=== PATIENT | female | born 1960 | race American Indian/Alaskan Native ===

== ENCOUNTER 2016-09-12 20:12 | Emergency (ER) | payer MEDICAID ==
[2016-09-12 20:13] VITALS: BMI 22.7
[2016-09-12] MEDS ORDERED: Sodium Chloride 0.9% 1,000 ML IV ONE ×2 (20:50→23:50)
--- NOTE | 2016-09-12 20:58 | C.PDOC ---
History Of Present Illness 55 year old female with a history of HIV, presents to the ED with complaints of nausea, vomiting mucous, loss of appetite, and weakness for the past few days. Patient states she has also felt dry, lightheaded, and shaky. She notes her HIV physician changed her medication to a different regimen, however she experience vaginal bleeding and the regime was stopped. She has not taken any medication for the past 4 months. Her last admission was a year ago and she has no other complaints at this time. Time Seen by Provider: 09/12/16 20:35 Chief Complaint (Nursing): Medical Clearance History Per: Patient History/Exam Limitations: no limitations Onset/Duration Of Symptoms: Days Current Symptoms Are (Timing): Still Present Severity: Mild Past Medical History Reviewed: Historical Data, Nursing Documentation, Vital Signs Vital Signs: Last Vital Signs Temp 99.5 F 09/12/16 20:33 Pulse 83 09/12/16 20:33 Resp 16 09/12/16 20:33 BP 142/93 H 09/12/16 20:33 Pulse Ox 97 09/12/16 21:01 - Medical History PMH: HIV, HTN, Pneumonia Family History: States: Unknown Family Hx - Social History Hx Tobacco Use: No Hx Alcohol Use: No Hx Substance Use: No - Immunization History Hx Tetanus Toxoid Vaccination: No Hx Influenza Vaccination: No Hx Pneumococcal Vaccination: No Review Of Systems Except As Marked, All Systems Reviewed And Found Negative. Constitutional: Positive for: Weakness, Other (+Loss of appetite +Dry). Negative for: Fever Cardiovascular: Positive for: Light Headedness. Negative for: Chest Pain Respiratory: Negative for: Cough, Shortness of Breath Gastrointestinal: Positive for: Nausea, Vomiting Neurological: Positive for: Other (+Shaky) Physical Exam - Physical Exam Appears: Non-toxic, No Acute Distress, Other (+Thin) Skin: Normal Color, Warm, Dry Head: Atraumatic, Normacephalic Eye(s): bilateral: Normal Inspection Oral Mucosa: Dry Neck: Supple Chest: Symmetrical, No Deformity Cardiovascular: Rhythm Regular, No Murmur Respiratory: Normal Breath Sounds, No Accessory Muscle Use, No Rales, No Rhonchi , No Wheezing Gastrointestinal/Abdominal: Soft, No Tenderness, No Distention, No Guarding, No Rebound Extremity: Normal ROM Neurological/Psych: Oriented x3, Normal Speech, Normal Cognition ED Course And Treatment - Laboratory Results Result Diagrams: 09/12/16 21:17 09/12/16 21:17 Lab Interpretation: Abnormal (Anemia with Hgb 7.3, Hct 21.9, Bun 25 Cr 1.3, urine nitrite+ with 43 WBC/HPF) O2 Sat by Pulse Oximetry: 97 (Room air) Pulse Ox Interpretation: Normal Progress Note: Blood work and Urinalysis ordered and reviewed. Patient treated with IV fluids and Rocephin. Vitals are stable. Reevaluation Time: 23:05 Reassessment Condition: Improved (Patient feels better after IV fluids.) Disposition - Disposition Referrals: at [facility] [Outside] Disposition: HOME/ ROUTINE Disposition Time: 23:05 Condition: IMPROVED Additional Instructions: Encourage plenty of fluids and rest. Follow up with urine culture results. Prescriptions: Nitrofurantoin Macrocrystals [Macrobid] 1 cap PO BID #14 cap Ondansetron ODT [Zofran ODT] 1 odt PO BID PRN #6 odt PRN Reason: Nausea/Vomiting Instructions: Urinary Tract Infection in Women (ED), Dehydration (ED) - Clinical Impression Clinical Impression: UTI (urinary tract infection), Dehydration - Scribe Statement The provider has reviewed the documentation as recorded by the Scribe Matthias Wallace. Provider Attestation: All medical record entries made by the Scribe were at my direction and personally dictated by me. I have reviewed the chart and agree that the record accurately reflects my personal performance of the history, physical exam, medical decision making, and the department course for this patient. I have also personally directed, reviewed, and agree with the discharge instructions and disposition.
[2016-09-12] MEDS ORDERED: Sodium Chloride 0.9% 1,000 ML ONE (21:21)
[2016-09-12 21:24] LABS: BASO % 0.5 % (0.0-2.0); EOS # 0.2 K/uL (0.0-0.7); EOS % 2.1 % (0.0-4.0); HEMATOCRIT 21.9 % (34.0-47.0); LYMPH # 2.1 K/uL (1.0-4.3); LYMPH % 21.3 % (20.0-40.0); MEAN CORPUSCULAR HEMOGLOBIN 29.6 pg (27.0-31.0); MEAN CORPUSCULAR HGB CONC 33.1 g/dL (33.0-37.0); MEAN PLATELET VOLUME 6.9 fL (7.2-11.7); MONO # 0.8 K/uL (0.0-0.8); MONO % 7.6 % (0.0-10.0); NRBC % 0.1 % (0.0-2.0); RED CELL DISTRIBUTION WIDTH 16.7 % (11.5-14.5); WHITE BLOOD COUNT 9.9 K/uL (4.8-10.8)
[2016-09-12 21:26] LABS: MEAN CELL VOLUME 89.4 fL (81.0-99.0)
[2016-09-12 21:30] LABS: POTASSIUM 3.7 mmol/L (3.6-5.2)
[2016-09-12 21:32] LABS: ALB/GLOB RATIO 0.6 (1.0-2.1); BILIRUBIN,TOTAL 0.3 mg/dL (0.2-1.3); TOTAL PROTEIN 7.9 g/dL (6.3-8.3)
[2016-09-12 21:33] LABS: CALCIUM 7.4 mg/dl (8.6-10.4)
[2016-09-12 21:54] LABS: RBC URINE 14 /hpf (0-3); URINE BACTERIA FEW (<OCC); URINE BILIRUBIN NEGATIVE (NEGATIVE); URINE BLOOD 1+ (NEGATIVE); URINE COLOR Yellow (YELLOW); URINE GLUCOSE (UA) NORMAL (Normal); URINE KETONE NEGATIVE (NEGATIVE); URINE LEUKOCYTE ESTERASE 1+ Leu/uL (Negative); URINE PROTEIN 2+ mg/dL (NEGATIVE); URINE UROBILINOGEN NORMAL mg/dL (0.2-1.0); WBC URINE 43 /hpf (0-5)
[2016-09-12] MEDS ORDERED: cefTRIAXone IV 1 gm in Dextros 50 ML IVPB ONE ×2 (21:57→22:06)
[2016-09-13 01:18] VITALS: BP 144/70; PULSE 87; RESP 20; TEMP 98.6; O2SAT 100
== END 2016-09-13 01:22 | disposition home or self-care (01) ==
LOC: C.ER 20:12
DX: N39.0 Urinary tract infection, site not specified (principal); E86.0 Dehydration
CPT/HCPCS: 80053; 81001; 85025; 87086; 96361; 96365; 99283; J0696; J7040

== ENCOUNTER 2016-10-20 15:18 | Inpatient (IN) | payer MEDICAID ==
[2016-10-20 15:34] VITALS: BMI 19.5
[2016-10-20 16:26] LABS: BASO % 0.3 % (0.0-2.0); EOS # 0.2 K/uL (0.0-0.7); EOS % 1.2 % (0.0-4.0); HEMATOCRIT 28.8 % (34.0-47.0); LYMPH # 2.1 K/uL (1.0-4.3); LYMPH % 14.1 % (20.0-40.0); MEAN CORPUSCULAR HEMOGLOBIN 30.8 pg (27.0-31.0); MEAN CORPUSCULAR HGB CONC 31.7 g/dL (33.0-37.0); MEAN PLATELET VOLUME 8.1 fL (7.2-11.7); MONO % 6.5 % (0.0-10.0); RED CELL DISTRIBUTION WIDTH 21.7 % (11.5-14.5)
[2016-10-20 16:30] LABS: MEAN CELL VOLUME 97.1 fL (81.0-99.0); WHITE BLOOD COUNT 15.2 K/uL (4.8-10.8)
[2016-10-20 16:35] LABS: POTASSIUM 5.9 mmol/L (3.6-5.2)
[2016-10-20 16:38] LABS: ALB/GLOB RATIO 0.5 (1.0-2.1); MAGNESIUM 1.8 mg/dL (1.6-2.3); TOTAL PROTEIN 9.1 g/dL (6.3-8.3)
--- NOTE | 2016-10-20 16:55 | RAD ---
HISTORY: HIV pos with cough/fever, right rales COMPARISON: Chest x-ray performed 08/25/15, CT chest performed 10/20/16 TECHNIQUE: Chest PA and lateral FINDINGS: LUNGS: Mild interstitial prominence may reflect infection or edema. Right perihilar opacity, likely infiltrate. Mild patchy opacity in the right upper lobe, likely infiltrate. Interval resolution of previously demonstrated right lower lobe and left lower lobe pneumonia. Please note that chest x-ray has limited sensitivity for the detection of pulmonary masses. PLEURA: No significant pleural effusion identified. No definite pneumothorax . CARDIOVASCULAR: Cardiomegaly. OSSEOUS STRUCTURES: No acute osseous abnormality identified. VISUALIZED UPPER ABDOMEN: Unremarkable. OTHER FINDINGS: None. IMPRESSION: Mild interstitial prominence may reflect infection or edema. Probable multifocal pneumonia with right perihilar and right upper lobe opacities. Interval resolution of previously demonstrated right lower lobe and left lower lobe pneumonia.
[2016-10-20] MEDS ORDERED: TRIMETHOPRIM IVPB STA (17:04)
[2016-10-20] MEDS ORDERED: WATER IVPB STA (17:04)
[2016-10-20] MEDS ORDERED: SULFAMETHOXAZOLE IVPB STA (17:04)
[2016-10-20] MEDS ORDERED: DEXTROSE 5% IVPB STA (17:04)
[2016-10-20] MEDS ORDERED: Moxifloxacin IV 400mg/250ml NS 250 ML IV ONE (17:04)
[2016-10-20] MEDS ORDERED: Piperacillin/Tazobact 3.375 gm 100 ML IV STA (17:12)
--- NOTE | 2016-10-20 17:16 | C.PDOC ---
History Of Present Illness 56 year old female presents to the ED with complaints of a productive cough, generalized weakness, fever, and chills for three days. Patient notes a history of HIV and sees a doctor in [facility]. The doctor took the patient off of HIV medications due to kidney problems. She also stated that her "CD4 count was low." Patient denies any vomiting, diarrhea, or other complaints at this time. Time Seen by Provider: 10/20/16 15:45 Chief Complaint (Nursing): Cough, Cold, Congestion History Per: Patient History/Exam Limitations: no limitations Onset/Duration Of Symptoms: Days Current Symptoms Are (Timing): Still Present Recent travel outside of the [place]: No Past Medical History Reviewed: Historical Data, Nursing Documentation, Vital Signs Vital Signs: Last Vital Signs Temp 103.1 F H 10/20/16 17:28 Pulse 116 H 10/20/16 17:28 Resp 24 10/20/16 17:28 BP 143/88 10/20/16 17:28 Pulse Ox 94 L 10/20/16 17:28 - Medical History PMH: HIV, HTN, Pneumonia Family History: States: Unknown Family Hx - Social History Hx Tobacco Use: No Hx Alcohol Use: No Hx Substance Use: No - Immunization History Hx Tetanus Toxoid Vaccination: Yes Hx Influenza Vaccination: Yes Hx Pneumococcal Vaccination: Yes Review Of Systems Constitutional: Positive for: Fever, Chills, Weakness. Negative for: Sweats Respiratory: Positive for: Cough (productive ) Gastrointestinal: Negative for: Nausea, Vomiting, Abdominal Pain, Diarrhea Physical Exam - Physical Exam Appears: Chronically Ill Skin: Warm, Dry Eye(s): bilateral: Normal Inspection Neck: Supple Respiratory: Rales (right side rales ), No Rhonchi, No Stridor, No Wheezing Gastrointestinal/Abdominal: Soft, No Tenderness, No Distention, No Guarding, No Rebound Extremity: Normal ROM, No Tenderness Neurological/Psych: Oriented x3 ED Course And Treatment - Laboratory Results Result Diagrams: 10/20/16 16:22 10/20/16 16:22 ECG Rhythm: Sinus Tachycardia, ST/T Changes (in lateral leads) Rate From EC O2 Sat by Pulse Oximetry: 95 - Radiology CXR: Viewed By Me, Read By Radiologist CXR Interpretation: Yes: Infiltrates (right lung) Progress Note: HISTORY: HIV pos with cough/fever, right rales. COMPARISON: Chest x-ray performed 08/25/15, CT chest performed 10/20/16. TECHNIQUE: Chest PA and lateral. FINDINGS: LUNGS: Mild interstitial prominence may reflect infection or edema. Right perihilar opacity, likely infiltrate. Mild patchy opacity in the right upper lobe, likely infiltrate. Interval resolution of previously demonstrated right lower lobe and left lower lobe pneumonia. Please note that chest x-ray has limited sensitivity for the detection of pulmonary masses. PLEURA: No significant pleural effusion identified. No definite pneumothorax . CARDIOVASCULAR: Cardiomegaly. OSSEOUS STRUCTURES: No acute osseous abnormality identified. VISUALIZED UPPER ABDOMEN: Unremarkable. OTHER FINDINGS: None. IMPRESSION: Mild interstitial prominence may reflect infection or edema. Probable multifocal pneumonia with right perihilar and right upper lobe opacities. Interval resolution of previously demonstrated right lower lobe and left lower lobe pneumonia. Zosyn IV and Bactrim IV ordered. - Physician Consult Information Physician Contacted: John Schneider Jr. Outcome Of Conversation: accepted to med/surg for admsiion Disposition - Disposition Disposition: HOSPITALIZED Disposition Time: 17:15 Condition: FAIR - Clinical Impression Clinical Impression: Pneumonia associated with acquired immune deficiency syndrome (AIDS), Hyperkalemia, Renal insufficiency - Scribe Statement The provider has reviewed the documentation as recorded by the Scribe Ramonita Segovia All medical record entries made by the Scribe were at my direction and personally dictated by me. I have reviewed the chart and agree that the record accurately reflects my personal performance of the history, physical exam, medical decision making, and the department course for this patient. I have also personally directed, reviewed, and agree with the discharge instructions and disposition. Decision To Admit - Pt Status Changed To: Hospital Disposition Of: Inpatient - Admit Certification Admit to Inpatient:: After my assessment, the patient will require hospitalization for at least two midnights. This is because of the severity of symptoms shown, intensity of services needed, and/or the medical risk in this patient being treated as an outpatient. - InPatient: Physician Admission Certification: I certify that this patient requires 2 or more midnights of care for the following reason:: Patient with AIDS and pneumonia will need more than 2 days of IV antibiotics. - . Bed Request Type: Regular Admitting Physician: John Schneider Jr. Patient Diagnosis: Pneumonia associated with acquired immune deficiency syndrome (AIDS)
[2016-10-20] MEDS ORDERED: Piperacillin/Tazobact 3.375 gm 100 ML IVPB ONE (17:24)
[2016-10-20] MEDS ORDERED: Sod Polystyrene Sulf 15 gm/60 ml Oral Susp PO STA (17:50)
[2016-10-20] MEDS ORDERED: SULFAMETHOXAZOLE IVPB ONE ×2 (18:00)
[2016-10-20] MEDS ORDERED: WATER IVPB ONE ×2 (18:00)
[2016-10-20] MEDS ORDERED: TRIMETHOPRIM IVPB ONE ×2 (18:00)
[2016-10-20] MEDS ORDERED: DEXTROSE 5% IVPB ONE ×2 (18:00)
[2016-10-20] MEDS ORDERED: Sod Polystyrene Sulf 15 gm/60 ml Oral Susp ONE (18:09)
[2016-10-20 18:16] LABS: RBC URINE 70 /hpf (0-3); URINE BACTERIA RARE (<OCC); URINE BILIRUBIN NEGATIVE (NEGATIVE); URINE BLOOD 3+ (NEGATIVE); URINE COLOR Yellow (YELLOW); URINE GLUCOSE (UA) NORMAL (Normal); URINE KETONE NEGATIVE (NEGATIVE); URINE LEUKOCYTE ESTERASE 2+ Leu/uL (Negative); URINE PROTEIN 3+ mg/dL (NEGATIVE); URINE UROBILINOGEN NORMAL mg/dL (0.2-1.0); WBC URINE 75 /hpf (0-5)
[2016-10-20] MEDS ORDERED: Sodium Bicarbonate (8.4%) 50 Meq Syringe IVP ONE (19:30)
[2016-10-20] MEDS ORDERED: VANCOMYCIN IVPB ONE (20:00)
[2016-10-20] MEDS ORDERED: SODIUM CHLORIDE 0.9% IVPB ONE (20:00)
--- NOTE | 2016-10-20 20:14 | CP.PCM.HP ---
History of Present Illness - History of Present Illness History of Present Illness: CC: "cough and weak" HPI: Patient is a 56 year old female with medical history significant for AIDS and hypertension who presents to the emergency room for weakness and cough x 1 week. Patient reports cough is productive of beige colored sputum and denies hemoptysis; however, sputum sample at bedside is blood -tinged. Patient states she has mild shortness of breath, exacerbated with walking up stairs. She admits to feeling hot flashes but denies chills. Patient notes she has night sweats but reports this is typical for her. Patient also reports significant weight loss of approximately 60 pounds but cannot specify time frame. Patient states she was diagnosed with HIV 35 years ago and contracted it from having intercourse with her . Her infectious disease doctor is Dr. Hitchcock in [place], [place]. Patient reports her last CD4 count was <100. She currently is not on HAART therapy due to vaginal clotting which occurred with new antiretroviral medication she was started on and kidney injury. Patient is supposed to follow-up with Dr. Hitchcock on 11/06/16. She notes previous pneumonia infection was approximately one year ago. Patient is non-compliant with taking Bactrim. Patient also complains of cramping to her bilateral hands which started earlier today. She denies chest pain, palpitations , abdominal pain, nausea, vomiting, diarrhea, and constipation. She does complain of increased urinary frequency. PMH: see above Medications: currently not taking medications Allergies: NKDA Family History: Mother - Lung CA and Brain CA, Sister - Colon CA recently diagnosed at age 53 Surgery History: Social: Smokes 1 ppd on and off since age 18. Drinks alcohol socially. Denies illicit drug use. Present on Admission - Present on Admission Any Indicators Present on Admission: No History of DVT/PE: No History of Uncontrolled Diabetes: No Urinary Catheter: No Decubitus Ulcer Present: No Review of Systems - Constitutional Constitutional: Excessive Sweating, Fever, Lethargy, Weight Loss, Weakness. absent: Chills, Headache - EENT Eyes: absent: Blurred Vision, Change in Vision Nose/Mouth/Throat: absent: Nasal Congestion, Nasal Discharge - Cardiovascular Cardiovascular: Dyspnea on Exertion. absent: Chest Pain, Chest Pain with Activity, Dyspnea, Leg Edema, Lightheadedness, Palpitations - Respiratory Respiratory: Cough, Dyspnea on Exertion, Change in Mucous Color. absent: Wheezing, Chest Congestion - Gastrointestinal Gastrointestinal: absent: Abdominal Pain, Diarrhea, Hematemesis, Nausea, Vomiting - Genitourinary Genitourinary: Urinary Frequency - Musculoskeletal Musculoskeletal: absent: Back Pain - Integumentary Integumentary: Dry Skin. absent: Changing Lesions, New Lesions - Neurological Neurological: Weakness. absent: Syncope, Tingling - Psychiatric Psychiatric: absent: Anxiety, Depression Past Patient History - Past Medical History & Family History Past Medical History?: Yes - Past Social History Smoking Status: Heavy Smoker > 10 Cigarettes Daily - CARDIAC Hx Cardiac Disorders: Yes Hx Hypertension: Yes - PULMONARY Hx Respiratory Disorders: Yes Hx Pneumonia: Yes - NEUROLOGICAL Hx Neurological Disorder: No - HEENT Hx HEENT Problems: No - RENAL Hx Chronic Kidney Disease: No - ENDOCRINE/METABOLIC Hx Endocrine Disorders: No - HEMATOLOGICAL/ONCOLOGICAL Hx Blood Disorders: Yes Hx Human Immunodeficiency Virus (HIV): Yes - INTEGUMENTARY Hx Dermatological Problems: No - MUSCULOSKELETAL/RHEUMATOLOGICAL Hx Musculoskeletal Disorders: No Hx Falls: No - GASTROINTESTINAL Hx Gastrointestinal Disorders: Yes Hx Hemorrhoids: Yes - GENITOURINARY/GYNECOLOGICAL Hx Genitourinary Disorders: No - PSYCHIATRIC Hx Psychophysiologic Disorder: No Hx Substance Use: No - SURGICAL HISTORY Hx Surgeries: Yes Hx Section: Yes - ANESTHESIA Hx Anesthesia: Yes Hx Anesthesia Reactions: No Hx Malignant Hyperthermia: No Meds Allergies/Adverse Reactions: Allergies Allergy/AdvReac Type Severity Reaction Status Date / Time No Known Allergies Allergy Verified 10/20/16 15:31 Physical Exam - Constitutional Appears: Non-toxic, No Acute Distress, Chronically Ill - Head Exam Head Exam: ATRAUMATIC, NORMAL INSPECTION, NORMOCEPHALIC - Eye Exam Eye Exam: EOMI, Normal appearance, PERRL - ENT Exam ENT Exam: Mucous Membranes Dry Additional comments: white film noted on tongue - Neck Exam Neck exam: Positive for: Full Rom, Normal Inspection - Respiratory Exam Respiratory Exam: Decreased Breath Sounds. absent: Wheezes Additional comments: decreased breath sound to posterior right lower lobe - Cardiovascular Exam Cardiovascular Exam: Tachycardia, +S1, +S2 - GI/Abdominal Exam GI & Abdominal Exam: Normal Bowel Sounds, Soft. absent: Distended, Firm - Extremities Exam Extremities exam: Positive for: pedal pulses present. Negative for: pedal edema , tenderness Additional comments: xerosis and ichythosis to bilateral lower extremities - Neurological Exam Neurological exam: Alert, CN II-XII Intact, Oriented x3 - Psychiatric Exam Psychiatric exam: Normal Affect, Normal Mood - Skin Skin Exam: Dry, Intact Results - Vital Signs Recent Vital Signs: Last Vital Signs Temp 100.1 F H 10/20/16 18:59 Pulse 86 10/20/16 19:29 Resp 18 10/20/16 19:29 BP 115/72 10/20/16 18:59 Pulse Ox 95 10/20/16 18:59 - Labs Result Diagrams: 10/20/16 16:22 10/20/16 16:22 Labs: Laboratory Results - last 24 hr 10/20/16 17:45 Urine Color Yellow Urine Clarity Hazy Urine pH 6.0 Ur Specific [place] 1.011 Urine Protein 3+ H Urine Glucose (UA) Normal Urine Ketones Negative Urine Blood 3+ H Urine Nitrate Negative Urine Bilirubin Negative Urine Urobilinogen Normal Ur Leukocyte Esterase 2+ H Urine WBC (Auto) 75 H Urine RBC (Auto) 70 H Ur Squamous Epith Cells 4 Urine Bacteria Rare Assessment & Plan - Assessment and Plan (Free Text) Assessment: Pneumonia Patient has history of AIDS (CD4 count stated to be <100) Community Acquired vs. PCP vs. Tuberculosis Will get Quantiferon GOLD, AFB Sputum Cx q3h x3, keep in isolation More likely Community Acquired Pneumonia as patient did not desaturate when ambulated Meets sepsis criteria - leukocytosis 15.2, febrile 103.1F, tachycardic 116. LDH elevated 1066. Blood pressure is stable 143/88. Given stat dose of Bactrim 280 mg IV and Zosyn IV once Azithromycin 1200 mg po once given for MAC prophylaxis Vancomycin 840 mg IVPB once given Started on Diflucan 200 mg IVPB daily Started on Rocephin 1 gm IVPB daily Infectious Disease, Dr. Gonzales, consulted. Help appreciated. CXR: Mild interstitial prominence which may reflect edema. Right perihilar opacity, likely infiltrate. Interval resolution of previously diagnosed right lower lobe and left lower lobe pneumonia. Cardiomegaly. AIDS f/u ID, Dr. Gonzales, for recs Antibiotics and prophylaxis as above f/u CD3/CD4/CD8 Started on Nystatin 5 ml po QID for thrush Hyperkalemia Potassium 5.9 Kayexalate given 1 amp of Sodium Bicarbonate given Normal Saline with 1 amp of Sodium Bicarbonate IV @ 150cc Recheck Potassium Metabolic Anion Gap of 12 Monitor [place]OVER BUN/CR: 35/1.8 Creatinine Clearance of 32 Metabolic Anion Gap of 12 Will calculate Urine Anion Gap likely secondary to both renal failure possibly secondary to antiretroviral agents and/or Renal Tubular Acidosis Type IV Anemia likely anemia of chronic disease Hemoglobin 9.1, hematocrit 28.8, MCV 97.1 B12 deficiency previously f/u B12 and folate level Monitor Prophylaxis Heparin 5000 U SC Q8h Protonix 40 mg IVP daily SCDs - Date & Time Date: 10/20/16 Time: 20:42
[2016-10-20] MEDS: Nystatin 100,000 Units/ml Oral Susp 5 ml UD PO SCH (22:21)
[2016-10-20] MEDS: Tmp-Smz 800 mg-160 mg DS Tab PO SCH (22:27)
[2016-10-20] MEDS: DiphenhydrAMINE 50 mg/ml Inj IVP PRN (22:35)
[2016-10-21 06:25] LABS: VENOUS BLOOD GAS BASE EXCESS -8.1 mmol/L (0.0-2.0); VENOUS BLOOD GAS PCO2 27 mmHg (40-60); VENOUS BLOOD PH 7.37 (7.32-7.43)
[2016-10-21 08:08] LABS: BASO % 0.1 % (0.0-2.0); EOS # 0.1 K/uL (0.0-0.7); EOS % 0.9 % (0.0-4.0); HEMATOCRIT 23.7 % (34.0-47.0); LYMPH # 0.6 K/uL (1.0-4.3); LYMPH % 3.8 % (20.0-40.0); MEAN CELL VOLUME 97.4 fL (81.0-99.0); MEAN CORPUSCULAR HEMOGLOBIN 30.9 pg (27.0-31.0); MEAN CORPUSCULAR HGB CONC 31.8 g/dL (33.0-37.0); MEAN PLATELET VOLUME 8.1 fL (7.2-11.7); MONO # 0.4 K/uL (0.0-0.8); NRBC % 0.1 % (0.0-2.0); PLATELET COUNT 156 K/uL (130-400); RED CELL DISTRIBUTION WIDTH 20.7 % (11.5-14.5); WHITE BLOOD COUNT 14.8 K/uL (4.8-10.8)
[2016-10-21 08:14] LABS: POTASSIUM 4.1 mmol/L (3.6-5.2)
[2016-10-21 08:20] LABS: POTASSIUM 4.2 mmol/L (3.6-5.2)
[2016-10-21 08:22] LABS: ALB/GLOB RATIO 0.6 (1.0-2.1); BILIRUBIN,TOTAL 0.6 mg/dL (0.2-1.3); CALCIUM 7.1 mg/dl (8.6-10.4); MAGNESIUM 1.6 mg/dL (1.6-2.3); TOTAL PROTEIN 7.2 g/dL (6.3-8.3)
--- NOTE | 2016-10-21 08:32 | CP.PCM.PN ---
<Viviana Lopez - Last Filed: 10/21/16 14:51> Subjective - Date & Time of Evaluation Date of Evaluation: 10/21/16 Time of Evaluation: 08:27 - Subjective Subjective: Patient seen and examined at bedside. Patient states she feels her breathing is improved. She denies palpitations or rapid heart rate. Patient reports she has tightness to her chest from constant coughing. She also reports multiple episodes of diarrhea since last night. Patient denies nausea, vomiting, and abdominal pain. Objective - Vital Signs/Intake and Output Vital Signs (last 24 hours): Temp Pulse Resp BP Pulse Ox 100.0 F H 119 H 20 96/52 L 95 10/21/16 08:02 10/21/16 08:02 10/21/16 08:02 10/21/16 08:02 10/21/16 08:02 Intake and Output: 10/21/16 10/21/16 06:59 18:59 Intake Total 1200 Balance 1200 - Medications Medications: Current Medications Acetaminophen (Tylenol 325mg Tab) 650 mg PO Q6 PRN PRN Reason: Fever >100.4 F Diphenhydramine HCl (Benadryl) 50 mg IVP Q6H PRN PRN Reason: Itching / Pruritus Last Admin: 10/20/16 22:35 Dose: 50 mg Heparin Sodium (Porcine) (Heparin) 5,000 units SC Q8 [facility] Last Admin: 10/21/16 05:27 Dose: 5,000 units Hydrocortisone Sodium Succinate (Solu-Cortef) 50 mg IV Q8H [facility] Fluconazole (Diflucan Iv 200 Mg/100 Ml Ns) 100 mls @ 100 mls/hr IVPB DAILY [facility] Ceftriaxone Sodium (Rocephin Iv 1 Gm Duplex) 50 mls @ 100 mls/hr IVPB DAILY [facility] Sodium Bicarbonate 50 meq/ (Sodium Chloride) 1,050 mls @ 200 mls/hr IV .Q5H15M [facility] Nicotine (Nicoderm Cq) 1 patch TD DAILY [facility] Nystatin (Nystatin Oral Susp) 5 ml PO QID [facility] Last Admin: 10/20/16 22:21 Dose: 5 ml Pantoprazole Sodium (Protonix Inj) 40 mg IVP DAILY [facility] Trimethoprim/Sulfamethoxazole (Bactrim Ds Tab) 1 tab PO Q12H [facility] Last Admin: 10/20/16 22:27 Dose: 1 tab - Labs Labs: 10/21/16 07:58 10/21/16 07:58 PT 11.5 SECONDS (9.7-12.2) 10/21/16 07:58 INR 1.0 10/21/16 07:58 APTT 37 SECONDS (21-34) H 10/21/16 07:58 - Constitutional Appears: Non-toxic, No Acute Distress, Chronically Ill - Head Exam Head Exam: ATRAUMATIC, NORMAL INSPECTION, NORMOCEPHALIC - Eye Exam Eye Exam: EOMI, Normal appearance - ENT Exam ENT Exam: Mucous Membranes Moist - Respiratory Exam Respiratory Exam: Wheezes Additional comments: expiratory wheezing, decreased breath sounds to right posterior lower lobe on auscultation - Cardiovascular Exam Cardiovascular Exam: Tachycardia, +S1, +S2. absent: Gallop - GI/Abdominal Exam GI & Abdominal Exam: Soft, Normal Bowel Sounds. absent: Firm, Rigid, Tenderness - Extremities Exam Extremities Exam: absent: Tenderness Additional comments: xerosis to bilateral lower extremities - Neurological Exam Neurological Exam: Alert, Awake, Oriented x3 - Psychiatric Exam Psychiatric exam: Normal Affect, Normal Mood - Skin Skin Exam: Dry Assessment and Plan - Assessment and Plan (Free Text) Assessment: Pneumonia Patient has history of AIDS (CD4 count stated to be <100) Community Acquired vs. PCP vs. Tuberculosis vs. Histoplasmosis vs. Mycobacterium Avium Intracellulare f/u Quantiferon GOLD, AFB Sputum Cx q3h x3, keep in isolation More likely Community Acquired Pneumonia as patient did not desaturate when ambulated Meets sepsis criteria - leukocytosis 14.8, bandemia of 20, febrile 100.0F, tachycardic 119. LDH elevated 1066. Blood pressure dropping to 96/52. Given stat dose of Bactrim 280 mg IV and Zosyn IV once Azithromycin 1200 mg po once given for TANA prophylaxis Vancomycin 840 mg IVPB once given Continue on Diflucan 200 mg IVPB daily Continue on Rocephin 1 gm IVPB daily Start Azithromycin 500 mg IVPB in 48hrs from stat oral dose given Infectious Disease, Dr. Gonzales, consulted. Help appreciated. CXR: Mild interstitial prominence which may reflect edema. Right perihilar opacity, likely infiltrate. Interval resolution of previously diagnosed right lower lobe and left lower lobe pneumonia. Cardiomegaly. f/u stat CT chest without contrast AIDS f/u ID, Dr. Gonzales, for recs Antibiotics and prophylaxis as above f/u CD3/CD4/CD8 Started on Nystatin 5 ml po QID for thrush Elevated d-dimer d-dimer 589 possible DVT vs. Malignancy f/u bilateral duplex scan of LE Started on therapeutic lovenox renally adjusted - Lovenox 60 mg HS daily Hyperkalemia Responded to sodium bicarbonate. Potassium 4.2 Kayexalate given 1 amp of Sodium Bicarbonate given Normal Saline with 1 amp of Sodium Bicarbonate IV @ 150cc Recheck Potassium Corrected Metabolic Anion Gap of 14.5 Monitor Adrenal Insufficiency Hyperkalemia responsive to sodium bicarbonate Patient becoming hypotensive, pressure of 96/52 Start Hydrocortisone 50 mg IVPB q8h [place] worsening BUN/CR: 36/2.5 Creatinine Clearance of 23 VBG: pH 7.37, pCO2 27 Metabolic Anion Gap of 12 Will calculate Urine Anion Gap likely secondary to both renal failure possibly secondary to antiretroviral agents and/or Renal Tubular Acidosis Type IV Anemia likely anemia of chronic disease Hemoglobin 9.1, hematocrit 28.8, MCV 97.1 B12 deficiency previously B12 481 folate 10.2 Monitor Prophylaxis Therapeutic Lovenox 60 mg SC daily Protonix 40 mg IVP daily [facility]CD[facility] <John Schneider Jr. - Last Filed: 10/28/16 11:16> Objective - Vital Signs/Intake and Output Vital Signs (last 24 hours): Temp Pulse Resp BP Pulse Ox 97.3 F L 110 H 18 135/94 H 94 L 10/28/16 07:30 10/28/16 07:30 10/28/16 07:30 10/28/16 07:30 10/28/16 07:30 - Medications Medications: Current Medications Abacavir Sulfate (Ziagen) 300 mg PO BID [facility] Last Admin: 10/28/16 09:55 Dose: 300 mg Abacavir/Lamivudine (Epzicom) 1 tab PO DAILY [facility] Last Admin: 10/28/16 09:55 Dose: 1 tab Acetaminophen (Tylenol 325mg Tab) 650 mg PO Q6 PRN PRN Reason: Fever >100.4 F Last Admin: 10/24/16 07:44 Dose: 650 mg Albuterol/Ipratropium (Duoneb 3 Mg/0.5 Mg (3 Ml) Ud) 3 ml INH RQ6 [facility] Last Admin: 10/28/16 07:35 Dose: 3 ml Azithromycin (Zithromax) 1,200 mg PO QWK [facility] Calcium Acetate (Phoslo) 667 mg PO TIDCC [facility] Last Admin: 10/28/16 09:59 Dose: Not Given Darunavir (Prezista) 800 mg PO DAILY [facility] Last Admin: 10/28/16 09:55 Dose: 800 mg Docusate Sodium (Colace) 100 mg PO TID [facility] Last Admin: 10/28/16 09:53 Dose: 100 mg Guaifenesin/Dextromethorphan (Robitussin Dm) 5 ml PO Q4H PRN PRN Reason: Cough Last Admin: 10/25/16 21:47 Dose: 5 ml Fluconazole (Diflucan Iv 200 Mg/100 Ml Ns) 100 mls @ 100 mls/hr IVPB DAILY [facility] Last Admin: 10/28/16 09:52 Dose: 100 mls/hr Cefepime HCl (Maxipime Iv 1 Gm Premix) 1 gm in 50 mls @ 100 mls/hr IVPB Q12H [facility] Last Admin: 10/28/16 05:21 Dose: 100 mls/hr Clindamycin Phosphate (Cleocin) 600 mg in 50 mls @ 100 mls/hr IVPB Q8H [facility] Last Admin: 10/28/16 07:43 Dose: 100 mls/hr Multi-Ingredient Ointment (Prep-Hem) 0 ea TOP TID [facility] Last Admin: 10/28/16 09:57 Dose: Not Given Nicotine (Nicoderm Cq) 1 patch TD DAILY [facility] Last Admin: 10/28/16 09:55 Dose: 1 patch Nystatin (Nystatin Oral Susp) 5 ml PO QID [facility] Last Admin: 10/28/16 09:56 Dose: 5 ml Pantoprazole Sodium (Protonix Ec Tab) 40 mg PO DAILY [facility] Last Admin: 10/28/16 09:58 Dose: 40 mg Ritonavir (Norvir) 100 mg PO BIDBS [facility] Last Admin: 10/28/16 07:43 Dose: 100 mg - Labs Labs: 10/27/16 06:36 10/27/16 06:36 PT 11.5 SECONDS (9.7-12.2) 10/21/16 07:58 INR 1.0 10/21/16 07:58 APTT 37 SECONDS (21-34) H 10/21/16 07:58 Attending/Attestation - Attestation I have personally seen and examined this patient.: Yes I have fully participated in the care of the patient.: Yes I have reviewed all pertinent clinical information, including history, physical exam and plan: Yes Notes (Text): 10/28/16 11:16 Agree with resident note and findings
[2016-10-21] MEDS: Tmp-Smz 800 mg-160 mg DS Tab PO SCH (09:19)
[2016-10-21] MEDS: Nystatin 100,000 Units/ml Oral Susp 5 ml UD PO SCH ×4 (09:20→22:13)
[2016-10-21] MEDS: Fluconazole IV 200mg/100 ml NS 100 ML IVPB SCH (09:20)
[2016-10-21 09:25] LABS: FOLATE 10.2 ng/mL
[2016-10-21 09:52] LABS: TOTAL CELLS COUNTED 100
[2016-10-21 09:53] LABS: NEUTROPHIL 74 % (50-75)
[2016-10-21] MEDS ORDERED: Tmp-Smz 800 mg-160 mg DS Tab PO SCH (10:00)
[2016-10-21] MEDS ORDERED: cefTRIAXone IV 1 gm in Dextros 50 ML IVPB SCH (10:00)
[2016-10-21] MEDS ORDERED: Azithromycin 500 MG in Sodium Chloride 0.9% 250 ML IVPB SCH (10:00)
[2016-10-21] MEDS: Promethazine DM 6.25 mg-15 mg/5 ml Syrup PO PRN ×2 (14:25→20:43)
--- NOTE | 2016-10-21 15:45 | CT ---
CT chest without IV contrast Indication: Pneumonia Technique: Contiguous axial images were obtained through the chest without intravenous contrast enhancement. Sagittal and coronal reconstructions were generated and reviewed. This CT exam was performed using 1 or more of the falling dose reduction techniques: Automated exposure control, adjustment of the MAA and/or kV according to patient size, and/or use of iterative reconstruction technique. Radiation dose (DLP): 464.16 MGy-cm. Comparison: Chest x-ray performed 10/20/16, chest CT without contrast performed 08/27/15 Findings: Visualized portions of the inferior thyroid gland appear heterogeneous. The unenhanced mediastinal and hilar vascular structures appear grossly unremarkable. Cardiomegaly. Prevascular, mediastinal, and hilar adenopathy. Please note that assessment of adenopathy is markedly limited due to lack of IV contrast. Bilateral patchy airspace opacities greatest at the right lung base worrisome for multifocal pneumonia. No pleural effusion. No pneumothorax. Limited visualization of the noncontrast upper abdomen demonstrates right upper quadrant surgical clips. Upper abdominal mesenteric lymph nodes. 11 mm probable splenule. No acute osseous abnormality is detected. Impression: Again seen are patchy bilateral pulmonary airspace opacities greatest at the right lung base worrisome for multifocal pneumonia. Recommend clinical correlation and short-term follow-up to assess for complete resolution. Underlying malignancy cannot be excluded. Prevascular, mediastinal, and hilar adenopathy. Prominent mesenteric lymph nodes noted within the included noncontrast upper abdomen. Cardiomegaly.
--- NOTE | 2016-10-21 16:37 | CP.PCM.CON ---
History of Present Illness - History of Present Illness History of Present Illness: 56 year old AA female with medical history significant for AIDS and hypertension presented to the emergency room for weakness and cough x 1 week. Patient reports cough is productive of beige colored sputum and denies hemoptysis Patient also reports significant weight loss of approximately 60 pounds but cannot specify time frame. Patient states she was diagnosed with HIV 35 years ago heterosevually from Her infectious disease doctor is Dr. Hitchcock in [place], [place]. Patient reports her last CD4 count was <100. She currently is not on HAART therapy due to vaginal clotting which occurred with new antiretroviral medication she was started on and kidney injury. NON COMPLIANT WITH BACTRIM PMH: HIV/AIDS PNEUMONIA Medications: currently not taking medications Allergies: NKDA Family History: Mother - Lung CA and Brain CA, Sister - Colon CA recently diagnosed at age 53 Surgery History: Social: Smokes 1 ppd on and off since age 18. Drinks alcohol socially. Denies illicit drug use. Review of Systems - Constitutional Constitutional: As Per HPI, Anorexia, Chills, Fever, Malaise, Weight Loss, Weakness - EENT Eyes: absent: As Per HPI, Blind Spots, Blurred Vision, Change in Vision, Decreased Night Vision, Diplopia, Discharge, Dry Eye, Exophthalmos, Floaters, Irritation, Itchy Eyes, Loss of Peripheral Vision, Pain, Photophobia, Requires Corrective Lenses, Sees Flashes, Spots in Vision, Tunnel Vision, Other Visual Disturbances, Loss of Vision, Other Ears: absent: As Per HPI, Decreased Hearing, Ear Discharge, Ear Pain, Tinnitus, Abnormal Hearing, Disequilibrium, Dizziness, Other Nose/Mouth/Throat: absent: As Per HPI, Epistaxis, Nasal Congestion, Nasal Discharge, Nasal Obstruction, Nasal Trauma, Nose Pain, Post Nasal Drip, Sinus Pain, Sinus Pressure, Bleeding Gums, Change in Voice, Dental Pain, Dry Mouth, Dysphagia, Halitosis, Hoarsness, Lip Swelling, Mouth Lesions, Mouth Pain, Odynophagia, Sore Throat, Throat Swelling, Tongue Swelling, Facial Pain, Neck Pain, Neck Mass, Other - Cardiovascular Cardiovascular: As Per HPI - Respiratory Respiratory: As Per HPI, Cough, Dyspnea, Hemoptysis - Gastrointestinal Gastrointestinal: absent: As Per HPI, Abdominal Pain, Belching, Bloating, Change in Bowel Habits, Change in Stool Character, Coffee Ground Emesis, Constipation, Cramping, Diarrhea, Dyspepsia, Dysphagia, Early Satiety, Excessive Flatus, Fecal Incontinence, Heartburn, Hematemesis, Hematochezia, Loose Stools, Melena, Nausea, Odynophagia, Temesmus, Vomiting, Other - Genitourinary Genitourinary: absent: As Per HPI, Change in Urinary Stream, Difficulty Urinating, Dysuria, Flank Pain, Hematuria, Pyuria, Nocturia, Urinary Incontinence, Urinary Frequency, Urinary Hesitance, Urinary Urgency, Voiding Freq/Small Amts, Freq UTI, Hx Renal/Bladder Calculi, Hx /Renal Surgery, Bladder Distension, Other - Reproductive: Female Reproductive:Female: absent: As Per HPI, Amenorrhea, Amenorrhea/ Control, Currently Menstual, Cycle <21 Days, Cycle >35 Days, Cycle Variable, Menses 1-7 Days, Menses >/= 8 Days, Menses Variable, Cycle > 4 Weeks Between, No Menses for 6 Months, Heavy Menses, Light Menses, Normal Menses, Spotting Between Cycles , S/P Hysterectomy, Menopausal, Post Menopausal, Premenarche, Abnormal Vaginal Bleeding, Dysmenorrhea, Dyspareunia, Genital Lesions, Genital Pruritis, Pelvic Pain, Prolapse Symptoms, Sexual Dysfunction, Vaginal Discharge, Vaginal Dryness , Vaginal Odor, Vaginal Pruritis, Other - Menstruation Menstruation: absent: As Per HPI, Amenorrhea, Amenorrhea/ Control, Currently Menstual, Cycle <21 Days, Cycle >35 Days, Cycle Variable, Menses 1-7 Days, Menses >/= 8 Days, Menses Variable, Cycle > 4 Weeks Between, No Menses for 6 Months, Heavy Menses, Light Menses, Normal Menses, Spotting Between Cycles , S/P Hysterectomy, Menopausal, Post Menopausal, Premenarche, Abnormal Vaginal Bleeding, Dysmenorrhea, Other - Musculoskeletal Musculoskeletal: absent: As Per HPI, Abnormal Gait, Arthralgias, Atrophy, Back Pain, Deformity, Joint Swelling, Limited Range of Motion, Loss of Height, Muscle Cramps, Muscle Weakness, Myalgias, Neck Pain, Numbness, Radiating Pain into Limb, Stiffness, Tingling, Other - Integumentary Integumentary: absent: As Per HPI, Acne, Alopecia, Bleeding Lesions, Change in Hair, Change in Nails, Change in Pigmentation, Changing Lesions, Dry Skin, Erythema, Furuncle, Hirsutism, Lesions, New Lesions, Non-Healing Lesions, Photosensitivity, Pruritus, Rash, Skin Pain, Skin Ulcer, Sores, Striae, Swelling , Unusual Bruising, Wounds, Jaundice, Other - Neurological Neurological: absent: As Per HPI, Abnormal Gait, Abnormal Hearing, Abnormal Movements, Abnormal Speech, Behavioral Changes, Burning Sensations, Confusion, Convulsions, Disequilibrium, Dizziness, Numbness, Focal Weakness, Frequent Falls , Headaches, Lack of Coordination, Loss of Vision, Memory Loss, Paresthesias, Radicular Pain, Restless Legs, Sensory Deficit, Syncope, Tingling, Tremor, Vertigo, Weakness, Other Visual Disturbances, Other - Psychiatric Psychiatric: absent: As Per HPI, Abnormal Sleep Pattern, Anhedonia, Anxiety, Auditory Hallucinations, Behavioral Changes, Change in Appetite, Change in Libido, Confusion, Depression, Difficulty Concentrating, Hallucinations, Homicidal Ideation, Hopelessness, Irritability, Memory Loss, Mood Swings, Panic Attacks, Paranoia, Suicidal Ideation, Visual Hallucinations, Tactile Hallucinations, Other - Endocrine Endocrine: absent: As Per HPI, Change in Body Appearance, Change in Libido, Cold Intolorance, Deepening of Voice, Excessive Sweating, Fatigue, Flushing, Heat Intolorance, Increase in Ring/Shoe/Hat Size, Palpitations, Polydipsia, Polyphagia, Polyuria, Other - Hematologic/Lymphatic Hematologic: As Per HPI Past Patient History - Past Medical History & Family History Past Medical History?: Yes - Past Social History Smoking Status: Heavy Smoker > 10 Cigarettes Daily - CARDIAC Hx Cardiac Disorders: Yes Hx Hypertension: Yes - PULMONARY Hx Respiratory Disorders: Yes Hx Pneumonia: Yes - NEUROLOGICAL Hx Neurological Disorder: No - HEENT Hx HEENT Problems: No - RENAL Hx Chronic Kidney Disease: No - ENDOCRINE/METABOLIC Hx Endocrine Disorders: No - HEMATOLOGICAL/ONCOLOGICAL Hx Blood Disorders: Yes Hx Human Immunodeficiency Virus (HIV): Yes - INTEGUMENTARY Hx Dermatological Problems: No - MUSCULOSKELETAL/RHEUMATOLOGICAL Hx Musculoskeletal Disorders: No Hx Falls: No - GASTROINTESTINAL Hx Gastrointestinal Disorders: Yes Hx Hemorrhoids: Yes - GENITOURINARY/GYNECOLOGICAL Hx Genitourinary Disorders: No - PSYCHIATRIC Hx Psychophysiologic Disorder: No Hx Substance Use: No - SURGICAL HISTORY Hx Surgeries: Yes Hx Section: Yes - ANESTHESIA Hx Anesthesia: Yes Hx Anesthesia Reactions: No Hx Malignant Hyperthermia: No Meds Allergies/Adverse Reactions: Allergies Allergy/AdvReac Type Severity Reaction Status Date / Time No Known Allergies Allergy Verified 10/20/16 15:31 - Medications Medications: Current Medications Acetaminophen (Tylenol 325mg Tab) 650 mg PO Q6 PRN PRN Reason: Fever >100.4 F Diphenhydramine HCl (Benadryl) 50 mg IVP Q6H PRN PRN Reason: Itching / Pruritus Last Admin: 10/20/16 22:35 Dose: 50 mg Hydrocortisone Sodium Succinate (Solu-Cortef) 50 mg IV Q8H [facility] Last Admin: 10/21/16 09:19 Dose: 50 mg Fluconazole (Diflucan Iv 200 Mg/100 Ml Ns) 100 mls @ 100 mls/hr IVPB DAILY [facility] Last Admin: 10/21/16 09:20 Dose: 100 mls/hr Ceftriaxone Sodium (Rocephin Iv 1 Gm Duplex) 50 mls @ 100 mls/hr IVPB DAILY [facility] Last Admin: 10/21/16 11:45 Dose: 100 mls/hr Sodium Bicarbonate 50 meq/ (Sodium Chloride) 1,050 mls @ 200 mls/hr IV .Q5H15M [facility] Last Admin: 10/21/16 13:49 Dose: 200 mls/hr Nicotine (Nicoderm Cq) 1 patch TD DAILY [facility] Last Admin: 10/21/16 09:19 Dose: 1 patch Nystatin (Nystatin Oral Susp) 5 ml PO QID [facility] Last Admin: 10/21/16 13:49 Dose: 5 ml Pantoprazole Sodium (Protonix Inj) 40 mg IVP DAILY [facility] Last Admin: 10/21/16 09:22 Dose: 40 mg Promethazine HCl/Dextromethorphan (Phenergan Dm Syrup) 5 ml PO Q6H PRN PRN Reason: Cough Last Admin: 10/21/16 14:25 Dose: 5 ml Trimethoprim/Sulfamethoxazole (Bactrim Ds Tab) 1 tab PO Q12H [facility] Last Admin: 10/21/16 09:19 Dose: 1 tab Physical Exam - Constitutional Appears: Toxic, No Acute Distress, Cachectic, Chronically Ill - Head Exam Head Exam: ATRAUMATIC, NORMAL INSPECTION, NORMOCEPHALIC - Eye Exam Eye Exam: PERRL. absent: Scleral icterus - ENT Exam ENT Exam: Mucous Membranes Dry, Normal External Ear Exam, Normal Oropharynx - Neck Exam Neck exam: Negative for: Lymphadenopathy, Thyromegaly - Respiratory Exam Respiratory Exam: Decreased Breath Sounds, Rhonchi - Cardiovascular Exam Cardiovascular Exam: Tachycardia, REGULAR RHYTHM, +S1, +S2. absent: Systolic Murmur - GI/Abdominal Exam GI & Abdominal Exam: Diminished Bowel Sounds, Soft. absent: Tenderness - Rectal Exam Rectal Exam: Deferred - Exam Exam: NORMAL INSPECTION - Extremities Exam Extremities exam: Positive for: pedal pulses present. Negative for: calf tenderness, normal inspection, pedal edema, tenderness - Back Exam Back exam: absent: CVA tenderness (L), CVA tenderness (R), paraspinal tenderness - Neurological Exam Neurological exam: Alert, CN II-XII Intact, Oriented x3, Reflexes Normal - Psychiatric Exam Psychiatric exam: Depressed - Skin Skin Exam: Dry, Intact Results - Vital Signs Recent Vital Signs: Last Vital Signs Temp 98.6 F 10/21/16 15:09 Pulse 121 H 10/21/16 15:09 Resp 20 10/21/16 15:09 BP 144/75 10/21/16 15:09 Pulse Ox 96 10/21/16 15:09 - Labs Result Diagrams: 10/21/16 07:58 10/21/16 07:58 Labs: Laboratory Results - last 24 hr 10/20/16 10/21/16 10/21/16 17:45 06:22 07:58 WBC RBC Hgb Hct MCV MCH MCHC RDW Plt Count MPV Neut % (Auto) Lymph % (Auto) Tyler % (Auto) Eos % (Auto) Baso % (Auto) Neut # Lymph # Tyler # Eos # Baso # Neutrophils % (Manual) Band Neutrophils % Lymphocytes % (Manual) Monocytes % (Manual) Platelet Estimate Hypochromasia (manual) Poikilocytosis (manual Anisocytosis (manual) Microcytosis (manual) Macrocytosis (manual) Ovalocytes PT 11.5 INR 1.0 APTT 37 H D-Dimer, Quantitative pO2 49 VBG pH 7.37 VBG pCO2 27 L VBG HCO3 18.2 VBG Total CO2 16.4 L VBG O2 Sat (Calc) 87.8 H VBG Base Excess -8.1 L VBG Potassium 3.4 L Sodium 147.0 Chloride 126.0 H Glucose 82 Lactate 0.6 L FiO2 21.0 Potassium Carbon Dioxide Anion Gap BUN Creatinine Est GFR ( Amer) Est GFR (Non-Af Amer) Random Glucose Calcium Magnesium Total Bilirubin AST ALT Alkaline Phosphatase Total Protein Albumin Globulin Albumin/Globulin Ratio Venous Blood Potassium 3.4 L Urine Color Yellow Urine Clarity Hazy Urine pH 6.0 Ur Specific [place] 1.011 Urine Protein 3+ H Urine Glucose (UA) Normal Urine Ketones Negative Urine Blood 3+ H Urine Nitrate Negative Urine Bilirubin Negative Urine Urobilinogen Normal Ur Leukocyte Esterase 2+ H Urine WBC (Auto) 75 H Urine RBC (Auto) 70 H Ur Squamous Epith Cells 4 Urine Bacteria Rare 10/21/16 10/21/16 10/21/16 07:58 07:58 08:10 WBC 14.8 H RBC 2.44 L Hgb 7.5 L Hct 23.7 L MCV 97.4 MCH 30.9 MCHC 31.8 L RDW 20.7 H Plt Count 156 MPV 8.1 Neut % (Auto) 92.2 H Lymph % (Auto) 3.8 L Tyler % (Auto) 3.0 Eos % (Auto) 0.9 Baso % (Auto) 0.1 Neut # 13.7 H Lymph # 0.6 L Tyler # 0.4 Eos # 0.1 Baso # 0.0 Neutrophils % (Manual) 74 Band Neutrophils % 20 H* Lymphocytes % (Manual) 3 L Monocytes % (Manual) 3 Platelet Estimate Normal Hypochromasia (manual) Slight Poikilocytosis (manual Slight Anisocytosis (manual) Moderate Microcytosis (manual) Slight Macrocytosis (manual) Slight Ovalocytes Slight PT INR APTT D-Dimer, Quantitative 589 H pO2 VBG pH VBG pCO2 VBG HCO3 VBG Total CO2 VBG O2 Sat (Calc) VBG Base Excess VBG Potassium Sodium 146 Chloride 117 H Glucose Lactate FiO2 Potassium 4.2 Carbon Dioxide 18 L Anion Gap 15 BUN 36 H Creatinine 2.5 H Est GFR ( Amer) 24 Est GFR (Non-Af Amer) 20 Random Glucose 98 Calcium 7.1 L Magnesium 1.6 Total Bilirubin 0.6 AST 30 ALT 9 D Alkaline Phosphatase 76 Total Protein 7.2 Albumin 2.6 L Globulin 4.6 H Albumin/Globulin Ratio 0.6 L Venous Blood Potassium Urine Color Urine Clarity Urine pH Ur Specific [place] Urine Protein Urine Glucose (UA) Urine Ketones Urine Blood Urine Nitrate Urine Bilirubin Urine Urobilinogen Ur Leukocyte Esterase Urine WBC (Auto) Urine RBC (Auto) Ur Squamous Epith Cells Urine Bacteria Assessment & Plan (1) Hyperkalemia Status: Acute (2) Pneumonia associated with acquired immune deficiency syndrome (AIDS) Status: Acute (3) Renal insufficiency Status: Acute (4) AIDS Status: Acute (5) Anemia Status: Acute (6) Dehydration Status: Acute - Assessment and Plan (Free Text) Assessment: R/O OPPORTUNISTIC INFECTION R/O SEPSIS R/O TB CONT IV ANTIBIOTICS, IV FLUIDS CONSIDER TELE MONITORING RESUME HAART RX WHEN STABLE RESTART BACTRIM DS BID AWAIT CULTURES POOR PROGNOSIS
[2016-10-21 16:52] LABS: VENOUS BLOOD GAS PCO2 34 mmHg (40-60); VENOUS BLOOD PH 7.35 (7.32-7.43)
--- NOTE | 2016-10-21 17:19 | CP.PCM.CON ---
History of Present Illness - History of Present Illness History of Present Illness: 56yo F. PMHx AIDS, pneumonia, HTN. p/w cough and weakness x 1 week. Not on HAART due to vaginal clotting and kidney injury. Transferred to ICU for sepsis with worsening symptoms. Review of Systems - Review of Systems All systems: reviewed and no additional remarkable complaints except - Respiratory Respiratory: Cough Past Patient History - Past Medical History & Family History Past Medical History?: Yes - Past Social History Smoking Status: Heavy Smoker > 10 Cigarettes Daily - CARDIAC Hx Cardiac Disorders: Yes Hx Hypertension: Yes - PULMONARY Hx Respiratory Disorders: Yes Hx Pneumonia: Yes - NEUROLOGICAL Hx Neurological Disorder: No - HEENT Hx HEENT Problems: No - RENAL Hx Chronic Kidney Disease: No - ENDOCRINE/METABOLIC Hx Endocrine Disorders: No - HEMATOLOGICAL/ONCOLOGICAL Hx Blood Disorders: Yes Hx Human Immunodeficiency Virus (HIV): Yes - INTEGUMENTARY Hx Dermatological Problems: No - MUSCULOSKELETAL/RHEUMATOLOGICAL Hx Musculoskeletal Disorders: No Hx Falls: No - GASTROINTESTINAL Hx Gastrointestinal Disorders: Yes Hx Hemorrhoids: Yes - GENITOURINARY/GYNECOLOGICAL Hx Genitourinary Disorders: No - PSYCHIATRIC Hx Psychophysiologic Disorder: No Hx Substance Use: No - SURGICAL HISTORY Hx Surgeries: Yes Hx Section: Yes - ANESTHESIA Hx Anesthesia: Yes Hx Anesthesia Reactions: No Hx Malignant Hyperthermia: No Meds Allergies/Adverse Reactions: Allergies Allergy/AdvReac Type Severity Reaction Status Date / Time No Known Allergies Allergy Verified 10/20/16 15:31 - Medications Medications: Current Medications Acetaminophen (Tylenol 325mg Tab) 650 mg PO Q6 PRN PRN Reason: Fever >100.4 F Diphenhydramine HCl (Benadryl) 50 mg IVP Q6H PRN PRN Reason: Itching / Pruritus Last Admin: 10/20/16 22:35 Dose: 50 mg Fluconazole (Diflucan Iv 200 Mg/100 Ml Ns) 100 mls @ 100 mls/hr IVPB DAILY [facility] Last Admin: 10/21/16 09:20 Dose: 100 mls/hr Sodium Bicarbonate 50 meq/ (Sodium Chloride) 1,050 mls @ 200 mls/hr IV .Q5H15M [facility] Last Admin: 10/21/16 13:49 Dose: 200 mls/hr Moxifloxacin HCl (Avelox Iv 400mg/250ml Ns) 400 mg in 250 mls @ 167 mls/hr IVPB Q24H [facility] Trimethoprim/Sulfamethoxazole (250 mg/ Dextrose) 100 mls @ 100 mls/hr IVPB Q12H [facility] Cefepime HCl (Maxipime Iv 1 Gm Premix) 1 gm in 50 mls @ 100 mls/hr IVPB Q12H [facility] Nicotine (Nicoderm Cq) 1 patch TD DAILY [facility] Last Admin: 10/21/16 09:19 Dose: 1 patch Nystatin (Nystatin Oral Susp) 5 ml PO QID [facility] Last Admin: 10/21/16 13:49 Dose: 5 ml Pantoprazole Sodium (Protonix Inj) 40 mg IVP DAILY [facility] Last Admin: 10/21/16 09:22 Dose: 40 mg Promethazine HCl/Dextromethorphan (Phenergan Dm Syrup) 5 ml PO Q6H PRN PRN Reason: Cough Last Admin: 10/21/16 14:25 Dose: 5 ml Physical Exam - Head Exam Head Exam: ATRAUMATIC, NORMAL INSPECTION, NORMOCEPHALIC - Eye Exam Eye Exam: EOMI, Normal appearance - ENT Exam ENT Exam: Mucous Membranes Dry - Cardiovascular Exam Cardiovascular Exam: Tachycardia - GI/Abdominal Exam GI & Abdominal Exam: Normal Bowel Sounds, Soft. absent: Tenderness - Neurological Exam Neurological exam: Alert, CN II-XII Intact, Normal Gait, Oriented x3, Reflexes Normal - Psychiatric Exam Psychiatric exam: Anxious Results - Vital Signs Recent Vital Signs: Last Vital Signs Temp 100.4 F H 10/21/16 16:02 Pulse 141 H 10/21/16 16:02 Resp 20 10/21/16 16:02 BP 157/93 H 10/21/16 16:02 Pulse Ox 90 L 10/21/16 16:02 - Labs Result Diagrams: 10/21/16 07:58 10/21/16 07:58 Labs: Laboratory Results - last 24 hr 10/20/16 10/21/16 10/21/16 17:45 06:22 07:58 WBC RBC Hgb Hct MCV MCH MCHC RDW Plt Count MPV Neut % (Auto) Lymph % (Auto) [place] % (Auto) Eos % (Auto) Baso % (Auto) Neut # Lymph # [place] # Eos # Baso # Neutrophils % (Manual) Band Neutrophils % Lymphocytes % (Manual) Monocytes % (Manual) Platelet Estimate Hypochromasia (manual) Poikilocytosis (manual Anisocytosis (manual) Microcytosis (manual) Macrocytosis (manual) Ovalocytes PT 11.5 INR 1.0 APTT 37 H D-Dimer, Quantitative pO2 49 VBG pH 7.37 VBG pCO2 27 L VBG HCO3 18.2 VBG Total CO2 16.4 L VBG O2 Sat (Calc) 87.8 H VBG Base Excess -8.1 L VBG Potassium 3.4 L Sodium 147.0 Chloride 126.0 H Glucose 82 Lactate 0.6 L FiO2 21.0 Potassium Carbon Dioxide Anion Gap BUN Creatinine Est GFR ( Amer) Est GFR (Non-Af Amer) Random Glucose Calcium Magnesium Total Bilirubin AST ALT Alkaline Phosphatase Total Protein Albumin Globulin Albumin/Globulin Ratio Venous Blood Potassium 3.4 L Urine Color Yellow Urine Clarity Hazy Urine pH 6.0 Ur Specific [place] 1.011 Urine Protein 3+ H Urine Glucose (UA) Normal Urine Ketones Negative Urine Blood 3+ H Urine Nitrate Negative Urine Bilirubin Negative Urine Urobilinogen Normal Ur Leukocyte Esterase 2+ H Urine WBC (Auto) 75 H Urine RBC (Auto) 70 H Ur Squamous Epith Cells 4 Urine Bacteria Rare 10/21/16 10/21/16 10/21/16 07:58 07:58 08:10 WBC 14.8 H RBC 2.44 L Hgb 7.5 L Hct 23.7 L MCV 97.4 MCH 30.9 MCHC 31.8 L RDW 20.7 H Plt Count 156 MPV 8.1 Neut % (Auto) 92.2 H Lymph % (Auto) 3.8 L [place] % (Auto) 3.0 Eos % (Auto) 0.9 Baso % (Auto) 0.1 Neut # 13.7 H Lymph # 0.6 L [place] # 0.4 Eos # 0.1 Baso # 0.0 Neutrophils % (Manual) 74 Band Neutrophils % 20 H* Lymphocytes % (Manual) 3 L Monocytes % (Manual) 3 Platelet Estimate Normal Hypochromasia (manual) Slight Poikilocytosis (manual Slight Anisocytosis (manual) Moderate Microcytosis (manual) Slight Macrocytosis (manual) Slight Ovalocytes Slight PT INR APTT D-Dimer, Quantitative 589 H pO2 VBG pH VBG pCO2 VBG HCO3 VBG Total CO2 VBG O2 Sat (Calc) VBG Base Excess VBG Potassium Sodium 146 Chloride 117 H Glucose Lactate FiO2 Potassium 4.2 Carbon Dioxide 18 L Anion Gap 15 BUN 36 H Creatinine 2.5 H Est GFR ( Amer) 24 Est GFR (Non-Af Amer) 20 Random Glucose 98 Calcium 7.1 L Magnesium 1.6 Total Bilirubin 0.6 AST 30 ALT 9 D Alkaline Phosphatase 76 Total Protein 7.2 Albumin 2.6 L Globulin 4.6 H Albumin/Globulin Ratio 0.6 L Venous Blood Potassium Urine Color Urine Clarity Urine pH Ur Specific [place] Urine Protein Urine Glucose (UA) Urine Ketones Urine Blood Urine Nitrate Urine Bilirubin Urine Urobilinogen Ur Leukocyte Esterase Urine WBC (Auto) Urine RBC (Auto) Ur Squamous Epith Cells Urine Bacteria 10/21/16 16:50 WBC RBC Hgb Hct MCV MCH MCHC RDW Plt Count MPV Neut % (Auto) Lymph % (Auto) [place] % (Auto) Eos % (Auto) Baso % (Auto) Neut # Lymph # [place] # Eos # Baso # Neutrophils % (Manual) Band Neutrophils % Lymphocytes % (Manual) Monocytes % (Manual) Platelet Estimate Hypochromasia (manual) Poikilocytosis (manual Anisocytosis (manual) Microcytosis (manual) Macrocytosis (manual) Ovalocytes PT INR APTT D-Dimer, Quantitative pO2 28 L VBG pH 7.35 VBG pCO2 34 L VBG HCO3 18.9 VBG Total CO2 19.8 L VBG O2 Sat (Calc) 53.3 VBG Base Excess -6.0 L VBG Potassium 3.5 L Sodium 148.0 Chloride 122.0 H Glucose 101 Lactate 1.3 FiO2 21.0 Potassium Carbon Dioxide Anion Gap BUN Creatinine Est GFR ( Amer) Est GFR (Non-Af Amer) Random Glucose Calcium Magnesium Total Bilirubin AST ALT Alkaline Phosphatase Total Protein Albumin Globulin Albumin/Globulin Ratio Venous Blood Potassium 3.5 L Urine Color Urine Clarity Urine pH Ur Specific [place] Urine Protein Urine Glucose (UA) Urine Ketones Urine Blood Urine Nitrate Urine Bilirubin Urine Urobilinogen Ur Leukocyte Esterase Urine WBC (Auto) Urine RBC (Auto) Ur Squamous Epith Cells Urine Bacteria Assessment & Plan (1) Pneumonia associated with acquired immune deficiency syndrome (AIDS) Assessment and Plan: 56yo F. PMHx AIDS, pneumonia, HTN. p/w cough and weakness x 1 week. Not on HAART due to vaginal clotting and kidney injury. Transferred to ICU for sepsis with worsening symptoms. Neuro: Alert and oriented 3 Pulm: Acute hypoxic respiratory failure secondary to Pneumonia, ruling out PJP, TB, TANA. Continue nasal cannula oxygen. Continue antibiotics, DuoNeb's. Elevated LDH consistent with PJP pneumonia. CV: Hemodynamically stable. The patient had some previous hypotension which resolved with fluid boluses. Hem: Worsening anemia, patient has elevated LDH, checking haptoglobin and repeating H&H to assess for bleeding. No visible signs of bleeding currently. Will obtain lower extremity Doppler to rule out DVT. D-dimer is elevated but could be inflammatory response. Renal: Nonoliguric Acute kidney injury, creatinine has doubled in 24 hours. Patient still making urine. Kalemia improved status post administration of Kayexalate. Will use hypochloremic fluid 1/2NS+75meq SB@100 Uro: Patient was having vaginal clots, will monitor. Urinalysis most likely contaminated from recent vaginal blood clots. Endo: No acute issues GI: Regular diet. Patient having diarrhea we'll send off stool for leukocytes and C. difficile. There is suspicion for underlying carcinoma with mediastinal, mesenteric, perivascular lymphadenopathy. Will obtain CT scan of abdomen and pelvis to assess for underlying malignancy, cannot do it with contrast as patient is in acute renal failure currently. ID: Severe sepsis with AIDS complicated by pneumonia. Continue Bactrim, nystatin po, fluconazole, azithromycin (weekly Saturday), Diflucan, Cefepime, moxifloxacin. Follow-up QuantiFERON goal to rule out TB. DVT proph - hold anticoagulation until bleeding risk is controlled GI proph - Protonix akers for strict I/O's during acute illness Code status - full code Crtical Care Time spent 45 minutes The documented time is cumulative and includes review of patient data/exams/labs /chart review and examination of the patient on rounds and throughout the day; time is exclusive of any procedures or teaching time. Status: Acute
[2016-10-21] MEDS: Cefepime IV 1 gm in Dextrose 1 GM/50 ML BAG IVPB SCH (18:25)
[2016-10-21] MEDS ORDERED: Moxifloxacin IV 400mg/250ml NS 400 MG/250 ML BAG IVPB SCH (18:30)
[2016-10-21] MEDS: Albuterol-Ipratrop 3 mg / 0.5 (3 ml) UD INH SCH (19:20)
[2016-10-21 19:48] LABS: ABG ALLEN TEST POS; ARTERIAL BLOOD HGB O2 SAT 91.7 % (95.0-98.0); CARBOXYHEMOGLOBIN 1.5 % (0.5-1.5); DRAW SITE RBA; HHB 5.6 % (0.0-5.0); METHEMOGLOBIN 1.2 % (0.0-3.0)
[2016-10-21] MEDS: Sulfamethoxazole/Trimethoprim 250 MG in Dextrose 5% In Water 500 ML IVPB SCH (20:43)
[2016-10-21 22:41] LABS: HEMATOCRIT 20.9 % (34.0-47.0)
[2016-10-21 22:44] LABS: RBC URINE 41 /hpf (0-3); URINE BILIRUBIN NEGATIVE (NEGATIVE); URINE BLOOD 3+ (NEGATIVE); URINE COLOR Yellow (YELLOW); URINE GLUCOSE (UA) NORMAL (Normal); URINE KETONE NEGATIVE (NEGATIVE); URINE LEUKOCYTE ESTERASE 3+ Leu/uL (Negative); URINE PROTEIN 2+ mg/dL (NEGATIVE); URINE UROBILINOGEN NORMAL mg/dL (0.2-1.0); WBC URINE 167 /hpf (0-5)
[2016-10-21] MEDS: DiphenhydrAMINE 50 mg/ml Inj IVP PRN (23:12)
[2016-10-22] MEDS: Albuterol-Ipratrop 3 mg / 0.5 (3 ml) UD INH SCH ×4 (01:03→19:53)
[2016-10-22] MEDS: Cefepime IV 1 gm in Dextrose 1 GM/50 ML BAG IVPB SCH ×2 (05:39→17:51)
[2016-10-22] MEDS ORDERED: Iohexol 240 (50 ml) PO ONE ×2 (06:15→09:30)
[2016-10-22 06:50] LABS: EOS # 0.2 K/uL (0.0-0.7); EOS % 1.3 % (0.0-4.0); HEMATOCRIT 24.3 % (34.0-47.0); LYMPH # 0.2 K/uL (1.0-4.3); LYMPH % 1.3 % (20.0-40.0); MEAN CORPUSCULAR HEMOGLOBIN 30.1 pg (27.0-31.0); MEAN CORPUSCULAR HGB CONC 31.7 g/dL (33.0-37.0); MEAN PLATELET VOLUME 7.9 fL (7.2-11.7); MONO # 0.4 K/uL (0.0-0.8); MONO % 2.3 % (0.0-10.0); PLATELET COUNT 147 K/uL (130-400); RED CELL DISTRIBUTION WIDTH 20.9 % (11.5-14.5)
[2016-10-22 06:56] LABS: POTASSIUM 3.3 mmol/L (3.6-5.2)
[2016-10-22 06:58] LABS: BILIRUBIN,TOTAL 0.6 mg/dL (0.2-1.3); TOTAL PROTEIN 6.5 g/dL (6.3-8.3)
[2016-10-22 06:59] LABS: MAGNESIUM 1.4 mg/dL (1.6-2.3); PHOSPHOROUS 5.5 mg/dL (2.5-4.5)
[2016-10-22 07:05] LABS: ALB/GLOB RATIO 0.5 (1.0-2.1)
[2016-10-22 07:17] LABS: CALCIUM 5.7 mg/dl (8.6-10.4)
[2016-10-22] MEDS: Sulfamethoxazole/Trimethoprim 250 MG in Dextrose 5% In Water 500 ML IVPB SCH (08:08)
[2016-10-22 08:53] LABS: EOSINOPHIL 2 % (0-4); NEUTROPHIL 58 % (50-75); TOTAL CELLS COUNTED 100
[2016-10-22] MEDS: Magnesium Sulfate 1 gm in D5W 1 GM/100 ML BAG IVPB SCH ×2 (09:16→09:41)
[2016-10-22] MEDS: Nystatin 100,000 Units/ml Oral Susp 5 ml UD PO SCH ×4 (09:17→22:19)
[2016-10-22] MEDS: Fluconazole IV 200mg/100 ml NS 100 ML IVPB SCH (09:50)
[2016-10-22] MEDS ORDERED: Magnesium Oxide 400 mg Tab UD PO SCH (10:00)
[2016-10-22] MEDS ORDERED: Enoxaparin 60 mg Syringe SC SCH (10:00)
[2016-10-22] MEDS ORDERED: Potassium Chloride 20 mEq ER Tab PO ONE (10:00)
[2016-10-22] MEDS ORDERED: Sodium Chloride 0.9% 1,000 ML IV ONE (10:28)
--- NOTE | 2016-10-22 10:45 | CP.CCUPN ---
Addendum entered and electronically signed by Kiersten Hooker DO 10/22/16 17:22 : CT AB & Pelvis: Small to moderate right and small left pleural effusions and associated consolidations, right greater than left. Interstitial prominence. Partially imaged cardiomegaly. Trace pericardial effusion. Hepatomegaly. Coarsened hepatic echotexture. Borderline splenomegaly. Cholecystectomy. Suboptimal visualization of the unenhanced pancreas. Small pelvic ascites. Bilateral inguinal adenopathy measuring up to 14 mm in short axis, with central necrosis versus fat. Sub cm right pelvic sidewall lymph node measures approximately 9 mm in short axis. Left pelvic sidewall lymph node measures approximately 10 mm in short axis. Prominent but sub cm mesenteric and retroperitoneal lymph nodes, nonspecific. Please note that evaluation for adenopathy is limited due to lack of IV contrast. Addendum entered and electronically signed by Kiersten Hooker DO 10/22/16 11:44 : Patient started on Phoslo due to low [place]. Renal US ordered and 24 hour protein. Original Note: <Kiersten Hooker - Last Filed: 10/22/16 11:04> CCU Subjective - Physician Review Subjective (Free Text): Patient seen and examined at bedside. Patient is afebrile, tachycardiac, normotensive with leukocytosis and bandemia, currently on Cefepime, Diflucan, Nystation and Mepron (Bactrim was DC due to continued decline in renal function) . Dr. Garcia consulted for acute renal failure. Patient will be transfused 1 unit of PRBC. CCU Objective - Vital Signs / Intake & Output Vital Signs (Last 4 hours): Vital Signs Temp Pulse Resp BP Pulse Ox 10/22/16 10:20 105 H 19 130/67 100 10/22/16 10:00 105 H 19 10/22/16 09:22 130/55 L 10/22/16 09:21 107 H 32 H 10/22/16 09:00 108 H 17 98 10/22/16 08:21 102 H 14 117/62 10/22/16 08:00 98.1 F 96 H 25 H 100 10/22/16 07:21 96 H 19 112/52 L 100 10/22/16 07:00 101 H 18 Intake and Output (Last 8hrs): Intake & Output 10/21/16 10/22/16 10/22/16 22:59 06:59 14:59 Intake Total 1510 1450 1240 Output Total 550 201 Balance 960 1450 1039 Intake: Intake, IV Amount 1100 450 800 Right Forearm 500 400 700 Right Upper arm 600 50 100 Oral 410 250 200 Blood Product 650 Red Blood Cells Cpd As1 325 Lr Unit [id number] Other 100 240 Red Blood Cells Cpd As1 50 Lr Unit [id number] Output: Urine 550 200 Urine, Voided 550 200 Urine/Stool Mix 1 Other: # Voids Urine, Voided 1 # Bowel Movements 1 1 - Physical Exam Head: Positive for: Atraumatic, Normocephalic Pupils: Positive for: PERRL Extroacular Muscles: Positive for: EOMI Conjunctiva: Positive for: Normal Mouth: Positive for: Dry Pharnyx: Positive for: EXUDATE Respiratory/Chest: Positive for: Decreased Breath Sounds Cardiovascular: Positive for: Tachycardic Abdomen: Positive for: Normal Bowel Sounds. Negative for: Tenderness, Distention Upper Extremity: Positive for: Normal Inspection, NORMAL PULSES. Negative for: Cyanosis, Edema Lower Extremity: Positive for: Normal Inspection, NORMAL PULSES. Negative for: Edema, CALF TENDERNESS Neurological: Positive for: GCS=15 Skin: Positive for: Warm, Dry. Negative for: Rashes Psychiatric: Positive for: Alert, Oriented x 3 - Medications Active Medications: Active Medications Generic Name Dose Route Start Last Admin Trade Name Freq PRN Reason Stop Dose Admin Acetaminophen 650 mg 10/21/16 05:46 10/21/16 23:12 Tylenol 325mg Tab PO 650 mg Q6 PRN Administration Fever >100.4 F Albuterol/Ipratropium 3 ml 10/21/16 20:00 10/22/16 07:49 Duoneb 3 Mg/0.5 Mg (3 Ml) Ud INH 3 ml RQ6 RONALD Administration Atovaquone 1,500 mg 10/23/16 10:00 Mepron PO DAILY RONALD Diphenhydramine HCl 50 mg 10/20/16 22:27 10/21/16 23:12 Benadryl IVP 50 mg Q6H PRN Administration Itching / Pruritus Fluconazole 100 mls @ 100 mls/hr 10/21/16 10:00 10/22/16 09:50 Diflucan Iv 200 Mg/100 Ml Ns IVPB 100 mls/hr DAILY RONALD Administration Cefepime HCl 1 gm in 50 mls @ 100 mls/hr 10/21/16 18:00 10/22/16 05:39 Maxipime Iv 1 Gm Premix IVPB 100 mls/hr Q12H RONALD Administration Sodium Bicarbonate 75 meq/ 1,075 mls @ 100 mls/hr 10/21/16 22:00 10/21/16 22: 14 Sodium Chloride IV Not Given .[id number] RONALD Sodium Chloride 1,000 mls @ 1,000 mls/hr 10/22/16 10:28 10/22/16 10:36 Sodium Chloride 0.9% IV 10/22/16 11:27 1,000 mls/hr .Q1H ONE Administration Nicotine 1 patch 10/21/16 10:00 10/22/16 09:17 Nicoderm Cq TD 1 patch DAILY RONALD Administration Nystatin 5 ml 10/20/16 22:00 10/22/16 09:17 Nystatin Oral Susp PO 5 ml QID RONALD Administration Pantoprazole Sodium 40 mg 10/21/16 10:00 10/22/16 09:16 Protonix Inj IVP 40 mg DAILY RONALD Administration Promethazine HCl/Dextromethorphan 5 ml 10/21/16 14:01 10/21/16 20:43 Phenergan Dm Syrup PO 5 ml Q6H PRN Administration Cough - Patient Studies Lab Studies: Microbiology Studies 10/20/16 Unknown Gram Stain - Final Sputum Lab Studies 10/22/16 10/22/16 10/21/16 Range/Units 06:33 06:32 22:34 WBC 17.0 H (4.8-10.8) K/uL RBC 2.56 L (3.80-5.20) Mil/uL Hgb 7.7 L (11.0-16.0) g/dL Hct 24.3 L (34.0-47.0) % MCV 95.0 D (81.0-99.0) fL MCH 30.1 (27.0-31.0) pg MCHC 31.7 L (33.0-37.0) g/dL RDW 20.9 H (11.5-14.5) % Plt Count 147 (130-400) K/uL MPV 7.9 (7.2-11.7) fL Neut % (Auto) 95.1 H (50.0-75.0) % Lymph % (Auto) 1.3 L (20.0-40.0) % [place] % (Auto) 2.3 (0.0-10.0) % Eos % (Auto) 1.3 (0.0-4.0) % Baso % (Auto) 0.0 (0.0-2.0) % Neut # 16.1 H (1.8-7.0) K/uL Lymph # 0.2 L (1.0-4.3) K/uL [place] # 0.4 (0.0-0.8) K/uL Eos # 0.2 (0.0-0.7) K/uL Baso # 0.0 (0.0-0.2) K/uL Neutrophils % (Manual) 58 (50-75) % Band Neutrophils % 35 H* (0-2) % Lymphocytes % (Manual) 2 L (20-40) % Monocytes % (Manual) 3 (0-10) % Eosinophils % (Manual) 2 (0-4) % Platelet Estimate Normal (NORMAL) Polychromasia Slight Hypochromasia (manual) Slight Anisocytosis (manual) Slight Macrocytosis (manual) Slight Tear Drop Cells Slight Puncture Site pCO2 (35-45) mm/Hg pO2 (30-55) mm/Hg HCO3 (21-28) mmol/L ABG pH (7.35-7.45) ABG Total CO2 (22-28) mmol/L ABG O2 Saturation (95-98) % ABG Base Excess (-2.0-3.0) mmol/L ABG Hemoglobin (11.7-17.4) g/dL ABG Carboxyhemoglobin (0.5-1.5) % POC ABG HHb (Measured) (0.0-5.0) % ABG Methemoglobin (0.0-3.0) % Jacob Test VBG pH (7.32-7.43) VBG pCO2 (40-60) mmHg VBG HCO3 mmol/L VBG Total CO2 (22-28) mmol/L VBG O2 Sat (Calc) (40-65) % VBG Base Excess (0.0-2.0) mmol/L VBG Potassium (3.6-5.2) mmol/L A-a O2 Difference mm/Hg Respiratory Index Hgb O2 Saturation (95.0-98.0) % Sodium 144 (132-148) mmol/l Chloride 112 H (98-107) mmol/L Glucose (65-105) mg/dl Lactate (0.7-2.1) mmol/L FiO2 % Potassium 3.3 L (3.6-5.2) mmol/L Carbon Dioxide 17 L (22-30) mmol/L Anion Gap 18 (10-20) BUN 50 H (7-17) mg/dL Creatinine 3.1 H (0.7-1.2) MG/DL Est GFR ( Amer) 19 Est GFR (Non-Af Amer) 16 POC Glucose (mg/dL) (65-110) mg/dL Random Glucose 93 (65-105) mg/dL Calcium 5.7 L* (8.6-10.4) mg/dl Phosphorus 5.5 H (2.5-4.5) mg/dL Magnesium 1.4 L (1.6-2.3) mg/dL Total Bilirubin 0.6 (0.2-1.3) mg/dL AST 31 (14-36) U/L ALT 15 (9-52) U/L Alkaline Phosphatase 61 (38-126) U/L Total Protein 6.5 (6.3-8.3) g/dL Albumin 2.3 L (3.5-5.0) g/dL Globulin 4.2 H (2.2-3.9) gm/dL Albumin/Globulin Ratio 0.5 L (1.0-2.1) Venous Blood Potassium (3.6-5.2) mmol/L Urine Color Yellow (YELLOW) Urine Clarity Hazy (Clear) Urine pH 5.0 (5.0-8.0) Ur Specific [place] 1.014 (1.003-1.030) Urine Protein 2+ H (NEGATIVE) mg/dL Urine Glucose (UA) Normal (Normal) mg/dL Urine Ketones Negative (NEGATIVE) mg/dL Urine Blood 3+ H (NEGATIVE) Urine Nitrate Negative (NEGATIVE) Urine Bilirubin Negative (NEGATIVE) Urine Urobilinogen Normal (0.2-1.0) mg/dL Ur Leukocyte Esterase 3+ H (Negative) [place]/uL Urine WBC (Auto) 167 H (0-5) /hpf Urine RBC (Auto) 41 H (0-3) /hpf Ur Squamous Epith Cells 1 (0-5) /hpf Ur Random Sodium mmol/L Ur Random Potassium mmol/L Blood Type Antibody Screen 10/21/16 10/21/16 10/21/16 Range/Units 22:34 19:30 17:44 WBC (4.8-10.8) K/uL RBC (3.80-5.20) Mil/uL Hgb 6.7 L (11.0-16.0) g/dL Hct 20.9 L (34.0-47.0) % MCV (81.0-99.0) fL MCH (27.0-31.0) pg MCHC (33.0-37.0) g/dL RDW (11.5-14.5) % Plt Count (130-400) K/uL MPV (7.2-11.7) fL Neut % (Auto) (50.0-75.0) % Lymph % (Auto) (20.0-40.0) % [place] % (Auto) (0.0-10.0) % Eos % (Auto) (0.0-4.0) % Baso % (Auto) (0.0-2.0) % Neut # (1.8-7.0) K/uL Lymph # (1.0-4.3) K/uL [place] # (0.0-0.8) K/uL Eos # (0.0-0.7) K/uL Baso # (0.0-0.2) K/uL Neutrophils % (Manual) (50-75) % Band Neutrophils % (0-2) % Lymphocytes % (Manual) (20-40) % Monocytes % (Manual) (0-10) % Eosinophils % (Manual) (0-4) % Platelet Estimate (NORMAL) Polychromasia Hypochromasia (manual) Anisocytosis (manual) Macrocytosis (manual) Tear Drop Cells Puncture Site Rba pCO2 25 L (35-45) mm/Hg pO2 56 L (30-55) mm/Hg HCO3 19.5 L (21-28) mmol/L ABG pH 7.43 (7.35-7.45) ABG Total CO2 17.4 L (22-28) mmol/L ABG O2 Saturation 94.2 L (95-98) % ABG Base Excess -6.9 L (-2.0-3.0) mmol/L ABG Hemoglobin 7.1 L (11.7-17.4) g/dL ABG Carboxyhemoglobin 1.5 (0.5-1.5) % POC ABG HHb (Measured) 5.6 H (0.0-5.0) % ABG Methemoglobin 1.2 (0.0-3.0) % Jacob Test Pos VBG pH (7.32-7.43) VBG pCO2 (40-60) mmHg VBG HCO3 mmol/L VBG Total CO2 (22-28) mmol/L VBG O2 Sat (Calc) (40-65) % VBG Base Excess (0.0-2.0) mmol/L VBG Potassium (3.6-5.2) mmol/L A-a O2 Difference 169.0 mm/Hg Respiratory Index 3.0 Hgb O2 Saturation 91.7 L (95.0-98.0) % Sodium (132-148) mmol/l Chloride (98-107) mmol/L Glucose (65-105) mg/dl Lactate (0.7-2.1) mmol/L FiO2 36.0 % Potassium (3.6-5.2) mmol/L Carbon Dioxide (22-30) mmol/L Anion Gap (10-20) BUN (7-17) mg/dL Creatinine (0.7-1.2) MG/DL Est GFR ( Amer) Est GFR (Non-Af Amer) POC Glucose (mg/dL) (65-110) mg/dL Random Glucose (65-105) mg/dL Calcium (8.6-10.4) mg/dl Phosphorus (2.5-4.5) mg/dL Magnesium (1.6-2.3) mg/dL Total Bilirubin (0.2-1.3) mg/dL AST (14-36) U/L ALT (9-52) U/L Alkaline Phosphatase (38-126) U/L Total Protein (6.3-8.3) g/dL Albumin (3.5-5.0) g/dL Globulin (2.2-3.9) gm/dL Albumin/Globulin Ratio (1.0-2.1) Venous Blood Potassium (3.6-5.2) mmol/L Urine Color (YELLOW) Urine Clarity (Clear) Urine pH (5.0-8.0) Ur Specific [place] (1.003-1.030) Urine Protein (NEGATIVE) mg/dL Urine Glucose (UA) (Normal) mg/dL Urine Ketones (NEGATIVE) mg/dL Urine Blood (NEGATIVE) Urine Nitrate (NEGATIVE) Urine Bilirubin (NEGATIVE) Urine Urobilinogen (0.2-1.0) mg/dL Ur Leukocyte Esterase (Negative) [place]/uL Urine WBC (Auto) (0-5) /hpf Urine RBC (Auto) (0-3) /hpf Ur Squamous Epith Cells (0-5) /hpf Ur Random Sodium mmol/L Ur Random Potassium mmol/L Blood Type A POSITIVE Antibody Screen Negative 10/21/16 10/21/16 10/20/16 Range/Units 16:50 15:58 19:03 WBC (4.8-10.8) K/uL RBC (3.80-5.20) Mil/uL Hgb (11.0-16.0) g/dL Hct (34.0-47.0) % MCV (81.0-99.0) fL MCH (27.0-31.0) pg MCHC (33.0-37.0) g/dL RDW (11.5-14.5) % Plt Count (130-400) K/uL MPV (7.2-11.7) fL Neut % (Auto) (50.0-75.0) % Lymph % (Auto) (20.0-40.0) % [place] % (Auto) (0.0-10.0) % Eos % (Auto) (0.0-4.0) % Baso % (Auto) (0.0-2.0) % Neut # (1.8-7.0) K/uL Lymph # (1.0-4.3) K/uL [place] # (0.0-0.8) K/uL Eos # (0.0-0.7) K/uL Baso # (0.0-0.2) K/uL Neutrophils % (Manual) (50-75) % Band Neutrophils % (0-2) % Lymphocytes % (Manual) (20-40) % Monocytes % (Manual) (0-10) % Eosinophils % (Manual) (0-4) % Platelet Estimate (NORMAL) Polychromasia Hypochromasia (manual) Anisocytosis (manual) Macrocytosis (manual) Tear Drop Cells Puncture Site pCO2 (35-45) mm/Hg pO2 28 L (30-55) mm/Hg HCO3 (21-28) mmol/L ABG pH (7.35-7.45) ABG Total CO2 (22-28) mmol/L ABG O2 Saturation (95-98) % ABG Base Excess (-2.0-3.0) mmol/L ABG Hemoglobin (11.7-17.4) g/dL ABG Carboxyhemoglobin (0.5-1.5) % POC ABG HHb (Measured) (0.0-5.0) % ABG Methemoglobin (0.0-3.0) % Jacob Test VBG pH 7.35 (7.32-7.43) VBG pCO2 34 L (40-60) mmHg VBG HCO3 18.9 mmol/L VBG Total CO2 19.8 L (22-28) mmol/L VBG O2 Sat (Calc) 53.3 (40-65) % VBG Base Excess -6.0 L (0.0-2.0) mmol/L VBG Potassium 3.5 L (3.6-5.2) mmol/L A-a O2 Difference mm/Hg Respiratory Index Hgb O2 Saturation (95.0-98.0) % Sodium 148.0 (132-148) mmol/l Chloride 122.0 H (98-107) mmol/L Glucose 101 (65-105) mg/dl Lactate 1.3 (0.7-2.1) mmol/L FiO2 21.0 % Potassium (3.6-5.2) mmol/L Carbon Dioxide (22-30) mmol/L Anion Gap (10-20) BUN (7-17) mg/dL Creatinine (0.7-1.2) MG/DL Est GFR ( Amer) Est GFR (Non-Af Amer) POC Glucose (mg/dL) 118 H (65-110) mg/dL Random Glucose (65-105) mg/dL Calcium (8.6-10.4) mg/dl Phosphorus (2.5-4.5) mg/dL Magnesium (1.6-2.3) mg/dL Total Bilirubin (0.2-1.3) mg/dL AST (14-36) U/L ALT (9-52) U/L Alkaline Phosphatase (38-126) U/L Total Protein (6.3-8.3) g/dL Albumin (3.5-5.0) g/dL Globulin (2.2-3.9) gm/dL Albumin/Globulin Ratio (1.0-2.1) Venous Blood Potassium 3.5 L (3.6-5.2) mmol/L Urine Color (YELLOW) Urine Clarity (Clear) Urine pH (5.0-8.0) Ur Specific [place] (1.003-1.030) Urine Protein (NEGATIVE) mg/dL Urine Glucose (UA) (Normal) mg/dL Urine Ketones (NEGATIVE) mg/dL Urine Blood (NEGATIVE) Urine Nitrate (NEGATIVE) Urine Bilirubin (NEGATIVE) Urine Urobilinogen (0.2-1.0) mg/dL Ur Leukocyte Esterase (Negative) [place]/uL Urine WBC (Auto) (0-5) /hpf Urine RBC (Auto) (0-3) /hpf Ur Squamous Epith Cells (0-5) /hpf Ur Random Sodium 84 mmol/L Ur Random Potassium 20.6 mmol/L Blood Type Antibody Screen Laboratory Results - last 24 hr 10/20/16 10/21/16 10/21/16 19:03 15:58 16:50 WBC RBC Hgb Hct MCV MCH MCHC RDW Plt Count MPV Neut % (Auto) Lymph % (Auto) [place] % (Auto) Eos % (Auto) Baso % (Auto) Neut # Lymph # [place] # Eos # Baso # Neutrophils % (Manual) Band Neutrophils % Lymphocytes % (Manual) Monocytes % (Manual) Eosinophils % (Manual) Platelet Estimate Polychromasia Hypochromasia (manual) Anisocytosis (manual) Macrocytosis (manual) Tear Drop Cells Puncture Site pCO2 pO2 28 L HCO3 ABG pH ABG Total CO2 ABG O2 Saturation ABG Base Excess ABG Hemoglobin ABG Carboxyhemoglobin POC ABG HHb (Measured) ABG Methemoglobin Jacob Test VBG pH 7.35 VBG pCO2 34 L VBG HCO3 18.9 VBG Total CO2 19.8 L VBG O2 Sat (Calc) 53.3 VBG Base Excess -6.0 L VBG Potassium 3.5 L A-a O2 Difference Respiratory Index Hgb O2 Saturation Sodium 148.0 Chloride 122.0 H Glucose 101 Lactate 1.3 FiO2 21.0 Potassium Carbon Dioxide Anion Gap BUN Creatinine Est GFR ( Amer) Est GFR (Non-Af Amer) POC Glucose (mg/dL) 118 H Random Glucose Calcium Phosphorus Magnesium Total Bilirubin AST ALT Alkaline Phosphatase Total Protein Albumin Globulin Albumin/Globulin Ratio Venous Blood Potassium 3.5 L Urine Color Urine Clarity Urine pH Ur Specific [place] Urine Protein Urine Glucose (UA) Urine Ketones Urine Blood Urine Nitrate Urine Bilirubin Urine Urobilinogen Ur Leukocyte Esterase Urine WBC (Auto) Urine RBC (Auto) Ur Squamous Epith Cells Ur Random Sodium 84 Ur Random Potassium 20.6 Blood Type Antibody Screen 10/21/16 10/21/16 10/21/16 17:44 19:30 22:34 WBC RBC Hgb 6.7 L Hct 20.9 L MCV MCH MCHC RDW Plt Count MPV Neut % (Auto) Lymph % (Auto) [place] % (Auto) Eos % (Auto) Baso % (Auto) Neut # Lymph # [place] # Eos # Baso # Neutrophils % (Manual) Band Neutrophils % Lymphocytes % (Manual) Monocytes % (Manual) Eosinophils % (Manual) Platelet Estimate Polychromasia Hypochromasia (manual) Anisocytosis (manual) Macrocytosis (manual) Tear Drop Cells Puncture Site Rba pCO2 25 L pO2 56 L HCO3 19.5 L ABG pH 7.43 ABG Total CO2 17.4 L ABG O2 Saturation 94.2 L ABG Base Excess -6.9 L ABG Hemoglobin 7.1 L ABG Carboxyhemoglobin 1.5 POC ABG HHb (Measured) 5.6 H ABG Methemoglobin 1.2 Jacob Test Pos VBG pH VBG pCO2 VBG HCO3 VBG Total CO2 VBG O2 Sat (Calc) VBG Base Excess VBG Potassium A-a O2 Difference 169.0 Respiratory Index 3.0 Hgb O2 Saturation 91.7 L Sodium Chloride Glucose Lactate FiO2 36.0 Potassium Carbon Dioxide Anion Gap BUN Creatinine Est GFR ( Amer) Est GFR (Non-Af Amer) POC Glucose (mg/dL) Random Glucose Calcium Phosphorus Magnesium Total Bilirubin AST ALT Alkaline Phosphatase Total Protein Albumin Globulin Albumin/Globulin Ratio Venous Blood Potassium Urine Color Urine Clarity Urine pH Ur Specific [place] Urine Protein Urine Glucose (UA) Urine Ketones Urine Blood Urine Nitrate Urine Bilirubin Urine Urobilinogen Ur Leukocyte Esterase Urine WBC (Auto) Urine RBC (Auto) Ur Squamous Epith Cells Ur Random Sodium Ur Random Potassium Blood Type A POSITIVE Antibody Screen Negative 10/21/16 10/22/16 10/22/16 22:34 06:32 06:33 WBC 17.0 H RBC 2.56 L Hgb 7.7 L Hct 24.3 L MCV 95.0 D MCH 30.1 MCHC 31.7 L RDW 20.9 H Plt Count 147 MPV 7.9 Neut % (Auto) 95.1 H Lymph % (Auto) 1.3 L [place] % (Auto) 2.3 Eos % (Auto) 1.3 Baso % (Auto) 0.0 Neut # 16.1 H Lymph # 0.2 L [place] # 0.4 Eos # 0.2 Baso # 0.0 Neutrophils % (Manual) 58 Band Neutrophils % 35 H* Lymphocytes % (Manual) 2 L Monocytes % (Manual) 3 Eosinophils % (Manual) 2 Platelet Estimate Normal Polychromasia Slight Hypochromasia (manual) Slight Anisocytosis (manual) Slight Macrocytosis (manual) Slight Tear Drop Cells Slight Puncture Site pCO2 pO2 HCO3 ABG pH ABG Total CO2 ABG O2 Saturation ABG Base Excess ABG Hemoglobin ABG Carboxyhemoglobin POC ABG HHb (Measured) ABG Methemoglobin Jacob Test VBG pH VBG pCO2 VBG HCO3 VBG Total CO2 VBG O2 Sat (Calc) VBG Base Excess VBG Potassium A-a O2 Difference Respiratory Index Hgb O2 Saturation Sodium 144 Chloride 112 H Glucose Lactate FiO2 Potassium 3.3 L Carbon Dioxide 17 L Anion Gap 18 BUN 50 H Creatinine 3.1 H Est GFR ( Amer) 19 Est GFR (Non-Af Amer) 16 POC Glucose (mg/dL) Random Glucose 93 Calcium 5.7 L* Phosphorus 5.5 H Magnesium 1.4 L Total Bilirubin 0.6 AST 31 ALT 15 Alkaline Phosphatase 61 Total Protein 6.5 Albumin 2.3 L Globulin 4.2 H Albumin/Globulin Ratio 0.5 L Venous Blood Potassium Urine Color Yellow Urine Clarity Hazy Urine pH 5.0 Ur Specific [place] 1.014 Urine Protein 2+ H Urine Glucose (UA) Normal Urine Ketones Negative Urine Blood 3+ H Urine Nitrate Negative Urine Bilirubin Negative Urine Urobilinogen Normal Ur Leukocyte Esterase 3+ H Urine WBC (Auto) 167 H Urine RBC (Auto) 41 H Ur Squamous Epith Cells 1 Ur Random Sodium Ur Random Potassium Blood Type Antibody Screen Critical Care Progress Note - Nutrition Nutrition: Nutrition Category Date Time Status Heart Healthy Diet [DIET] Diets 10/20/16 Dinner Active Assessment/Plan - Assessment and Plan (Free Text) Assessment: 56yo F with PMHx of AIDS, HTN and pneumonia presenting with cough and weakness x 1 week. Not on HAART due to vaginal clotting and kidney injury. Transferred to ICU for severe sepsis with AIDS complicated by pneumonia. Plan: Neuro: Alert and oriented 3 Pulm: * Acute hypoxic respiratory failure secondary to Pneumonia, ruling out PJP, TB, TANA. * Continue nasal cannula oxygen. * Dr. Gonzales -consulted. * Follow-up QuantiFERON goal to rule out TB, Crypto, HLA * Patient is currently on Cefepime, Diflucan, Nystation and Mepron (Bactrim was DC due to continued decline in renal function). CV: Hemodynamically stable. F/U ECHO Hem: * Worsening anemia, patient has elevated LDH, checking haptoglobin and repeating H&H to assess for bleeding. * No visible signs of bleeding currently. * D-dimer is elevated but could be inflammatory response. * Follow up lower extremity Doppler to rule out DVT. * Patient will be transfused 1 unit of PRBC, follow up CBC Renal: * Nonoliguric Acute kidney injury, creatinine has doubled in 24 hours. * Patient still making urine. * Hyperkalemia improved status post administration of Kayexalate. Will use hypochloremic fluid 1/2NS+75meq SB@100 * Dr. Garcia consulted for acute renal failure. Uro: * Patient was having vaginal clots, will monitor. * Urinalysis most likely contaminated from recent vaginal blood clots. Endo: No acute issues GI: * Heart healthy diet. * Patient having diarrhea - follow up stool for leukocytes and C. difficile. * There is suspicion for underlying carcinoma with mediastinal, mesenteric, perivascular lymphadenopathy. Will obtain CT scan of abdomen and pelvis to assess for underlying malignancy. ID: * Severe sepsis with AIDS complicated by pneumonia. * Patient is afebrile, tachycardiac, normotensive with leukocytosis and bandemia , currently on Cefepime, Diflucan, Nystation and Mepron (Bactrim was DC due to continued decline in renal function). * F/U procalcitonin Prophylaxis: * DVT proph - Held due to active bleeding * GI proph - Protonix * akers for strict I/O's during acute illness DW Morro Hamilton DO, PGY-1 <Steve Morrissey S - Last Filed: 10/22/16 18:02> CCU Objective - Vital Signs / Intake & Output Vital Signs (Last 4 hours): Vital Signs Temp Pulse Resp BP Pulse Ox 10/22/16 16:10 98.5 F 106 H 27 H 144/83 10/22/16 15:00 114 H 29 H 10/22/16 14:54 105 H 21 139/86 10/22/16 14:39 109 H 36 H 140/80 10/22/16 14:23 106 H 32 H 139/83 10/22/16 14:09 99 H 32 H 132/81 96 Intake and Output (Last 8hrs): Intake & Output 10/22/16 10/22/16 10/22/16 06:59 14:59 22:59 Intake Total 1450 3995 575 Output Total 853 Balance 1450 3142 575 Intake: Intake, IV Amount 450 2000 Right Forearm 400 800 Right Upper arm 50 1200 Oral 250 705 Blood Product 650 250 450 Red Blood Cells Cpd As1 0 325 Lr Unit [id number] Red Blood Cells Cpd As1 325 Lr Unit [id number] Other 100 1040 125 Red Blood Cells Cpd As1 125 Lr Unit [id number] Red Blood Cells Cpd As1 50 Lr Unit [id number] Output: Urine 850 Urine, Voided 850 Urine/Stool Mix 3 Other: # Voids Urine, Voided 1 # Bowel Movements 1 - Medications Active Medications: Active Medications Generic Name Dose Route Start Last Admin Trade Name Freq PRN Reason Stop Dose Admin Acetaminophen 650 mg 10/21/16 05:46 10/22/16 11:07 Tylenol 325mg Tab PO 650 mg Q6 PRN Administration Fever >100.4 F Albuterol/Ipratropium 3 ml 10/21/16 20:00 10/22/16 14:11 Duoneb 3 Mg/0.5 Mg (3 Ml) Ud INH 3 ml RQ6 RONALD Administration Atovaquone 1,500 mg 10/23/16 10:00 Mepron PO DAILY RONALD Calcium Acetate 667 mg 10/22/16 12:00 10/22/16 17:52 Phoslo PO 667 mg TIDCC RONALD Administration Diphenhydramine HCl 50 mg 10/20/16 22:27 10/21/16 23:12 Benadryl IVP 50 mg Q6H PRN Administration Itching / Pruritus Fluconazole 100 mls @ 100 mls/hr 10/21/16 10:00 10/22/16 09:50 Diflucan Iv 200 Mg/100 Ml Ns IVPB 100 mls/hr DAILY RONALD Administration Cefepime HCl 1 gm in 50 mls @ 100 mls/hr 10/21/16 18:00 10/22/16 17:51 Maxipime Iv 1 Gm Premix IVPB 100 mls/hr Q12H RONALD Administration Sodium Bicarbonate 75 meq/ 1,075 mls @ 50 mls/hr 10/22/16 11:43 10/22/16 17: 55 Sodium Chloride IV 50 mls/hr .[id number] RONALD Administration Clindamycin Phosphate 600 mg in 50 mls @ 100 mls/hr 10/22/16 16:00 10/22/16 16:20 Cleocin IVPB 100 mls/hr Q8H RONALD Administration Nicotine 1 patch 10/21/16 10:00 10/22/16 09:17 Nicoderm Cq TD 1 patch DAILY RONALD Administration Nystatin 5 ml 10/20/16 22:00 10/22/16 17:50 Nystatin Oral Susp PO 5 ml QID RONALD Administration Pantoprazole Sodium 40 mg 10/21/16 10:00 10/22/16 09:16 Protonix Inj IVP 40 mg DAILY RONALD Administration Promethazine HCl/Dextromethorphan 5 ml 10/21/16 14:01 10/21/16 20:43 Phenergan Dm Syrup PO 5 ml Q6H PRN Administration Cough - Patient Studies Lab Studies: Microbiology Studies 10/21/16 07:00 Blood Culture - Preliminary Blood NO GROWTH AFTER 24 HOURS 10/21/16 06:30 Blood Culture - Preliminary Blood NO GROWTH AFTER 24 HOURS 10/20/16 Unknown Gram Stain - Final Sputum Lab Studies 10/22/16 10/22/16 10/21/16 Range/Units 06:33 06:32 22:34 WBC 17.0 H (4.8-10.8) K/uL RBC 2.56 L (3.80-5.20) Mil/uL Hgb 7.7 L (11.0-16.0) g/dL Hct 24.3 L (34.0-47.0) % MCV 95.0 D (81.0-99.0) fL MCH 30.1 (27.0-31.0) pg MCHC 31.7 L (33.0-37.0) g/dL RDW 20.9 H (11.5-14.5) % Plt Count 147 (130-400) K/uL MPV 7.9 (7.2-11.7) fL Neut % (Auto) 95.1 H (50.0-75.0) % Lymph % (Auto) 1.3 L (20.0-40.0) % [place] % (Auto) 2.3 (0.0-10.0) % Eos % (Auto) 1.3 (0.0-4.0) % Baso % (Auto) 0.0 (0.0-2.0) % Neut # 16.1 H (1.8-7.0) K/uL Lymph # 0.2 L (1.0-4.3) K/uL [place] # 0.4 (0.0-0.8) K/uL Eos # 0.2 (0.0-0.7) K/uL Baso # 0.0 (0.0-0.2) K/uL Neutrophils % (Manual) 58 (50-75) % Band Neutrophils % 35 H* (0-2) % Lymphocytes % (Manual) 2 L (20-40) % Monocytes % (Manual) 3 (0-10) % Eosinophils % (Manual) 2 (0-4) % Platelet Estimate Normal (NORMAL) Polychromasia Slight Hypochromasia (manual) Slight Anisocytosis (manual) Slight Macrocytosis (manual) Slight Tear Drop Cells Slight Puncture Site pCO2 (35-45) mm/Hg pO2 (80-100) mm/Hg HCO3 (21-28) mmol/L ABG pH (7.35-7.45) ABG Total CO2 (22-28) mmol/L ABG O2 Saturation (95-98) % ABG Base Excess (-2.0-3.0) mmol/L ABG Hemoglobin (11.7-17.4) g/dL ABG Carboxyhemoglobin (0.5-1.5) % POC ABG HHb (Measured) (0.0-5.0) % ABG Methemoglobin (0.0-3.0) % Jacob Test A-a O2 Difference mm/Hg Respiratory Index Hgb O2 Saturation (95.0-98.0) % FiO2 % Sodium 144 (132-148) mmol/L Potassium 3.3 L (3.6-5.2) mmol/L Chloride 112 H (98-107) mmol/L Carbon Dioxide 17 L (22-30) mmol/L Anion Gap 18 (10-20) BUN 50 H (7-17) mg/dL Creatinine 3.1 H (0.7-1.2) MG/DL Est GFR ( Amer) 19 Est GFR (Non-Af Amer) 16 POC Glucose (mg/dL) (65-110) mg/dL Random Glucose 93 (65-105) mg/dL Calcium 5.7 L* (8.6-10.4) mg/dl Phosphorus 5.5 H (2.5-4.5) mg/dL Magnesium 1.4 L (1.6-2.3) mg/dL Total Bilirubin 0.6 (0.2-1.3) mg/dL AST 31 (14-36) U/L ALT 15 (9-52) U/L Alkaline Phosphatase 61 (38-126) U/L Total Protein 6.5 (6.3-8.3) g/dL Albumin 2.3 L (3.5-5.0) g/dL Globulin 4.2 H (2.2-3.9) gm/dL Albumin/Globulin Ratio 0.5 L (1.0-2.1) Procalcitonin (0.19-0.49) NG/ML Urine Color Yellow (YELLOW) Urine Clarity Hazy (Clear) Urine pH 5.0 (5.0-8.0) Ur Specific [place] 1.014 (1.003-1.030) Urine Protein 2+ H (NEGATIVE) mg/dL Urine Glucose (UA) Normal (Normal) mg/dL Urine Ketones Negative (NEGATIVE) mg/dL Urine Blood 3+ H (NEGATIVE) Urine Nitrate Negative (NEGATIVE) Urine Bilirubin Negative (NEGATIVE) Urine Urobilinogen Normal (0.2-1.0) mg/dL Ur Leukocyte Esterase 3+ H (Negative) [place]/uL Urine WBC (Auto) 167 H (0-5) /hpf Urine RBC (Auto) 41 H (0-3) /hpf Ur Squamous Epith Cells 1 (0-5) /hpf Ur Random Sodium mmol/L Ur Random Potassium mmol/L Blood Type Antibody Screen 10/21/16 10/21/16 10/21/16 Range/Units 22:34 22:34 19:30 WBC (4.8-10.8) K/uL RBC (3.80-5.20) Mil/uL Hgb 6.7 L (11.0-16.0) g/dL Hct 20.9 L (34.0-47.0) % MCV (81.0-99.0) fL MCH (27.0-31.0) pg MCHC (33.0-37.0) g/dL RDW (11.5-14.5) % Plt Count (130-400) K/uL MPV (7.2-11.7) fL Neut % (Auto) (50.0-75.0) % Lymph % (Auto) (20.0-40.0) % [place] % (Auto) (0.0-10.0) % Eos % (Auto) (0.0-4.0) % Baso % (Auto) (0.0-2.0) % Neut # (1.8-7.0) K/uL Lymph # (1.0-4.3) K/uL [place] # (0.0-0.8) K/uL Eos # (0.0-0.7) K/uL Baso # (0.0-0.2) K/uL Neutrophils % (Manual) (50-75) % Band Neutrophils % (0-2) % Lymphocytes % (Manual) (20-40) % Monocytes % (Manual) (0-10) % Eosinophils % (Manual) (0-4) % Platelet Estimate (NORMAL) Polychromasia Hypochromasia (manual) Anisocytosis (manual) Macrocytosis (manual) Tear Drop Cells Puncture Site Rba pCO2 25 L (35-45) mm/Hg pO2 56 L (80-100) mm/Hg HCO3 19.5 L (21-28) mmol/L ABG pH 7.43 (7.35-7.45) ABG Total CO2 17.4 L (22-28) mmol/L ABG O2 Saturation 94.2 L (95-98) % ABG Base Excess -6.9 L (-2.0-3.0) mmol/L ABG Hemoglobin 7.1 L (11.7-17.4) g/dL ABG Carboxyhemoglobin 1.5 (0.5-1.5) % POC ABG HHb (Measured) 5.6 H (0.0-5.0) % ABG Methemoglobin 1.2 (0.0-3.0) % Jacob Test Pos A-a O2 Difference 169.0 mm/Hg Respiratory Index 3.0 Hgb O2 Saturation 91.7 L (95.0-98.0) % FiO2 36.0 % Sodium (132-148) mmol/L Potassium (3.6-5.2) mmol/L Chloride (98-107) mmol/L Carbon Dioxide (22-30) mmol/L Anion Gap (10-20) BUN (7-17) mg/dL Creatinine (0.7-1.2) MG/DL Est GFR ( Amer) Est GFR (Non-Af Amer) POC Glucose (mg/dL) (65-110) mg/dL Random Glucose (65-105) mg/dL Calcium (8.6-10.4) mg/dl Phosphorus (2.5-4.5) mg/dL Magnesium (1.6-2.3) mg/dL Total Bilirubin (0.2-1.3) mg/dL AST (14-36) U/L ALT (9-52) U/L Alkaline Phosphatase (38-126) U/L Total Protein (6.3-8.3) g/dL Albumin (3.5-5.0) g/dL Globulin (2.2-3.9) gm/dL Albumin/Globulin Ratio (1.0-2.1) Procalcitonin 11.52 H (0.19-0.49) NG/ML Urine Color (YELLOW) Urine Clarity (Clear) Urine pH (5.0-8.0) Ur Specific [place] (1.003-1.030) Urine Protein (NEGATIVE) mg/dL Urine Glucose (UA) (Normal) mg/dL Urine Ketones (NEGATIVE) mg/dL Urine Blood (NEGATIVE) Urine Nitrate (NEGATIVE) Urine Bilirubin (NEGATIVE) Urine Urobilinogen (0.2-1.0) mg/dL Ur Leukocyte Esterase (Negative) [place]/uL Urine WBC (Auto) (0-5) /hpf Urine RBC (Auto) (0-3) /hpf Ur Squamous Epith Cells (0-5) /hpf Ur Random Sodium mmol/L Ur Random Potassium mmol/L Blood Type Antibody Screen 10/21/16 10/21/16 10/20/16 Range/Units 17:44 15:58 19:03 WBC (4.8-10.8) K/uL RBC (3.80-5.20) Mil/uL Hgb (11.0-16.0) g/dL Hct (34.0-47.0) % MCV (81.0-99.0) fL MCH (27.0-31.0) pg MCHC (33.0-37.0) g/dL RDW (11.5-14.5) % Plt Count (130-400) K/uL MPV (7.2-11.7) fL Neut % (Auto) (50.0-75.0) % Lymph % (Auto) (20.0-40.0) % [place] % (Auto) (0.0-10.0) % Eos % (Auto) (0.0-4.0) % Baso % (Auto) (0.0-2.0) % Neut # (1.8-7.0) K/uL Lymph # (1.0-4.3) K/uL [place] # (0.0-0.8) K/uL Eos # (0.0-0.7) K/uL Baso # (0.0-0.2) K/uL Neutrophils % (Manual) (50-75) % Band Neutrophils % (0-2) % Lymphocytes % (Manual) (20-40) % Monocytes % (Manual) (0-10) % Eosinophils % (Manual) (0-4) % Platelet Estimate (NORMAL) Polychromasia Hypochromasia (manual) Anisocytosis (manual) Macrocytosis (manual) Tear Drop Cells Puncture Site pCO2 (35-45) mm/Hg pO2 (80-100) mm/Hg HCO3 (21-28) mmol/L ABG pH (7.35-7.45) ABG Total CO2 (22-28) mmol/L ABG O2 Saturation (95-98) % ABG Base Excess (-2.0-3.0) mmol/L ABG Hemoglobin (11.7-17.4) g/dL ABG Carboxyhemoglobin (0.5-1.5) % POC ABG HHb (Measured) (0.0-5.0) % ABG Methemoglobin (0.0-3.0) % Jacob Test A-a O2 Difference mm/Hg Respiratory Index Hgb O2 Saturation (95.0-98.0) % FiO2 % Sodium (132-148) mmol/L Potassium (3.6-5.2) mmol/L Chloride (98-107) mmol/L Carbon Dioxide (22-30) mmol/L Anion Gap (10-20) BUN (7-17) mg/dL Creatinine (0.7-1.2) MG/DL Est GFR ( Amer) Est GFR (Non-Af Amer) POC Glucose (mg/dL) 118 H (65-110) mg/dL Random Glucose (65-105) mg/dL Calcium (8.6-10.4) mg/dl Phosphorus (2.5-4.5) mg/dL Magnesium (1.6-2.3) mg/dL Total Bilirubin (0.2-1.3) mg/dL AST (14-36) U/L ALT (9-52) U/L Alkaline Phosphatase (38-126) U/L Total Protein (6.3-8.3) g/dL Albumin (3.5-5.0) g/dL Globulin (2.2-3.9) gm/dL Albumin/Globulin Ratio (1.0-2.1) Procalcitonin (0.19-0.49) NG/ML Urine Color (YELLOW) Urine Clarity (Clear) Urine pH (5.0-8.0) Ur Specific [place] (1.003-1.030) Urine Protein (NEGATIVE) mg/dL Urine Glucose (UA) (Normal) mg/dL Urine Ketones (NEGATIVE) mg/dL Urine Blood (NEGATIVE) Urine Nitrate (NEGATIVE) Urine Bilirubin (NEGATIVE) Urine Urobilinogen (0.2-1.0) mg/dL Ur Leukocyte Esterase (Negative) [place]/uL Urine WBC (Auto) (0-5) /hpf Urine RBC (Auto) (0-3) /hpf Ur Squamous Epith Cells (0-5) /hpf Ur Random Sodium 84 mmol/L Ur Random Potassium 20.6 mmol/L Blood Type A POSITIVE Antibody Screen Negative Laboratory Results - last 24 hr 10/20/16 10/21/16 10/21/16 19:03 15:58 17:44 WBC RBC Hgb Hct MCV MCH MCHC RDW Plt Count MPV Neut % (Auto) Lymph % (Auto) [place] % (Auto) Eos % (Auto) Baso % (Auto) Neut # Lymph # [place] # Eos # Baso # Neutrophils % (Manual) Band Neutrophils % Lymphocytes % (Manual) Monocytes % (Manual) Eosinophils % (Manual) Platelet Estimate Polychromasia Hypochromasia (manual) Anisocytosis (manual) Macrocytosis (manual) Tear Drop Cells Puncture Site pCO2 pO2 HCO3 ABG pH ABG Total CO2 ABG O2 Saturation ABG Base Excess ABG Hemoglobin ABG Carboxyhemoglobin POC ABG HHb (Measured) ABG Methemoglobin Jacob Test A-a O2 Difference Respiratory Index Hgb O2 Saturation FiO2 Sodium Potassium Chloride Carbon Dioxide Anion Gap BUN Creatinine Est GFR ( Amer) Est GFR (Non-Af Amer) POC Glucose (mg/dL) 118 H Random Glucose Calcium Phosphorus Magnesium Total Bilirubin AST ALT Alkaline Phosphatase Total Protein Albumin Globulin Albumin/Globulin Ratio Procalcitonin Urine Color Urine Clarity Urine pH Ur Specific [place] Urine Protein Urine Glucose (UA) Urine Ketones Urine Blood Urine Nitrate Urine Bilirubin Urine Urobilinogen Ur Leukocyte Esterase Urine WBC (Auto) Urine RBC (Auto) Ur Squamous Epith Cells Ur Random Sodium 84 Ur Random Potassium 20.6 Blood Type A POSITIVE Antibody Screen Negative 10/21/16 10/21/16 10/21/16 19:30 22:34 22:34 WBC RBC Hgb 6.7 L Hct 20.9 L MCV MCH MCHC RDW Plt Count MPV Neut % (Auto) Lymph % (Auto) [place] % (Auto) Eos % (Auto) Baso % (Auto) Neut # Lymph # [place] # Eos # Baso # Neutrophils % (Manual) Band Neutrophils % Lymphocytes % (Manual) Monocytes % (Manual) Eosinophils % (Manual) Platelet Estimate Polychromasia Hypochromasia (manual) Anisocytosis (manual) Macrocytosis (manual) Tear Drop Cells Puncture Site Rba pCO2 25 L pO2 56 L HCO3 19.5 L ABG pH 7.43 ABG Total CO2 17.4 L ABG O2 Saturation 94.2 L ABG Base Excess -6.9 L ABG Hemoglobin 7.1 L ABG Carboxyhemoglobin 1.5 POC ABG HHb (Measured) 5.6 H ABG Methemoglobin 1.2 Jacob Test Pos A-a O2 Difference 169.0 Respiratory Index 3.0 Hgb O2 Saturation 91.7 L FiO2 36.0 Sodium Potassium Chloride Carbon Dioxide Anion Gap BUN Creatinine Est GFR ( Amer) Est GFR (Non-Af Amer) POC Glucose (mg/dL) Random Glucose Calcium Phosphorus Magnesium Total Bilirubin AST ALT Alkaline Phosphatase Total Protein Albumin Globulin Albumin/Globulin Ratio Procalcitonin 11.52 H Urine Color Urine Clarity Urine pH Ur Specific [place] Urine Protein Urine Glucose (UA) Urine Ketones Urine Blood Urine Nitrate Urine Bilirubin Urine Urobilinogen Ur Leukocyte Esterase Urine WBC (Auto) Urine RBC (Auto) Ur Squamous Epith Cells Ur Random Sodium Ur Random Potassium Blood Type Antibody Screen 10/21/16 10/22/16 10/22/16 22:34 06:32 06:33 WBC 17.0 H RBC 2.56 L Hgb 7.7 L Hct 24.3 L MCV 95.0 D MCH 30.1 MCHC 31.7 L RDW 20.9 H Plt Count 147 MPV 7.9 Neut % (Auto) 95.1 H Lymph % (Auto) 1.3 L [place] % (Auto) 2.3 Eos % (Auto) 1.3 Baso % (Auto) 0.0 Neut # 16.1 H Lymph # 0.2 L [place] # 0.4 Eos # 0.2 Baso # 0.0 Neutrophils % (Manual) 58 Band Neutrophils % 35 H* Lymphocytes % (Manual) 2 L Monocytes % (Manual) 3 Eosinophils % (Manual) 2 Platelet Estimate Normal Polychromasia Slight Hypochromasia (manual) Slight Anisocytosis (manual) Slight Macrocytosis (manual) Slight Tear Drop Cells Slight Puncture Site pCO2 pO2 HCO3 ABG pH ABG Total CO2 ABG O2 Saturation ABG Base Excess ABG Hemoglobin ABG Carboxyhemoglobin POC ABG HHb (Measured) ABG Methemoglobin Jacob Test A-a O2 Difference Respiratory Index Hgb O2 Saturation FiO2 Sodium 144 Potassium 3.3 L Chloride 112 H Carbon Dioxide 17 L Anion Gap 18 BUN 50 H Creatinine 3.1 H Est GFR ( Amer) 19 Est GFR (Non-Af Amer) 16 POC Glucose (mg/dL) Random Glucose 93 Calcium 5.7 L* Phosphorus 5.5 H Magnesium 1.4 L Total Bilirubin 0.6 AST 31 ALT 15 Alkaline Phosphatase 61 Total Protein 6.5 Albumin 2.3 L Globulin 4.2 H Albumin/Globulin Ratio 0.5 L Procalcitonin Urine Color Yellow Urine Clarity Hazy Urine pH 5.0 Ur Specific [place] 1.014 Urine Protein 2+ H Urine Glucose (UA) Normal Urine Ketones Negative Urine Blood 3+ H Urine Nitrate Negative Urine Bilirubin Negative Urine Urobilinogen Normal Ur Leukocyte Esterase 3+ H Urine WBC (Auto) 167 H Urine RBC (Auto) 41 H Ur Squamous Epith Cells 1 Ur Random Sodium Ur Random Potassium Blood Type Antibody Screen Critical Care Progress Note - Nutrition Nutrition: Nutrition Category Date Time Status Heart Healthy Diet [DIET] Diets 10/20/16 Dinner Active Attending/Attestation - Attestation I have personally seen and examined this patient.: Yes I have fully participated in the care of the patient.: Yes I have reviewed all pertinent clinical information: Yes Notes (Text): 10/22/16 18:01 Patient seen and examined in the intensive care unit. Case discussed with house staff in the morning rounds. Being treated for bilateral pneumonia Bactrim was stopped because of worsening renal function and switched to mepron Follow-up culture and sensitivity Transfuse 1 unit packed RBCs Nephrology evaluation for worsening renal function
--- NOTE | 2016-10-22 11:44 | CP.PCM.CON ---
History of Present Illness - History of Present Illness History of Present Illness: Patient is a 56 year old female with medical history significant for AIDS and hypertension who presents to the emergency room for weakness and cough x 1 week. Patient reports cough is productive of beige colored sputum and denies hemoptysis; however, sputum sample at bedside is blood -tinged. Patient states she has mild shortness of breath, exacerbated with walking up stairs. She admits to feeling hot flashes but denies chills. Patient notes she has night sweats but reports this is typical for her. Patient also reports significant weight loss of approximately 60 pounds but cannot specify time frame. Patient states she was diagnosed with HIV 35 years ago and contracted it from having intercourse with her . Her infectious disease doctor is Dr. Hitchcock in [place], [place]. Patient reports her last CD4 count was <100. She currently is not on HAART therapy due to vaginal clotting which occurred with new antiretroviral medication she was started on and kidney injury. Patient is supposed to follow-up with Dr. Hitchcock on 11/06/16. She notes previous pneumonia infection was approximately one year ago. Patient is non-compliant with taking Bactrim. Patient also complains of cramping to her bilateral hands which started earlier today. She denies chest pain, palpitations , abdominal pain, nausea, vomiting, diarrhea, and constipation. She does complain of increased urinary frequency. PMH: see above Medications: currently not taking medications Allergies: NKDA Family History: Mother - Lung CA and Brain CA, Sister - Colon CA recently diagnosed at age 53 Surgery History: Social: Smokes 1 ppd on and off since age 18. Drinks alcohol socially. Denies illicit drug use. PMH: AIDS HTN CKD CONSULT DICTATED POSSIBLY HAS HIV NEPHROPATHY GROVER RELATED TO PNEUMONIA AND/OR CHF ON TREATMENT FOR PNEUMONIA WOULD DECREASE IV FLUIDS; IV LASIX X 1 RENAL WORKUP OUTLINED ANIKA RESIDENT Past Patient History - Past Medical History & Family History Past Medical History?: Yes - Past Social History Smoking Status: Heavy Smoker > 10 Cigarettes Daily - CARDIAC Hx Cardiac Disorders: Yes Hx Hypertension: Yes - PULMONARY Hx Respiratory Disorders: Yes Hx Pneumonia: Yes - NEUROLOGICAL Hx Neurological Disorder: No - HEENT Hx HEENT Problems: No - RENAL Hx Chronic Kidney Disease: No - ENDOCRINE/METABOLIC Hx Endocrine Disorders: No - HEMATOLOGICAL/ONCOLOGICAL Hx Blood Disorders: Yes Hx Human Immunodeficiency Virus (HIV): Yes - INTEGUMENTARY Hx Dermatological Problems: No - MUSCULOSKELETAL/RHEUMATOLOGICAL Hx Musculoskeletal Disorders: No Hx Falls: No - GASTROINTESTINAL Hx Gastrointestinal Disorders: Yes Hx Hemorrhoids: Yes - GENITOURINARY/GYNECOLOGICAL Hx Genitourinary Disorders: No - PSYCHIATRIC Hx Psychophysiologic Disorder: No Hx Substance Use: No - SURGICAL HISTORY Hx Surgeries: Yes Hx Section: Yes - ANESTHESIA Hx Anesthesia: Yes Hx Anesthesia Reactions: No Hx Malignant Hyperthermia: No Meds Allergies/Adverse Reactions: Allergies Allergy/AdvReac Type Severity Reaction Status Date / Time No Known Allergies Allergy Verified 10/20/16 15:31 - Medications Medications: Current Medications Acetaminophen (Tylenol 325mg Tab) 650 mg PO Q6 PRN PRN Reason: Fever >100.4 F Last Admin: 10/22/16 11:07 Dose: 650 mg Albuterol/Ipratropium (Duoneb 3 Mg/0.5 Mg (3 Ml) Ud) 3 ml INH RQ6 [facility] Last Admin: 10/22/16 07:49 Dose: 3 ml Atovaquone (Mepron) 1,500 mg PO DAILY [facility] Diphenhydramine HCl (Benadryl) 50 mg IVP Q6H PRN PRN Reason: Itching / Pruritus Last Admin: 10/21/16 23:12 Dose: 50 mg Fluconazole (Diflucan Iv 200 Mg/100 Ml Ns) 100 mls @ 100 mls/hr IVPB DAILY [facility] Last Admin: 10/22/16 09:50 Dose: 100 mls/hr Cefepime HCl (Maxipime Iv 1 Gm Premix) 1 gm in 50 mls @ 100 mls/hr IVPB Q12H [facility] Last Admin: 10/22/16 05:39 Dose: 100 mls/hr Sodium Bicarbonate 75 meq/ (Sodium Chloride) 1,075 mls @ 100 mls/hr IV .[id number] [facility] Last Admin: 10/21/16 22:14 Dose: Not Given Nicotine (Nicoderm Cq) 1 patch TD DAILY [facility] Last Admin: 10/22/16 09:17 Dose: 1 patch Nystatin (Nystatin Oral Susp) 5 ml PO QID [facility] Last Admin: 10/22/16 09:17 Dose: 5 ml Pantoprazole Sodium (Protonix Inj) 40 mg IVP DAILY [facility] Last Admin: 10/22/16 09:16 Dose: 40 mg Promethazine HCl/Dextromethorphan (Phenergan Dm Syrup) 5 ml PO Q6H PRN PRN Reason: Cough Last Admin: 10/21/16 20:43 Dose: 5 ml Results - Vital Signs Recent Vital Signs: Last Vital Signs Temp 98.1 F 10/22/16 08:00 Pulse 105 H 10/22/16 10:20 Resp 19 10/22/16 10:20 BP 130/67 10/22/16 10:20 Pulse Ox 100 10/22/16 10:20 - Labs Result Diagrams: 10/22/16 06:32 10/22/16 06:33 Labs: Laboratory Results - last 24 hr 10/20/16 10/21/16 10/21/16 19:03 15:58 16:50 WBC RBC Hgb Hct MCV MCH MCHC RDW Plt Count MPV Neut % (Auto) Lymph % (Auto) [place] % (Auto) Eos % (Auto) Baso % (Auto) Neut # Lymph # [place] # Eos # Baso # Neutrophils % (Manual) Band Neutrophils % Lymphocytes % (Manual) Monocytes % (Manual) Eosinophils % (Manual) Platelet Estimate Polychromasia Hypochromasia (manual) Anisocytosis (manual) Macrocytosis (manual) Tear Drop Cells Puncture Site pCO2 pO2 28 L HCO3 ABG pH ABG Total CO2 ABG O2 Saturation ABG Base Excess ABG Hemoglobin ABG Carboxyhemoglobin POC ABG HHb (Measured) ABG Methemoglobin Jacob Test VBG pH 7.35 VBG pCO2 34 L VBG HCO3 18.9 VBG Total CO2 19.8 L VBG O2 Sat (Calc) 53.3 VBG Base Excess -6.0 L VBG Potassium 3.5 L A-a O2 Difference Respiratory Index Hgb O2 Saturation Sodium 148.0 Chloride 122.0 H Glucose 101 Lactate 1.3 FiO2 21.0 Potassium Carbon Dioxide Anion Gap BUN Creatinine Est GFR ( Amer) Est GFR (Non-Af Amer) POC Glucose (mg/dL) 118 H Random Glucose Calcium Phosphorus Magnesium Total Bilirubin AST ALT Alkaline Phosphatase Total Protein Albumin Globulin Albumin/Globulin Ratio Venous Blood Potassium 3.5 L Urine Color Urine Clarity Urine pH Ur Specific [place] Urine Protein Urine Glucose (UA) Urine Ketones Urine Blood Urine Nitrate Urine Bilirubin Urine Urobilinogen Ur Leukocyte Esterase Urine WBC (Auto) Urine RBC (Auto) Ur Squamous Epith Cells Ur Random Sodium 84 Ur Random Potassium 20.6 Blood Type Antibody Screen 10/21/16 10/21/16 10/21/16 17:44 19:30 22:34 WBC RBC Hgb 6.7 L Hct 20.9 L MCV MCH MCHC RDW Plt Count MPV Neut % (Auto) Lymph % (Auto) [place] % (Auto) Eos % (Auto) Baso % (Auto) Neut # Lymph # [place] # Eos # Baso # Neutrophils % (Manual) Band Neutrophils % Lymphocytes % (Manual) Monocytes % (Manual) Eosinophils % (Manual) Platelet Estimate Polychromasia Hypochromasia (manual) Anisocytosis (manual) Macrocytosis (manual) Tear Drop Cells Puncture Site Rba pCO2 25 L pO2 56 L HCO3 19.5 L ABG pH 7.43 ABG Total CO2 17.4 L ABG O2 Saturation 94.2 L ABG Base Excess -6.9 L ABG Hemoglobin 7.1 L ABG Carboxyhemoglobin 1.5 POC ABG HHb (Measured) 5.6 H ABG Methemoglobin 1.2 Jacob Test Pos VBG pH VBG pCO2 VBG HCO3 VBG Total CO2 VBG O2 Sat (Calc) VBG Base Excess VBG Potassium A-a O2 Difference 169.0 Respiratory Index 3.0 Hgb O2 Saturation 91.7 L Sodium Chloride Glucose Lactate FiO2 36.0 Potassium Carbon Dioxide Anion Gap BUN Creatinine Est GFR ( Amer) Est GFR (Non-Af Amer) POC Glucose (mg/dL) Random Glucose Calcium Phosphorus Magnesium Total Bilirubin AST ALT Alkaline Phosphatase Total Protein Albumin Globulin Albumin/Globulin Ratio Venous Blood Potassium Urine Color Urine Clarity Urine pH Ur Specific [place] Urine Protein Urine Glucose (UA) Urine Ketones Urine Blood Urine Nitrate Urine Bilirubin Urine Urobilinogen Ur Leukocyte Esterase Urine WBC (Auto) Urine RBC (Auto) Ur Squamous Epith Cells Ur Random Sodium Ur Random Potassium Blood Type A POSITIVE Antibody Screen Negative 10/21/16 10/22/16 10/22/16 22:34 06:32 06:33 WBC 17.0 H RBC 2.56 L Hgb 7.7 L Hct 24.3 L MCV 95.0 D MCH 30.1 MCHC 31.7 L RDW 20.9 H Plt Count 147 MPV 7.9 Neut % (Auto) 95.1 H Lymph % (Auto) 1.3 L [place] % (Auto) 2.3 Eos % (Auto) 1.3 Baso % (Auto) 0.0 Neut # 16.1 H Lymph # 0.2 L [place] # 0.4 Eos # 0.2 Baso # 0.0 Neutrophils % (Manual) 58 Band Neutrophils % 35 H* Lymphocytes % (Manual) 2 L Monocytes % (Manual) 3 Eosinophils % (Manual) 2 Platelet Estimate Normal Polychromasia Slight Hypochromasia (manual) Slight Anisocytosis (manual) Slight Macrocytosis (manual) Slight Tear Drop Cells Slight Puncture Site pCO2 pO2 HCO3 ABG pH ABG Total CO2 ABG O2 Saturation ABG Base Excess ABG Hemoglobin ABG Carboxyhemoglobin POC ABG HHb (Measured) ABG Methemoglobin Jacob Test VBG pH VBG pCO2 VBG HCO3 VBG Total CO2 VBG O2 Sat (Calc) VBG Base Excess VBG Potassium A-a O2 Difference Respiratory Index Hgb O2 Saturation Sodium 144 Chloride 112 H Glucose Lactate FiO2 Potassium 3.3 L Carbon Dioxide 17 L Anion Gap 18 BUN 50 H Creatinine 3.1 H Est GFR ( Amer) 19 Est GFR (Non-Af Amer) 16 POC Glucose (mg/dL) Random Glucose 93 Calcium 5.7 L* Phosphorus 5.5 H Magnesium 1.4 L Total Bilirubin 0.6 AST 31 ALT 15 Alkaline Phosphatase 61 Total Protein 6.5 Albumin 2.3 L Globulin 4.2 H Albumin/Globulin Ratio 0.5 L Venous Blood Potassium Urine Color Yellow Urine Clarity Hazy Urine pH 5.0 Ur Specific [place] 1.014 Urine Protein 2+ H Urine Glucose (UA) Normal Urine Ketones Negative Urine Blood 3+ H Urine Nitrate Negative Urine Bilirubin Negative Urine Urobilinogen Normal Ur Leukocyte Esterase 3+ H Urine WBC (Auto) 167 H Urine RBC (Auto) 41 H Ur Squamous Epith Cells 1 Ur Random Sodium Ur Random Potassium Blood Type Antibody Screen
--- NOTE | 2016-10-22 13:03 | CON ---
DATE: 10/22/2016 The patient is a 56-year-old woman with a past medical history for AIDS and hyperten ernie. Recently, she also had diagnosis of chronic kidney disease. She presents with several weeks o f feeling ill and had a dry cough and fevers for approximately several days and she had brown-colored sputum recently. She came into the Emergency Room with night sweats and a temperature over 101. Th e patient has been noncompliant with her HAART treatment and not been taking HAART medication. She h as had a low CD4 count and she has been followed by infectious disease doctor as an outpatient. MEDICATIONS: She was not taking medications. FAMILY HISTORY: Negative for chronic kidney disease. Her mother had lung cancer and brain cancer, b ut no history of chronic kidney disease. SOCIAL HISTORY: Positive for active smoking, several packs, approximately every other day. Only dri nks alcohol socially. No history of illicit drug use. HIV was contracted from sexual activity. REVIEW OF SYSTEMS: Significant for weakness, fevers, chills, sweats, cough which was initially dry, now it is brown sputum production. She has myalgias. She is incontinent of urine. No new rashes. No gross hematuria. Others were all negative. PHYSICAL EXAMINATION: GENERAL: When examined, she is a well-developed, black woman. VITAL SIGNS: When seen, blood pressure was 130/67, pulse 105, temperature over 101. Now, it is 98.1 and pulse ox was 100% with oxygen. HEENT: Anicteric. Mouth was clear. LUNG HARDING: Showed rhonchi and wheezing throughout. HEART: Regular rhythm, approximately 100. ABDOMEN: Distended, no mass or organomegaly. EXTREMITIES: No peripheral edema. The chest x-ray showed bilateral infiltrates, possible CHF pattern. Blood gas shows pH 7.43, pCO2 of 17, pO2 of 56. Chemistries: Initial creatinine was 2.5, now it is 3.1 with a GFR of 19, potassium 3.3 after treatment for hyperkalemia in the Emergency Room, phosphoru s 5.5, calcium 5.7, albumin 2.3. 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 RECOMMENDATION: Would be decrease IV fluids, stop the bicarbonate. I would give 1 dose of IV Lasix, do a renal ultrasound, 24-hour urine for protein excretion. If the renal function worsens, she migh t need hemodialysis. We will follow up. Murali Garcia MD cc: [id number] TT: 10/22/2016 13:02:25 Confirmation # [id number] Dictation # [id number]
--- NOTE | 2016-10-22 13:12 | CP.PCM.PN ---
Subjective - Date & Time of Evaluation Date of Evaluation: 10/22/16 Time of Evaluation: 09:00 - Subjective Subjective: switched to mepron cultures neg may need FOB Objective - Vital Signs/Intake and Output Vital Signs (last 24 hours): Temp Pulse Resp BP Pulse Ox 97.8 F 97 H 23 137/74 100 10/22/16 12:35 10/22/16 12:35 10/22/16 12:35 10/22/16 12:35 10/22/16 10:20 Intake and Output: 10/22/16 10/22/16 06:59 18:59 Intake Total 2300 2240 Output Total 200 201 Balance 2100 2038 - Medications Medications: Current Medications Acetaminophen (Tylenol 325mg Tab) 650 mg PO Q6 PRN PRN Reason: Fever >100.4 F Last Admin: 10/22/16 11:07 Dose: 650 mg Albuterol/Ipratropium (Duoneb 3 Mg/0.5 Mg (3 Ml) Ud) 3 ml INH RQ6 [facility] Last Admin: 10/22/16 07:49 Dose: 3 ml Atovaquone (Mepron) 1,500 mg PO DAILY [facility] Calcium Acetate (Phoslo) 667 mg PO TIDCC [facility] Last Admin: 10/22/16 12:04 Dose: 667 mg Diphenhydramine HCl (Benadryl) 50 mg IVP Q6H PRN PRN Reason: Itching / Pruritus Last Admin: 10/21/16 23:12 Dose: 50 mg Fluconazole (Diflucan Iv 200 Mg/100 Ml Ns) 100 mls @ 100 mls/hr IVPB DAILY [facility] Last Admin: 10/22/16 09:50 Dose: 100 mls/hr Cefepime HCl (Maxipime Iv 1 Gm Premix) 1 gm in 50 mls @ 100 mls/hr IVPB Q12H [facility] Last Admin: 10/22/16 05:39 Dose: 100 mls/hr Sodium Bicarbonate 75 meq/ (Sodium Chloride) 1,075 mls @ 50 mls/hr IV .[id number] [facility] Last Admin: 10/22/16 12:51 Dose: Not Given Nicotine (Nicoderm Cq) 1 patch TD DAILY [facility] Last Admin: 10/22/16 09:17 Dose: 1 patch Nystatin (Nystatin Oral Susp) 5 ml PO QID [facility] Last Admin: 10/22/16 09:17 Dose: 5 ml Pantoprazole Sodium (Protonix Inj) 40 mg IVP DAILY [facility] Last Admin: 10/22/16 09:16 Dose: 40 mg Promethazine HCl/Dextromethorphan (Phenergan Dm Syrup) 5 ml PO Q6H PRN PRN Reason: Cough Last Admin: 10/21/16 20:43 Dose: 5 ml - Labs Labs: 10/22/16 06:32 10/22/16 06:33 PT 11.5 SECONDS (9.7-12.2) 10/21/16 07:58 INR 1.0 10/21/16 07:58 APTT 37 SECONDS (21-34) H 10/21/16 07:58 - Constitutional Appears: Cachectic - Eye Exam Eye Exam: PERRL - ENT Exam ENT Exam: Mucous Membranes Dry - Neck Exam Neck Exam: absent: Lymphadenopathy - Respiratory Exam Respiratory Exam: Decreased Breath Sounds, Rhonchi - Cardiovascular Exam Cardiovascular Exam: REGULAR RHYTHM, +S1, +S2 - GI/Abdominal Exam GI & Abdominal Exam: Distended, Soft - Rectal Exam Rectal Exam: Deferred - Exam Exam: NORMAL INSPECTION Assessment and Plan (1) Hyperkalemia Status: Acute (2) Pneumonia associated with acquired immune deficiency syndrome (AIDS) Status: Acute (3) Renal insufficiency Status: Acute (4) AIDS Status: Acute (5) Anemia Status: Acute (6) Dehydration Status: Acute
--- NOTE | 2016-10-22 15:41 | CARD ---
APPROVED REPORT EKG Measurement Heart [id number] AZ 132P56 [id number] <Conclusion> Normal sinus rhythm T wave abnormality, consider inferior ischemia T wave abnormality, consider anterolateral ischemia Prolonged QT Abnormal ECG
--- NOTE | 2016-10-22 15:45 | CARD ---
APPROVED REPORT EKG Measurement Heart [id number] CT 128P39 [id number] <Conclusion> Sinus tachycardia Possible Anterior infarct, age undetermined T wave abnormality, consider lateral ischemia Abnormal ECG
[2016-10-22] MEDS: Clindamycin 600mg/50ml D5W 600 MG/50 ML VIAL IVPB SCH ×2 (16:20→23:58)
--- NOTE | 2016-10-22 16:42 | CT ---
CT abdomen and pelvis without IV contrast Indication: Rule out malignancy Technique: Contiguous axial images of the abdomen and pelvis. Oral contrast was administered. No IV contrast given. Coronal and Sagittal reformats generated and reviewed. This CT exam was performed using 1 or more of the following dose reduction techniques: Automated exposure control, adjustment of the MAA and/or kV according to patient size, and/or use of iterative reconstruction technique. Radiation dose: Total exam DLP = 397.96 mGy-cm. Comparison: None available. Findings: Small to moderate right and small left pleural effusions and associated consolidations, right greater than left. Interstitial prominence. No visible pneumothorax. Partially imaged cardiomegaly. Trace pericardial effusion. Hepatomegaly. Coarsened hepatic echotexture. Borderline splenomegaly. Bilateral adrenal gland hypertrophy. Nonspecific calcifications at the right renal pelvis. No obstructing calculus or hydronephrosis bilaterally. Cholecystectomy. Suboptimal visualization of the unenhanced pancreas. The stomach is nondistended. Suboptimal oral contrast opacification of the bowel loops. The bowel loops appear within normal limits of caliber without evidence of intestinal obstruction. The appendix appears within normal limits of caliber. No secondary signs of acute appendicitis. There is no definite free air. Small pelvic ascites. Uterus is present. The urinary bladder appears unremarkable. Bilateral inguinal adenopathy measuring up to 14 mm in short axis, with central necrosis versus fat. Sub cm right pelvic sidewall lymph node measures approximately 9 mm in short axis. Left pelvic sidewall lymph node measures approximately 10 mm in short axis. Prominent but sub cm mesenteric and retroperitoneal lymph nodes, nonspecific. Please note that evaluation for adenopathy is limited due to lack of IV contrast. No acute osseous abnormality is detected. Impression: Small to moderate right and small left pleural effusions and associated consolidations, right greater than left. Interstitial prominence. Partially imaged cardiomegaly. Trace pericardial effusion. Hepatomegaly. Coarsened hepatic echotexture. Borderline splenomegaly. Cholecystectomy. Suboptimal visualization of the unenhanced pancreas. Small pelvic ascites. Bilateral inguinal adenopathy measuring up to 14 mm in short axis, with central necrosis versus fat. Sub cm right pelvic sidewall lymph node measures approximately 9 mm in short axis. Left pelvic sidewall lymph node measures approximately 10 mm in short axis. Prominent but sub cm mesenteric and retroperitoneal lymph nodes, nonspecific. Please note that evaluation for adenopathy is limited due to lack of IV contrast. Additional findings as above. Please note that CT with oral and IV contrast is recommended for further evaluation when clinically feasible.
[2016-10-22] MEDS: Sodium Bicarbonate 100 ML in Dextrose 5% In Water 1,000 ML IV SCH (22:18)
[2016-10-22] MEDS: guaiFENesin DM 100 mg-10 mg/5 ml UD PO PRN (22:19)
[2016-10-22 22:25] LABS: POTASSIUM 3.6 mmol/L (3.6-5.2)
[2016-10-22 22:29] LABS: CALCIUM 6.7 mg/dl (8.6-10.4)
[2016-10-22] MEDS ORDERED: Potassium Chloride 20 mEq/15 ml LIQ UD PO ONE (23:09)
[2016-10-23] MEDS: Albuterol-Ipratrop 3 mg / 0.5 (3 ml) UD INH SCH ×5 (01:07→20:43)
--- NOTE | 2016-10-23 03:55 | CARD ---
APPROVED REPORT EXAM: Two-dimensional and M-mode echocardiogram with Doppler and color Doppler. Other Information Quality : GoodRhythm : NSR INDICATION Pericardial Effusion CARDIOMRGSLY RISK FACTORS Hypertension M-Mode DIMENSIONS RVDd1.17 (2.1-3.2cm)Left Atrium (MM)3.59 (2.5-4.0cm) IVSd1.05 (0.7-1.1cm)Aortic Root2.77 (2.2-3.7cm) LVDd5.54 (4.0-5.6cm)Aortic Cusp Exc.2.11 (1.5-2.0cm) PWd1.41 (0.7-1.1cm)FS (%) 30 % LVDs3.87 (2.0-3.8cm)LVEF (%)57 (>50%) Aortic Valve AoV Peak Bsrnwtit392.3cm/Zakiya Peak GR.12mmHg Mitral Valve MV E Lfiycpay683.4cm/sMV A Cpjhfirk109.8cm/sE/A ratio1.0 TDI E/Lateral E'0.0E/Medial E'0.0 Tricuspid Valve TR Peak Xloofmot144xf/sTR Peak Gr.30cpBkABMM32otVl LEFT VENTRICLE The left ventricle is normal size. There is normal left ventricular wall thickness. Left ventricle systolic function is normal. The Ejection Fraction is 55-60%. There is normal LV segmental wall motion. The left ventricular diastolic function is normal. RIGHT VENTRICLE The right ventricle is normal size. There is normal right ventricular wall thickness. The right ventricular systolic function is normal. ATRIA The left atrium size is normal. The right atrium size is normal. The interatrial septum is intact with no evidence for an atrial septal defect. AORTIC VALVE The aortic valve is normal in structure. No aortic regurgitation is present. There is no aortic valvular stenosis. MITRAL VALVE The mitral valve is normal in structure. There is no evidence of mitral valve prolapse. There is no mitral valve stenosis. Mitral regurgitation is mild. TRICUSPID VALVE The tricuspid valve is normal in structure. There is mild tricuspid regurgitation. Right ventricular systolic pressure is estimated at 50-60 mmHg. There is mild pulmonary hypertension. PULMONIC VALVE The pulmonic valve is not well visualized. There is mild pulmonic valvular regurgitation. GREAT VESSELS The aortic root is normal in size. PERICARDIAL EFFUSION There is a small loculated posterior pericardial effusion. <Conclusion> Left ventricle systolic function is normal. The Ejection Fraction is 55-60%. No aortic regurgitation is present. Mitral regurgitation is mild. There is mild tricuspid regurgitation. There is mild pulmonary hypertension. There is mild pulmonic valvular regurgitation.
[2016-10-23] MEDS: Cefepime IV 1 gm in Dextrose 1 GM/50 ML BAG IVPB SCH ×2 (06:13→17:11)
[2016-10-23 06:57] LABS: BASO # 0.1 K/uL (0.0-0.2); BASO % 0.4 % (0.0-2.0); EOS # 0.9 K/uL (0.0-0.7); EOS % 5.8 % (0.0-4.0); HEMATOCRIT 30.4 % (34.0-47.0); LYMPH # 0.7 K/uL (1.0-4.3); LYMPH % 4.6 % (20.0-40.0); MEAN CELL VOLUME 91.8 fL (81.0-99.0); MEAN CORPUSCULAR HEMOGLOBIN 30.3 pg (27.0-31.0); MEAN PLATELET VOLUME 8.1 fL (7.2-11.7); MONO # 0.6 K/uL (0.0-0.8); MONO % 4.2 % (0.0-10.0); PLATELET COUNT 164 K/uL (130-400); WHITE BLOOD COUNT 14.8 K/uL (4.8-10.8)
[2016-10-23 07:31] LABS: POTASSIUM 3.8 mmol/L (3.6-5.2)
[2016-10-23 07:33] LABS: ALB/GLOB RATIO 0.6 (1.0-2.1); BILIRUBIN,TOTAL 0.6 mg/dL (0.2-1.3); TOTAL PROTEIN 6.9 g/dL (6.3-8.3)
[2016-10-23 07:34] LABS: CALCIUM 6.8 mg/dl (8.6-10.4); MAGNESIUM 1.9 mg/dL (1.6-2.3); PHOSPHOROUS 4.5 mg/dL (2.5-4.5)
[2016-10-23 07:40] LABS: CHLORIDE URINE 65 mmol/L (32-290)
[2016-10-23] MEDS: Clindamycin 600mg/50ml D5W 600 MG/50 ML VIAL IVPB SCH ×3 (07:54→23:33)
--- NOTE | 2016-10-23 08:34 | US ---
Renal ultrasound History: Acute renal failure. Comparison: None available. Technique: Real-time sonography was performed through the kidneys. Findings: Right kidney: 13.1 x 6.1 x 6.7 centimeters. Increased echogenicity of the renal cortex suggestive for medical renal disease. No calculi or hydronephrosis. Left Kidney: 12.9 x 6.2 x 6.6 centimeters. Increased echogenicity of the renal cortex suggestive for medical renal disease. Mild fullness of the left renal collecting system. No calculi. Visualized aorta is preserved. Jessica catheter seen within the urinary bladder. Impression: Increased echogenicity of the bilateral renal cortices suggestive for medical renal disease. Mild fullness of the left renal collecting system.
--- NOTE | 2016-10-23 08:39 | CP.CCUPN ---
<Kiersten Hooker - Last Filed: 10/23/16 14:25> CCU Subjective - Physician Review Subjective (Free Text): Patient seen and examined at bedside. Patient is afebrile, tachycardiac, normotensive with leukocytosis and bandemia, currently on Cefepime, Diflucan, Nystation and Mepron (Bactrim was DC due to continued decline in renal function ) and Clindamycin. Pending HLA typing to begin HAART. Follow up stool studies. CCU Objective - Vital Signs / Intake & Output Vital Signs (Last 4 hours): Vital Signs Temp Pulse Resp BP Pulse Ox 10/23/16 06:50 135/77 10/23/16 06:00 107 H 25 H 99 10/23/16 05:50 138/81 10/23/16 05:00 98.5 F 117 H 28 H 134/78 96 10/23/16 04:50 134/78 Intake and Output (Last 8hrs): Intake & Output 10/22/16 10/23/16 10/23/16 22:59 06:59 14:59 Intake Total 1350 1300 75 Output Total 1745 1335 50 Balance -395 -35 25 Weight 136 lb 11.2 oz Intake: Intake, IV Amount 425 650 75 Right Forearm 375 600 75 Right Upper arm 50 right FA 50 Oral 350 650 Blood Product 450 Red Blood Cells Cpd As1 325 Lr Unit [id number] Other 125 Red Blood Cells Cpd As1 125 Lr Unit [id number] Output: Urine 1745 1335 50 Urethral (Akers) 1645 1335 50 Urine, Voided 100 Other: # Bowel Movements 1 1 - Physical Exam Head: Positive for: Atraumatic, Normocephalic Pupils: Positive for: PERRL Extroacular Muscles: Positive for: EOMI Conjunctiva: Positive for: Normal Mouth: Positive for: Dry Pharnyx: Positive for: EXUDATE Respiratory/Chest: Positive for: Decreased Breath Sounds Cardiovascular: Positive for: Tachycardic Abdomen: Positive for: Normal Bowel Sounds. Negative for: Tenderness, Distention Upper Extremity: Positive for: Normal Inspection, NORMAL PULSES. Negative for: Cyanosis, Edema Lower Extremity: Positive for: Normal Inspection, NORMAL PULSES. Negative for: Edema, CALF TENDERNESS Neurological: Positive for: GCS=15 Skin: Positive for: Warm, Dry. Negative for: Rashes Psychiatric: Positive for: Alert, Oriented x 3 - Medications Active Medications: Active Medications Generic Name Dose Route Start Last Admin Trade Name Freq PRN Reason Stop Dose Admin Acetaminophen 650 mg 10/21/16 05:46 10/22/16 11:07 Tylenol 325mg Tab PO 650 mg Q6 PRN Administration Fever >100.4 F Albuterol/Ipratropium 3 ml 10/21/16 20:00 10/23/16 07:35 Duoneb 3 Mg/0.5 Mg (3 Ml) Ud INH 3 ml RQ6 RONALD Administration Atovaquone 1,500 mg 10/23/16 10:00 Mepron PO DAILY RONALD Calcium Acetate 667 mg 10/22/16 12:00 10/23/16 07:54 Phoslo PO 667 mg TIDCC RONALD Administration Guaifenesin/Dextromethorphan 5 ml 10/22/16 21:27 10/22/16 22:19 Robitussin Dm PO 5 ml Q4H PRN Administration Cough Fluconazole 100 mls @ 100 mls/hr 10/21/16 10:00 10/22/16 09:50 Diflucan Iv 200 Mg/100 Ml Ns IVPB 100 mls/hr DAILY RONALD Administration Cefepime HCl 1 gm in 50 mls @ 100 mls/hr 10/21/16 18:00 10/23/16 06:13 Maxipime Iv 1 Gm Premix IVPB 100 mls/hr Q12H RONALD Administration Clindamycin Phosphate 600 mg in 50 mls @ 100 mls/hr 10/22/16 16:00 10/23/16 07:54 Cleocin IVPB 100 mls/hr Q8H RONALD Administration Sodium Bicarbonate 100 ml/ 1,100 mls @ 75 mls/hr 10/22/16 21:15 10/22/16 22: 18 Dextrose IV 75 mls/hr .[id number] RONALD Administration Multi-Ingredient Ointment 0 ea 10/23/16 10:00 Prep-Hem TOP TID RONALD Nicotine 1 patch 10/21/16 10:00 10/22/16 09:17 Nicoderm Cq TD 1 patch DAILY RONALD Administration Nystatin 5 ml 10/20/16 22:00 10/22/16 22:19 Nystatin Oral Susp PO 5 ml QID RONALD Administration Pantoprazole Sodium 40 mg 10/23/16 10:00 Protonix Ec Tab PO DAILY RONALD - Patient Studies Lab Studies: Microbiology Studies 10/21/16 22:28 Urine Culture - Final Urine,Clean Catch No Growth (<1,000 CFU/ML) 10/21/16 17:24 MRSA Culture (Admit) - Final Nose MRSA NOT DETECTED 10/21/16 07:00 Blood Culture - Preliminary Blood NO GROWTH AFTER 24 HOURS 10/21/16 06:30 Blood Culture - Preliminary Blood NO GROWTH AFTER 24 HOURS Lab Studies 10/23/16 10/23/16 10/22/16 Range/Units 06:52 06:52 Unknown WBC 14.8 H (4.8-10.8) K/uL RBC 3.31 L (3.80-5.20) Mil/uL Hgb 10.0 L D (11.0-16.0) g/dL Hct 30.4 L (34.0-47.0) % MCV 91.8 D (81.0-99.0) fL MCH 30.3 (27.0-31.0) pg MCHC 33.0 (33.0-37.0) g/dL RDW 20.0 H (11.5-14.5) % Plt Count 164 (130-400) K/uL MPV 8.1 (7.2-11.7) fL Neut % (Auto) 85.0 H (50.0-75.0) % Lymph % (Auto) 4.6 L (20.0-40.0) % Frederick % (Auto) 4.2 (0.0-10.0) % Eos % (Auto) 5.8 H (0.0-4.0) % Baso % (Auto) 0.4 (0.0-2.0) % Neut # 12.6 H (1.8-7.0) K/uL Lymph # 0.7 L (1.0-4.3) K/uL Frederick # 0.6 (0.0-0.8) K/uL Eos # 0.9 H (0.0-0.7) K/uL Baso # 0.1 (0.0-0.2) K/uL Neutrophils % (Manual) (50-75) % Band Neutrophils % (0-2) % Lymphocytes % (Manual) (20-40) % Monocytes % (Manual) (0-10) % Eosinophils % (Manual) (0-4) % Platelet Estimate (NORMAL) Polychromasia Hypochromasia (manual) Anisocytosis (manual) Macrocytosis (manual) Tear Drop Cells Haptoglobin (43-212) mg/dL Sodium 141 (132-148) mmol/L Potassium 3.8 (3.6-5.2) mmol/L Chloride 109 H (98-107) mmol/L Carbon Dioxide 18 L (22-30) mmol/L Anion Gap 18 (10-20) BUN 50 H (7-17) mg/dL Creatinine 2.8 H (0.7-1.2) MG/DL Est GFR ( Amer) 21 Est GFR (Non-Af Amer) 18 Random Glucose 86 (65-105) mg/dL Calcium 6.8 L (8.6-10.4) mg/dl Phosphorus 4.5 (2.5-4.5) mg/dL Magnesium 1.9 (1.6-2.3) mg/dL Total Bilirubin 0.6 (0.2-1.3) mg/dL AST 51 H D (14-36) U/L ALT 26 (9-52) U/L Alkaline Phosphatase 85 (38-126) U/L Total Protein 6.9 (6.3-8.3) g/dL Albumin 2.5 L (3.5-5.0) g/dL Globulin 4.4 H (2.2-3.9) gm/dL Albumin/Globulin Ratio 0.6 L (1.0-2.1) Procalcitonin (0.19-0.49) NG/ML Urine Chloride (32-290) mmol/L Stool Leukocytes, Qual Negative (NEGATIVE) Blood Type Antibody Screen 10/22/16 10/22/16 10/21/16 Range/Units 22:11 06:32 22:34 WBC (4.8-10.8) K/uL RBC (3.80-5.20) Mil/uL Hgb (11.0-16.0) g/dL Hct (34.0-47.0) % MCV (81.0-99.0) fL MCH (27.0-31.0) pg MCHC (33.0-37.0) g/dL RDW (11.5-14.5) % Plt Count (130-400) K/uL MPV (7.2-11.7) fL Neut % (Auto) (50.0-75.0) % Lymph % (Auto) (20.0-40.0) % Frederick % (Auto) (0.0-10.0) % Eos % (Auto) (0.0-4.0) % Baso % (Auto) (0.0-2.0) % Neut # (1.8-7.0) K/uL Lymph # (1.0-4.3) K/uL Frederick # (0.0-0.8) K/uL Eos # (0.0-0.7) K/uL Baso # (0.0-0.2) K/uL Neutrophils % (Manual) 58 (50-75) % Band Neutrophils % 35 H* (0-2) % Lymphocytes % (Manual) 2 L (20-40) % Monocytes % (Manual) 3 (0-10) % Eosinophils % (Manual) 2 (0-4) % Platelet Estimate Normal (NORMAL) Polychromasia Slight Hypochromasia (manual) Slight Anisocytosis (manual) Slight Macrocytosis (manual) Slight Tear Drop Cells Slight Haptoglobin (43-212) mg/dL Sodium 141 (132-148) mmol/L Potassium 3.6 (3.6-5.2) mmol/L Chloride 112 H (98-107) mmol/L Carbon Dioxide 17 L (22-30) mmol/L Anion Gap 16 (10-20) BUN 50 H (7-17) mg/dL Creatinine 3.0 H (0.7-1.2) MG/DL Est GFR ( Amer) 20 Est GFR (Non-Af Amer) 16 Random Glucose 89 (65-105) mg/dL Calcium 6.7 L (8.6-10.4) mg/dl Phosphorus (2.5-4.5) mg/dL Magnesium 2.0 (1.6-2.3) mg/dL Total Bilirubin (0.2-1.3) mg/dL AST (14-36) U/L ALT (9-52) U/L Alkaline Phosphatase (38-126) U/L Total Protein (6.3-8.3) g/dL Albumin (3.5-5.0) g/dL Globulin (2.2-3.9) gm/dL Albumin/Globulin Ratio (1.0-2.1) Procalcitonin 11.52 H (0.19-0.49) NG/ML Urine Chloride (32-290) mmol/L Stool Leukocytes, Qual (NEGATIVE) Blood Type Antibody Screen 10/21/16 10/21/16 10/20/16 Range/Units 17:44 17:25 19:03 WBC (4.8-10.8) K/uL RBC (3.80-5.20) Mil/uL Hgb (11.0-16.0) g/dL Hct (34.0-47.0) % MCV (81.0-99.0) fL MCH (27.0-31.0) pg MCHC (33.0-37.0) g/dL RDW (11.5-14.5) % Plt Count (130-400) K/uL MPV (7.2-11.7) fL Neut % (Auto) (50.0-75.0) % Lymph % (Auto) (20.0-40.0) % Frederick % (Auto) (0.0-10.0) % Eos % (Auto) (0.0-4.0) % Baso % (Auto) (0.0-2.0) % Neut # (1.8-7.0) K/uL Lymph # (1.0-4.3) K/uL Frederick # (0.0-0.8) K/uL Eos # (0.0-0.7) K/uL Baso # (0.0-0.2) K/uL Neutrophils % (Manual) (50-75) % Band Neutrophils % (0-2) % Lymphocytes % (Manual) (20-40) % Monocytes % (Manual) (0-10) % Eosinophils % (Manual) (0-4) % Platelet Estimate (NORMAL) Polychromasia Hypochromasia (manual) Anisocytosis (manual) Macrocytosis (manual) Tear Drop Cells Haptoglobin 160 (43-212) mg/dL Sodium (132-148) mmol/L Potassium (3.6-5.2) mmol/L Chloride (98-107) mmol/L Carbon Dioxide (22-30) mmol/L Anion Gap (10-20) BUN (7-17) mg/dL Creatinine (0.7-1.2) MG/DL Est GFR ( Amer) Est GFR (Non-Af Amer) Random Glucose (65-105) mg/dL Calcium (8.6-10.4) mg/dl Phosphorus (2.5-4.5) mg/dL Magnesium (1.6-2.3) mg/dL Total Bilirubin (0.2-1.3) mg/dL AST (14-36) U/L ALT (9-52) U/L Alkaline Phosphatase (38-126) U/L Total Protein (6.3-8.3) g/dL Albumin (3.5-5.0) g/dL Globulin (2.2-3.9) gm/dL Albumin/Globulin Ratio (1.0-2.1) Procalcitonin (0.19-0.49) NG/ML Urine Chloride 65 (32-290) mmol/L Stool Leukocytes, Qual (NEGATIVE) Blood Type A POSITIVE Antibody Screen Negative Laboratory Results - last 24 hr 10/20/16 10/21/16 10/21/16 19:03 17:25 17:44 WBC RBC Hgb Hct MCV MCH MCHC RDW Plt Count MPV Neut % (Auto) Lymph % (Auto) Frederick % (Auto) Eos % (Auto) Baso % (Auto) Neut # Lymph # Frederick # Eos # Baso # Neutrophils % (Manual) Band Neutrophils % Lymphocytes % (Manual) Monocytes % (Manual) Eosinophils % (Manual) Platelet Estimate Polychromasia Hypochromasia (manual) Anisocytosis (manual) Macrocytosis (manual) Tear Drop Cells Haptoglobin 160 Sodium Potassium Chloride Carbon Dioxide Anion Gap BUN Creatinine Est GFR ( Amer) Est GFR (Non-Af Amer) Random Glucose Calcium Phosphorus Magnesium Total Bilirubin AST ALT Alkaline Phosphatase Total Protein Albumin Globulin Albumin/Globulin Ratio Procalcitonin Urine Chloride 65 Stool Leukocytes, Qual Blood Type A POSITIVE Antibody Screen Negative 10/21/16 10/22/16 10/22/16 22:34 06:32 22:11 WBC RBC Hgb Hct MCV MCH MCHC RDW Plt Count MPV Neut % (Auto) Lymph % (Auto) Frederick % (Auto) Eos % (Auto) Baso % (Auto) Neut # Lymph # Frederick # Eos # Baso # Neutrophils % (Manual) 58 Band Neutrophils % 35 H* Lymphocytes % (Manual) 2 L Monocytes % (Manual) 3 Eosinophils % (Manual) 2 Platelet Estimate Normal Polychromasia Slight Hypochromasia (manual) Slight Anisocytosis (manual) Slight Macrocytosis (manual) Slight Tear Drop Cells Slight Haptoglobin Sodium 141 Potassium 3.6 Chloride 112 H Carbon Dioxide 17 L Anion Gap 16 BUN 50 H Creatinine 3.0 H Est GFR ( Amer) 20 Est GFR (Non-Af Amer) 16 Random Glucose 89 Calcium 6.7 L Phosphorus Magnesium 2.0 Total Bilirubin AST ALT Alkaline Phosphatase Total Protein Albumin Globulin Albumin/Globulin Ratio Procalcitonin 11.52 H Urine Chloride Stool Leukocytes, Qual Blood Type Antibody Screen 10/22/16 10/23/16 10/23/16 Unknown 06:52 06:52 WBC 14.8 H RBC 3.31 L Hgb 10.0 L D Hct 30.4 L MCV 91.8 D MCH 30.3 MCHC 33.0 RDW 20.0 H Plt Count 164 MPV 8.1 Neut % (Auto) 85.0 H Lymph % (Auto) 4.6 L Frederick % (Auto) 4.2 Eos % (Auto) 5.8 H Baso % (Auto) 0.4 Neut # 12.6 H Lymph # 0.7 L Frederick # 0.6 Eos # 0.9 H Baso # 0.1 Neutrophils % (Manual) Band Neutrophils % Lymphocytes % (Manual) Monocytes % (Manual) Eosinophils % (Manual) Platelet Estimate Polychromasia Hypochromasia (manual) Anisocytosis (manual) Macrocytosis (manual) Tear Drop Cells Haptoglobin Sodium 141 Potassium 3.8 Chloride 109 H Carbon Dioxide 18 L Anion Gap 18 BUN 50 H Creatinine 2.8 H Est GFR ( Amer) 21 Est GFR (Non-Af Amer) 18 Random Glucose 86 Calcium 6.8 L Phosphorus 4.5 Magnesium 1.9 Total Bilirubin 0.6 AST 51 H D ALT 26 Alkaline Phosphatase 85 Total Protein 6.9 Albumin 2.5 L Globulin 4.4 H Albumin/Globulin Ratio 0.6 L Procalcitonin Urine Chloride Stool Leukocytes, Qual Negative Blood Type Antibody Screen Critical Care Progress Note - Nutrition Nutrition: Nutrition Category Date Time Status Heart Healthy Diet [DIET] Diets 10/20/16 Dinner Active Assessment/Plan - Assessment and Plan (Free Text) Assessment: 56yo F with PMHx of AIDS, HTN and pneumonia presenting with cough and weakness x 1 week. Not on HAART due to vaginal clotting and kidney injury. Transferred to ICU for severe sepsis with AIDS complicated by pneumonia. Plan: Neuro: Alert and oriented 3 Pulm: * Acute hypoxic respiratory failure secondary to Pneumonia, ruling out PJP, TB, TANA. * Continue nasal cannula oxygen. * Dr. Gonzales -consulted. * Follow-up QuantiFERON goal to rule out TB, Crypto, HLA * Patient is currently on Cefepime, Diflucan, Nystation and Mepron (Bactrim was DC due to continued decline in renal function). CV: Hemodynamically stable.ECHO - EF 55-60% Hem: * Worsening anemia, patient has elevated LDH, haptoglobin 160 * No visible signs of bleeding currently. * D-dimer is elevated but could be inflammatory response. * Lower extremity Doppler- negative DVT. * Hemoglobin stable at 10.0 Renal: * Nonoliguric Acute kidney injury, creatinine has doubled in 24 hours. * Patient still making urine. * Hyperkalemia improved status post administration of Kayexalate. Will use hypochloremic fluid 1/2NS+75meq SB@75 * Dr. Garcia consulted for acute kidney injury - Phoslo started, 24 hour protein and creatine ordered. Renal US: Increased echogenicity of the bilateral renal cortices suggestive for medical renal disease. Mild fullness of the left renal collecting system. Uro: * Patient was having vaginal clots, will monitor. * Urinalysis most likely contaminated from recent vaginal blood clots. Endo: No acute issues GI: * Heart healthy diet. * Patient having diarrhea - follow up stool for leukocytes and C. difficile, stool occult * There is suspicion for underlying carcinoma with mediastinal, mesenteric, perivascular lymphadenopathy. * CT AB & Pelvis: Small to moderate right and small left pleural effusions and associated consolidations, right greater than left. Interstitial prominence. Partially imaged cardiomegaly. Trace pericardial effusion. Hepatomegaly. Coarsened hepatic echotexture. Borderline splenomegaly. Cholecystectomy. Suboptimal visualization of the unenhanced pancreas. Small pelvic ascites. Bilateral inguinal adenopathy measuring up to 14 mm in short axis, with central necrosis versus fat. Sub cm right pelvic sidewall lymph node measures approximately 9 mm in short axis. Left pelvic sidewall lymph node measures approximately 10 mm in short axis. Prominent but sub cm mesenteric and retroperitoneal lymph nodes, nonspecific. Please note that evaluation for adenopathy is limited due to lack of IV contrast. ID: * Severe sepsis with AIDS complicated by pneumonia. * Patient is afebrile, tachycardiac, normotensive with leukocytosis and bandemia , currently on Cefepime, Diflucan, Nystation and Mepron (Bactrim was DC due to continued decline in renal function). * Procalcitonin: 11.52 * Absolute CD4 count of 45. Pending HLA typing- to start HAART therapy Prophylaxis: * DVT proph - Held due to active bleeding * GI proph - Protonix * akers for strict I/O's during acute illness DW Morro Clemente DO, PGY-1 <Cintia Collazo - Last Filed: 10/23/16 19:11> CCU Subjective - Physician Review Critical Care Time Spent (in minutes): 45 CCU Objective - Vital Signs / Intake & Output Vital Signs (Last 4 hours): Vital Signs Temp Pulse Resp BP Pulse Ox 10/23/16 18:00 113 H 26 H 144/91 H 100 10/23/16 17:00 115 H 24 152/88 H 96 10/23/16 16:00 99.6 F 107 H 26 H 158/91 H 100 Intake and Output (Last 8hrs): Intake & Output 10/23/16 10/23/16 10/23/16 06:59 14:59 22:59 Intake Total 1300 1170 520 Output Total 1335 1235 740 Balance -35 -65 -220 Weight 136 lb 11.2 oz Intake: Intake, IV Amount 650 750 400 Right Forearm 600 600 300 right FA 50 150 100 Oral 650 420 120 Output: Urine 1335 1235 740 Urethral (Akers) 1335 1235 740 Other: # Bowel Movements 1 2 1 - Medications Active Medications: Active Medications Generic Name Dose Route Start Last Admin Trade Name Freq PRN Reason Stop Dose Admin Acetaminophen 650 mg 10/21/16 05:46 10/22/16 11:07 Tylenol 325mg Tab PO 650 mg Q6 PRN Administration Fever >100.4 F Albuterol/Ipratropium 3 ml 10/21/16 20:00 10/23/16 13:32 Duoneb 3 Mg/0.5 Mg (3 Ml) Ud INH 3 ml RQ6 RONALD Administration Atovaquone 1,500 mg 10/23/16 10:00 10/23/16 10:18 Mepron PO 1,500 mg DAILY RONALD Administration Calcium Acetate 667 mg 10/22/16 12:00 10/23/16 17:11 Phoslo PO 667 mg TIDCC RONALD Administration Guaifenesin/Dextromethorphan 5 ml 10/22/16 21:27 10/22/16 22:19 Robitussin Dm PO 5 ml Q4H PRN Administration Cough Fluconazole 100 mls @ 100 mls/hr 10/21/16 10:00 10/23/16 10:17 Diflucan Iv 200 Mg/100 Ml Ns IVPB 100 mls/hr DAILY RONALD Administration Cefepime HCl 1 gm in 50 mls @ 100 mls/hr 10/21/16 18:00 10/23/16 17:11 Maxipime Iv 1 Gm Premix IVPB 100 mls/hr Q12H RONALD Administration Clindamycin Phosphate 600 mg in 50 mls @ 100 mls/hr 10/22/16 16:00 10/23/16 15:03 Cleocin IVPB 100 mls/hr Q8H RONALD Administration Sodium Bicarbonate 100 ml/ 1,100 mls @ 75 mls/hr 10/22/16 21:15 10/23/16 13: 07 Dextrose IV 75 mls/hr .[id number] RONALD Administration Multi-Ingredient Ointment 0 ea 10/23/16 10:00 10/23/16 17:12 Prep-Hem TOP 1 applic TID RONALD Administration Nicotine 1 patch 10/21/16 10:00 10/23/16 10:18 Nicoderm Cq TD 1 patch DAILY RONALD Administration Nystatin 5 ml 10/20/16 22:00 10/23/16 17:11 Nystatin Oral Susp PO 5 ml QID RONALD Administration Pantoprazole Sodium 40 mg 10/23/16 10:00 10/23/16 10:18 Protonix Ec Tab PO 40 mg DAILY RONALD Administration - Patient Studies Lab Studies: Microbiology Studies 10/21/16 11:40 Mycobacterial Culture - Preliminary Other: Please Indicate 10/20/16 19:20 Mycobacterial Culture - Preliminary Other: Please Indicate 10/21/16 07:00 Blood Culture - Preliminary Blood NO GROWTH AFTER 48 HOURS 10/21/16 06:30 Blood Culture - Preliminary Blood NO GROWTH AFTER 48 HOURS 10/22/16 Unknown Ova and Parasite Concentrate Exam - Final Stool 10/20/16 Unknown Gram Stain - Final Sputum Sputum Culture - Final NORMAL ORAL CELINA 10/21/16 22:28 Urine Culture - Final Urine,Clean Catch No Growth (<1,000 CFU/ML) 10/21/16 17:24 MRSA Culture (Admit) - Final Nose MRSA NOT DETECTED Lab Studies 10/23/16 10/23/16 10/23/16 Range/Units 17:33 06:52 06:52 WBC 14.8 H (4.8-10.8) K/uL RBC 3.31 L (3.80-5.20) Mil/uL Hgb 10.0 L D (11.0-16.0) g/dL Hct 30.4 L (34.0-47.0) % MCV 91.8 D (81.0-99.0) fL MCH 30.3 (27.0-31.0) pg MCHC 33.0 (33.0-37.0) g/dL RDW 20.0 H (11.5-14.5) % Plt Count 164 (130-400) K/uL MPV 8.1 (7.2-11.7) fL Neut % (Auto) 85.0 H (50.0-75.0) % Lymph % (Auto) 4.6 L (20.0-40.0) % Frederick % (Auto) 4.2 (0.0-10.0) % Eos % (Auto) 5.8 H (0.0-4.0) % Baso % (Auto) 0.4 (0.0-2.0) % Neut # 12.6 H (1.8-7.0) K/uL Lymph # 0.7 L (1.0-4.3) K/uL Frederick # 0.6 (0.0-0.8) K/uL Eos # 0.9 H (0.0-0.7) K/uL Baso # 0.1 (0.0-0.2) K/uL Neutrophils % (Manual) 57 (50-75) % Band Neutrophils % 25 H* (0-2) % Lymphocytes % (Manual) 6 L (20-40) % Reactive Lymphs % 3 H (0-0) % Monocytes % (Manual) 4 (0-10) % Eosinophils % (Manual) 5 H (0-4) % Platelet Estimate Normal (NORMAL) Hypochromasia (manual) Slight Poikilocytosis (manual Slight Anisocytosis (manual) Slight Tear Drop Cells Slight [place] Cells Slight Haptoglobin (43-212) mg/dL Sodium 141 (132-148) mmol/L Potassium 3.8 (3.6-5.2) mmol/L Chloride 109 H (98-107) mmol/L Carbon Dioxide 18 L (22-30) mmol/L Anion Gap 18 (10-20) BUN 50 H (7-17) mg/dL Creatinine 2.8 H (0.7-1.2) MG/DL Est GFR ( Amer) 21 Est GFR (Non-Af Amer) 18 Random Glucose 86 (65-105) mg/dL Calcium 6.8 L (8.6-10.4) mg/dl Phosphorus 4.5 (2.5-4.5) mg/dL Magnesium 1.9 (1.6-2.3) mg/dL Total Bilirubin 0.6 (0.2-1.3) mg/dL AST 51 H D (14-36) U/L ALT 26 (9-52) U/L Alkaline Phosphatase 85 (38-126) U/L Total Protein 6.9 (6.3-8.3) g/dL Albumin 2.5 L (3.5-5.0) g/dL Globulin 4.4 H (2.2-3.9) gm/dL Albumin/Globulin Ratio 0.6 L (1.0-2.1) Urine Collection Time 24 HRS Urine Total Volume 4650 mL Urine Chloride (32-290) mmol/L Ur Protein 24 Hr Calc 7765.5 H (42-225) mg/24hr Stool Leukocytes, Qual (NEGATIVE) TB Test (QFT) Nil TB Test Mitogen - Nil TB Test TB - Nil TB Test (QFT) 10/22/16 10/22/16 10/21/16 Range/Units Unknown 22:11 17:25 WBC (4.8-10.8) K/uL RBC (3.80-5.20) Mil/uL Hgb (11.0-16.0) g/dL Hct (34.0-47.0) % MCV (81.0-99.0) fL MCH (27.0-31.0) pg MCHC (33.0-37.0) g/dL RDW (11.5-14.5) % Plt Count (130-400) K/uL MPV (7.2-11.7) fL Neut % (Auto) (50.0-75.0) % Lymph % (Auto) (20.0-40.0) % Frederick % (Auto) (0.0-10.0) % Eos % (Auto) (0.0-4.0) % Baso % (Auto) (0.0-2.0) % Neut # (1.8-7.0) K/uL Lymph # (1.0-4.3) K/uL Frederick # (0.0-0.8) K/uL Eos # (0.0-0.7) K/uL Baso # (0.0-0.2) K/uL Neutrophils % (Manual) (50-75) % Band Neutrophils % (0-2) % Lymphocytes % (Manual) (20-40) % Reactive Lymphs % (0-0) % Monocytes % (Manual) (0-10) % Eosinophils % (Manual) (0-4) % Platelet Estimate (NORMAL) Hypochromasia (manual) Poikilocytosis (manual Anisocytosis (manual) Tear Drop Cells [place] Cells Haptoglobin 160 (43-212) mg/dL Sodium 141 (132-148) mmol/L Potassium 3.6 (3.6-5.2) mmol/L Chloride 112 H (98-107) mmol/L Carbon Dioxide 17 L (22-30) mmol/L Anion Gap 16 (10-20) BUN 50 H (7-17) mg/dL Creatinine 3.0 H (0.7-1.2) MG/DL Est GFR ( Amer) 20 Est GFR (Non-Af Amer) 16 Random Glucose 89 (65-105) mg/dL Calcium 6.7 L (8.6-10.4) mg/dl Phosphorus (2.5-4.5) mg/dL Magnesium 2.0 (1.6-2.3) mg/dL Total Bilirubin (0.2-1.3) mg/dL AST (14-36) U/L ALT (9-52) U/L Alkaline Phosphatase (38-126) U/L Total Protein (6.3-8.3) g/dL Albumin (3.5-5.0) g/dL Globulin (2.2-3.9) gm/dL Albumin/Globulin Ratio (1.0-2.1) Urine Collection Time HRS Urine Total Volume mL Urine Chloride (32-290) mmol/L Ur Protein 24 Hr Calc (42-225) mg/24hr Stool Leukocytes, Qual Negative (NEGATIVE) TB Test (QFT) Nil TB Test Mitogen - Nil TB Test TB - Nil TB Test (QFT) 10/20/16 10/20/16 Range/Units 19:03 18:02 WBC (4.8-10.8) K/uL RBC (3.80-5.20) Mil/uL Hgb (11.0-16.0) g/dL Hct (34.0-47.0) % MCV (81.0-99.0) fL MCH (27.0-31.0) pg MCHC (33.0-37.0) g/dL RDW (11.5-14.5) % Plt Count (130-400) K/uL MPV (7.2-11.7) fL Neut % (Auto) (50.0-75.0) % Lymph % (Auto) (20.0-40.0) % [place] % (Auto) (0.0-10.0) % Eos % (Auto) (0.0-4.0) % Baso % (Auto) (0.0-2.0) % Neut # (1.8-7.0) K/uL Lymph # (1.0-4.3) K/uL Frederick # (0.0-0.8) K/uL Eos # (0.0-0.7) K/uL Baso # (0.0-0.2) K/uL Neutrophils % (Manual) (50-75) % Band Neutrophils % (0-2) % Lymphocytes % (Manual) (20-40) % Reactive Lymphs % (0-0) % Monocytes % (Manual) (0-10) % Eosinophils % (Manual) (0-4) % Platelet Estimate (NORMAL) Hypochromasia (manual) Poikilocytosis (manual Anisocytosis (manual) Tear Drop Cells [place] Cells Haptoglobin (43-212) mg/dL Sodium (132-148) mmol/L Potassium (3.6-5.2) mmol/L Chloride (98-107) mmol/L Carbon Dioxide (22-30) mmol/L Anion Gap (10-20) BUN (7-17) mg/dL Creatinine (0.7-1.2) MG/DL Est GFR ( Amer) Est GFR (Non-Af Amer) Random Glucose (65-105) mg/dL Calcium (8.6-10.4) mg/dl Phosphorus (2.5-4.5) mg/dL Magnesium (1.6-2.3) mg/dL Total Bilirubin (0.2-1.3) mg/dL AST (14-36) U/L ALT (9-52) U/L Alkaline Phosphatase (38-126) U/L Total Protein (6.3-8.3) g/dL Albumin (3.5-5.0) g/dL Globulin (2.2-3.9) gm/dL Albumin/Globulin Ratio (1.0-2.1) Urine Collection Time HRS Urine Total Volume mL Urine Chloride 65 (32-290) mmol/L Ur Protein 24 Hr Calc (42-225) mg/24hr Stool Leukocytes, Qual (NEGATIVE) TB Test (QFT) Nil TNP TB Test Mitogen - Nil TNP TB Test TB - Nil TNP TB Test (QFT) TNP Laboratory Results - last 24 hr 10/20/16 10/20/16 10/21/16 18:02 19:03 17:25 WBC RBC Hgb Hct MCV MCH MCHC RDW Plt Count MPV Neut % (Auto) Lymph % (Auto) Frederick % (Auto) Eos % (Auto) Baso % (Auto) Neut # Lymph # Frederick # Eos # Baso # Neutrophils % (Manual) Band Neutrophils % Lymphocytes % (Manual) Reactive Lymphs % Monocytes % (Manual) Eosinophils % (Manual) Platelet Estimate Hypochromasia (manual) Poikilocytosis (manual Anisocytosis (manual) Tear Drop Cells [place] Cells Haptoglobin 160 Sodium Potassium Chloride Carbon Dioxide Anion Gap BUN Creatinine Est GFR ( Amer) Est GFR (Non-Af Amer) Random Glucose Calcium Phosphorus Magnesium Total Bilirubin AST ALT Alkaline Phosphatase Total Protein Albumin Globulin Albumin/Globulin Ratio Urine Collection Time Urine Total Volume Urine Chloride 65 Ur Protein 24 Hr Calc Stool Leukocytes, Qual TB Test (QFT) Nil TNP TB Test Mitogen - Nil TNP TB Test TB - Nil TNP TB Test (QFT) TNP 10/22/16 10/22/16 10/23/16 22:11 Unknown 06:52 WBC 14.8 H RBC 3.31 L Hgb 10.0 L D Hct 30.4 L MCV 91.8 D MCH 30.3 MCHC 33.0 RDW 20.0 H Plt Count 164 MPV 8.1 Neut % (Auto) 85.0 H Lymph % (Auto) 4.6 L Frederick % (Auto) 4.2 Eos % (Auto) 5.8 H Baso % (Auto) 0.4 Neut # 12.6 H Lymph # 0.7 L Frederick # 0.6 Eos # 0.9 H Baso # 0.1 Neutrophils % (Manual) 57 Band Neutrophils % 25 H* Lymphocytes % (Manual) 6 L Reactive Lymphs % 3 H Monocytes % (Manual) 4 Eosinophils % (Manual) 5 H Platelet Estimate Normal Hypochromasia (manual) Slight Poikilocytosis (manual Slight Anisocytosis (manual) Slight Tear Drop Cells Slight [place] Cells Slight Haptoglobin Sodium 141 Potassium 3.6 Chloride 112 H Carbon Dioxide 17 L Anion Gap 16 BUN 50 H Creatinine 3.0 H Est GFR ( Amer) 20 Est GFR (Non-Af Amer) 16 Random Glucose 89 Calcium 6.7 L Phosphorus Magnesium 2.0 Total Bilirubin AST ALT Alkaline Phosphatase Total Protein Albumin Globulin Albumin/Globulin Ratio Urine Collection Time Urine Total Volume Urine Chloride Ur Protein 24 Hr Calc Stool Leukocytes, Qual Negative TB Test (QFT) Nil TB Test Mitogen - Nil TB Test TB - Nil TB Test (QFT) 10/23/16 10/23/16 06:52 17:33 WBC RBC Hgb Hct MCV MCH MCHC RDW Plt Count MPV Neut % (Auto) Lymph % (Auto) [place] % (Auto) Eos % (Auto) Baso % (Auto) Neut # Lymph # [place] # Eos # Baso # Neutrophils % (Manual) Band Neutrophils % Lymphocytes % (Manual) Reactive Lymphs % Monocytes % (Manual) Eosinophils % (Manual) Platelet Estimate Hypochromasia (manual) Poikilocytosis (manual Anisocytosis (manual) Tear Drop Cells Scarlett Cells Haptoglobin Sodium 141 Potassium 3.8 Chloride 109 H Carbon Dioxide 18 L Anion Gap 18 BUN 50 H Creatinine 2.8 H Est GFR ( Amer) 21 Est GFR (Non-Af Amer) 18 Random Glucose 86 Calcium 6.8 L Phosphorus 4.5 Magnesium 1.9 Total Bilirubin 0.6 AST 51 H D ALT 26 Alkaline Phosphatase 85 Total Protein 6.9 Albumin 2.5 L Globulin 4.4 H Albumin/Globulin Ratio 0.6 L Urine Collection Time 24 Urine Total Volume 4650 Urine Chloride Ur Protein 24 Hr Calc 7765.5 H Stool Leukocytes, Qual TB Test (QFT) Nil TB Test Mitogen - Nil TB Test TB - Nil TB Test (QFT) Critical Care Progress Note - Nutrition Nutrition: Nutrition Category Date Time Status Heart Healthy Diet [DIET] Diets 10/20/16 Dinner Active Attending/Attestation - Attestation I have personally seen and examined this patient.: Yes I have fully participated in the care of the patient.: Yes I have reviewed all pertinent clinical information: Yes Notes (Text): 10/23/16 19:10 agree with resident notes continue current treatment
[2016-10-23 09:33] LABS: EOSINOPHIL 5 % (0-4); NEUTROPHIL 57 % (50-75); REACTIVE LYMPHOCYTES 3 % (0-0); TOTAL CELLS COUNTED 100
[2016-10-23] MEDS: Fluconazole IV 200mg/100 ml NS 100 ML IVPB SCH (10:17)
[2016-10-23] MEDS: Atovaquone 750 mg/5 ml Susp UD PO SCH (10:18)
[2016-10-23] MEDS: Pantoprazole 40 mg EC Tab PO SCH (10:18)
[2016-10-23] MEDS: Nystatin 100,000 Units/ml Oral Susp 5 ml UD PO SCH ×4 (10:18→21:34)
[2016-10-23] MEDS: Hemorrohoidal Ointment (2 oz) TOP SCH ×3 (10:53→17:12)
[2016-10-23 12:53] LABS: % CD3 (MATURE T CELL) 92 Percent (57-85)
[2016-10-23] MEDS: Sodium Bicarbonate 100 ML in Dextrose 5% In Water 1,000 ML IV SCH (13:07)
--- NOTE | 2016-10-23 13:33 | CP.PCM.PN ---
Subjective - Date & Time of Evaluation Date of Evaluation: 10/23/16 Time of Evaluation: 09:00 - Subjective Subjective: t max down cultures neg iv rx reordered Objective - Vital Signs/Intake and Output Vital Signs (last 24 hours): Temp Pulse Resp BP Pulse Ox 100.0 F H 114 H 26 H 140/93 H 100 10/23/16 12:00 10/23/16 12:00 10/23/16 12:00 10/23/16 12:00 10/23/16 12:00 Intake and Output: 10/23/16 10/23/16 06:59 18:59 Intake Total 1675 840 Output Total 2605 865 Balance -930 -25 - Medications Medications: Current Medications Acetaminophen (Tylenol 325mg Tab) 650 mg PO Q6 PRN PRN Reason: Fever >100.4 F Last Admin: 10/22/16 11:07 Dose: 650 mg Albuterol/Ipratropium (Duoneb 3 Mg/0.5 Mg (3 Ml) Ud) 3 ml INH RQ6 [facility] Last Admin: 10/23/16 13:32 Dose: 3 ml Atovaquone (Mepron) 1,500 mg PO DAILY [facility] Last Admin: 10/23/16 10:18 Dose: 1,500 mg Calcium Acetate (Phoslo) 667 mg PO TIDCC [facility] Last Admin: 10/23/16 11:59 Dose: 667 mg Guaifenesin/Dextromethorphan (Robitussin Dm) 5 ml PO Q4H PRN PRN Reason: Cough Last Admin: 10/22/16 22:19 Dose: 5 ml Fluconazole (Diflucan Iv 200 Mg/100 Ml Ns) 100 mls @ 100 mls/hr IVPB DAILY [facility] Last Admin: 10/23/16 10:17 Dose: 100 mls/hr Cefepime HCl (Maxipime Iv 1 Gm Premix) 1 gm in 50 mls @ 100 mls/hr IVPB Q12H [facility] Last Admin: 10/23/16 06:13 Dose: 100 mls/hr Clindamycin Phosphate (Cleocin) 600 mg in 50 mls @ 100 mls/hr IVPB Q8H [facility] Last Admin: 10/23/16 07:54 Dose: 100 mls/hr Sodium Bicarbonate 100 ml/ (Dextrose) 1,100 mls @ 75 mls/hr IV .[id number] [facility] Last Admin: 10/23/16 13:07 Dose: 75 mls/hr Multi-Ingredient Ointment (Prep-Hem) 0 ea TOP TID [facility] Last Admin: 10/23/16 13:07 Dose: 1 applic Nicotine (Nicoderm Cq) 1 patch TD DAILY [facility] Last Admin: 10/23/16 10:18 Dose: 1 patch Nystatin (Nystatin Oral Susp) 5 ml PO QID [facility] Last Admin: 10/23/16 13:08 Dose: 5 ml Pantoprazole Sodium (Protonix Ec Tab) 40 mg PO DAILY [facility] Last Admin: 10/23/16 10:18 Dose: 40 mg - Labs Labs: 10/23/16 06:52 10/23/16 06:52 PT 11.5 SECONDS (9.7-12.2) 10/21/16 07:58 INR 1.0 10/21/16 07:58 APTT 37 SECONDS (21-34) H 10/21/16 07:58 Assessment and Plan (1) Hyperkalemia Status: Acute (2) Pneumonia associated with acquired immune deficiency syndrome (AIDS) Status: Acute (3) Renal insufficiency Status: Acute (4) AIDS Status: Acute (5) Anemia Status: Acute (6) Dehydration Status: Acute
--- NOTE | 2016-10-23 14:14 | CP.PCM.PN ---
Subjective - Date & Time of Evaluation Date of Evaluation: 10/23/16 Time of Evaluation: 14:13 - Subjective Subjective: seen and examined multiple antibiotics, low grade fever good uop s/p blood transfusion creatinine stabilizing pt denies any n/v/d. improved po intake Objective - Vital Signs/Intake and Output Vital Signs (last 24 hours): Temp Pulse Resp BP Pulse Ox 100.0 F H 114 H 26 H 140/93 H 100 10/23/16 12:00 10/23/16 12:00 10/23/16 12:00 10/23/16 12:00 10/23/16 12:00 Intake and Output: 10/23/16 10/23/16 06:59 18:59 Intake Total 1675 840 Output Total 2605 865 Balance -930 -25 - Medications Medications: Current Medications Acetaminophen (Tylenol 325mg Tab) 650 mg PO Q6 PRN PRN Reason: Fever >100.4 F Last Admin: 10/22/16 11:07 Dose: 650 mg Albuterol/Ipratropium (Duoneb 3 Mg/0.5 Mg (3 Ml) Ud) 3 ml INH RQ6 [facility] Last Admin: 10/23/16 13:32 Dose: 3 ml Atovaquone (Mepron) 1,500 mg PO DAILY [facility] Last Admin: 10/23/16 10:18 Dose: 1,500 mg Calcium Acetate (Phoslo) 667 mg PO TIDCC [facility] Last Admin: 10/23/16 11:59 Dose: 667 mg Guaifenesin/Dextromethorphan (Robitussin Dm) 5 ml PO Q4H PRN PRN Reason: Cough Last Admin: 10/22/16 22:19 Dose: 5 ml Fluconazole (Diflucan Iv 200 Mg/100 Ml Ns) 100 mls @ 100 mls/hr IVPB DAILY [facility] Last Admin: 10/23/16 10:17 Dose: 100 mls/hr Cefepime HCl (Maxipime Iv 1 Gm Premix) 1 gm in 50 mls @ 100 mls/hr IVPB Q12H [facility] Last Admin: 10/23/16 06:13 Dose: 100 mls/hr Clindamycin Phosphate (Cleocin) 600 mg in 50 mls @ 100 mls/hr IVPB Q8H [facility] Last Admin: 05/02/17 07:54 Dose: 100 mls/hr Sodium Bicarbonate 100 ml/ (Dextrose) 1,100 mls @ 75 mls/hr IV .[id number] [facility] Last Admin: 10/23/16 13:07 Dose: 75 mls/hr Multi-Ingredient Ointment (Prep-Hem) 0 ea TOP TID [facility] Last Admin: 10/23/16 13:07 Dose: 1 applic Nicotine (Nicoderm Cq) 1 patch TD DAILY [facility] Last Admin: 10/23/16 10:18 Dose: 1 patch Nystatin (Nystatin Oral Susp) 5 ml PO QID [facility] Last Admin: 10/23/16 13:08 Dose: 5 ml Pantoprazole Sodium (Protonix Ec Tab) 40 mg PO DAILY [facility] Last Admin: 10/23/16 10:18 Dose: 40 mg - Labs Labs: 10/23/16 06:52 10/23/16 06:52 PT 11.5 SECONDS (9.7-12.2) 10/21/16 07:58 INR 1.0 10/21/16 07:58 APTT 37 SECONDS (21-34) H 10/21/16 07:58 - Constitutional Appears: Non-toxic, No Acute Distress, Cachectic, Chronically Ill - Head Exam Head Exam: NORMAL INSPECTION - Eye Exam Eye Exam: Normal appearance - ENT Exam ENT Exam: Mucous Membranes Moist, Normal Exam - Neck Exam Neck Exam: Normal Inspection - Respiratory Exam Respiratory Exam: Decreased Breath Sounds, Rhonchi, NORMAL BREATHING PATTERN - Cardiovascular Exam Cardiovascular Exam: REGULAR RHYTHM, RRR - GI/Abdominal Exam GI & Abdominal Exam: Soft, Normal Bowel Sounds - Extremities Exam Extremities Exam: Normal Inspection Assessment and Plan (1) Pneumonia associated with acquired immune deficiency syndrome (AIDS) Status: Acute (2) Renal insufficiency Status: Acute (3) AIDS Status: Acute (4) Anemia Status: Acute - Assessment and Plan (Free Text) Assessment: AIDS Pneumonia [place] improving underlying ckd htn met acidosis plan: agree w/ gentle bicarb containing iv fluids encourage po intake follow up urine protein
--- NOTE | 2016-10-23 15:31 | RAD ---
HISTORY: pneumonia COMPARISON: 10/20/2016 chest x-ray. CT chest 10/21/2016 FINDINGS: LUNGS: There is bilateral interval increased interstitial lung marking prominence noted. There is patchy coalescence of these prominent interstitial lung markings. Additional scattered airspace opacities are also suggested. Occurring and/or worsening confluent areas of pulmonary edema and/or in coalescing infiltrates are some considerations. The previously referenced patchy opacity in the right upper lobe appears larger. An early cavitating lesion here is possible Confluent airspace opacities bordering the right heart border in the right right middle lobe suggested. These appear slightly increased and slightly amorphous. PLEURA: No significant pleural effusion identified, no pneumothorax apparent. CARDIOVASCULAR: Mild cardiomegaly OSSEOUS STRUCTURES: No significant abnormalities. VISUALIZED UPPER ABDOMEN: Normal. OTHER FINDINGS: None. IMPRESSION: Radiographic findings suggest some progression in the interstitial and airspace pathologies suggested above. The focal interstitial and airspace pneumonia is a consideration given the history. An early cavitating lesion in the right upper lobe was not excluded. The right middle lobe consolidation is slightly more ill-defined. Correlation is needed regarding patient's clinical status given the radiographic progression suggested. Close follow-up recommended .
--- NOTE | 2016-10-23 18:24 | VASCLAB ---
PROCEDURE: Lower Extremity Venous Duplex Exam. HISTORY: Elevated d-dimer PRIORS: None. TECHNIQUE: Bilateral common femoral, femoral, popliteal and posterior tibial, peroneal and great saphenous veins were evaluated. Flow was assessed with color Doppler, compressibility, assessment of phasic flow and augmentation response. Report prepared by MAYELIN Rodriguez FINDINGS: RIGHT: 1. Common Femoral Vein: 1.1. Compressibility - Fully compressible: Thrombus - None : Flow - Phasic: Augmentation -Normal: Reflux - None. 2. Femoral Vein: 2.1. Compressibility - Fully compressible, as visualized: Thrombus - None : Flow - Phasic: Augmentation -Normal: Reflux - None. 2.2. The middle segment of the femoral vein could not be clearly visualized. 3. Popliteal Vein: 3.1. Compressibility - Fully compressible: Thrombus - None : Flow - Phasic: Augmentation -Normal: Reflux - None. 4. Posterior Tibial Vein: 4.1. Compressibility - Fully compressible: Thrombus - None: Flow - Phasic: Augmentation -Normal: Reflux - None. 5. Peroneal Vein: 5.1. Compressibility - Fully compressible: Thrombus - None: Flow - Phasic: Augmentation -Normal: Reflux - None. 6. Great Saphenous Vein: 6.1. Not visualized LEFT: 1. Common Femoral Vein: 1.1. Compressibility - Fully compressible: Thrombus - None: Flow - Phasic: Augmentation -Normal: Reflux - None. 2. Femoral Vein: 2.1. Compressibility - Fully compressible: Thrombus - None: Flow - Phasic: Augmentation -Normal: Reflux - None. 3. Popliteal Vein: 3.1. Compressibility - Fully compressible: Thrombus - None : Flow - Phasic: Augmentation -Normal: Reflux - None. 4. Posterior Tibial Vein: 4.1. Compressibility - Fully compressible: Thrombus - None: Flow - Phasic: Augmentation -Normal: Reflux - None. 5. Peroneal Vein: 5.1. Compressibility - Fully compressible: Thrombus - None: Flow - Phasic: Augmentation -Normal: Reflux - None. 6. Great Saphenous Vein: 6.1. Not visualized OTHER FINDINGS: Technically difficult exam due to patient limited positioning. IMPRESSION: 1. No evidence of cough thrombosis in the bilateral lower extremities within the visualized veins. 2. Bilateral great saphenous veins were not visualized.
[2016-10-23] MEDS: guaiFENesin DM 100 mg-10 mg/5 ml UD PO PRN (19:50)
[2016-10-24] MEDS: Albuterol-Ipratrop 3 mg / 0.5 (3 ml) UD INH SCH ×4 (01:10→19:27)
[2016-10-24] MEDS: Sodium Bicarbonate 100 ML in Dextrose 5% In Water 1,000 ML IV SCH (02:29)
[2016-10-24] MEDS: Cefepime IV 1 gm in Dextrose 1 GM/50 ML BAG IVPB SCH ×2 (05:53→17:32)
[2016-10-24 06:38] LABS: BASO % 0.5 % (0.0-2.0); EOS # 0.7 K/uL (0.0-0.7); EOS % 6.4 % (0.0-4.0); HEMATOCRIT 28.5 % (34.0-47.0); LYMPH % 9.4 % (20.0-40.0); MEAN CELL VOLUME 92.5 fL (81.0-99.0); MEAN CORPUSCULAR HEMOGLOBIN 31.2 pg (27.0-31.0); MEAN CORPUSCULAR HGB CONC 33.7 g/dL (33.0-37.0); MEAN PLATELET VOLUME 8.4 fL (7.2-11.7); MONO # 0.6 K/uL (0.0-0.8); MONO % 5.5 % (0.0-10.0); PLATELET COUNT 136 K/uL (130-400); RED CELL DISTRIBUTION WIDTH 19.2 % (11.5-14.5); WHITE BLOOD COUNT 10.3 K/uL (4.8-10.8)
[2016-10-24 06:55] LABS: POTASSIUM 4.1 mmol/L (3.6-5.2)
[2016-10-24 06:57] LABS: ALB/GLOB RATIO 0.6 (1.0-2.1); BILIRUBIN,TOTAL 0.8 mg/dL (0.2-1.3); TOTAL PROTEIN 6.6 g/dL (6.3-8.3)
[2016-10-24 06:58] LABS: CALCIUM 7.4 mg/dl (8.6-10.4); MAGNESIUM 1.8 mg/dL (1.6-2.3); PHOSPHOROUS 4.2 mg/dL (2.5-4.5)
[2016-10-24] MEDS: Clindamycin 600mg/50ml D5W 600 MG/50 ML VIAL IVPB SCH ×3 (08:32→23:37)
[2016-10-24 08:51] LABS: EOSINOPHIL 5 % (0-4); MYELOCYTE 1 % (0-0); NEUTROPHIL 72 % (50-75); TOTAL CELLS COUNTED 100
[2016-10-24] MEDS: Fluconazole IV 200mg/100 ml NS 100 ML IVPB SCH (09:17)
[2016-10-24] MEDS: Nystatin 100,000 Units/ml Oral Susp 5 ml UD PO SCH ×4 (09:17→22:06)
[2016-10-24] MEDS: Atovaquone 750 mg/5 ml Susp UD PO SCH (09:17)
[2016-10-24] MEDS: Pantoprazole 40 mg EC Tab PO SCH (09:18)
[2016-10-24] MEDS: Hemorrohoidal Ointment (2 oz) TOP SCH ×3 (09:18→17:39)
--- NOTE | 2016-10-24 10:23 | CP.CCUPN ---
<Kiersten Hooker - Last Filed: 10/24/16 10:12> CCU Subjective - Physician Review Subjective (Free Text): Patient seen and examined at bedside. Patient is afebrile, tachycardiac, normotensive with decreasing leukocytosis and bandemia, currently on Cefepime, Diflucan, Nystation and Mepron (Bactrim was DC due to continued decline in renal function) and Clindamycin. Pending HLA typing to begin HAART. Patient to have PICC LINE placed. Patient downgraded to MED/SURG CCU Objective - Vital Signs / Intake & Output Vital Signs (Last 4 hours): Vital Signs Temp Pulse Resp BP Pulse Ox 10/24/16 08:00 100.4 F H 108 H 24 138/91 H 96 10/24/16 07:00 110 H 29 H 143/94 H 100 Intake and Output (Last 8hrs): Intake & Output 10/23/16 10/24/16 10/24/16 22:59 06:59 14:59 Intake Total 870 1000 420 Output Total 1065 850 375 Balance -195 150 45 Weight 135 lb 7 oz Intake: Intake, IV Amount 700 750 200 Right Forearm 600 600 150 right FA 100 150 50 Oral 170 250 220 Output: Urine 1065 850 375 Urethral (Akers) 1065 850 375 Other: # Bowel Movements 0 0 1 - Physical Exam Head: Positive for: Atraumatic, Normocephalic Pupils: Positive for: PERRL Extroacular Muscles: Positive for: EOMI Conjunctiva: Positive for: Normal Mouth: Positive for: Dry Pharnyx: Positive for: EXUDATE Respiratory/Chest: Positive for: Decreased Breath Sounds Cardiovascular: Positive for: Tachycardic Abdomen: Positive for: Normal Bowel Sounds. Negative for: Tenderness, Distention Upper Extremity: Positive for: Normal Inspection, NORMAL PULSES. Negative for: Cyanosis, Edema Lower Extremity: Positive for: Normal Inspection, NORMAL PULSES. Negative for: Edema, CALF TENDERNESS Neurological: Positive for: GCS=15 Skin: Positive for: Warm, Dry. Negative for: Rashes Psychiatric: Positive for: Alert, Oriented x 3 - Medications Active Medications: Active Medications Generic Name Dose Route Start Last Admin Trade Name Freq PRN Reason Stop Dose Admin Acetaminophen 650 mg 10/21/16 05:46 10/24/16 07:44 Tylenol 325mg Tab PO 650 mg Q6 PRN Administration Fever >100.4 F Albuterol/Ipratropium 3 ml 10/21/16 20:00 10/24/16 07:44 Duoneb 3 Mg/0.5 Mg (3 Ml) Ud INH 3 ml RQ6 RONALD Administration Atovaquone 1,500 mg 10/23/16 10:00 10/24/16 09:17 Mepron PO 1,500 mg DAILY RONALD Administration Calcium Acetate 667 mg 10/22/16 12:00 10/24/16 07:43 Phoslo PO 667 mg TIDCC RONALD Administration Guaifenesin/Dextromethorphan 5 ml 10/22/16 21:27 10/23/16 19:50 Robitussin Dm PO 5 ml Q4H PRN Administration Cough Fluconazole 100 mls @ 100 mls/hr 10/21/16 10:00 10/24/16 09:17 Diflucan Iv 200 Mg/100 Ml Ns IVPB 100 mls/hr DAILY RONALD Administration Cefepime HCl 1 gm in 50 mls @ 100 mls/hr 10/21/16 18:00 10/24/16 05:53 Maxipime Iv 1 Gm Premix IVPB 100 mls/hr Q12H RONALD Administration Clindamycin Phosphate 600 mg in 50 mls @ 100 mls/hr 10/22/16 16:00 10/24/16 08:32 Cleocin IVPB 100 mls/hr Q8H RONALD Administration Sodium Bicarbonate 100 ml/ 1,100 mls @ 75 mls/hr 10/22/16 21:15 10/24/16 02: 29 Dextrose IV 75 mls/hr .[id number] RONALD Administration Multi-Ingredient Ointment 0 ea 10/23/16 10:00 10/24/16 09:18 Prep-Hem TOP 1 applic TID RONALD Administration Nicotine 1 patch 10/21/16 10:00 10/24/16 09:17 Nicoderm Cq TD 1 patch DAILY RONALD Administration Nystatin 5 ml 10/20/16 22:00 10/24/16 09:17 Nystatin Oral Susp PO 5 ml QID RONALD Administration Pantoprazole Sodium 40 mg 10/23/16 10:00 10/24/16 09:18 Protonix Ec Tab PO 40 mg DAILY RONALD Administration - Patient Studies Lab Studies: Microbiology Studies 10/21/16 11:40 Mycobacterial Culture - Preliminary Other: Please Indicate 10/20/16 19:20 Mycobacterial Culture - Preliminary Other: Please Indicate 10/21/16 07:00 Blood Culture - Preliminary Blood NO GROWTH AFTER 48 HOURS 10/21/16 06:30 Blood Culture - Preliminary Blood NO GROWTH AFTER 48 HOURS 10/22/16 Unknown Ova and Parasite Concentrate Exam - Final Stool 10/20/16 Unknown Gram Stain - Final Sputum Sputum Culture - Final NORMAL ORAL CELINA 10/21/16 22:28 Urine Culture - Final Urine,Clean Catch No Growth (<1,000 CFU/ML) Lab Studies 10/24/16 10/24/16 10/23/16 Range/Units 06:27 06:24 17:33 WBC 10.3 (4.8-10.8) K/uL RBC 3.08 L (3.80-5.20) Mil/uL Hgb 9.6 L (11.0-16.0) g/dL Hct 28.5 L (34.0-47.0) % MCV 92.5 (81.0-99.0) fL MCH 31.2 H (27.0-31.0) pg MCHC 33.7 (33.0-37.0) g/dL RDW 19.2 H (11.5-14.5) % Plt Count 136 (130-400) K/uL MPV 8.4 (7.2-11.7) fL Neut % (Auto) 78.2 H (50.0-75.0) % Lymph % (Auto) 9.4 L (20.0-40.0) % [place] % (Auto) 5.5 (0.0-10.0) % Eos % (Auto) 6.4 H (0.0-4.0) % Baso % (Auto) 0.5 (0.0-2.0) % Neut # 8.1 H (1.8-7.0) K/uL Lymph # 1.0 (1.0-4.3) K/uL [place] # 0.6 (0.0-0.8) K/uL Eos # 0.7 (0.0-0.7) K/uL Baso # 0.0 (0.0-0.2) K/uL Neutrophils % (Manual) 72 (50-75) % Band Neutrophils % 13 H* (0-2) % Lymphocytes % (Manual) 4 L (20-40) % Monocytes % (Manual) 5 (0-10) % Eosinophils % (Manual) 5 H (0-4) % Myelocytes % 1 H (0-0) % Platelet Estimate Normal (NORMAL) Hypochromasia (manual) Slight Poikilocytosis (manual Slight Anisocytosis (manual) Slight Sodium 139 (132-148) mmol/L Potassium 4.1 (3.6-5.2) mmol/L Chloride 103 (98-107) mmol/L Carbon Dioxide 26 (22-30) mmol/L Anion Gap 14 (10-20) BUN 51 H (7-17) mg/dL Creatinine 2.2 H (0.7-1.2) MG/DL Est GFR ( Amer) 28 Est GFR (Non-Af Amer) 23 Random Glucose 77 (65-105) mg/dL Calcium 7.4 L (8.6-10.4) mg/dl Phosphorus 4.2 (2.5-4.5) mg/dL Magnesium 1.8 (1.6-2.3) mg/dL Total Bilirubin 0.8 (0.2-1.3) mg/dL AST 40 H D (14-36) U/L ALT 11 (9-52) U/L Alkaline Phosphatase 81 (38-126) U/L Total Protein 6.6 (6.3-8.3) g/dL Albumin 2.5 L (3.5-5.0) g/dL Globulin 4.1 H (2.2-3.9) gm/dL Albumin/Globulin Ratio 0.6 L (1.0-2.1) Urine Collection Time 24 HRS Urine Total Volume 4650 mL Ur Protein 24 Hr Calc 7765.5 H (42-225) mg/24hr Cryptococcus Ag Screen (Not Detected) TB Test (QFT) Nil TB Test Mitogen - Nil TB Test TB - Nil TB Test (QFT) 10/21/16 10/20/16 Range/Units 21:08 18:02 WBC (4.8-10.8) K/uL RBC (3.80-5.20) Mil/uL Hgb (11.0-16.0) g/dL Hct (34.0-47.0) % MCV (81.0-99.0) fL MCH (27.0-31.0) pg MCHC (33.0-37.0) g/dL RDW (11.5-14.5) % Plt Count (130-400) K/uL MPV (7.2-11.7) fL Neut % (Auto) (50.0-75.0) % Lymph % (Auto) (20.0-40.0) % [place] % (Auto) (0.0-10.0) % Eos % (Auto) (0.0-4.0) % Baso % (Auto) (0.0-2.0) % Neut # (1.8-7.0) K/uL Lymph # (1.0-4.3) K/uL [place] # (0.0-0.8) K/uL Eos # (0.0-0.7) K/uL Baso # (0.0-0.2) K/uL Neutrophils % (Manual) (50-75) % Band Neutrophils % (0-2) % Lymphocytes % (Manual) (20-40) % Monocytes % (Manual) (0-10) % Eosinophils % (Manual) (0-4) % Myelocytes % (0-0) % Platelet Estimate (NORMAL) Hypochromasia (manual) Poikilocytosis (manual Anisocytosis (manual) Sodium (132-148) mmol/L Potassium (3.6-5.2) mmol/L Chloride (98-107) mmol/L Carbon Dioxide (22-30) mmol/L Anion Gap (10-20) BUN (7-17) mg/dL Creatinine (0.7-1.2) MG/DL Est GFR ( Amer) Est GFR (Non-Af Amer) Random Glucose (65-105) mg/dL Calcium (8.6-10.4) mg/dl Phosphorus (2.5-4.5) mg/dL Magnesium (1.6-2.3) mg/dL Total Bilirubin (0.2-1.3) mg/dL AST (14-36) U/L ALT (9-52) U/L Alkaline Phosphatase (38-126) U/L Total Protein (6.3-8.3) g/dL Albumin (3.5-5.0) g/dL Globulin (2.2-3.9) gm/dL Albumin/Globulin Ratio (1.0-2.1) Urine Collection Time HRS Urine Total Volume mL Ur Protein 24 Hr Calc (42-225) mg/24hr Cryptococcus Ag Screen Not detected (Not Detected) TB Test (QFT) Nil TNP TB Test Mitogen - Nil TNP TB Test TB - Nil TNP TB Test (QFT) TNP Laboratory Results - last 24 hr 10/20/16 10/21/16 10/23/16 18:02 21:08 17:33 WBC RBC Hgb Hct MCV MCH MCHC RDW Plt Count MPV Neut % (Auto) Lymph % (Auto) [place] % (Auto) Eos % (Auto) Baso % (Auto) Neut # Lymph # [place] # Eos # Baso # Neutrophils % (Manual) Band Neutrophils % Lymphocytes % (Manual) Monocytes % (Manual) Eosinophils % (Manual) Myelocytes % Platelet Estimate Hypochromasia (manual) Poikilocytosis (manual Anisocytosis (manual) Sodium Potassium Chloride Carbon Dioxide Anion Gap BUN Creatinine Est GFR ( Amer) Est GFR (Non-Af Amer) Random Glucose Calcium Phosphorus Magnesium Total Bilirubin AST ALT Alkaline Phosphatase Total Protein Albumin Globulin Albumin/Globulin Ratio Urine Collection Time 24 Urine Total Volume 4650 Ur Protein 24 Hr Calc 7765.5 H Cryptococcus Ag Screen Not detected TB Test (QFT) Nil TNP TB Test Mitogen - Nil TNP TB Test TB - Nil TNP TB Test (QFT) TNP 10/24/16 10/24/16 06:24 06:27 WBC 10.3 RBC 3.08 L Hgb 9.6 L Hct 28.5 L MCV 92.5 MCH 31.2 H MCHC 33.7 RDW 19.2 H Plt Count 136 MPV 8.4 Neut % (Auto) 78.2 H Lymph % (Auto) 9.4 L [place] % (Auto) 5.5 Eos % (Auto) 6.4 H Baso % (Auto) 0.5 Neut # 8.1 H Lymph # 1.0 [place] # 0.6 Eos # 0.7 Baso # 0.0 Neutrophils % (Manual) 72 Band Neutrophils % 13 H* Lymphocytes % (Manual) 4 L Monocytes % (Manual) 5 Eosinophils % (Manual) 5 H Myelocytes % 1 H Platelet Estimate Normal Hypochromasia (manual) Slight Poikilocytosis (manual Slight Anisocytosis (manual) Slight Sodium 139 Potassium 4.1 Chloride 103 Carbon Dioxide 26 Anion Gap 14 BUN 51 H Creatinine 2.2 H Est GFR ( Amer) 28 Est GFR (Non-Af Amer) 23 Random Glucose 77 Calcium 7.4 L Phosphorus 4.2 Magnesium 1.8 Total Bilirubin 0.8 AST 40 H D ALT 11 Alkaline Phosphatase 81 Total Protein 6.6 Albumin 2.5 L Globulin 4.1 H Albumin/Globulin Ratio 0.6 L Urine Collection Time Urine Total Volume Ur Protein 24 Hr Calc Cryptococcus Ag Screen TB Test (QFT) Nil TB Test Mitogen - Nil TB Test TB - Nil TB Test (QFT) Critical Care Progress Note - Nutrition Nutrition: Nutrition Category Date Time Status Heart Healthy Diet [DIET] Diets 10/20/16 Dinner Active Assessment/Plan - Assessment and Plan (Free Text) Assessment: 56yo F with PMHx of AIDS, HTN and pneumonia presenting with cough and weakness x 1 week. Not on HAART due to vaginal clotting and kidney injury. Transferred to ICU for severe sepsis with AIDS complicated by pneumonia. Plan: Neuro: Alert and oriented 3 Pulm: * Acute hypoxic respiratory failure secondary to Pneumonia, ruling out PJP, TB, TANA. * Continue nasal cannula oxygen. * Dr. Gonzales -consulted. * Follow-up QuantiFERON goal to rule out TB, Crypto- negative, HLA- pending * Patient is currently on Cefepime, Diflucan, Nystation and Mepron (Bactrim was DC due to continued decline in renal function). CV: Hemodynamically stable. ECHO - EF 55-60% Hem: * Worsening anemia, patient has elevated LDH, haptoglobin 160 * No visible signs of bleeding currently. * D-dimer is elevated but could be inflammatory response. * Lower extremity Doppler- negative DVT. * Hemoglobin stable at 10.0 Renal: * Nonoliguric Acute kidney injury, creatinine has doubled in 24 hours. * Patient still making urine. * Hyperkalemia improved status post administration of Kayexalate. Will use hypochloremic fluid 1/2NS+75meq SB@75 * Dr. Garcia consulted for acute kidney injury - Phoslo started, 24 hour protein - 7765 and creatine ordered. Renal US: Increased echogenicity of the bilateral renal cortices suggestive for medical renal disease. Mild fullness of the left renal collecting system. Uro: * Patient was having vaginal clots, will monitor. * Urinalysis most likely contaminated from recent vaginal blood clots. Endo: No acute issues GI: * Heart healthy diet. * Patient having diarrhea - follow up stool for leukocytes and C. difficile, stool occult- negative * There is suspicion for underlying carcinoma with mediastinal, mesenteric, perivascular lymphadenopathy. * CT AB & Pelvis: Small to moderate right and small left pleural effusions and associated consolidations, right greater than left. Interstitial prominence. Partially imaged cardiomegaly. Trace pericardial effusion. Hepatomegaly. Coarsened hepatic echotexture. Borderline splenomegaly. Cholecystectomy. Suboptimal visualization of the unenhanced pancreas. Small pelvic ascites. Bilateral inguinal adenopathy measuring up to 14 mm in short axis, with central necrosis versus fat. Sub cm right pelvic sidewall lymph node measures approximately 9 mm in short axis. Left pelvic sidewall lymph node measures approximately 10 mm in short axis. Prominent but sub cm mesenteric and retroperitoneal lymph nodes, nonspecific. Please note that evaluation for adenopathy is limited due to lack of IV contrast. ID: * Severe sepsis with AIDS complicated by pneumonia. * Patient is afebrile, tachycardiac, normotensive with decreasing leukocytosis and bandemia, currently on Cefepime, Diflucan, Nystation and Mepron (Bactrim was DC due to continued decline in renal function). * Procalcitonin: 11.52 * Absolute CD4 count of 45. Pending HLA typing- to start HAART therapy Prophylaxis: * DVT proph - Held due to active bleeding * GI proph - Protonix * akers for strict I/O's during acute illness Patient downgraded to MED/SURG DW Morro Hamilton DO, PGY-1 <Steve Morrissey S - Last Filed: 10/24/16 18:22> CCU Objective - Vital Signs / Intake & Output Vital Signs (Last 4 hours): Vital Signs Pulse Resp BP Pulse Ox 10/24/16 15:00 97 H 26 H 133/79 96 Intake and Output (Last 8hrs): Intake & Output 10/24/16 10/24/16 10/24/16 06:59 14:59 22:59 Intake Total 1000 1150 75 Output Total 850 1035 120 Balance 150 115 -45 Weight 135 lb 7 oz Intake: Intake, IV Amount 750 750 75 Right Forearm 600 600 75 right FA 150 150 Oral 250 400 Output: Urine 850 1035 120 Urethral (Akers) 850 1035 120 Other: # Bowel Movements 0 1 - Medications Active Medications: Active Medications Generic Name Dose Route Start Last Admin Trade Name Freq PRN Reason Stop Dose Admin Acetaminophen 650 mg 10/21/16 05:46 10/24/16 07:44 Tylenol 325mg Tab PO 650 mg Q6 PRN Administration Fever >100.4 F Albuterol/Ipratropium 3 ml 10/21/16 20:00 10/24/16 13:09 Duoneb 3 Mg/0.5 Mg (3 Ml) Ud INH 3 ml RQ6 RONALD Administration Atovaquone 1,500 mg 10/23/16 10:00 10/24/16 09:17 Mepron PO 1,500 mg DAILY RONALD Administration Calcium Acetate 667 mg 10/22/16 12:00 10/24/16 17:32 Phoslo PO 667 mg TIDCC RONALD Administration Guaifenesin/Dextromethorphan 5 ml 10/22/16 21:27 10/23/16 19:50 Robitussin Dm PO 5 ml Q4H PRN Administration Cough Fluconazole 100 mls @ 100 mls/hr 10/21/16 10:00 10/24/16 09:17 Diflucan Iv 200 Mg/100 Ml Ns IVPB 100 mls/hr DAILY RONALD Administration Cefepime HCl 1 gm in 50 mls @ 100 mls/hr 10/21/16 18:00 10/24/16 17:32 Maxipime Iv 1 Gm Premix IVPB 100 mls/hr Q12H RONALD Administration Clindamycin Phosphate 600 mg in 50 mls @ 100 mls/hr 10/22/16 16:00 10/24/16 14:59 Cleocin IVPB 100 mls/hr Q8H RONALD Administration Sodium Bicarbonate 100 meq/ 1,000 mls @ 75 mls/hr 10/24/16 17:15 10/24/16 17: 33 Dextrose IV 75 mls/hr .[id number] RONALD Administration Multi-Ingredient Ointment 0 ea 10/23/16 10:00 10/24/16 17:39 Prep-Hem TOP 1 applic TID RONALD Administration Nicotine 1 patch 10/21/16 10:00 10/24/16 09:17 Nicoderm Cq TD 1 patch DAILY RONALD Administration Nystatin 5 ml 10/20/16 22:00 10/24/16 17:32 Nystatin Oral Susp PO 5 ml QID RONALD Administration Pantoprazole Sodium 40 mg 10/23/16 10:00 10/24/16 09:18 Protonix Ec Tab PO 40 mg DAILY RONALD Administration - Patient Studies Lab Studies: Microbiology Studies 10/23/16 15:00 Gram Stain - Final Sputum 10/21/16 07:00 Blood Culture - Preliminary Blood NO GROWTH AFTER 3 DAYS 10/21/16 06:30 Blood Culture - Preliminary Blood NO GROWTH AFTER 3 DAYS 10/22/16 Unknown Stool Culture - Final Stool NO SALMONELLA, SHIGELLA OR CAMPYLOBACTER ISOLATED. Ova and Parasite Concentrate Exam - Final 10/21/16 11:40 Mycobacterial Culture - Preliminary Other: Please Indicate 10/20/16 19:20 Mycobacterial Culture - Preliminary Other: Please Indicate Lab Studies 10/24/16 10/24/16 10/23/16 Range/Units 06:27 06:24 11:45 WBC 10.3 (4.8-10.8) K/uL RBC 3.08 L (3.80-5.20) Mil/uL Hgb 9.6 L (11.0-16.0) g/dL Hct 28.5 L (34.0-47.0) % MCV 92.5 (81.0-99.0) fL MCH 31.2 H (27.0-31.0) pg MCHC 33.7 (33.0-37.0) g/dL RDW 19.2 H (11.5-14.5) % Plt Count 136 (130-400) K/uL MPV 8.4 (7.2-11.7) fL Neut % (Auto) 78.2 H (50.0-75.0) % Lymph % (Auto) 9.4 L (20.0-40.0) % [place] % (Auto) 5.5 (0.0-10.0) % Eos % (Auto) 6.4 H (0.0-4.0) % Baso % (Auto) 0.5 (0.0-2.0) % Neut # 8.1 H (1.8-7.0) K/uL Lymph # 1.0 (1.0-4.3) K/uL [place] # 0.6 (0.0-0.8) K/uL Eos # 0.7 (0.0-0.7) K/uL Baso # 0.0 (0.0-0.2) K/uL Neutrophils % (Manual) 72 (50-75) % Band Neutrophils % 13 H* (0-2) % Lymphocytes % (Manual) 4 L (20-40) % Monocytes % (Manual) 5 (0-10) % Eosinophils % (Manual) 5 H (0-4) % Myelocytes % 1 H (0-0) % Platelet Estimate Normal (NORMAL) Hypochromasia (manual) Slight Poikilocytosis (manual Slight Anisocytosis (manual) Slight Sodium 139 (132-148) mmol/L Potassium 4.1 (3.6-5.2) mmol/L Chloride 103 (98-107) mmol/L Carbon Dioxide 26 (22-30) mmol/L Anion Gap 14 (10-20) BUN 51 H (7-17) mg/dL Creatinine 2.2 H (0.7-1.2) MG/DL Est GFR ( Amer) 28 Est GFR (Non-Af Amer) 23 Random Glucose 77 (65-105) mg/dL Calcium 7.4 L (8.6-10.4) mg/dl Phosphorus 4.2 (2.5-4.5) mg/dL Magnesium 1.8 (1.6-2.3) mg/dL Total Bilirubin 0.8 (0.2-1.3) mg/dL AST 40 H D (14-36) U/L ALT 11 (9-52) U/L Alkaline Phosphatase 81 (38-126) U/L Total Protein 6.6 (6.3-8.3) g/dL Albumin 2.5 L (3.5-5.0) g/dL Globulin 4.1 H (2.2-3.9) gm/dL Albumin/Globulin Ratio 0.6 L (1.0-2.1) Stool Occult Blood Negative (NEGATIVE) Cryptococcus Ag Screen (Not Detected) 10/21/16 Range/Units 21:08 WBC (4.8-10.8) K/uL RBC (3.80-5.20) Mil/uL Hgb (11.0-16.0) g/dL Hct (34.0-47.0) % MCV (81.0-99.0) fL MCH (27.0-31.0) pg MCHC (33.0-37.0) g/dL RDW (11.5-14.5) % Plt Count (130-400) K/uL MPV (7.2-11.7) fL Neut % (Auto) (50.0-75.0) % Lymph % (Auto) (20.0-40.0) % [place] % (Auto) (0.0-10.0) % Eos % (Auto) (0.0-4.0) % Baso % (Auto) (0.0-2.0) % Neut # (1.8-7.0) K/uL Lymph # (1.0-4.3) K/uL [place] # (0.0-0.8) K/uL Eos # (0.0-0.7) K/uL Baso # (0.0-0.2) K/uL Neutrophils % (Manual) (50-75) % Band Neutrophils % (0-2) % Lymphocytes % (Manual) (20-40) % Monocytes % (Manual) (0-10) % Eosinophils % (Manual) (0-4) % Myelocytes % (0-0) % Platelet Estimate (NORMAL) Hypochromasia (manual) Poikilocytosis (manual Anisocytosis (manual) Sodium (132-148) mmol/L Potassium (3.6-5.2) mmol/L Chloride (98-107) mmol/L Carbon Dioxide (22-30) mmol/L Anion Gap (10-20) BUN (7-17) mg/dL Creatinine (0.7-1.2) MG/DL Est GFR ( Amer) Est GFR (Non-Af Amer) Random Glucose (65-105) mg/dL Calcium (8.6-10.4) mg/dl Phosphorus (2.5-4.5) mg/dL Magnesium (1.6-2.3) mg/dL Total Bilirubin (0.2-1.3) mg/dL AST (14-36) U/L ALT (9-52) U/L Alkaline Phosphatase (38-126) U/L Total Protein (6.3-8.3) g/dL Albumin (3.5-5.0) g/dL Globulin (2.2-3.9) gm/dL Albumin/Globulin Ratio (1.0-2.1) Stool Occult Blood (NEGATIVE) Cryptococcus Ag Screen Not detected (Not Detected) Laboratory Results - last 24 hr 10/21/16 10/23/16 10/24/16 21:08 11:45 06:24 WBC 10.3 RBC 3.08 L Hgb 9.6 L Hct 28.5 L MCV 92.5 MCH 31.2 H MCHC 33.7 RDW 19.2 H Plt Count 136 MPV 8.4 Neut % (Auto) 78.2 H Lymph % (Auto) 9.4 L [place] % (Auto) 5.5 Eos % (Auto) 6.4 H Baso % (Auto) 0.5 Neut # 8.1 H Lymph # 1.0 [place] # 0.6 Eos # 0.7 Baso # 0.0 Neutrophils % (Manual) 72 Band Neutrophils % 13 H* Lymphocytes % (Manual) 4 L Monocytes % (Manual) 5 Eosinophils % (Manual) 5 H Myelocytes % 1 H Platelet Estimate Normal Hypochromasia (manual) Slight Poikilocytosis (manual Slight Anisocytosis (manual) Slight Sodium Potassium Chloride Carbon Dioxide Anion Gap BUN Creatinine Est GFR ( Amer) Est GFR (Non-Af Amer) Random Glucose Calcium Phosphorus Magnesium Total Bilirubin AST ALT Alkaline Phosphatase Total Protein Albumin Globulin Albumin/Globulin Ratio Stool Occult Blood Negative Cryptococcus Ag Screen Not detected 10/24/16 06:27 WBC RBC Hgb Hct MCV MCH MCHC RDW Plt Count MPV Neut % (Auto) Lymph % (Auto) [place] % (Auto) Eos % (Auto) Baso % (Auto) Neut # Lymph # [place] # Eos # Baso # Neutrophils % (Manual) Band Neutrophils % Lymphocytes % (Manual) Monocytes % (Manual) Eosinophils % (Manual) Myelocytes % Platelet Estimate Hypochromasia (manual) Poikilocytosis (manual Anisocytosis (manual) Sodium 139 Potassium 4.1 Chloride 103 Carbon Dioxide 26 Anion Gap 14 BUN 51 H Creatinine 2.2 H Est GFR ( Amer) 28 Est GFR (Non-Af Amer) 23 Random Glucose 77 Calcium 7.4 L Phosphorus 4.2 Magnesium 1.8 Total Bilirubin 0.8 AST 40 H D ALT 11 Alkaline Phosphatase 81 Total Protein 6.6 Albumin 2.5 L Globulin 4.1 H Albumin/Globulin Ratio 0.6 L Stool Occult Blood Cryptococcus Ag Screen Critical Care Progress Note - Nutrition Nutrition: Nutrition Category Date Time Status Heart Healthy Diet [DIET] Diets 10/20/16 Dinner Active Attending/Attestation - Attestation I have personally seen and examined this patient.: Yes I have fully participated in the care of the patient.: Yes I have reviewed all pertinent clinical information: Yes Notes (Text): 10/24/16 18:22 Patient seen and examined in the intensive care unit. Case discussed with house staff in the morning rounds. Status post PICC line placement. Continue IV antibiotics as per infectious disease Stable for transfer to floor
--- NOTE | 2016-10-24 11:45 | RAD ---
HISTORY: s/p PICC COMPARISON: Chest x-ray performed 10/23/16 TECHNIQUE: Chest, one view. FINDINGS: Right-sided PICC extends to the cavoatrial junction. Multiple external wires and leads obscure evaluation of the underlying parenchyma. LUNGS: Increased interstitial markings similar to prior study compatible with infection or edema. More confluent patchy opacity within the left lung apex. Please note that chest x-ray has limited sensitivity for the detection of pulmonary masses. PLEURA: No significant pleural effusion identified. No definite pneumothorax . CARDIOVASCULAR: Cardiomegaly. OSSEOUS STRUCTURES: Degenerative changes. Osseous demineralization. VISUALIZED UPPER ABDOMEN: Unremarkable. OTHER FINDINGS: None. IMPRESSION: Right-sided PICC extends to the cavoatrial junction. Increased interstitial markings similar to prior study compatible with infection or edema. More confluent patchy opacity within the left lung apex. Cardiomegaly.
--- NOTE | 2016-10-24 13:26 | CP.PCM.PN ---
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 No other new complaints Objective - Vital Signs/Intake and Output Vital Signs (last 24 hours): Temp Pulse Resp BP Pulse Ox 100.4 F H 108 H 24 138/91 H 96 10/24/16 08:00 10/24/16 08:00 10/24/16 08:00 10/24/16 08:00 10/24/16 08:00 Intake and Output: 10/24/16 10/24/16 06:59 18:59 Intake Total 1350 420 Output Total 1175 375 Balance 175 45 - Medications Medications: Current Medications Acetaminophen (Tylenol 325mg Tab) 650 mg PO Q6 PRN PRN Reason: Fever >100.4 F Last Admin: 10/24/16 07:44 Dose: 650 mg Albuterol/Ipratropium (Duoneb 3 Mg/0.5 Mg (3 Ml) Ud) 3 ml INH RQ6 [facility] Last Admin: 10/24/16 13:09 Dose: 3 ml Atovaquone (Mepron) 1,500 mg PO DAILY [facility] Last Admin: 10/24/16 09:17 Dose: 1,500 mg Calcium Acetate (Phoslo) 667 mg PO TIDCC [facility] Last Admin: 10/24/16 11:57 Dose: 667 mg Guaifenesin/Dextromethorphan (Robitussin Dm) 5 ml PO Q4H PRN PRN Reason: Cough Last Admin: 10/23/16 19:50 Dose: 5 ml Fluconazole (Diflucan Iv 200 Mg/100 Ml Ns) 100 mls @ 100 mls/hr IVPB DAILY [facility] Last Admin: 10/24/16 09:17 Dose: 100 mls/hr Cefepime HCl (Maxipime Iv 1 Gm Premix) 1 gm in 50 mls @ 100 mls/hr IVPB Q12H [facility] Last Admin: 10/24/16 05:53 Dose: 100 mls/hr Clindamycin Phosphate (Cleocin) 600 mg in 50 mls @ 100 mls/hr IVPB Q8H [facility] Last Admin: 10/24/16 08:32 Dose: 100 mls/hr Sodium Bicarbonate 100 ml/ (Dextrose) 1,100 mls @ 75 mls/hr IV .[id number] [facility] Last Admin: 10/24/16 02:29 Dose: 75 mls/hr Multi-Ingredient Ointment (Prep-Hem) 0 ea TOP TID [facility] Last Admin: 10/24/16 09:18 Dose: 1 applic Nicotine (Nicoderm Cq) 1 patch TD DAILY [facility] Last Admin: 10/24/16 09:17 Dose: 1 patch Nystatin (Nystatin Oral Susp) 5 ml PO QID [facility] Last Admin: 10/24/16 09:17 Dose: 5 ml Pantoprazole Sodium (Protonix Ec Tab) 40 mg PO DAILY [facility] Last Admin: 10/24/16 09:18 Dose: 40 mg - Labs Labs: 10/24/16 06:24 10/24/16 06:27 PT 11.5 SECONDS (9.7-12.2) 10/21/16 07:58 INR 1.0 10/21/16 07:58 APTT 37 SECONDS (21-34) H 10/21/16 07:58 - Constitutional Appears: No Acute Distress, Chronically Ill - Head Exam Head Exam: ATRAUMATIC, NORMAL INSPECTION - Eye Exam Eye Exam: EOMI, Normal appearance - Neck Exam Neck Exam: Normal Inspection. absent: Tenderness - Respiratory Exam Respiratory Exam: Clear to Ausculation Bilateral, NORMAL BREATHING PATTERN - Cardiovascular Exam Cardiovascular Exam: REGULAR RHYTHM, +S1 - GI/Abdominal Exam GI & Abdominal Exam: Soft. absent: Tenderness - Extremities Exam Extremities Exam: Normal Inspection. absent: Tenderness - Neurological Exam Neurological Exam: Alert, CN II-XII Intact - Skin Skin Exam: Dry, Warm Assessment and Plan (1) GROVER (acute kidney injury) Status: Acute (2) HIV nephropathy Status: Acute (3) Nephrotic syndrome Status: Acute (4) Pneumonia associated with acquired immune deficiency syndrome (AIDS) Status: Acute (5) AIDS Status: Acute (6) HIV (human immunodeficiency virus infection) Status: Acute - Assessment and Plan (Free Text) Plan: Monitor lytes, renal function closely s/p blood transfusion previously IV ABs No need for [employer] ADVISOR
--- NOTE | 2016-10-24 15:42 | CP.PCM.PN ---
Subjective - Date & Time of Evaluation Date of Evaluation: 10/24/16 Time of Evaluation: 08:00 - Subjective Subjective: cultures neg renal function slightly better await HLA 5701 for HAART Objective - Vital Signs/Intake and Output Vital Signs (last 24 hours): Temp Pulse Resp BP Pulse Ox 100.4 F H 102 H 22 119/71 94 L 10/24/16 08:00 10/24/16 12:00 10/24/16 12:00 10/24/16 12:00 10/24/16 12:00 Intake and Output: 10/24/16 10/24/16 06:59 18:59 Intake Total 1350 1000 Output Total 1175 880 Balance 175 120 - Medications Medications: Current Medications Acetaminophen (Tylenol 325mg Tab) 650 mg PO Q6 PRN PRN Reason: Fever >100.4 F Last Admin: 10/24/16 07:44 Dose: 650 mg Albuterol/Ipratropium (Duoneb 3 Mg/0.5 Mg (3 Ml) Ud) 3 ml INH RQ6 [facility] Last Admin: 10/24/16 13:09 Dose: 3 ml Atovaquone (Mepron) 1,500 mg PO DAILY [facility] Last Admin: 10/24/16 09:17 Dose: 1,500 mg Calcium Acetate (Phoslo) 667 mg PO TIDCC [facility] Last Admin: 10/24/16 11:57 Dose: 667 mg Guaifenesin/Dextromethorphan (Robitussin Dm) 5 ml PO Q4H PRN PRN Reason: Cough Last Admin: 10/23/16 19:50 Dose: 5 ml Fluconazole (Diflucan Iv 200 Mg/100 Ml Ns) 100 mls @ 100 mls/hr IVPB DAILY [facility] [place] Last Admin: 10/24/16 09:17 Dose: 100 mls/hr Cefepime HCl (Maxipime Iv 1 Gm Premix) 1 gm in 50 mls @ 100 mls/hr IVPB Q12H [facility] [place] Last Admin: 10/24/16 05:53 Dose: 100 mls/hr Clindamycin Phosphate (Cleocin) 600 mg in 50 mls @ 100 mls/hr IVPB Q8H [facility] Last Admin: 10/24/16 14:59 Dose: 100 mls/hr Sodium Bicarbonate 100 meq/ (Dextrose) 1,000 mls @ 75 mls/hr IV .[id number] [facility] Multi-Ingredient Ointment (Prep-Hem) 0 ea TOP TID [facility] [place] Last Admin: 10/24/16 13:28 Dose: 1 applic Nicotine (Nicoderm Cq) 1 patch TD DAILY [facility] [place] Last Admin: 10/24/16 09:17 Dose: 1 patch Nystatin (Nystatin Oral Susp) 5 ml PO QID [facility] [place] Last Admin: 10/24/16 13:28 Dose: 5 ml Pantoprazole Sodium (Protonix Ec Tab) 40 mg PO DAILY [facility] Last Admin: 10/24/16 09:18 Dose: 40 mg - Labs Labs: 10/24/16 06:24 10/24/16 06:27 PT 11.5 SECONDS (9.7-12.2) 10/21/16 07:58 INR 1.0 10/21/16 07:58 APTT 37 SECONDS (21-34) H 10/21/16 07:58 Assessment and Plan (1) Hyperkalemia Status: Acute (2) Pneumonia associated with acquired immune deficiency syndrome (AIDS) Status: Acute (3) Renal insufficiency Status: Acute (4) AIDS Status: Acute (5) Anemia Status: Acute (6) Dehydration Status: Acute
[2016-10-24] MEDS: Sodium Bicarbonate 8.4% 100 MEQ in Dextrose 5% In Water 900 ML IV SCH (17:33)
[2016-10-24] MEDS: guaiFENesin DM 100 mg-10 mg/5 ml UD PO PRN (22:05)
[2016-10-25] MEDS: Albuterol-Ipratrop 3 mg / 0.5 (3 ml) UD INH SCH ×4 (02:00→19:39)
[2016-10-25] MEDS: Cefepime IV 1 gm in Dextrose 1 GM/50 ML BAG IVPB SCH ×2 (05:34→17:03)
[2016-10-25 06:35] LABS: BASO # 0.1 K/uL (0.0-0.2); BASO % 0.8 % (0.0-2.0); EOS % 16.1 % (0.0-4.0); HEMATOCRIT 29.1 % (34.0-47.0); LYMPH # 1.2 K/uL (1.0-4.3); LYMPH % 19.3 % (20.0-40.0); MEAN CELL VOLUME 93.4 fL (81.0-99.0); MEAN CORPUSCULAR HEMOGLOBIN 30.6 pg (27.0-31.0); MEAN CORPUSCULAR HGB CONC 32.8 g/dL (33.0-37.0); MEAN PLATELET VOLUME 8.1 fL (7.2-11.7); MONO # 0.5 K/uL (0.0-0.8); MONO % 7.3 % (0.0-10.0); RED CELL DISTRIBUTION WIDTH 19.4 % (11.5-14.5); WHITE BLOOD COUNT 6.4 K/uL (4.8-10.8)
[2016-10-25 06:50] LABS: POTASSIUM 3.8 mmol/L (3.6-5.2)
[2016-10-25 06:52] LABS: ALB/GLOB RATIO 0.6 (1.0-2.1); BILIRUBIN,TOTAL 0.6 mg/dL (0.2-1.3); TOTAL PROTEIN 6.9 g/dL (6.3-8.3)
[2016-10-25 06:53] LABS: CALCIUM 7.3 mg/dl (8.6-10.4); MAGNESIUM 1.7 mg/dL (1.6-2.3); PHOSPHOROUS 3.9 mg/dL (2.5-4.5)
[2016-10-25] MEDS: Sodium Bicarbonate 8.4% 100 MEQ in Dextrose 5% In Water 900 ML IV SCH (07:37)
[2016-10-25] MEDS: Clindamycin 600mg/50ml D5W 600 MG/50 ML VIAL IVPB SCH ×2 (09:00→15:19)
[2016-10-25] MEDS: Fluconazole IV 200mg/100 ml NS 100 ML IVPB SCH (09:12)
[2016-10-25] MEDS: Nystatin 100,000 Units/ml Oral Susp 5 ml UD PO SCH ×4 (09:14→21:47)
[2016-10-25] MEDS: Pantoprazole 40 mg EC Tab PO SCH (09:14)
[2016-10-25] MEDS: Atovaquone 750 mg/5 ml Susp UD PO SCH (09:14)
[2016-10-25] MEDS: Hemorrohoidal Ointment (2 oz) TOP SCH ×3 (10:00→17:06)
--- NOTE | 2016-10-25 10:13 | CP.PCM.PN ---
Subjective - Date & Time of Evaluation Date of Evaluation: 10/25/16 Time of Evaluation: 10:10 - Subjective Subjective: More lethargic UO excellent GROVER improving- creat decreased to 2.0 On treatment for pneumonia Met acidosis corrected- stop bicarb gtt Objective - Vital Signs/Intake and Output Vital Signs (last 24 hours): Temp Pulse Resp BP Pulse Ox 98.4 F 101 H 22 145/93 H 100 10/25/16 08:00 10/25/16 08:20 10/25/16 08:00 10/25/16 08:00 10/25/16 08:00 Intake and Output: 10/25/16 10/25/16 06:59 18:59 Intake Total 1820 Output Total 1925 Balance -105 - Medications Medications: Current Medications Acetaminophen (Tylenol 325mg Tab) 650 mg PO Q6 PRN PRN Reason: Fever >100.4 F Last Admin: 10/24/16 07:44 Dose: 650 mg Albuterol/Ipratropium (Duoneb 3 Mg/0.5 Mg (3 Ml) Ud) 3 ml INH RQ6 [facility] Last Admin: 10/25/16 07:43 Dose: 3 ml Atovaquone (Mepron) 1,500 mg PO DAILY [facility] Last Admin: 10/25/16 09:14 Dose: 1,500 mg Calcium Acetate (Phoslo) 667 mg PO TIDCC [facility] Last Admin: 10/25/16 07:41 Dose: 667 mg Guaifenesin/Dextromethorphan (Robitussin Dm) 5 ml PO Q4H PRN PRN Reason: Cough Last Admin: 10/24/16 22:05 Dose: 5 ml Fluconazole (Diflucan Iv 200 Mg/100 Ml Ns) 100 mls @ 100 mls/hr IVPB DAILY [facility] Last Admin: 10/25/16 09:12 Dose: 100 mls/hr Cefepime HCl (Maxipime Iv 1 Gm Premix) 1 gm in 50 mls @ 100 mls/hr IVPB Q12H [facility] Last Admin: 10/25/16 05:34 Dose: 100 mls/hr Clindamycin Phosphate (Cleocin) 600 mg in 50 mls @ 100 mls/hr IVPB Q8H [facility] Last Admin: 10/25/16 09:00 Dose: 100 mls/hr Multi-Ingredient Ointment (Prep-Hem) 0 ea TOP TID [facility] Last Admin: 10/24/16 17:39 Dose: 1 applic Nicotine (Nicoderm Cq) 1 patch TD DAILY [facility] Last Admin: 10/25/16 09:14 Dose: 1 patch Nystatin (Nystatin Oral Susp) 5 ml PO QID [facility] Last Admin: 10/25/16 09:14 Dose: 5 ml Pantoprazole Sodium (Protonix Ec Tab) 40 mg PO DAILY [facility] Last Admin: 10/25/16 09:14 Dose: 40 mg - Labs Labs: 10/25/16 06:24 10/25/16 06:24 PT 11.5 SECONDS (9.7-12.2) 10/21/16 07:58 INR 1.0 10/21/16 07:58 APTT 37 SECONDS (21-34) H 10/21/16 07:58 - Constitutional Appears: Cachectic, Chronically Ill - Head Exam Head Exam: ATRAUMATIC, NORMAL INSPECTION - Eye Exam Eye Exam: EOMI, Normal appearance - Neck Exam Neck Exam: Normal Inspection. absent: Tenderness - Respiratory Exam Respiratory Exam: Rhonchi, Wheezes, Respiratory Distress - Cardiovascular Exam Cardiovascular Exam: REGULAR RHYTHM, +S1 - GI/Abdominal Exam GI & Abdominal Exam: Soft. absent: Tenderness - Extremities Exam Extremities Exam: Normal Inspection. absent: Tenderness - Neurological Exam Neurological Exam: Awake, CN II-XII Intact - Skin Skin Exam: Dry, Warm Assessment and Plan (1) GROVER (acute kidney injury) Status: Acute (2) HIV nephropathy Status: Acute (3) Nephrotic syndrome Status: Acute (4) Pneumonia associated with acquired immune deficiency syndrome (AIDS) Status: Acute (5) AIDS Status: Acute (6) HIV (human immunodeficiency virus infection) Status: Acute - Assessment and Plan (Free Text) Plan: Stop bicarb drip Monitor lytes, renal function IV ABs as per ID
--- NOTE | 2016-10-25 12:21 | CP.PCM.PN ---
<Christiano Hitchcock - Last Filed: 10/25/16 18:09> Subjective - Date & Time of Evaluation Date of Evaluation: 10/25/16 Time of Evaluation: 08:00 - Subjective Subjective: PGY-1 Medicine Progress Note for Dr. Schneider Patient seen and examined at bedside. No acute event overnight. Patient was downgraded to Med/surg but still in ICU, awaiting bed on floor. Patient is afebrile, tachycardiac, normotensive with decreasing leukocytosis and bandemia. Pending HLA typing to begin HAART. Patient had PICC LINE placed yesterday for nursing home IV antibiotics. She stated breathing had improved and reported that she feel much better than on admission. Patient has no acute complaints today. Objective - Vital Signs/Intake and Output Vital Signs (last 24 hours): Temp Pulse Resp BP Pulse Ox 98.4 F 101 H 22 145/93 H 100 10/25/16 08:00 10/25/16 08:20 10/25/16 08:00 10/25/16 08:00 10/25/16 08:00 Intake and Output: 10/25/16 10/25/16 06:59 18:59 Intake Total 1820 150 Output Total 1925 Balance -105 150 - Medications Medications: Current Medications Acetaminophen (Tylenol 325mg Tab) 650 mg PO Q6 PRN PRN Reason: Fever >100.4 F Last Admin: 10/24/16 07:44 Dose: 650 mg Albuterol/Ipratropium (Duoneb 3 Mg/0.5 Mg (3 Ml) Ud) 3 ml INH RQ6 [facility] Last Admin: 10/25/16 07:43 Dose: 3 ml Atovaquone (Mepron) 1,500 mg PO DAILY [facility] Last Admin: 10/25/16 09:14 Dose: 1,500 mg Calcium Acetate (Phoslo) 667 mg PO TIDCC [facility] Last Admin: 10/25/16 07:41 Dose: 667 mg Guaifenesin/Dextromethorphan (Robitussin Dm) 5 ml PO Q4H PRN PRN Reason: Cough Last Admin: 10/24/16 22:05 Dose: 5 ml Fluconazole (Diflucan Iv 200 Mg/100 Ml Ns) 100 mls @ 100 mls/hr IVPB DAILY [facility] Last Admin: 10/25/16 09:12 Dose: 100 mls/hr Cefepime HCl (Maxipime Iv 1 Gm Premix) 1 gm in 50 mls @ 100 mls/hr IVPB Q12H [facility] Last Admin: 10/25/16 05:34 Dose: 100 mls/hr Clindamycin Phosphate (Cleocin) 600 mg in 50 mls @ 100 mls/hr IVPB Q8H [facility] Last Admin: 10/25/16 09:00 Dose: 100 mls/hr Multi-Ingredient Ointment (Prep-Hem) 0 ea TOP TID [facility] Last Admin: 10/24/16 17:39 Dose: 1 applic Nicotine (Nicoderm Cq) 1 patch TD DAILY [facility] Last Admin: 10/25/16 09:14 Dose: 1 patch Nystatin (Nystatin Oral Susp) 5 ml PO QID [facility] Last Admin: 10/25/16 09:14 Dose: 5 ml Pantoprazole Sodium (Protonix Ec Tab) 40 mg PO DAILY [facility] Last Admin: 10/25/16 09:14 Dose: 40 mg - Labs Labs: 10/25/16 06:24 10/25/16 06:24 PT 11.5 SECONDS (9.7-12.2) 10/21/16 07:58 INR 1.0 10/21/16 07:58 APTT 37 SECONDS (21-34) H 10/21/16 07:58 - Constitutional Appears: No Acute Distress - Head Exam Head Exam: ATRAUMATIC, NORMOCEPHALIC - Eye Exam Eye Exam: EOMI, Normal appearance Pupil Exam: PERRL - ENT Exam ENT Exam: Mucous Membranes Dry Additional comments: exudates in oropharynx - Respiratory Exam Respiratory Exam: Decreased Breath Sounds, NORMAL BREATHING PATTERN. absent: Accessory Muscle Use, Respiratory Distress - Cardiovascular Exam Cardiovascular Exam: Tachycardia, REGULAR RHYTHM, +S1, +S2 - GI/Abdominal Exam GI & Abdominal Exam: Soft, Normal Bowel Sounds. absent: Distended, Firm, Guarding, Tenderness, Rebound - Extremities Exam Extremities Exam: Normal Capillary Refill. absent: Calf Tenderness, Pedal Edema , Tenderness - Back Exam Back Exam: absent: CVA tenderness (L), CVA tenderness (R) - Neurological Exam Neurological Exam: Alert, Awake, CN II-XII Intact, Oriented x3 - Psychiatric Exam Psychiatric exam: Normal Affect, Normal Mood - Skin Skin Exam: Dry, Intact, Warm Assessment and Plan - Assessment and Plan (Free Text) Plan: 1. Pneumonia Patient has history of AIDS (CD4 count stated to be <100) Community Acquired vs. PCP vs. Tuberculosis vs. Histoplasmosis vs. Mycobacterium Avium Intracellulare f/u Quantiferon GOLD, AFB Sputum Cx q3h x3, keep in isolation Acute hypoxic respiratory failure secondary to Pneumonia, ruling out PJP, TB, TANA. Continue nasal cannula oxygen. ID consult, Dr. Gonzales, help appreciated Follow-up QuantiFERON goal to rule out TB, Crypto- negative, HLA- pending Patient is currently on Cefepime, Diflucan, Nystation and Mepron (Bactrim was DC due to continued decline in renal function). Infectious Disease, Dr. Gonzales, consulted. Help appreciated. 10/24 CXR: Right-sided PICC extends to the cavoatrial junction. Increased interstitial markings similar to prior study compatible with infection or edema. More confluent patchy opacity within the left lung apex. Cardiomegaly ( see full report). Duonebs Procalcitonin: 11.52 2. AIDS f/u ID, Dr. Gonzales, for recs Antibiotics and prophylaxis as above Started on Nystatin 5 ml po QID for thrush Procalcitonin: 11.52 Absolute CD4 count of 45. Pending HLA typing- to start HAART therapy There is suspicion for underlying carcinoma with mediastinal, mesenteric, perivascular lymphadenopathy. CT AB & Pelvis: Small to moderate right and small left pleural effusions and associated consolidations, right greater than left. Interstitial prominence. Partially imaged cardiomegaly. Trace pericardial effusion. Hepatomegaly. Coarsened hepatic echotexture. Borderline splenomegaly. Cholecystectomy. Suboptimal visualization of the unenhanced pancreas. Small pelvic ascites. Bilateral inguinal adenopathy measuring up to 14 mm in short axis, with central necrosis versus fat. Sub cm right pelvic sidewall lymph node measures approximately 9 mm in short axis. Left pelvic sidewall lymph node measures approximately 10 mm in short axis. Prominent but sub cm mesenteric and retroperitoneal lymph nodes, nonspecific. Please note that evaluation for adenopathy is limited due to lack of IV contrast. 3. Elevated d-dimer d-dimer 589 possible DVT vs. Malignancy Worsening anemia, patient has elevated LDH, haptoglobin 160 No visible signs of bleeding currently. D-dimer is elevated but could be inflammatory response. Lower extremity Doppler- negative DVT. Hemoglobin 9.5, anticoagulation held due to bleeding 4. Adrenal Insufficiency Hyperkalemia responsive to sodium bicarbonate Patient becoming hypotensive, pressure of 96/52 Start Hydrocortisone 50 mg IVPB q8h 5. GROVER improving BUN/CR: 43/2.0 Nonoliguric Acute kidney injury, creatinine has doubled in 24 hours. Patient still making urine. Hyperkalemia improved status post administration of Kayexalate Nephro Dr. Garcia consulted for acute kidney injury Phoslo started 24 hour protein - 7765 and creatine ordered Renal US: Increased echogenicity of the bilateral renal cortices suggestive for medical renal disease. Mild fullness of the left renal collecting system. 6. Anemia likely anemia of chronic disease Hemoglobin 9.5 B12 deficiency previously B12 481 folate 10.2 Monitor 7. Prophylactic Measures Anticoagulation Held due to bleeding Protonix 40 mg IVP daily SCDs ECHO - EF 55-60% Heart healthy diet Patient having diarrhea - follow up stool for leukocytes and C. difficile, stool occult- negative Jessica for strict I/O's during acute illness <John Schneider Jr. - Last Filed: 10/28/16 11:23> Objective - Vital Signs/Intake and Output Vital Signs (last 24 hours): Temp Pulse Resp BP Pulse Ox 97.3 F L 110 H 18 135/94 H 94 L 10/28/16 07:30 10/28/16 07:30 10/28/16 07:30 10/28/16 07:30 10/28/16 07:30 - Medications Medications: Current Medications Abacavir Sulfate (Ziagen) 300 mg PO BID [facility] Last Admin: 10/28/16 09:55 Dose: 300 mg Abacavir/Lamivudine (Epzicom) 1 tab PO DAILY [facility] Last Admin: 10/28/16 09:55 Dose: 1 tab Acetaminophen (Tylenol 325mg Tab) 650 mg PO Q6 PRN PRN Reason: Fever >100.4 F Last Admin: 10/24/16 07:44 Dose: 650 mg Albuterol/Ipratropium (Duoneb 3 Mg/0.5 Mg (3 Ml) Ud) 3 ml INH RQ6 [facility] Last Admin: 10/28/16 07:35 Dose: 3 ml Azithromycin (Zithromax) 1,200 mg PO QWK [facility] Calcium Acetate (Phoslo) 667 mg PO TIDCC [facility] Last Admin: 10/28/16 09:59 Dose: Not Given Darunavir (Prezista) 800 mg PO DAILY [facility] Last Admin: 10/28/16 09:55 Dose: 800 mg Docusate Sodium (Colace) 100 mg PO TID [facility] Last Admin: 10/28/16 09:53 Dose: 100 mg Guaifenesin/Dextromethorphan (Robitussin Dm) 5 ml PO Q4H PRN PRN Reason: Cough Last Admin: 10/25/16 21:47 Dose: 5 ml Fluconazole (Diflucan Iv 200 Mg/100 Ml Ns) 100 mls @ 100 mls/hr IVPB DAILY [facility] Last Admin: 10/28/16 09:52 Dose: 100 mls/hr Cefepime HCl (Maxipime Iv 1 Gm Premix) 1 gm in 50 mls @ 100 mls/hr IVPB Q12H [facility] Last Admin: 10/28/16 05:21 Dose: 100 mls/hr Clindamycin Phosphate (Cleocin) 600 mg in 50 mls @ 100 mls/hr IVPB Q8H [facility] Last Admin: 10/28/16 07:43 Dose: 100 mls/hr Multi-Ingredient Ointment (Prep-Hem) 0 ea TOP TID [facility] Last Admin: 10/28/16 09:57 Dose: Not Given Nicotine (Nicoderm Cq) 1 patch TD DAILY [facility] Last Admin: 10/28/16 09:55 Dose: 1 patch Nystatin (Nystatin Oral Susp) 5 ml PO QID [facility] Last Admin: 10/28/16 09:56 Dose: 5 ml Pantoprazole Sodium (Protonix Ec Tab) 40 mg PO DAILY [facility] Last Admin: 10/28/16 09:58 Dose: 40 mg Ritonavir (Norvir) 100 mg PO BIDBS [facility] Last Admin: 10/28/16 07:43 Dose: 100 mg - Labs Labs: 10/27/16 06:36 10/27/16 06:36 PT 11.5 SECONDS (9.7-12.2) 10/21/16 07:58 INR 1.0 10/21/16 07:58 APTT 37 SECONDS (21-34) H 10/21/16 07:58 Attending/Attestation - Attestation I have personally seen and examined this patient.: Yes I have fully participated in the care of the patient.: Yes I have reviewed all pertinent clinical information, including history, physical exam and plan: Yes Notes (Text): 10/28/16 11:23 Agree with resident note and findings
--- NOTE | 2016-10-25 17:17 | CP.PCM.PN ---
Subjective - Date & Time of Evaluation Date of Evaluation: 10/25/16 Time of Evaluation: 08:00 - Subjective Subjective: improving awake alert less SOB Objective - Vital Signs/Intake and Output Vital Signs (last 24 hours): Temp Pulse Resp BP Pulse Ox 98.4 F 99 H 21 141/84 100 10/25/16 16:00 10/25/16 16:00 10/25/16 16:00 10/25/16 16:00 10/25/16 16:00 Intake and Output: 10/25/16 10/25/16 06:59 18:59 Intake Total 1820 370 Output Total 1925 Balance -105 370 - Medications Medications: Current Medications Acetaminophen (Tylenol 325mg Tab) 650 mg PO Q6 PRN PRN Reason: Fever >100.4 F Last Admin: 10/24/16 07:44 Dose: 650 mg Albuterol/Ipratropium (Duoneb 3 Mg/0.5 Mg (3 Ml) Ud) 3 ml INH RQ6 [facility] Last Admin: 10/25/16 13:17 Dose: 3 ml Atovaquone (Mepron) 1,500 mg PO DAILY [facility] Last Admin: 10/25/16 09:14 Dose: 1,500 mg Calcium Acetate (Phoslo) 667 mg PO TIDCC [facility] Last Admin: 10/25/16 17:07 Dose: 667 mg Guaifenesin/Dextromethorphan (Robitussin Dm) 5 ml PO Q4H PRN PRN Reason: Cough Last Admin: 10/24/16 22:05 Dose: 5 ml Fluconazole (Diflucan Iv 200 Mg/100 Ml Ns) 100 mls @ 100 mls/hr IVPB DAILY [facility] Last Admin: 10/25/16 09:12 Dose: 100 mls/hr Cefepime HCl (Maxipime Iv 1 Gm Premix) 1 gm in 50 mls @ 100 mls/hr IVPB Q12H [facility] Last Admin: 10/25/16 17:03 Dose: 100 mls/hr Clindamycin Phosphate (Cleocin) 600 mg in 50 mls @ 100 mls/hr IVPB Q8H [facility] Last Admin: 10/25/16 15:19 Dose: 100 mls/hr Multi-Ingredient Ointment (Prep-Hem) 0 ea TOP TID [facility] Last Admin: 05/04/17 17:06 Dose: 1 applic Nicotine (Nicoderm Cq) 1 patch TD DAILY [facility] Last Admin: 10/25/16 09:14 Dose: 1 patch Nystatin (Nystatin Oral Susp) 5 ml PO QID [facility] Last Admin: 10/25/16 17:07 Dose: 5 ml Pantoprazole Sodium (Protonix Ec Tab) 40 mg PO DAILY [facility] Last Admin: 10/25/16 09:14 Dose: 40 mg - Labs Labs: 10/25/16 06:24 10/25/16 06:24 PT 11.5 SECONDS (9.7-12.2) 10/21/16 07:58 INR 1.0 10/21/16 07:58 APTT 37 SECONDS (21-34) H 10/21/16 07:58 - Constitutional Appears: Non-toxic, Cachectic, Chronically Ill - Head Exam Head Exam: NORMOCEPHALIC - Eye Exam Eye Exam: PERRL. absent: Scleral icterus - ENT Exam ENT Exam: Mucous Membranes Dry - Neck Exam Neck Exam: absent: Lymphadenopathy - Respiratory Exam Respiratory Exam: Decreased Breath Sounds, Rhonchi - Cardiovascular Exam Cardiovascular Exam: REGULAR RHYTHM, +S1, +S2 - GI/Abdominal Exam GI & Abdominal Exam: Distended, Soft. absent: Tenderness - Rectal Exam Rectal Exam: Deferred - Exam Exam: NORMAL INSPECTION - Extremities Exam Extremities Exam: absent: Calf Tenderness, Pedal Edema - Back Exam Back Exam: absent: CVA tenderness (L), CVA tenderness (R) - Neurological Exam Neurological Exam: Alert, Awake, Oriented x3 Assessment and Plan (1) Hyperkalemia Status: Acute (2) Pneumonia associated with acquired immune deficiency syndrome (AIDS) Status: Acute (3) Renal insufficiency Status: Acute (4) AIDS Status: Acute (5) Anemia Status: Acute (6) Dehydration Status: Acute - Assessment and Plan (Free Text) Plan: cont iv rx await HLA typing
[2016-10-25] MEDS: guaiFENesin DM 100 mg-10 mg/5 ml UD PO PRN (21:47)
[2016-10-26] MEDS: Clindamycin 600mg/50ml D5W 600 MG/50 ML VIAL IVPB SCH ×3 (00:25→16:19)
[2016-10-26] MEDS: Albuterol-Ipratrop 3 mg / 0.5 (3 ml) UD INH SCH ×4 (01:09→19:35)
[2016-10-26] MEDS: Cefepime IV 1 gm in Dextrose 1 GM/50 ML BAG IVPB SCH ×2 (05:54→17:39)
[2016-10-26 10:20] LABS: HLA-B*5701 Negative
[2016-10-26] MEDS: Fluconazole IV 200mg/100 ml NS 100 ML IVPB SCH (10:24)
[2016-10-26] MEDS: Pantoprazole 40 mg EC Tab PO SCH (10:24)
[2016-10-26] MEDS: Atovaquone 750 mg/5 ml Susp UD PO SCH (10:24)
[2016-10-26] MEDS: Nystatin 100,000 Units/ml Oral Susp 5 ml UD PO SCH ×4 (10:24→21:36)
[2016-10-26] MEDS: Hemorrohoidal Ointment (2 oz) TOP SCH ×3 (10:29→17:40)
--- NOTE | 2016-10-26 12:28 | CP.PCM.PN ---
Subjective - Date & Time of Evaluation Date of Evaluation: 10/26/16 Time of Evaluation: 12:26 - Subjective Subjective: good uop, hemodynamically stable no labs today. creatinine 2.0 mg/dl yesterday meds reviewed Objective - Vital Signs/Intake and Output Vital Signs (last 24 hours): Temp Pulse Resp BP Pulse Ox 97.5 F L 104 H 22 149/104 H 96 10/26/16 08:00 10/26/16 08:00 10/26/16 08:00 10/26/16 08:00 10/26/16 08:00 Intake and Output: 10/26/16 10/26/16 06:59 18:59 Intake Total 440 Output Total 1100 Balance -660 - Medications Medications: Current Medications Acetaminophen (Tylenol 325mg Tab) 650 mg PO Q6 PRN PRN Reason: Fever >100.4 F Last Admin: 10/24/16 07:44 Dose: 650 mg Albuterol/Ipratropium (Duoneb 3 Mg/0.5 Mg (3 Ml) Ud) 3 ml INH RQ6 [facility] Last Admin: 10/26/16 07:44 Dose: 3 ml Atovaquone (Mepron) 1,500 mg PO DAILY [facility] Last Admin: 10/26/16 10:24 Dose: 1,500 mg Calcium Acetate (Phoslo) 667 mg PO TIDCC [facility] Last Admin: 10/26/16 08:10 Dose: 667 mg Guaifenesin/Dextromethorphan (Robitussin Dm) 5 ml PO Q4H PRN PRN Reason: Cough Last Admin: 10/25/16 21:47 Dose: 5 ml Fluconazole (Diflucan Iv 200 Mg/100 Ml Ns) 100 mls @ 100 mls/hr IVPB DAILY [facility] Last Admin: 10/26/16 10:24 Dose: 100 mls/hr Cefepime HCl (Maxipime Iv 1 Gm Premix) 1 gm in 50 mls @ 100 mls/hr IVPB Q12H [facility] Last Admin: 10/26/16 05:54 Dose: 100 mls/hr Clindamycin Phosphate (Cleocin) 600 mg in 50 mls @ 100 mls/hr IVPB Q8H [facility] Last Admin: 10/26/16 08:10 Dose: 100 mls/hr Multi-Ingredient Ointment (Prep-Hem) 0 ea TOP TID [facility] Last Admin: 10/26/16 10:29 Dose: Not Given Nicotine (Nicoderm Cq) 1 patch TD DAILY [facility] Last Admin: 10/26/16 10:24 Dose: 1 patch Nystatin (Nystatin Oral Susp) 5 ml PO QID [facility] Last Admin: 10/26/16 10:24 Dose: 5 ml Pantoprazole Sodium (Protonix Ec Tab) 40 mg PO DAILY [facility] Last Admin: 10/26/16 10:24 Dose: 40 mg - Labs Labs: 10/25/16 06:24 10/25/16 06:24 PT 11.5 SECONDS (9.7-12.2) 10/21/16 07:58 INR 1.0 10/21/16 07:58 APTT 37 SECONDS (21-34) H 10/21/16 07:58 - Constitutional Appears: No Acute Distress, Cachectic, Chronically Ill - Head Exam Head Exam: NORMAL INSPECTION - Eye Exam Eye Exam: Normal appearance - ENT Exam ENT Exam: Mucous Membranes Moist, Normal Exam - Neck Exam Neck Exam: Normal Inspection - Respiratory Exam Respiratory Exam: Decreased Breath Sounds, NORMAL BREATHING PATTERN - Cardiovascular Exam Cardiovascular Exam: REGULAR RHYTHM, RRR - GI/Abdominal Exam GI & Abdominal Exam: Distended, Soft, Normal Bowel Sounds - Extremities Exam Extremities Exam: Normal Inspection - Neurological Exam Neurological Exam: Alert, Oriented x3 - Skin Skin Exam: Intact Assessment and Plan (1) Pneumonia associated with acquired immune deficiency syndrome (AIDS) Status: Acute (2) Renal insufficiency Status: Acute (3) AIDS Status: Acute (4) Anemia Status: Acute - Assessment and Plan (Free Text) Assessment: AIDS Pneumonia [place] improving underlying ckd htn met acidosis Improving renal function, resolved acidosis. daily chems. avoid nephrotoxic meds underlying ckd / hivan, 7g proteinuria
--- NOTE | 2016-10-26 16:00 | CP.PCM.PN ---
Subjective - Date & Time of Evaluation Date of Evaluation: 10/26/16 Time of Evaluation: 07:00 - Subjective Subjective: seen in icu rx in progress renewed antibiotics Objective - Vital Signs/Intake and Output Vital Signs (last 24 hours): Temp Pulse Resp BP Pulse Ox 97.5 F L 104 H 22 149/104 H 96 10/26/16 08:00 10/26/16 08:00 10/26/16 08:00 10/26/16 08:00 10/26/16 08:00 Intake and Output: 10/26/16 10/26/16 06:59 18:59 Intake Total 440 Output Total 1100 Balance -660 - Medications Medications: Current Medications Acetaminophen (Tylenol 325mg Tab) 650 mg PO Q6 PRN PRN Reason: Fever >100.4 F Last Admin: 10/24/16 07:44 Dose: 650 mg Albuterol/Ipratropium (Duoneb 3 Mg/0.5 Mg (3 Ml) Ud) 3 ml INH RQ6 [facility] Last Admin: 10/26/16 13:25 Dose: 3 ml Atovaquone (Mepron) 1,500 mg PO DAILY [facility] Last Admin: 10/26/16 10:24 Dose: 1,500 mg Calcium Acetate (Phoslo) 667 mg PO TIDCC [facility] Last Admin: 10/26/16 13:24 Dose: 667 mg Guaifenesin/Dextromethorphan (Robitussin Dm) 5 ml PO Q4H PRN PRN Reason: Cough Last Admin: 10/25/16 21:47 Dose: 5 ml Fluconazole (Diflucan Iv 200 Mg/100 Ml Ns) 100 mls @ 100 mls/hr IVPB DAILY [facility] Last Admin: 10/26/16 10:24 Dose: 100 mls/hr Cefepime HCl (Maxipime Iv 1 Gm Premix) 1 gm in 50 mls @ 100 mls/hr IVPB Q12H [facility] Last Admin: 10/26/16 05:54 Dose: 100 mls/hr Clindamycin Phosphate (Cleocin) 600 mg in 50 mls @ 100 mls/hr IVPB Q8H [facility] Last Admin: 10/26/16 08:10 Dose: 100 mls/hr Multi-Ingredient Ointment (Prep-Hem) 0 ea TOP TID [facility] Last Admin: 10/26/16 13:21 Dose: Not Given Nicotine (Nicoderm Cq) 1 patch TD DAILY [facility] Last Admin: 10/26/16 10:24 Dose: 1 patch Nystatin (Nystatin Oral Susp) 5 ml PO QID [facility] Last Admin: 10/26/16 13:24 Dose: 5 ml Pantoprazole Sodium (Protonix Ec Tab) 40 mg PO DAILY [facility] Last Admin: 10/26/16 10:24 Dose: 40 mg - Labs Labs: 10/25/16 06:24 10/25/16 06:24 PT 11.5 SECONDS (9.7-12.2) 10/21/16 07:58 INR 1.0 10/21/16 07:58 APTT 37 SECONDS (21-34) H 10/21/16 07:58 - Constitutional Appears: Cachectic, Chronically Ill - Head Exam Head Exam: NORMOCEPHALIC - Eye Exam Eye Exam: PERRL. absent: Scleral icterus - ENT Exam ENT Exam: Mucous Membranes Dry, Normal External Ear Exam - Neck Exam Neck Exam: absent: Lymphadenopathy - Respiratory Exam Respiratory Exam: Decreased Breath Sounds, Rhonchi - Cardiovascular Exam Cardiovascular Exam: REGULAR RHYTHM, +S1, +S2 - GI/Abdominal Exam GI & Abdominal Exam: Distended, Soft. absent: Tenderness - Rectal Exam Rectal Exam: Deferred - Exam Exam: NORMAL INSPECTION - Extremities Exam Extremities Exam: absent: Calf Tenderness, Pedal Edema - Back Exam Back Exam: absent: CVA tenderness (L), CVA tenderness (R) - Neurological Exam Neurological Exam: Alert, Awake, Oriented x3 - Psychiatric Exam Psychiatric exam: Depressed - Skin Skin Exam: Dry Assessment and Plan (1) Hyperkalemia Status: Acute (2) Pneumonia associated with acquired immune deficiency syndrome (AIDS) Status: Acute (3) Renal insufficiency Status: Acute (4) AIDS Status: Acute (5) Anemia Status: Acute (6) Dehydration Status: Acute
--- NOTE | 2016-10-26 16:58 | CP.PCM.PN ---
<Neela Hitchcocky - Last Filed: 10/26/16 18:02> Subjective - Date & Time of Evaluation Date of Evaluation: 10/26/16 Time of Evaluation: 09:00 - Subjective Subjective: PGY-1 Medicine Progress Note for Dr. Schneider Patient seen and examined at bedside. No acute event overnight. Patient is afebrile. She reports breathing. She continues to feel better. She is tolerating diet, urinating without difficulty, and having BMs. Denies fever/ chills, cp, sob, palpitations, abd pain, n/v/d. Objective - Vital Signs/Intake and Output Vital Signs (last 24 hours): Temp Pulse Resp BP Pulse Ox 97.4 F L 111 H 22 149/102 H 98 10/26/16 16:00 10/26/16 16:00 10/26/16 16:00 10/26/16 16:00 10/26/16 16:00 Intake and Output: 10/26/16 10/26/16 06:59 18:59 Intake Total 440 290 Output Total 1100 Balance -660 290 - Medications Medications: Current Medications Abacavir Sulfate (Ziagen) 300 mg PO BID [facility] Abacavir/Lamivudine (Epzicom) 1 tab PO DAILY [facility] Acetaminophen (Tylenol 325mg Tab) 650 mg PO Q6 PRN PRN Reason: Fever >100.4 F Last Admin: 10/24/16 07:44 Dose: 650 mg Albuterol/Ipratropium (Duoneb 3 Mg/0.5 Mg (3 Ml) Ud) 3 ml INH RQ6 [facility] Last Admin: 10/26/16 13:25 Dose: 3 ml Atovaquone (Mepron) 1,500 mg PO DAILY [facility] Last Admin: 10/26/16 10:24 Dose: 1,500 mg Calcium Acetate (Phoslo) 667 mg PO TIDCC [facility] Last Admin: 10/26/16 13:24 Dose: 667 mg Darunavir (Prezista) 800 mg PO DAILY [facility] Guaifenesin/Dextromethorphan (Robitussin Dm) 5 ml PO Q4H PRN PRN Reason: Cough Last Admin: 10/25/16 21:47 Dose: 5 ml Fluconazole (Diflucan Iv 200 Mg/100 Ml Ns) 100 mls @ 100 mls/hr IVPB DAILY [facility] Last Admin: 10/26/16 10:24 Dose: 100 mls/hr Cefepime HCl (Maxipime Iv 1 Gm Premix) 1 gm in 50 mls @ 100 mls/hr IVPB Q12H [facility] Last Admin: 10/26/16 05:54 Dose: 100 mls/hr Clindamycin Phosphate (Cleocin) 600 mg in 50 mls @ 100 mls/hr IVPB Q8H [facility] Last Admin: 10/26/16 16:19 Dose: 100 mls/hr Multi-Ingredient Ointment (Prep-Hem) 0 ea TOP TID [facility] Last Admin: 10/26/16 13:21 Dose: Not Given Nicotine (Nicoderm Cq) 1 patch TD DAILY [facility] Last Admin: 10/26/16 10:24 Dose: 1 patch Nystatin (Nystatin Oral Susp) 5 ml PO QID [facility] Last Admin: 10/26/16 13:24 Dose: 5 ml Pantoprazole Sodium (Protonix Ec Tab) 40 mg PO DAILY [facility] Last Admin: 10/26/16 10:24 Dose: 40 mg Ritonavir (Norvir) 100 mg PO BIDBS [facility] - Labs Labs: 10/25/16 06:24 10/25/16 06:24 PT 11.5 SECONDS (9.7-12.2) 10/21/16 07:58 INR 1.0 10/21/16 07:58 APTT 37 SECONDS (21-34) H 10/21/16 07:58 - Constitutional Appears: No Acute Distress - Head Exam Head Exam: ATRAUMATIC, NORMOCEPHALIC - Eye Exam Eye Exam: EOMI, Normal appearance Pupil Exam: PERRL - ENT Exam ENT Exam: Mucous Membranes Moist, Normal Oropharynx - Neck Exam Neck Exam: Normal Inspection - Respiratory Exam Respiratory Exam: Clear to Ausculation Bilateral, NORMAL BREATHING PATTERN - Cardiovascular Exam Cardiovascular Exam: REGULAR RHYTHM, +S1, +S2 - GI/Abdominal Exam GI & Abdominal Exam: Soft, Normal Bowel Sounds. absent: Tenderness - Extremities Exam Extremities Exam: Normal Capillary Refill - Back Exam Back Exam: absent: CVA tenderness (L), CVA tenderness (R) - Neurological Exam Neurological Exam: Alert, Awake, CN II-XII Intact, Oriented x3 - Psychiatric Exam Psychiatric exam: Normal Affect, Normal Mood - Skin Skin Exam: Dry, Intact, Normal Color, Warm Assessment and Plan - Assessment and Plan (Free Text) Plan: 1. Pneumonia Patient has history of AIDS (CD4 count stated to be <100) Community Acquired vs. PCP vs. Tuberculosis vs. Histoplasmosis vs. Mycobacterium Avium Intracellulare f/u Quantiferon GOLD, AFB Sputum Cx q3h x3, keep in isolation Acute hypoxic respiratory failure secondary to Pneumonia, ruling out PJP, TB, TANA. Continue nasal cannula oxygen. ID consult, Dr. Gonzales, help appreciated QuantiFERON indeterminate Crypto- negative HLA- pending Patient is currently on Cefepime, Diflucan, Nystatin, Clindamycin and Mepron Infectious Disease, Dr. Gonzales, consulted. Help appreciated. 10/24 CXR: Right-sided PICC extends to the cavoatrial junction. Increased interstitial markings similar to prior study compatible with infection or edema. More confluent patchy opacity within the left lung apex. Cardiomegaly ( see full report). Duonebs Procalcitonin: 11.52 2. AIDS f/u ID, Dr. Gonzales, for recs Prezista 800 mg PO daily Antibiotics and prophylaxis as above Started on Nystatin 5 ml po QID for thrush Procalcitonin: 11.52 Absolute CD4 count of 45. Pending HLA typing- to start HAART therapy There is suspicion for underlying carcinoma with mediastinal, mesenteric, perivascular lymphadenopathy. CT AB & Pelvis: Small to moderate right and small left pleural effusions and associated consolidations, right greater than left. Interstitial prominence. Partially imaged cardiomegaly. Trace pericardial effusion. Hepatomegaly. Coarsened hepatic echotexture. Borderline splenomegaly. Cholecystectomy. Suboptimal visualization of the unenhanced pancreas. Small pelvic ascites. Bilateral inguinal adenopathy measuring up to 14 mm in short axis, with central necrosis versus fat. Sub cm right pelvic sidewall lymph node measures approximately 9 mm in short axis. Left pelvic sidewall lymph node measures approximately 10 mm in short axis. Prominent but sub cm mesenteric and retroperitoneal lymph nodes, nonspecific. Please note that evaluation for adenopathy is limited due to lack of IV contrast. 3. Elevated d-dimer d-dimer 589 possible DVT vs. Malignancy Worsening anemia, patient has elevated LDH, haptoglobin 160 No visible signs of bleeding currently. D-dimer is elevated but could be inflammatory response. Lower extremity Doppler- negative DVT. Hemoglobin 9.5, anticoagulation held due to bleeding 4. Adrenal Insufficiency Hyperkalemia responsive to sodium bicarbonate Patient becoming hypotensive, pressure of 96/52 Start Hydrocortisone 50 mg IVPB q8h 5. GROVER improving BUN/CR Nonoliguric Acute kidney injury, creatinine has doubled in 24 hours. Patient still making urine. Hyperkalemia improved status post administration of Kayexalate Nephro Dr. Garcia consulted for acute kidney injury Phoslo started 24 hour protein - 7765 and creatine ordered Renal US: Increased echogenicity of the bilateral renal cortices suggestive for medical renal disease. Mild fullness of the left renal collecting system. 6. Anemia likely anemia of chronic disease Hemoglobin 9.5 B12 deficiency previously B12 481 folate 10.2 Monitor 7. Prophylactic Measures Anticoagulation Held due to bleeding Protonix 40 mg IVP daily SCDs ECHO - EF 55-60% Heart healthy diet Patient having diarrhea - follow up stool for leukocytes and C. difficile, stool occult- negative Jessica for strict I/O's during acute illness colace 100 mg PO TID <John Schneider Jr. - Last Filed: 10/28/16 11:26> Objective - Vital Signs/Intake and Output Vital Signs (last 24 hours): Temp Pulse Resp BP Pulse Ox 97.3 F L 110 H 18 135/94 H 94 L 10/28/16 07:30 10/28/16 07:30 10/28/16 07:30 10/28/16 07:30 10/28/16 07:30 - Medications Medications: Current Medications Abacavir Sulfate (Ziagen) 300 mg PO BID [facility] Last Admin: 10/28/16 09:55 Dose: 300 mg Abacavir/Lamivudine (Epzicom) 1 tab PO DAILY [facility] Last Admin: 10/28/16 09:55 Dose: 1 tab Acetaminophen (Tylenol 325mg Tab) 650 mg PO Q6 PRN PRN Reason: Fever >100.4 F Last Admin: 10/24/16 07:44 Dose: 650 mg Albuterol/Ipratropium (Duoneb 3 Mg/0.5 Mg (3 Ml) Ud) 3 ml INH RQ6 [facility] Last Admin: 10/28/16 07:35 Dose: 3 ml Azithromycin (Zithromax) 1,200 mg PO QWK [facility] Calcium Acetate (Phoslo) 667 mg PO TIDCC [facility] Last Admin: 10/28/16 09:59 Dose: Not Given Darunavir (Prezista) 800 mg PO DAILY [facility] Last Admin: 10/28/16 09:55 Dose: 800 mg Docusate Sodium (Colace) 100 mg PO TID [facility] Last Admin: 10/28/16 09:53 Dose: 100 mg Guaifenesin/Dextromethorphan (Robitussin Dm) 5 ml PO Q4H PRN PRN Reason: Cough Last Admin: 10/25/16 21:47 Dose: 5 ml Fluconazole (Diflucan Iv 200 Mg/100 Ml Ns) 100 mls @ 100 mls/hr IVPB DAILY [facility] Last Admin: 10/28/16 09:52 Dose: 100 mls/hr Cefepime HCl (Maxipime Iv 1 Gm Premix) 1 gm in 50 mls @ 100 mls/hr IVPB Q12H [facility] Last Admin: 10/28/16 05:21 Dose: 100 mls/hr Clindamycin Phosphate (Cleocin) 600 mg in 50 mls @ 100 mls/hr IVPB Q8H [facility] Last Admin: 10/28/16 07:43 Dose: 100 mls/hr Multi-Ingredient Ointment (Prep-Hem) 0 ea TOP TID [facility] Last Admin: 10/28/16 09:57 Dose: Not Given Nicotine (Nicoderm Cq) 1 patch TD DAILY [facility] Last Admin: 10/28/16 09:55 Dose: 1 patch Nystatin (Nystatin Oral Susp) 5 ml PO QID [facility] Last Admin: 10/28/16 09:56 Dose: 5 ml Pantoprazole Sodium (Protonix Ec Tab) 40 mg PO DAILY [facility] Last Admin: 10/28/16 09:58 Dose: 40 mg Ritonavir (Norvir) 100 mg PO BIDBS [facility] Last Admin: 10/28/16 07:43 Dose: 100 mg - Labs Labs: 10/27/16 06:36 10/27/16 06:36 PT 11.5 SECONDS (9.7-12.2) 10/21/16 07:58 INR 1.0 10/21/16 07:58 APTT 37 SECONDS (21-34) H 10/21/16 07:58 Attending/Attestation - Attestation I have personally seen and examined this patient.: Yes I have fully participated in the care of the patient.: Yes I have reviewed all pertinent clinical information, including history, physical exam and plan: Yes Notes (Text): 10/28/16 11:26 Agree with resident note and findings
[2016-10-26 17:27] LABS: BASO # 0.1 K/uL (0.0-0.2); BASO % 1.3 % (0.0-2.0); EOS % 14.8 % (0.0-4.0); HEMATOCRIT 31.6 % (34.0-47.0); LYMPH # 2.9 K/uL (1.0-4.3); LYMPH % 41.8 % (20.0-40.0); MEAN CELL VOLUME 93.3 fL (81.0-99.0); MEAN CORPUSCULAR HEMOGLOBIN 30.4 pg (27.0-31.0); MEAN CORPUSCULAR HGB CONC 32.6 g/dL (33.0-37.0); MEAN PLATELET VOLUME 7.8 fL (7.2-11.7); MONO # 0.7 K/uL (0.0-0.8); MONO % 9.8 % (0.0-10.0); RED CELL DISTRIBUTION WIDTH 18.2 % (11.5-14.5)
[2016-10-26 17:36] LABS: POTASSIUM 4.2 mmol/L (3.6-5.2)
[2016-10-26 17:38] LABS: BILIRUBIN,TOTAL 0.6 mg/dL (0.2-1.3); TOTAL PROTEIN 7.6 g/dL (6.3-8.3)
[2016-10-26 17:39] LABS: CALCIUM 7.9 mg/dl (8.6-10.4); MAGNESIUM 1.8 mg/dL (1.6-2.3); PHOSPHOROUS 3.2 mg/dL (2.5-4.5)
[2016-10-26] MEDS: Abacavir/Lamivudine 600 mg-300 mg Tab PO SCH (17:39)
[2016-10-26 17:44] LABS: ALB/GLOB RATIO 0.6 (1.0-2.1)
[2016-10-27] MEDS: Albuterol-Ipratrop 3 mg / 0.5 (3 ml) UD INH SCH ×4 (01:13→20:37)
[2016-10-27] MEDS: Cefepime IV 1 gm in Dextrose 1 GM/50 ML BAG IVPB SCH ×2 (05:46→17:12)
[2016-10-27 06:42] LABS: BASO # 0.1 K/uL (0.0-0.2); BASO % 1.3 % (0.0-2.0); EOS # 0.8 K/uL (0.0-0.7); EOS % 11.8 % (0.0-4.0); HEMATOCRIT 33.1 % (34.0-47.0); LYMPH # 2.9 K/uL (1.0-4.3); LYMPH % 42.3 % (20.0-40.0); MEAN CELL VOLUME 94.3 fL (81.0-99.0); MEAN CORPUSCULAR HEMOGLOBIN 31.6 pg (27.0-31.0); MEAN CORPUSCULAR HGB CONC 33.5 g/dL (33.0-37.0); MEAN PLATELET VOLUME 7.9 fL (7.2-11.7); MONO # 0.8 K/uL (0.0-0.8); MONO % 12.2 % (0.0-10.0); NRBC % 0.1 % (0.0-2.0); RED CELL DISTRIBUTION WIDTH 18.6 % (11.5-14.5); WHITE BLOOD COUNT 6.8 K/uL (4.8-10.8)
[2016-10-27 06:50] LABS: POTASSIUM 4.9 mmol/L (3.6-5.2)
[2016-10-27 06:52] LABS: BILIRUBIN,TOTAL 0.7 mg/dL (0.2-1.3); TOTAL PROTEIN 7.8 g/dL (6.3-8.3)
[2016-10-27 06:53] LABS: MAGNESIUM 1.8 mg/dL (1.6-2.3); PHOSPHOROUS 4.2 mg/dL (2.5-4.5)
[2016-10-27 06:57] LABS: ALB/GLOB RATIO 0.6 (1.0-2.1)
[2016-10-27] MEDS: Clindamycin 600mg/50ml D5W 600 MG/50 ML VIAL IVPB SCH ×3 (08:35→17:13)
[2016-10-27] MEDS: Nystatin 100,000 Units/ml Oral Susp 5 ml UD PO SCH ×4 (09:49→21:50)
[2016-10-27] MEDS: Abacavir/Lamivudine 600 mg-300 mg Tab PO SCH (09:49)
[2016-10-27] MEDS: Pantoprazole 40 mg EC Tab PO SCH (09:50)
[2016-10-27] MEDS: Atovaquone 750 mg/5 ml Susp UD PO SCH (09:50)
[2016-10-27] MEDS: Fluconazole IV 200mg/100 ml NS 100 ML IVPB SCH (09:51)
[2016-10-27] MEDS: Hemorrohoidal Ointment (2 oz) TOP SCH ×3 (09:52→17:08)
--- NOTE | 2016-10-27 11:09 | CP.PCM.PN ---
Subjective - Date & Time of Evaluation Date of Evaluation: 10/27/16 Time of Evaluation: 11:07 - Subjective Subjective: +diarrhea no fever no chest pain no sob no nausea no vomiting abdomen nontender no change in urine output no rash Objective - Vital Signs/Intake and Output Vital Signs (last 24 hours): Temp Pulse Resp BP Pulse Ox 98 F 112 H 22 126/85 95 10/27/16 08:00 10/27/16 08:00 10/27/16 08:00 10/27/16 08:00 10/27/16 08:00 Intake and Output: 10/27/16 10/27/16 06:59 18:59 Intake Total 300 Output Total 800 Balance -500 - Medications Medications: Current Medications Abacavir Sulfate (Ziagen) 300 mg PO BID [facility] Last Admin: 10/27/16 09:50 Dose: 300 mg Abacavir/Lamivudine (Epzicom) 1 tab PO DAILY [facility] Last Admin: 10/27/16 09:49 Dose: 1 tab Acetaminophen (Tylenol 325mg Tab) 650 mg PO Q6 PRN PRN Reason: Fever >100.4 F Last Admin: 10/24/16 07:44 Dose: 650 mg Albuterol/Ipratropium (Duoneb 3 Mg/0.5 Mg (3 Ml) Ud) 3 ml INH RQ6 [facility] Last Admin: 10/27/16 07:38 Dose: 3 ml Atovaquone (Mepron) 1,500 mg PO DAILY [facility] Last Admin: 10/27/16 09:50 Dose: 1,500 mg Calcium Acetate (Phoslo) 667 mg PO TIDCC [facility] Last Admin: 10/27/16 09:49 Dose: 667 mg Darunavir (Prezista) 800 mg PO DAILY [facility] Last Admin: 10/27/16 09:50 Dose: 800 mg Docusate Sodium (Colace) 100 mg PO TID [facility] Last Admin: 10/27/16 09:49 Dose: 100 mg Guaifenesin/Dextromethorphan (Robitussin Dm) 5 ml PO Q4H PRN PRN Reason: Cough Last Admin: 10/25/16 21:47 Dose: 5 ml Fluconazole (Diflucan Iv 200 Mg/100 Ml Ns) 100 mls @ 100 mls/hr IVPB DAILY [facility] Last Admin: 10/27/16 09:51 Dose: 100 mls/hr Cefepime HCl (Maxipime Iv 1 Gm Premix) 1 gm in 50 mls @ 100 mls/hr IVPB Q12H [facility] Last Admin: 10/27/16 05:46 Dose: 100 mls/hr Clindamycin Phosphate (Cleocin) 600 mg in 50 mls @ 100 mls/hr IVPB Q8H [facility] Last Admin: 10/27/16 08:35 Dose: 100 mls/hr Multi-Ingredient Ointment (Prep-Hem) 0 ea TOP TID [facility] Last Admin: 10/27/16 09:52 Dose: Not Given Nicotine (Nicoderm Cq) 1 patch TD DAILY [facility] Last Admin: 10/27/16 09:50 Dose: 1 patch Nystatin (Nystatin Oral Susp) 5 ml PO QID [facility] Last Admin: 10/27/16 09:49 Dose: 5 ml Pantoprazole Sodium (Protonix Ec Tab) 40 mg PO DAILY [facility] Last Admin: 10/27/16 09:50 Dose: 40 mg Ritonavir (Norvir) 100 mg PO BIDBS [facility] Last Admin: 10/27/16 07:12 Dose: 100 mg - Labs Labs: 10/27/16 06:36 10/27/16 06:36 PT 11.5 SECONDS (9.7-12.2) 10/21/16 07:58 INR 1.0 10/21/16 07:58 APTT 37 SECONDS (21-34) H 10/21/16 07:58 - Constitutional Appears: Confused, Chronically Ill - Eye Exam Eye Exam: EOMI - ENT Exam ENT Exam: Mucous Membranes Moist - Neck Exam Neck Exam: Full ROM. absent: Lymphadenopathy - Respiratory Exam Respiratory Exam: Decreased Breath Sounds. absent: Accessory Muscle Use - Cardiovascular Exam Cardiovascular Exam: REGULAR RHYTHM. absent: Rubs - GI/Abdominal Exam GI & Abdominal Exam: Soft. absent: Tenderness - Extremities Exam Extremities Exam: absent: Pedal Edema Assessment and Plan - Assessment and Plan (Free Text) Assessment: rachelle due to pneumonia HIV resolving rachelle, continue same avoid nephrotoxic meds
--- NOTE | 2016-10-27 17:05 | CP.PCM.PN ---
<Shayne Lazar - Last Filed: 10/27/16 21:18> Subjective - Date & Time of Evaluation Date of Evaluation: 10/27/16 Time of Evaluation: 13:00 - Subjective Subjective: PGY-1 Medicine Progress Note for Dr. Schneider Patient seen and examined at bedside. No acute event overnight, but did have an episode of vomiting dark brown material early this morning that woke her. It did not appear to be blood, however she had a decreased appetite as well. Today , her vitals were stable and her Hgb moved up to 11.1. She continues to feel better, tolerating her diet, urinating without difficulty, and having BMs. She does not have enough strength to get out of bed. Two of her AFB sputum cultures were negative, waiting on a third. She Denies fever/chills, cp, sob, palpitations, abd pain, nausea or diarrhea. Objective - Vital Signs/Intake and Output Vital Signs (last 24 hours): Temp Pulse Resp BP Pulse Ox 97.6 F 113 H 20 122/82 95 10/27/16 14:00 10/27/16 14:00 10/27/16 14:00 10/27/16 14:00 10/27/16 14:00 Intake and Output: 10/27/16 10/27/16 06:59 18:59 Intake Total 300 Output Total 800 Balance -500 - Medications Medications: Current Medications Abacavir Sulfate (Ziagen) 300 mg PO BID [facility] Last Admin: 10/27/16 09:50 Dose: 300 mg Abacavir/Lamivudine (Epzicom) 1 tab PO DAILY [facility] Last Admin: 10/27/16 09:49 Dose: 1 tab Acetaminophen (Tylenol 325mg Tab) 650 mg PO Q6 PRN PRN Reason: Fever >100.4 F Last Admin: 10/24/16 07:44 Dose: 650 mg Albuterol/Ipratropium (Duoneb 3 Mg/0.5 Mg (3 Ml) Ud) 3 ml INH RQ6 [facility] Last Admin: 10/27/16 13:38 Dose: 3 ml Atovaquone (Mepron) 1,500 mg PO DAILY [facility] Last Admin: 10/27/16 09:50 Dose: 1,500 mg Calcium Acetate (Phoslo) 667 mg PO TIDCC [facility] Last Admin: 10/27/16 13:00 Dose: 667 mg Darunavir (Prezista) 800 mg PO DAILY [facility] Last Admin: 10/27/16 09:50 Dose: 800 mg Docusate Sodium (Colace) 100 mg PO TID [facility] Last Admin: 10/27/16 13:22 Dose: Not Given Guaifenesin/Dextromethorphan (Robitussin Dm) 5 ml PO Q4H PRN PRN Reason: Cough Last Admin: 10/25/16 21:47 Dose: 5 ml Fluconazole (Diflucan Iv 200 Mg/100 Ml Ns) 100 mls @ 100 mls/hr IVPB DAILY [facility] Last Admin: 10/27/16 09:51 Dose: 100 mls/hr Cefepime HCl (Maxipime Iv 1 Gm Premix) 1 gm in 50 mls @ 100 mls/hr IVPB Q12H [facility] Last Admin: 10/27/16 05:46 Dose: 100 mls/hr Clindamycin Phosphate (Cleocin) 600 mg in 50 mls @ 100 mls/hr IVPB Q8H [facility] Last Admin: 10/27/16 08:35 Dose: 100 mls/hr Multi-Ingredient Ointment (Prep-Hem) 0 ea TOP TID [facility] Last Admin: 10/27/16 13:22 Dose: Not Given Nicotine (Nicoderm Cq) 1 patch TD DAILY [facility] Last Admin: 10/27/16 09:50 Dose: 1 patch Nystatin (Nystatin Oral Susp) 5 ml PO QID [facility] Last Admin: 10/27/16 13:25 Dose: 5 ml Pantoprazole Sodium (Protonix Ec Tab) 40 mg PO DAILY [facility] Last Admin: 10/27/16 09:50 Dose: 40 mg Ritonavir (Norvir) 100 mg PO BIDBS [facility] Last Admin: 10/27/16 07:12 Dose: 100 mg - Labs Labs: 10/27/16 06:36 10/27/16 06:36 PT 11.5 SECONDS (9.7-12.2) 10/21/16 07:58 INR 1.0 10/21/16 07:58 APTT 37 SECONDS (21-34) H 10/21/16 07:58 - Constitutional Appears: No Acute Distress - Head Exam Head Exam: ATRAUMATIC, NORMAL INSPECTION, NORMOCEPHALIC - Eye Exam Eye Exam: EOMI - ENT Exam ENT Exam: Mucous Membranes Moist - Neck Exam Neck Exam: Full ROM, Normal Inspection. absent: Lymphadenopathy - Respiratory Exam Respiratory Exam: Clear to Ausculation Bilateral, NORMAL BREATHING PATTERN - Cardiovascular Exam Cardiovascular Exam: REGULAR RHYTHM, RRR, +S1, +S2. absent: JVD - GI/Abdominal Exam GI & Abdominal Exam: Soft, Normal Bowel Sounds. absent: Tenderness - Neurological Exam Neurological Exam: Alert, Awake, Oriented x3 - Psychiatric Exam Psychiatric exam: Normal Affect, Normal Mood - Skin Skin Exam: Dry, Intact, Normal Color, Warm Assessment and Plan - Assessment and Plan (Free Text) Plan: 1. Pneumonia Patient has history of AIDS (CD4 count stated to be <100) Community Acquired vs. PCP vs. Tuberculosis vs. Histoplasmosis vs. Mycobacterium Avium Intracellulare Quantiferon GOLD -indeterminate AFB Sputum Cx -negative x2 -keep in isolation Acute hypoxic respiratory failure secondary to Pneumonia, ruling out PJP, TB, TANA. Continue nasal cannula oxygen. ID consult, Dr. Gonzales, help appreciated -QuantiFERON indeterminate -renewed antibiotics on 10/27 Crypto- negative HLA- negative/pending Patient is currently on Cefepime, Diflucan, Nystatin, Clindamycin and Mepron Infectious Disease, Dr. Gonzales, consulted. Help appreciated. 10/24 CXR: Right-sided PICC extends to the cavoatrial junction. Increased interstitial markings similar to prior study compatible with infection or edema. More confluent patchy opacity within the left lung apex. Cardiomegaly ( see full report). Dupalomabs Procalcitonin: 11.52 2. AIDS f/u ID, Dr. Gonzales, for recs Prezista 800 mg PO daily Antibiotics and prophylaxis as above Started on Nystatin 5 ml po QID for thrush Procalcitonin: 11.52 Absolute CD4 count of 45. Pending HLA typing- to start HAART therapy There is suspicion for underlying carcinoma with mediastinal, mesenteric, perivascular lymphadenopathy. CT AB & Pelvis: Small to moderate right and small left pleural effusions and associated consolidations, right greater than left. Interstitial prominence. Partially imaged cardiomegaly. Trace pericardial effusion. Hepatomegaly. Coarsened hepatic echotexture. Borderline splenomegaly. Cholecystectomy. Suboptimal visualization of the unenhanced pancreas. Small pelvic ascites. Bilateral inguinal adenopathy measuring up to 14 mm in short axis, with central necrosis versus fat. Sub cm right pelvic sidewall lymph node measures approximately 9 mm in short axis. Left pelvic sidewall lymph node measures approximately 10 mm in short axis. Prominent but sub cm mesenteric and retroperitoneal lymph nodes, nonspecific. Please note that evaluation for adenopathy is limited due to lack of IV contrast. 3. Elevated d-dimer d-dimer 589 possible DVT vs. Malignancy Worsening anemia, patient has elevated LDH, haptoglobin 160 No visible signs of bleeding currently. D-dimer is elevated but could be inflammatory response. Lower extremity Doppler- negative DVT. Hemoglobin 11.1, anticoagulation held due to bleeding 4. Adrenal Insufficiency Hyperkalemia responsive to sodium bicarbonate Patient becoming hypotensive, pressure of 96/52 Start Hydrocortisone 50 mg IVPB q8h 5. GROVER-improving BUN/CR Nonoliguric Acute kidney injury, creatinine has doubled in 24 hours. Patient still making urine. Hyperkalemia improved status post administration of Kayexalate Nephro Dr. Garcia consulted for acute kidney injury Phoslo started 24 hour protein - 7765 and creatine ordered Renal US: Increased echogenicity of the bilateral renal cortices suggestive for medical renal disease. Mild fullness of the left renal collecting system. 6. Anemia improving likely anemia of chronic disease Hemoglobin 11.1 on 10/27 B12 deficiency previously B12 481 folate 10.2 Monitor 7. Prophylactic Measures Anticoagulation Held due to bleeding Protonix 40 mg IVP daily SCDs ECHO - EF 55-60% Heart healthy diet Patient having diarrhea - follow up stool for leukocytes and C. difficile, stool occult- negative Jessica for strict I/O's during acute illness colace 100 mg PO TID <John Schneider Jr. - Last Filed: 10/28/16 11:28> Objective - Vital Signs/Intake and Output Vital Signs (last 24 hours): Temp Pulse Resp BP Pulse Ox 97.3 F L 110 H 18 135/94 H 94 L 10/28/16 07:30 10/28/16 07:30 10/28/16 07:30 10/28/16 07:30 10/28/16 07:30 - Medications Medications: Current Medications Abacavir Sulfate (Ziagen) 300 mg PO BID [facility] Last Admin: 10/28/16 09:55 Dose: 300 mg Abacavir/Lamivudine (Epzicom) 1 tab PO DAILY [facility] Last Admin: 10/28/16 09:55 Dose: 1 tab Acetaminophen (Tylenol 325mg Tab) 650 mg PO Q6 PRN PRN Reason: Fever >100.4 F Last Admin: 10/24/16 07:44 Dose: 650 mg Albuterol/Ipratropium (Duoneb 3 Mg/0.5 Mg (3 Ml) Ud) 3 ml INH RQ6 [facility] Last Admin: 10/28/16 07:35 Dose: 3 ml Azithromycin (Zithromax) 1,200 mg PO QWK [facility] Calcium Acetate (Phoslo) 667 mg PO TIDCC [facility] Last Admin: 10/28/16 09:59 Dose: Not Given Darunavir (Prezista) 800 mg PO DAILY [facility] Last Admin: 10/28/16 09:55 Dose: 800 mg Docusate Sodium (Colace) 100 mg PO TID [facility] Last Admin: 10/28/16 09:53 Dose: 100 mg Guaifenesin/Dextromethorphan (Robitussin Dm) 5 ml PO Q4H PRN PRN Reason: Cough Last Admin: 10/25/16 21:47 Dose: 5 ml Fluconazole (Diflucan Iv 200 Mg/100 Ml Ns) 100 mls @ 100 mls/hr IVPB DAILY [facility] Last Admin: 10/28/16 09:52 Dose: 100 mls/hr Cefepime HCl (Maxipime Iv 1 Gm Premix) 1 gm in 50 mls @ 100 mls/hr IVPB Q12H [facility] Last Admin: 10/28/16 05:21 Dose: 100 mls/hr Clindamycin Phosphate (Cleocin) 600 mg in 50 mls @ 100 mls/hr IVPB Q8H [facility] Last Admin: 10/28/16 07:43 Dose: 100 mls/hr Multi-Ingredient Ointment (Prep-Hem) 0 ea TOP TID [facility] Last Admin: 10/28/16 09:57 Dose: Not Given Nicotine (Nicoderm Cq) 1 patch TD DAILY [facility] Last Admin: 10/28/16 09:55 Dose: 1 patch Nystatin (Nystatin Oral Susp) 5 ml PO QID [facility] Last Admin: 10/28/16 09:56 Dose: 5 ml Pantoprazole Sodium (Protonix Ec Tab) 40 mg PO DAILY [facility] Last Admin: 10/28/16 09:58 Dose: 40 mg Ritonavir (Norvir) 100 mg PO BIDBS [facility] Last Admin: 10/28/16 07:43 Dose: 100 mg - Labs Labs: 10/27/16 06:36 10/27/16 06:36 PT 11.5 SECONDS (9.7-12.2) 10/21/16 07:58 INR 1.0 10/21/16 07:58 APTT 37 SECONDS (21-34) H 10/21/16 07:58 Attending/Attestation - Attestation I have personally seen and examined this patient.: Yes I have fully participated in the care of the patient.: Yes I have reviewed all pertinent clinical information, including history, physical exam and plan: Yes Notes (Text): 10/28/16 11:27 Agree with Resident note and findings
[2016-10-28] MEDS: Cefepime IV 1 gm in Dextrose 1 GM/50 ML BAG IVPB SCH (05:21)
[2016-10-28] MEDS: Albuterol-Ipratrop 3 mg / 0.5 (3 ml) UD INH SCH ×3 (07:35→19:56)
[2016-10-28] MEDS: Clindamycin 600mg/50ml D5W 600 MG/50 ML VIAL IVPB SCH ×3 (07:43→17:53)
[2016-10-28] MEDS: Fluconazole IV 200mg/100 ml NS 100 ML IVPB SCH (09:52)
[2016-10-28] MEDS: Atovaquone 750 mg/5 ml Susp UD PO SCH (09:54)
[2016-10-28] MEDS: Abacavir/Lamivudine 600 mg-300 mg Tab PO SCH (09:55)
[2016-10-28] MEDS: Nystatin 100,000 Units/ml Oral Susp 5 ml UD PO SCH ×4 (09:56→21:24)
[2016-10-28] MEDS: Hemorrohoidal Ointment (2 oz) TOP SCH ×3 (09:57→17:56)
[2016-10-28] MEDS: Pantoprazole 40 mg EC Tab PO SCH (09:58)
--- NOTE | 2016-10-28 10:02 | CP.PCM.PN ---
Subjective - Date & Time of Evaluation Date of Evaluation: 10/28/16 Time of Evaluation: 07:00 - Subjective Subjective: patient seen and examined. Lying comfortably in no acute distress with no appetite Shortness of breath on minimal exertion on isolation awaiting for third AFB Objective - Vital Signs/Intake and Output Vital Signs (last 24 hours): Temp Pulse Resp BP Pulse Ox 97.3 F L 110 H 18 135/94 H 94 L 10/28/16 07:30 10/28/16 07:30 10/28/16 07:30 10/28/16 07:30 10/28/16 07:30 - Medications Medications: Current Medications Abacavir Sulfate (Ziagen) 300 mg PO BID [facility] Last Admin: 10/28/16 09:55 Dose: 300 mg Abacavir/Lamivudine (Epzicom) 1 tab PO DAILY [facility] Last Admin: 10/28/16 09:55 Dose: 1 tab Acetaminophen (Tylenol 325mg Tab) 650 mg PO Q6 PRN PRN Reason: Fever >100.4 F Last Admin: 10/24/16 07:44 Dose: 650 mg Albuterol/Ipratropium (Duoneb 3 Mg/0.5 Mg (3 Ml) Ud) 3 ml INH RQ6 [facility] Last Admin: 10/28/16 07:35 Dose: 3 ml Atovaquone (Mepron) 1,500 mg PO DAILY [facility] Last Admin: 10/28/16 09:54 Dose: 1,500 mg Calcium Acetate (Phoslo) 667 mg PO TIDCC [facility] Last Admin: 10/28/16 09:59 Dose: Not Given Darunavir (Prezista) 800 mg PO DAILY [facility] Last Admin: 10/28/16 09:55 Dose: 800 mg Docusate Sodium (Colace) 100 mg PO TID [facility] Last Admin: 10/28/16 09:53 Dose: 100 mg Guaifenesin/Dextromethorphan (Robitussin Dm) 5 ml PO Q4H PRN PRN Reason: Cough Last Admin: 10/25/16 21:47 Dose: 5 ml Fluconazole (Diflucan Iv 200 Mg/100 Ml Ns) 100 mls @ 100 mls/hr IVPB DAILY [facility] Last Admin: 10/28/16 09:52 Dose: 100 mls/hr Cefepime HCl (Maxipime Iv 1 Gm Premix) 1 gm in 50 mls @ 100 mls/hr IVPB Q12H [facility] Last Admin: 10/28/16 05:21 Dose: 100 mls/hr Clindamycin Phosphate (Cleocin) 600 mg in 50 mls @ 100 mls/hr IVPB Q8H [facility] Last Admin: 10/28/16 07:43 Dose: 100 mls/hr Multi-Ingredient Ointment (Prep-Hem) 0 ea TOP TID [facility] Last Admin: 10/28/16 09:57 Dose: Not Given Nicotine (Nicoderm Cq) 1 patch TD DAILY [facility] Last Admin: 10/28/16 09:55 Dose: 1 patch Nystatin (Nystatin Oral Susp) 5 ml PO QID [facility] Last Admin: 10/28/16 09:56 Dose: 5 ml Pantoprazole Sodium (Protonix Ec Tab) 40 mg PO DAILY [facility] Last Admin: 10/28/16 09:58 Dose: 40 mg Ritonavir (Norvir) 100 mg PO BIDBS [facility] Last Admin: 10/28/16 07:43 Dose: 100 mg - Labs Labs: 10/27/16 06:36 10/27/16 06:36 PT 11.5 SECONDS (9.7-12.2) 10/21/16 07:58 INR 1.0 10/21/16 07:58 APTT 37 SECONDS (21-34) H 10/21/16 07:58
[2016-10-28 11:30] LABS: BASO # 0.2 K/uL (0.0-0.2); BASO % 2.1 % (0.0-2.0); EOS # 0.6 K/uL (0.0-0.7); EOS % 7.3 % (0.0-4.0); HEMATOCRIT 32.1 % (34.0-47.0); LYMPH # 3.8 K/uL (1.0-4.3); MEAN CELL VOLUME 94.4 fL (81.0-99.0); MEAN CORPUSCULAR HEMOGLOBIN 30.6 pg (27.0-31.0); MEAN CORPUSCULAR HGB CONC 32.4 g/dL (33.0-37.0); MEAN PLATELET VOLUME 7.5 fL (7.2-11.7); MONO # 0.9 K/uL (0.0-0.8); MONO % 11.6 % (0.0-10.0); RED CELL DISTRIBUTION WIDTH 18.6 % (11.5-14.5); WHITE BLOOD COUNT 7.5 K/uL (4.8-10.8)
[2016-10-28 11:58] LABS: POTASSIUM 4.5 mmol/L (3.6-5.2)
[2016-10-28 12:00] LABS: ALB/GLOB RATIO 0.6 (1.0-2.1); BILIRUBIN,TOTAL 0.6 mg/dL (0.2-1.3); TOTAL PROTEIN 8.3 g/dL (6.3-8.3)
[2016-10-28 12:01] LABS: CALCIUM 8.4 mg/dl (8.6-10.4); MAGNESIUM 2.3 mg/dL (1.6-2.3); PHOSPHOROUS 4.8 mg/dL (2.5-4.5)
--- NOTE | 2016-10-28 16:16 | CP.PCM.PN ---
Subjective - Date & Time of Evaluation Date of Evaluation: 10/28/16 Time of Evaluation: 08:00 - Subjective Subjective: AFB SMEARS PENDING MORE CONFUSION NOTED- CEFEPIME D/C'D CONT ANTIVIRAL RX RENAL FOLLOW UP REQUESTED Objective - Vital Signs/Intake and Output Vital Signs (last 24 hours): Temp Pulse Resp BP Pulse Ox 97.3 F L 110 H 18 135/94 H 94 L 10/28/16 07:30 10/28/16 07:30 10/28/16 07:30 10/28/16 07:30 10/28/16 07:30 - Medications Medications: Current Medications Abacavir Sulfate (Ziagen) 300 mg PO BID [facility] Last Admin: 10/28/16 09:55 Dose: 300 mg Acetaminophen (Tylenol 325mg Tab) 650 mg PO Q6 PRN PRN Reason: Fever >100.4 F Last Admin: 10/24/16 07:44 Dose: 650 mg Albuterol/Ipratropium (Duoneb 3 Mg/0.5 Mg (3 Ml) Ud) 3 ml INH RQ6 [facility] Last Admin: 10/28/16 13:44 Dose: 3 ml Azithromycin (Zithromax) 1,200 mg PO QWK [facility] Calcium Acetate (Phoslo) 667 mg PO TIDCC [facility]PL[facility] Last Admin: 10/28/16 12:40 Dose: Not Given Darunavir (Prezista) 800 mg PO DAILY [facility] Last Admin: 10/28/16 09:55 Dose: 800 mg Docusate Sodium (Colace) 100 mg PO TID [facility] Last Admin: 10/28/16 14:05 Dose: Not Given Guaifenesin/Dextromethorphan (Robitussin Dm) 5 ml PO Q4H PRN PRN Reason: Cough Last Admin: 10/25/16 21:47 Dose: 5 ml Fluconazole (Diflucan Iv 200 Mg/100 Ml Ns) 100 mls @ 100 mls/hr IVPB DAILY [facility] Last Admin: 10/28/16 09:52 Dose: 100 mls/hr Clindamycin Phosphate (Cleocin) 600 mg in 50 mls @ 100 mls/hr IVPB Q8H [facility] Last Admin: 10/28/16 07:43 Dose: 100 mls/hr Lamivudine (Epivir) 150 mg PO DAILY [facility] Multi-Ingredient Ointment (Prep-Hem) 0 ea TOP TID [facility] Last Admin: 10/28/16 14:21 Dose: Not Given Nicotine (Nicoderm Cq) 1 patch TD DAILY [facility] Last Admin: 10/28/16 09:55 Dose: 1 patch Nystatin (Nystatin Oral Susp) 5 ml PO QID [facility] Last Admin: 10/28/16 14:15 Dose: 5 ml Pantoprazole Sodium (Protonix Ec Tab) 40 mg PO DAILY [facility] Last Admin: 10/28/16 09:58 Dose: 40 mg Ritonavir (Norvir) 100 mg PO BIDBS REPLACED [facility] Last Admin: 10/28/16 07:43 Dose: 100 mg - Labs Labs: 10/28/16 11:26 10/28/16 11:26 PT 11.5 SECONDS (9.7-12.2) 10/21/16 07:58 INR 1.0 10/21/16 07:58 APTT 37 SECONDS (21-34) H 10/21/16 07:58 - Constitutional Appears: Confused, Cachectic, Chronically Ill - Head Exam Head Exam: ATRAUMATIC, NORMAL INSPECTION, NORMOCEPHALIC - Eye Exam Eye Exam: EOMI, PERRL. absent: Scleral icterus - ENT Exam ENT Exam: Mucous Membranes Dry, Normal External Ear Exam, Normal Oropharynx - Neck Exam Neck Exam: absent: Lymphadenopathy, Thyromegaly - Respiratory Exam Respiratory Exam: Decreased Breath Sounds, Rhonchi - Cardiovascular Exam Cardiovascular Exam: REGULAR RHYTHM, +S1, +S2 - GI/Abdominal Exam GI & Abdominal Exam: Distended, Soft. absent: Tenderness - Rectal Exam Rectal Exam: Deferred - Exam Exam: NORMAL INSPECTION - Extremities Exam Extremities Exam: absent: Pedal Edema - Back Exam Back Exam: absent: CVA tenderness (L), CVA tenderness (R) - Neurological Exam Neurological Exam: Alert, Altered, Awake Assessment and Plan (1) Hyperkalemia Status: Acute (2) Pneumonia associated with acquired immune deficiency syndrome (AIDS) Status: Acute (3) Renal insufficiency Status: Acute (4) AIDS Status: Acute (5) Anemia Status: Acute (6) Dehydration Status: Acute
--- NOTE | 2016-10-28 16:46 | CT ---
PROCEDURE: CT HEAD WITHOUT CONTRAST. HISTORY: Altered mental status. COMPARISON: None available. TECHNIQUE: Axial computed tomography images were obtained through the head/brain without intravenous contrast. Coronal and sagittal reconstructed images. Radiation dose: Total exam DLP = mGy-cm. This CT exam was performed using one or more of the following dose reduction techniques: Automated exposure control, adjustment of the mA and/or kV according to patient size, and/or use of iterative reconstruction technique. FINDINGS: HEMORRHAGE: No intracranial hemorrhage. BRAIN: No mass effect or edema. Cortical atrophy greater than expected for age. VENTRICLES: Ventricular dilatation without obstructing lesion. The findings are nonspecific, can be seen in normal pressure hydrocephalus. CALVARIUM: Unremarkable. PARANASAL SINUSES: Unremarkable as visualized. No significant inflammatory changes. MASTOID AIR CELLS: Unremarkable as visualized. No inflammatory changes. OTHER FINDINGS: None. IMPRESSION: Diffuse cortical atrophy. Ventricular dilatation without obstructing the chin. No acute findings identified on the current study.
--- NOTE | 2016-10-28 18:08 | CP.PCM.PN ---
<Shayne Lazar - Last Filed: 10/28/16 18:09> Subjective - Date & Time of Evaluation Date of Evaluation: 10/28/16 Time of Evaluation: 07:20 - Subjective Subjective: PGY-1 Medicine Progress Note for Dr. Schneider Patient seen and examined at bedside. No acute events overnight. This morning, her vitals were stable and she continues to feel better, however she was disoriented and confused. Later in the day, she was not confused and oriented to name and place. After a conversation with her daughter, she noted that the patient had not been herself over the last 3 days. After reviewing her medications, her antiretroviral medications were started around that time. After consulting ID, they were put on hold and Cefepime was also stopped. A head CT was ordered as well. She denies fever/chills, cp, sob, palpitations, abd pain, nausea or diarrhea. Objective - Vital Signs/Intake and Output Vital Signs (last 24 hours): Temp Pulse Resp BP Pulse Ox 98.2 F 117 H 18 129/83 99 10/28/16 16:46 10/28/16 16:46 10/28/16 16:46 10/28/16 16:46 10/28/16 16:46 - Medications Medications: Current Medications Abacavir Sulfate (Ziagen) 300 mg PO BID [facility] Last Admin: 10/28/16 09:55 Dose: 300 mg Acetaminophen (Tylenol 325mg Tab) 650 mg PO Q6 PRN PRN Reason: Fever >100.4 F Last Admin: 10/24/16 07:44 Dose: 650 mg Albuterol/Ipratropium (Duoneb 3 Mg/0.5 Mg (3 Ml) Ud) 3 ml INH RQ6 [facility] Last Admin: 10/28/16 13:44 Dose: 3 ml Azithromycin (Zithromax) 1,200 mg PO QWK [facility] Calcium Acetate (Phoslo) 667 mg PO TIDCC [facility] Last Admin: 10/28/16 12:40 Dose: Not Given Darunavir (Prezista) 800 mg PO DAILY [facility] Last Admin: 10/28/16 09:55 Dose: 800 mg Docusate Sodium (Colace) 100 mg PO TID [facility] Last Admin: 10/28/16 17:51 Dose: Not Given Guaifenesin/Dextromethorphan (Robitussin Dm) 5 ml PO Q4H PRN PRN Reason: Cough Last Admin: 10/25/16 21:47 Dose: 5 ml Fluconazole (Diflucan Iv 200 Mg/100 Ml Ns) 100 mls @ 100 mls/hr IVPB DAILY [facility] Last Admin: 10/28/16 09:52 Dose: 100 mls/hr Clindamycin Phosphate (Cleocin) 600 mg in 50 mls @ 100 mls/hr IVPB Q8H [facility] Last Admin: 10/28/16 17:53 Dose: 100 mls/hr Lamivudine (Epivir) 150 mg PO DAILY [facility] Multi-Ingredient Ointment (Prep-Hem) 0 ea TOP TID [facility] Last Admin: 10/28/16 17:56 Dose: Not Given Nicotine (Nicoderm Cq) 1 patch TD DAILY [facility] Last Admin: 10/28/16 09:55 Dose: 1 patch Nystatin (Nystatin Oral Susp) 5 ml PO QID [facility] Last Admin: 10/28/16 17:53 Dose: 5 ml Pantoprazole Sodium (Protonix Ec Tab) 40 mg PO DAILY [facility] Last Admin: 10/28/16 09:58 Dose: 40 mg Ritonavir (Norvir) 100 mg PO BIDBS [facility] Last Admin: 10/28/16 07:43 Dose: 100 mg - Labs Labs: 10/28/16 11:26 10/28/16 11:26 PT 11.5 SECONDS (9.7-12.2) 10/21/16 07:58 INR 1.0 10/21/16 07:58 APTT 37 SECONDS (21-34) H 10/21/16 07:58 - Constitutional Appears: Non-toxic, No Acute Distress - Head Exam Head Exam: ATRAUMATIC, NORMOCEPHALIC - Eye Exam Eye Exam: EOMI - ENT Exam ENT Exam: Mucous Membranes Dry - Neck Exam Neck Exam: Full ROM. absent: Lymphadenopathy, Tenderness - Respiratory Exam Respiratory Exam: Clear to Ausculation Bilateral, NORMAL BREATHING PATTERN - Cardiovascular Exam Cardiovascular Exam: REGULAR RHYTHM, RRR, +S1, +S2 - GI/Abdominal Exam GI & Abdominal Exam: Soft, Normal Bowel Sounds. absent: Tenderness - Extremities Exam Extremities Exam: absent: Joint Swelling, Pedal Edema, Tenderness Additional comments: onychomycosis BL - Neurological Exam Neurological Exam: Awake. absent: Oriented x3 - Psychiatric Exam Psychiatric exam: Flat Affect, Normal Mood - Skin Skin Exam: Dry, Intact, Normal Color, Warm Assessment and Plan - Assessment and Plan (Free Text) Plan: 1. Pneumonia Patient has history of AIDS (CD4 count stated to be <100) Community Acquired vs. PCP vs. Tuberculosis vs. Histoplasmosis vs. Mycobacterium Avium Intracellulare Quantiferon GOLD -indeterminate AFB Sputum Cx -negative x2 -keep in isolation until third negative AFB Acute hypoxic respiratory failure secondary to Pneumonia, ruling out PJP, TB, TANA. Continue nasal cannula oxygen. ID consult, Dr. Gonzales, help appreciated -QuantiFERON indeterminate -renewed antibiotics on 10/27 Crypto- negative HLA- negative/pending Patient is currently on Cefepime, Diflucan, Nystatin, Clindamycin and Mepron Infectious Disease, Dr. Gonzales, consulted. Help appreciated. 10/24 CXR: Right-sided PICC extends to the cavoatrial junction. Increased interstitial markings similar to prior study compatible with infection or edema. More confluent patchy opacity within the left lung apex. Cardiomegaly ( see full report). Duonebs Procalcitonin: 11.52 2. AIDS f/u ID, Dr. Gonzales, for recs Prezista 800 mg PO daily Antibiotics and prophylaxis as above Started on Nystatin 5 ml po QID for thrush Procalcitonin: 11.52 Absolute CD4 count of 45. Pending HLA typing- to start HAART therapy (ON HOLD DUE TO POSSIBLE AMS) There is suspicion for underlying carcinoma with mediastinal, mesenteric, perivascular lymphadenopathy. CT AB & Pelvis: Small to moderate right and small left pleural effusions and associated consolidations, right greater than left. Interstitial prominence. Partially imaged cardiomegaly. Trace pericardial effusion. Hepatomegaly. Coarsened hepatic echotexture. Borderline splenomegaly. Cholecystectomy. Suboptimal visualization of the unenhanced pancreas. Small pelvic ascites. Bilateral inguinal adenopathy measuring up to 14 mm in short axis, with central necrosis versus fat. Sub cm right pelvic sidewall lymph node measures approximately 9 mm in short axis. Left pelvic sidewall lymph node measures approximately 10 mm in short axis. Prominent but sub cm mesenteric and retroperitoneal lymph nodes, nonspecific. Please note that evaluation for adenopathy is limited due to lack of IV contrast. 3. AMS Per daughter, altered for 2-3 days medication vs delerium HELD ART therapy, ID notified stopped Cefepime per ID CT Head -diffuse cortical atrophy, ventricular dilation w/o obstructing the chin 4. Elevated d-dimer d-dimer 589 possible DVT vs. Malignancy Worsening anemia, patient has elevated LDH, haptoglobin 160 No visible signs of bleeding currently. D-dimer is elevated but could be inflammatory response. Lower extremity Doppler- negative DVT. Hemoglobin 11.1, anticoagulation held due to bleeding 5. Adrenal Insufficiency Hyperkalemia responsive to sodium bicarbonate Patient becoming hypotensive, pressure of 96/52 Start Hydrocortisone 50 mg IVPB q8h 6. GROVER-improving BUN/CR Nonoliguric Acute kidney injury, creatinine has doubled in 24 hours. Patient still making urine. Hyperkalemia improved status post administration of Kayexalate Nephro Dr. Garcia consulted for acute kidney injury Phoslo started 24 hour protein - 7765 and creatine ordered Renal US: Increased echogenicity of the bilateral renal cortices suggestive for medical renal disease. Mild fullness of the left renal collecting system. 7. Anemia improving likely anemia of chronic disease Hemoglobin 11.1 on 10/27 B12 deficiency previously B12 481 folate 10.2 Monitor 8. Prophylactic Measures Anticoagulation Held due to bleeding Protonix 40 mg IVP daily SCDs ECHO - EF 55-60% Heart healthy diet Patient having diarrhea - follow up stool for leukocytes and C. difficile, stool occult- negative Jessica for strict I/O's during acute illness colace 100 mg PO TID <John Schneider Jr. - Last Filed: 11/05/16 09:57> Objective - Vital Signs/Intake and Output Vital Signs (last 24 hours): Temp Pulse Resp BP Pulse Ox 97.9 F 116 H 19 127/88 95 11/01/16 08:10 11/01/16 08:10 11/01/16 08:10 11/01/16 08:10 11/01/16 08:10 - Labs Labs: 10/31/16 08:09 10/31/16 08:09 PT 11.5 SECONDS (9.7-12.2) 10/21/16 07:58 INR 1.0 10/21/16 07:58 APTT 37 SECONDS (21-34) H 10/21/16 07:58 Attending/Attestation - Attestation I have personally seen and examined this patient.: Yes I have fully participated in the care of the patient.: Yes I have reviewed all pertinent clinical information, including history, physical exam and plan: Yes Notes (Text): 11/05/16 09:57 Note and findings of resident noted agreed on
[2016-10-29] MEDS: Clindamycin 600mg/50ml D5W 600 MG/50 ML VIAL IVPB SCH ×2 (00:34→07:53)
[2016-10-29] MEDS: Albuterol-Ipratrop 3 mg / 0.5 (3 ml) UD INH SCH ×4 (01:29→20:42)
--- NOTE | 2016-10-29 07:40 | CP.PCM.PN ---
<Sarahi Cao - Last Filed: 10/29/16 16:41> Subjective - Date & Time of Evaluation Date of Evaluation: 10/29/16 Time of Evaluation: 11:00 - Subjective Subjective: PGY1 Medicine Note for Dr. Schneider Patient seen and examined at bedside. Patient is AO x [address] but not time. As per daughter at beside patient is more oriented than she was the day before. She has been having loose BM. Patient has poor PO intake. Patient kept complaining of side effects of her medications but was vague as to what s/ e. Patient denied any fever, chills, chest pain, SOB, cough, abdominal pain, nausea, vomiting, urinary complaints, pain in her legs b/l. Objective - Vital Signs/Intake and Output Vital Signs (last 24 hours): Temp Pulse Resp BP Pulse Ox 97.5 F L 116 H 20 120/79 100 10/29/16 00:00 10/29/16 00:00 10/29/16 00:00 10/29/16 00:00 10/29/16 00:00 Intake and Output: 10/29/16 10/29/16 06:59 18:59 Intake Total 200 Balance 200 - Medications Medications: Current Medications Abacavir Sulfate (Ziagen) 300 mg PO BID [facility] Last Admin: 10/28/16 09:55 Dose: 300 mg Acetaminophen (Tylenol 325mg Tab) 650 mg PO Q6 PRN PRN Reason: Fever >100.4 F Last Admin: 10/24/16 07:44 Dose: 650 mg Albuterol/Ipratropium (Duoneb 3 Mg/0.5 Mg (3 Ml) Ud) 3 ml INH RQ6 [facility] Last Admin: 10/29/16 01:29 Dose: 3 ml Azithromycin (Zithromax) 1,200 mg PO QWK [facility] Calcium Acetate (Phoslo) 667 mg PO TIDCC [facility] Last Admin: 10/28/16 18:47 Dose: Not Given Darunavir (Prezista) 800 mg PO DAILY [facility] Last Admin: 10/28/16 09:55 Dose: 800 mg Docusate Sodium (Colace) 100 mg PO TID [facility] Last Admin: 10/28/16 17:51 Dose: Not Given Guaifenesin/Dextromethorphan (Robitussin Dm) 5 ml PO Q4H PRN PRN Reason: Cough Last Admin: 10/25/16 21:47 Dose: 5 ml Fluconazole (Diflucan Iv 200 Mg/100 Ml Ns) 100 mls @ 100 mls/hr IVPB DAILY [facility] Last Admin: 10/28/16 09:52 Dose: 100 mls/hr Clindamycin Phosphate (Cleocin) 600 mg in 50 mls @ 100 mls/hr IVPB Q8H [facility] Last Admin: 10/29/16 00:34 Dose: 100 mls/hr Lamivudine (Epivir) 150 mg PO DAILY [facility] Multi-Ingredient Ointment (Prep-Hem) 0 ea TOP TID [facility] Last Admin: 10/28/16 17:56 Dose: Not Given Nicotine (Nicoderm Cq) 1 patch TD DAILY [facility] Last Admin: 10/28/16 09:55 Dose: 1 patch Nystatin (Nystatin Oral Susp) 5 ml PO QID [facility] Last Admin: 10/28/16 21:24 Dose: 5 ml Pantoprazole Sodium (Protonix Ec Tab) 40 mg PO DAILY [facility] Last Admin: 10/28/16 09:58 Dose: 40 mg Ritonavir (Norvir) 100 mg PO BIDBS [facility] Last Admin: 10/28/16 07:43 Dose: 100 mg - Labs Labs: 10/28/16 11:26 10/28/16 11:26 PT 11.5 SECONDS (9.7-12.2) 10/21/16 07:58 INR 1.0 10/21/16 07:58 APTT 37 SECONDS (21-34) H 10/21/16 07:58 - Constitutional Appears: Non-toxic, Chronically Ill - Head Exam Head Exam: NORMAL INSPECTION - Eye Exam Eye Exam: Normal appearance, PERRL. absent: Conjunctival injection, Scleral icterus - ENT Exam ENT Exam: Mucous Membranes Dry - Neck Exam Neck Exam: Normal Inspection - Respiratory Exam Respiratory Exam: Clear to Ausculation Bilateral, NORMAL BREATHING PATTERN. absent: Rales, Rhonchi, Wheezes - Cardiovascular Exam Cardiovascular Exam: REGULAR RHYTHM, RRR, +S1, +S2 - GI/Abdominal Exam GI & Abdominal Exam: Soft, Normal Bowel Sounds. absent: Tenderness - Extremities Exam Extremities Exam: absent: Pedal Edema, Tenderness Additional comments: onychomycosis BL - Back Exam Back Exam: NORMAL INSPECTION. absent: rash noted, tenderness - Neurological Exam Neurological Exam: Alert, Awake. absent: Oriented x3 - Psychiatric Exam Psychiatric exam: Flat Affect, Normal Mood - Skin Skin Exam: Dry, Intact, Normal Color, Warm Assessment and Plan - Assessment and Plan (Free Text) Plan: 1. Pneumonia Patient has history of AIDS (CD4 count stated to be <100) Community Acquired vs. PCP vs. Tuberculosis vs. Histoplasmosis vs. Mycobacterium Avium Intracellulare Quantiferon GOLD -indeterminate AFB Sputum Cx -negative x2 -keep in isolation until third negative AFB Acute hypoxic respiratory failure secondary to Pneumonia, ruling out PJP, TB, TANA. Continue nasal cannula oxygen. Crypto- negative HLA- negative/pending Patient is currently on Cefepime, Diflucan, Nystatin, Clindamycin and Mepron Infectious Disease, Dr. Gonzales, consulted. Help appreciated. 10/24 CXR: Right-sided PICC extends to the cavoatrial junction. Increased interstitial markings similar to prior study compatible with infection or edema. More confluent patchy opacity within the left lung apex. Cardiomegaly ( see full report). Duoneb 3ml INH Q6 Robitussin 5ml PO Q4 PRN cough Procalcitonin: 11.52 ID consult, Dr. Gonzales, help appreciated 2. AIDS ID, Dr. Gonzales, for recs Antivirals on hold Prezista 800 mg PO daily Antibiotics and prophylaxis as above Started on Nystatin 5 ml po QID for thrush Procalcitonin: 11.52 Absolute CD4 count of 45. Pending HLA typing- to start HAART therapy (ON HOLD DUE TO POSSIBLE AMS) There is suspicion for underlying carcinoma with mediastinal, mesenteric, perivascular lymphadenopathy. CT AB & Pelvis: Small to moderate right and small left pleural effusions and associated consolidations, right greater than left. Interstitial prominence. Partially imaged cardiomegaly. Trace pericardial effusion. Hepatomegaly. Coarsened hepatic echotexture. Borderline splenomegaly. Cholecystectomy. Suboptimal visualization of the unenhanced pancreas. Small pelvic ascites. Bilateral inguinal adenopathy measuring up to 14 mm in short axis, with central necrosis versus fat. Sub cm right pelvic sidewall lymph node measures approximately 9 mm in short axis. Left pelvic sidewall lymph node measures approximately 10 mm in short axis. Prominent but sub cm mesenteric and retroperitoneal lymph nodes, nonspecific. Please note that evaluation for adenopathy is limited due to lack of IV contrast. 3. AMS Per daughter, altered for 2-3 days medication vs delirium HELD ART therapy, ID notified stopped Cefepime per ID CT Head -diffuse cortical atrophy, ventricular dilation w/o obstructing the chin 4. Elevated d-dimer d-dimer 589 possible DVT vs. Malignancy Worsening anemia, patient has elevated LDH, haptoglobin 160 No visible signs of bleeding currently. D-dimer is elevated but could be inflammatory response. Lower extremity Doppler- negative DVT. Hemoglobin 11.1, anticoagulation held due to bleeding 5. Adrenal Insufficiency Hyperkalemia responsive to sodium bicarbonate Patient becoming hypotensive, pressure of 96/52 Start Hydrocortisone 50 mg IVPB q8h 6. GROVER Cr 2.5 Trial mild IV hydration as per nephro and serial chemistries Patient still making urine. Hyperkalemia improved status post administration of Kayexalate Phoslo started 24 hour protein - 7765 and creatine ordered Renal US: Increased echogenicity of the bilateral renal cortices suggestive for medical renal disease. Mild fullness of the left renal collecting system. Nephro Dr. Garcia consulted 7. Anemia likely anemia of chronic disease Hemoglobin 10 B12 481 folate 10.2 Monitor 8. Diarrhea f/u C. Diff f/u ova and parasite and stool culture f/u stool for cryptosporidium and microsporidium Florastor 250mg PO TID 9. Prophylactic Measures Anticoagulation Held due to bleeding Protonix 40 mg PO daily SCDs ECHO - EF 55-60% Colace 100mg po daily on hold Heart healthy diet Nicotine patch daily Plan discussed with Dr. Wyatt Cao PGY1 <John Schneider Jr. - Last Filed: 11/05/16 10:00> Objective - Vital Signs/Intake and Output Vital Signs (last 24 hours): Temp Pulse Resp BP Pulse Ox 97.9 F 116 H 19 127/88 95 11/01/16 08:10 11/01/16 08:10 11/01/16 08:10 11/01/16 08:10 11/01/16 08:10 - Labs Labs: 10/31/16 08:09 10/31/16 08:09 PT 11.5 SECONDS (9.7-12.2) 10/21/16 07:58 INR 1.0 10/21/16 07:58 APTT 37 SECONDS (21-34) H 04/30/17 07:58 Attending/Attestation - Attestation I have personally seen and examined this patient.: Yes I have fully participated in the care of the patient.: Yes I have reviewed all pertinent clinical information, including history, physical exam and plan: Yes Notes (Text): 11/05/16 10:00 Agree with resident note and findings
[2016-10-29 08:35] LABS: BASO # 0.1 K/uL (0.0-0.2); BASO % 1.2 % (0.0-2.0); EOS # 0.2 K/uL (0.0-0.7); EOS % 2.8 % (0.0-4.0); HEMATOCRIT 30.8 % (34.0-47.0); LYMPH # 2.6 K/uL (1.0-4.3); MEAN CELL VOLUME 94.8 fL (81.0-99.0); MEAN CORPUSCULAR HEMOGLOBIN 30.8 pg (27.0-31.0); MEAN CORPUSCULAR HGB CONC 32.5 g/dL (33.0-37.0); MEAN PLATELET VOLUME 7.8 fL (7.2-11.7); MONO # 0.8 K/uL (0.0-0.8); MONO % 12.6 % (0.0-10.0); NRBC % 0.1 % (0.0-2.0); RED CELL DISTRIBUTION WIDTH 18.9 % (11.5-14.5); WHITE BLOOD COUNT 6.1 K/uL (4.8-10.8)
[2016-10-29 08:48] LABS: POTASSIUM 4.3 mmol/L (3.6-5.2)
[2016-10-29 08:50] LABS: ALB/GLOB RATIO 0.5 (1.0-2.1); BILIRUBIN,TOTAL 0.2 mg/dL (0.2-1.3); TOTAL PROTEIN 8.5 g/dL (6.3-8.3)
[2016-10-29 08:51] LABS: CALCIUM 8.2 mg/dl (8.6-10.4); MAGNESIUM 2.3 mg/dL (1.6-2.3)
[2016-10-29] MEDS: Fluconazole IV 200mg/100 ml NS 100 ML IVPB SCH (10:32)
[2016-10-29] MEDS: Pantoprazole 40 mg EC Tab PO SCH (10:32)
[2016-10-29] MEDS: Nystatin 100,000 Units/ml Oral Susp 5 ml UD PO SCH ×4 (10:34→21:26)
[2016-10-29] MEDS: Hemorrohoidal Ointment (2 oz) TOP SCH ×4 (10:34→21:28)
--- NOTE | 2016-10-29 11:46 | CP.PCM.PN ---
Subjective - Date & Time of Evaluation Date of Evaluation: 10/29/16 Time of Evaluation: 11:44 - Subjective Subjective: More confuse, incontinent of stool Recent creatinine increased-2.5 Intake poor Remains on IV ABs for pneumonia AFBs smears pending Objective - Vital Signs/Intake and Output Vital Signs (last 24 hours): Temp Pulse Resp BP Pulse Ox 98.2 F 105 H 20 127/86 92 L 10/29/16 07:00 10/29/16 07:00 10/29/16 07:00 10/29/16 07:00 10/29/16 07:00 Intake and Output: 10/29/16 10/29/16 06:59 18:59 Intake Total 200 Balance 200 - Medications Medications: Current Medications Abacavir Sulfate (Ziagen) 300 mg PO BID [facility] Last Admin: 10/28/16 09:55 Dose: 300 mg Acetaminophen (Tylenol 325mg Tab) 650 mg PO Q6 PRN PRN Reason: Fever >100.4 F Last Admin: 10/24/16 07:44 Dose: 650 mg Albuterol/Ipratropium (Duoneb 3 Mg/0.5 Mg (3 Ml) Ud) 3 ml INH RQ6 [facility] Last Admin: 10/29/16 08:35 Dose: 3 ml Azithromycin (Zithromax) 1,200 mg PO QWK [facility] Calcium Acetate (Phoslo) 667 mg PO TIDCC [facility] Last Admin: 10/29/16 07:53 Dose: 667 mg Darunavir (Prezista) 800 mg PO DAILY [facility] Last Admin: 10/28/16 09:55 Dose: 800 mg Docusate Sodium (Colace) 100 mg PO TID [facility] Last Admin: 10/29/16 10:32 Dose: 100 mg Guaifenesin/Dextromethorphan (Robitussin Dm) 5 ml PO Q4H PRN PRN Reason: Cough Last Admin: 10/25/16 21:47 Dose: 5 ml Fluconazole (Diflucan Iv 200 Mg/100 Ml Ns) 100 mls @ 100 mls/hr IVPB DAILY [facility] Last Admin: 10/29/16 10:32 Dose: 100 mls/hr Clindamycin Phosphate (Cleocin) 600 mg in 50 mls @ 100 mls/hr IVPB Q8H [facility] Last Admin: 10/29/16 07:53 Dose: 100 mls/hr Lamivudine (Epivir) 150 mg PO DAILY [facility] Last Admin: 10/29/16 10:33 Dose: 150 mg Multi-Ingredient Ointment (Prep-Hem) 0 ea TOP TID [facility] Last Admin: 10/29/16 10:34 Dose: Not Given Nicotine (Nicoderm Cq) 1 patch TD DAILY [facility] Last Admin: 10/29/16 10:33 Dose: 1 patch Nystatin (Nystatin Oral Susp) 5 ml PO QID [facility] Last Admin: 10/29/16 10:34 Dose: 5 ml Pantoprazole Sodium (Protonix Ec Tab) 40 mg PO DAILY [facility] Last Admin: 10/29/16 10:32 Dose: 40 mg Ritonavir (Norvir) 100 mg PO BIDBS [facility] Last Admin: 10/28/16 07:43 Dose: 100 mg - Labs Labs: 10/29/16 08:23 10/29/16 08:23 PT 11.5 SECONDS (9.7-12.2) 10/21/16 07:58 INR 1.0 10/21/16 07:58 APTT 37 SECONDS (21-34) H 10/21/16 07:58 - Constitutional Appears: Confused, Chronically Ill - Head Exam Head Exam: ATRAUMATIC, NORMAL INSPECTION - Eye Exam Eye Exam: EOMI, Normal appearance - Neck Exam Neck Exam: Normal Inspection. absent: Tenderness - Respiratory Exam Respiratory Exam: Rhonchi, NORMAL BREATHING PATTERN - Cardiovascular Exam Cardiovascular Exam: REGULAR RHYTHM, +S1 - GI/Abdominal Exam GI & Abdominal Exam: Soft. absent: Tenderness - Extremities Exam Extremities Exam: Normal Inspection. absent: Tenderness - Neurological Exam Neurological Exam: Alert, CN II-XII Intact - Skin Skin Exam: Dry, Warm Assessment and Plan (1) GROVER (acute kidney injury) Status: Acute (2) HIV nephropathy Status: Acute (3) Nephrotic syndrome Status: Acute (4) Pneumonia associated with acquired immune deficiency syndrome (AIDS) Status: Acute (5) AIDS Status: Acute (6) HIV (human immunodeficiency virus infection) Status: Acute - Assessment and Plan (Free Text) Plan: IV ABs Trial mild IV hydration Serial chemistries
--- NOTE | 2016-10-29 12:00 | CP.PCM.PN ---
Subjective - Date & Time of Evaluation Date of Evaluation: 10/29/16 Time of Evaluation: 09:00 - Subjective Subjective: having LBM no fever alert today Objective - Vital Signs/Intake and Output Vital Signs (last 24 hours): Temp Pulse Resp BP Pulse Ox 98.2 F 105 H 20 127/86 92 L 10/29/16 07:00 10/29/16 07:00 10/29/16 07:00 10/29/16 07:00 10/29/16 07:00 Intake and Output: 10/29/16 10/29/16 06:59 18:59 Intake Total 200 Balance 200 - Medications Medications: Current Medications Abacavir Sulfate (Ziagen) 300 mg PO BID [facility] Last Admin: 10/28/16 09:55 Dose: 300 mg Acetaminophen (Tylenol 325mg Tab) 650 mg PO Q6 PRN PRN Reason: Fever >100.4 F Last Admin: 10/24/16 07:44 Dose: 650 mg Albuterol/Ipratropium (Duoneb 3 Mg/0.5 Mg (3 Ml) Ud) 3 ml INH RQ6 [facility] Last Admin: 10/29/16 08:35 Dose: 3 ml Calcium Acetate (Phoslo) 667 mg PO TIDCC [facility] Last Admin: 10/29/16 07:53 Dose: 667 mg Darunavir (Prezista) 800 mg PO DAILY [facility] Last Admin: 10/28/16 09:55 Dose: 800 mg Docusate Sodium (Colace) 100 mg PO TID [facility] Last Admin: 10/29/16 10:32 Dose: 100 mg Guaifenesin/Dextromethorphan (Robitussin Dm) 5 ml PO Q4H PRN PRN Reason: Cough Last Admin: 10/25/16 21:47 Dose: 5 ml Fluconazole (Diflucan Iv 200 Mg/100 Ml Ns) 100 mls @ 100 mls/hr IVPB DAILY [facility] Last Admin: 10/29/16 10:32 Dose: 100 mls/hr Dextrose/Sodium Chloride (Dextrose 5%/0.45% Ns 1000 Ml) 1,000 mls @ 50 mls/hr IV .Q20H [facility] Metronidazole (Flagyl) 500 mg in 100 mls @ 100 mls/hr IVPB Q8 [facility] Lamivudine (Epivir) 150 mg PO DAILY [facility] Last Admin: 10/29/16 10:33 Dose: 150 mg Multi-Ingredient Ointment (Prep-Hem) 0 ea TOP TID [facility] Last Admin: 10/29/16 10:34 Dose: Not Given Nicotine (Nicoderm Cq) 1 patch TD DAILY [facility] Last Admin: 10/29/16 10:33 Dose: 1 patch Nystatin (Nystatin Oral Susp) 5 ml PO QID [facility] Last Admin: 10/29/16 10:34 Dose: 5 ml Pantoprazole Sodium (Protonix Ec Tab) 40 mg PO DAILY [facility] Last Admin: 10/29/16 10:32 Dose: 40 mg Ritonavir (Norvir) 100 mg PO BIDBS [facility] Last Admin: 10/28/16 07:43 Dose: 100 mg - Labs Labs: 10/29/16 08:23 10/29/16 08:23 PT 11.5 SECONDS (9.7-12.2) 10/21/16 07:58 INR 1.0 10/21/16 07:58 APTT 37 SECONDS (21-34) H 10/21/16 07:58 - Constitutional Appears: Non-toxic, Chronically Ill - Head Exam Head Exam: NORMOCEPHALIC - Eye Exam Eye Exam: PERRL. absent: Scleral icterus - ENT Exam ENT Exam: Mucous Membranes Dry, Normal External Ear Exam - Neck Exam Neck Exam: absent: Lymphadenopathy - Respiratory Exam Respiratory Exam: Decreased Breath Sounds, Rhonchi - Cardiovascular Exam Cardiovascular Exam: REGULAR RHYTHM, +S1, +S2 - GI/Abdominal Exam GI & Abdominal Exam: Distended, Soft. absent: Tenderness - Rectal Exam Rectal Exam: Deferred - Exam Exam: NORMAL INSPECTION - Extremities Exam Extremities Exam: absent: Pedal Edema - Back Exam Back Exam: absent: CVA tenderness (L), CVA tenderness (R) - Neurological Exam Neurological Exam: Alert, Awake - Psychiatric Exam Psychiatric exam: Depressed - Skin Skin Exam: Dry Assessment and Plan (1) Hyperkalemia Status: Acute (2) Pneumonia associated with acquired immune deficiency syndrome (AIDS) Status: Acute (3) Renal insufficiency Status: Acute (4) AIDS Status: Acute (5) Anemia Status: Acute (6) Dehydration Status: Acute
[2016-10-29] MEDS: Dextrose 5%/0.45% NS 1,000 ML IV SCH (12:13)
[2016-10-29] MEDS: metroNIDAZOLE IV 500 mg/100 ml 500 MG/100 ML BAG IVPB SCH ×2 (14:35→21:27)
[2016-10-29] MEDS: Saccharomyces Boulardi 250 mg Cap PO SCH (17:43)
[2016-10-30] MEDS: Albuterol-Ipratrop 3 mg / 0.5 (3 ml) UD INH SCH ×4 (02:14→20:18)
[2016-10-30] MEDS: metroNIDAZOLE IV 500 mg/100 ml 500 MG/100 ML BAG IVPB SCH ×3 (05:31→22:03)
--- NOTE | 2016-10-30 07:07 | CP.PCM.PN ---
<Sarahi Cao - Last Filed: 10/30/16 14:42> Subjective - Date & Time of Evaluation Date of Evaluation: 10/30/16 Time of Evaluation: 09:50 - Subjective Subjective: PGY1 Medicine Note for Dr. Schneider Patient seen and examined at bedside. Patient is much more awake and alert this morning. She continues to have multiple loose BMs and reports being weak. Patient denied any fever, chills, chest pain, SOB, cough, abdominal pain, nausea , vomiting, urinary complaints, pain in her legs b/l. Patient has been encouraged PO intake. Objective - Vital Signs/Intake and Output Vital Signs (last 24 hours): Temp Pulse Resp BP Pulse Ox 97.7 F 105 H 20 139/92 H 94 L 10/30/16 00:00 10/30/16 00:00 10/30/16 00:00 10/30/16 00:00 10/30/16 00:00 Intake and Output: 10/30/16 10/30/16 06:59 18:59 Intake Total 790 Balance 790 - Medications Medications: Current Medications Abacavir Sulfate (Ziagen) 300 mg PO BID [facility] Last Admin: 10/28/16 09:55 Dose: 300 mg Acetaminophen (Tylenol 325mg Tab) 650 mg PO Q6 PRN PRN Reason: Fever >100.4 F Last Admin: 10/24/16 07:44 Dose: 650 mg Albuterol/Ipratropium (Duoneb 3 Mg/0.5 Mg (3 Ml) Ud) 3 ml INH RQ6 [facility] Last Admin: 10/30/16 02:14 Dose: 3 ml Calcium Acetate (Phoslo) 667 mg PO TIDCC [facility] Last Admin: 10/29/16 17:37 Dose: 667 mg Darunavir (Prezista) 800 mg PO DAILY [facility] Last Admin: 10/28/16 09:55 Dose: 800 mg Docusate Sodium (Colace) 100 mg PO DAILY [facility] Guaifenesin/Dextromethorphan (Robitussin Dm) 5 ml PO Q4H PRN PRN Reason: Cough Last Admin: 10/25/16 21:47 Dose: 5 ml Fluconazole (Diflucan Iv 200 Mg/100 Ml Ns) 100 mls @ 100 mls/hr IVPB DAILY [facility] Last Admin: 10/29/16 10:32 Dose: 100 mls/hr Dextrose/Sodium Chloride (Dextrose 5%/0.45% Ns 1000 Ml) 1,000 mls @ 50 mls/hr IV .Q20H [facility] Last Admin: 10/29/16 12:13 Dose: 50 mls/hr Metronidazole (Flagyl) 500 mg in 100 mls @ 100 mls/hr IVPB Q8 [facility] Last Admin: 10/30/16 05:31 Dose: 100 mls/hr Lamivudine (Epivir) 150 mg PO DAILY [facility] Last Admin: 10/29/16 10:33 Dose: 150 mg Multi-Ingredient Ointment (Prep-Hem) 0 ea TOP TID [facility] Last Admin: 10/29/16 21:28 Dose: 1 applic Nicotine (Nicoderm Cq) 1 patch TD DAILY [facility] Last Admin: 10/29/16 10:33 Dose: 1 patch Nystatin (Nystatin Oral Susp) 5 ml PO QID [facility] Last Admin: 10/29/16 21:26 Dose: 5 ml Pantoprazole Sodium (Protonix Ec Tab) 40 mg PO DAILY [facility] Last Admin: 10/29/16 10:32 Dose: 40 mg Ritonavir (Norvir) 100 mg PO BIDBS [facility] Last Admin: 10/28/16 07:43 Dose: 100 mg Saccharomyces Boulardii (Florastor) 250 mg PO TID [facility] Last Admin: 10/29/16 17:43 Dose: 250 mg - Labs Labs: 10/29/16 08:23 10/29/16 08:23 PT 11.5 SECONDS (9.7-12.2) 10/21/16 07:58 INR 1.0 10/21/16 07:58 APTT 37 SECONDS (21-34) H 10/21/16 07:58 - Constitutional Appears: Cachectic, Chronically Ill - Head Exam Head Exam: NORMAL INSPECTION - Eye Exam Eye Exam: Normal appearance. absent: Conjunctival injection, Scleral icterus - ENT Exam ENT Exam: Mucous Membranes Dry - Neck Exam Neck Exam: Normal Inspection - Respiratory Exam Respiratory Exam: Clear to Ausculation Bilateral, NORMAL BREATHING PATTERN. absent: Rales, Rhonchi, Wheezes - Cardiovascular Exam Cardiovascular Exam: REGULAR RHYTHM, RRR, +S1, +S2 - GI/Abdominal Exam GI & Abdominal Exam: Soft, Normal Bowel Sounds. absent: Tenderness - Extremities Exam Extremities Exam: absent: Pedal Edema, Tenderness Additional comments: onychomycosis BL - Back Exam Back Exam: NORMAL INSPECTION - Neurological Exam Neurological Exam: Alert, Awake - Psychiatric Exam Psychiatric exam: Flat Affect - Skin Skin Exam: Dry, Intact, Normal Color, Warm Assessment and Plan - Assessment and Plan (Free Text) Plan: 1. Pneumonia Patient has history of AIDS (CD4 count stated to be <100) Community Acquired vs. PCP vs. Tuberculosis vs. Histoplasmosis vs. Mycobacterium Avium Intracellulare Quantiferon GOLD -indeterminate AFB Sputum Cx -negative x2 -keep in isolation until third negative AFB Acute hypoxic respiratory failure secondary to Pneumonia, ruling out PJP, TB, TANA. Continue nasal cannula oxygen. Crypto- negative HLA- negative/pending Patient is currently on Cefepime, Diflucan, Nystatin, Clindamycin and Mepron Infectious Disease, Dr. Gonzales, consulted. Help appreciated. 10/24 CXR: Right-sided PICC extends to the cavoatrial junction. Increased interstitial markings similar to prior study compatible with infection or edema. More confluent patchy opacity within the left lung apex. Cardiomegaly ( see full report). Duoneb 3ml INH Q6 Robitussin 5ml PO Q4 PRN cough Procalcitonin: 11.52 ID consult, Dr. Gonzales, help appreciated 2. AIDS ID, Dr. Gonzales, for recs Antivirals on hold Prezista 800 mg PO daily Antibiotics and prophylaxis as above Started on Nystatin 5 ml po QID for thrush Procalcitonin: 11.52 Absolute CD4 count of 45. Pending HLA typing- to start HAART therapy (ON HOLD DUE TO POSSIBLE AMS) There is suspicion for underlying carcinoma with mediastinal, mesenteric, perivascular lymphadenopathy. CT AB & Pelvis: Small to moderate right and small left pleural effusions and associated consolidations, right greater than left. Interstitial prominence. Partially imaged cardiomegaly. Trace pericardial effusion. Hepatomegaly. Coarsened hepatic echotexture. Borderline splenomegaly. Cholecystectomy. Suboptimal visualization of the unenhanced pancreas. Small pelvic ascites. Bilateral inguinal adenopathy measuring up to 14 mm in short axis, with central necrosis versus fat. Sub cm right pelvic sidewall lymph node measures approximately 9 mm in short axis. Left pelvic sidewall lymph node measures approximately 10 mm in short axis. Prominent but sub cm mesenteric and retroperitoneal lymph nodes, nonspecific. Please note that evaluation for adenopathy is limited due to lack of IV contrast. 3. AMS improved medication vs delirium HELD ART therapy, ID notified stopped Cefepime per ID CT Head -diffuse cortical atrophy, ventricular dilation w/o obstructing the chin 4. Elevated d-dimer d-dimer 589 possible DVT vs. Malignancy Worsening anemia, patient has elevated LDH, haptoglobin 160 No visible signs of bleeding currently. D-dimer is elevated but could be inflammatory response. Lower extremity Doppler- negative DVT. Hemoglobin 11.1, anticoagulation held due to bleeding 5. Adrenal Insufficiency Improved Hyperkalemia responsive to sodium bicarbonate BP normalized 6. GROVER Cr 2.1 Trial mild IV hydration as per nephro and serial chemistries Patient still making urine. Hyperkalemia improved status post administration of Kayexalate Phoslo started by nephro 24 hour protein - 7765 and creatine ordered Renal US: Increased echogenicity of the bilateral renal cortices suggestive for medical renal disease. Mild fullness of the left renal collecting system. Nephro Dr. Garcia consulted 7. Anemia likely anemia of chronic disease Hemoglobin 10 B12 481 folate 10.2 Monitor 8. Diarrhea C. Diff negative x 1 f/u C. Diff x 2 Vancocin 250mg PO QID until C. Diff is negative x 3 f/u ova and parasite and stool culture f/u stool for cryptosporidium and microsporidium Florastor 250mg PO TID 9. Prophylactic Measures Anticoagulation Held due to bleeding Protonix 40 mg PO daily SCDs ECHO - EF 55-60% Heart healthy diet Boost TID D5 1/2NS @ 50cc/hr Nicotine patch daily Plan discussed with Dr. Wyatt Cao PGY1 <John Schneider Jr. - Last Filed: 11/05/16 10:02> Objective - Vital Signs/Intake and Output Vital Signs (last 24 hours): Temp Pulse Resp BP Pulse Ox 97.9 F 116 H 19 127/88 95 11/01/16 08:10 11/01/16 08:10 11/01/16 08:10 11/01/16 08:10 11/01/16 08:10 - Labs Labs: 10/31/16 08:09 10/31/16 08:09 PT 11.5 SECONDS (9.7-12.2) 10/21/16 07:58 INR 1.0 10/21/16 07:58 APTT 37 SECONDS (21-34) H 10/21/16 07:58 Attending/Attestation - Attestation I have personally seen and examined this patient.: Yes I have fully participated in the care of the patient.: Yes I have reviewed all pertinent clinical information, including history, physical exam and plan: Yes Notes (Text): 11/05/16 10:01 Agree with resident note and findings
[2016-10-30 07:29] LABS: BASO # 0.1 K/uL (0.0-0.2); EOS # 0.2 K/uL (0.0-0.7); EOS % 2.1 % (0.0-4.0); HEMATOCRIT 31.1 % (34.0-47.0); LYMPH # 2.7 K/uL (1.0-4.3); LYMPH % 30.9 % (20.0-40.0); MEAN CELL VOLUME 95.1 fL (81.0-99.0); MEAN CORPUSCULAR HEMOGLOBIN 31.3 pg (27.0-31.0); MEAN CORPUSCULAR HGB CONC 32.9 g/dL (33.0-37.0); MEAN PLATELET VOLUME 7.4 fL (7.2-11.7); MONO # 0.7 K/uL (0.0-0.8); MONO % 7.8 % (0.0-10.0); NRBC % 0.1 % (0.0-2.0); WHITE BLOOD COUNT 8.8 K/uL (4.8-10.8)
[2016-10-30 08:44] LABS: POTASSIUM 4.5 mmol/L (3.6-5.2)
[2016-10-30 08:46] LABS: ALB/GLOB RATIO 0.6 (1.0-2.1); BILIRUBIN,TOTAL 0.5 mg/dL (0.2-1.3); TOTAL PROTEIN 8.1 g/dL (6.3-8.3)
[2016-10-30 08:47] LABS: CALCIUM 7.7 mg/dl (8.6-10.4); PHOSPHOROUS 4.2 mg/dL (2.5-4.5)
[2016-10-30] MEDS: Dextrose 5%/0.45% NS 1,000 ML IV SCH ×2 (09:02→18:15)
[2016-10-30] MEDS: Hemorrohoidal Ointment (2 oz) TOP SCH ×3 (09:14→18:00)
[2016-10-30] MEDS: Nystatin 100,000 Units/ml Oral Susp 5 ml UD PO SCH ×4 (09:14→22:03)
[2016-10-30] MEDS: Pantoprazole 40 mg EC Tab PO SCH (09:14)
[2016-10-30] MEDS: Fluconazole IV 200mg/100 ml NS 100 ML IVPB SCH (09:15)
[2016-10-30] MEDS: Saccharomyces Boulardi 250 mg Cap PO SCH ×3 (10:00→17:57)
--- NOTE | 2016-10-30 10:30 | CP.PCM.PN ---
Subjective - Date & Time of Evaluation Date of Evaluation: 10/30/16 Time of Evaluation: 10:29 - Subjective Subjective: seen and examined on iv fluids appears lethargic labs noted Objective - Vital Signs/Intake and Output Vital Signs (last 24 hours): Temp Pulse Resp BP Pulse Ox 97.3 F L 108 H 18 144/96 H 95 10/30/16 07:30 10/30/16 07:30 10/30/16 07:30 10/30/16 07:30 10/30/16 07:30 Intake and Output: 10/30/16 10/30/16 06:59 18:59 Intake Total 790 Balance 790 - Medications Medications: Current Medications Abacavir Sulfate (Ziagen) 300 mg PO BID [facility] Last Admin: 10/28/16 09:55 Dose: 300 mg Acetaminophen (Tylenol 325mg Tab) 650 mg PO Q6 PRN PRN Reason: Fever >100.4 F Last Admin: 10/24/16 07:44 Dose: 650 mg Albuterol/Ipratropium (Duoneb 3 Mg/0.5 Mg (3 Ml) Ud) 3 ml INH RQ6 [facility] Last Admin: 10/30/16 07:30 Dose: 3 ml Calcium Acetate (Phoslo) 667 mg PO TIDCC [facility] Last Admin: 10/30/16 09:02 Dose: 667 mg Darunavir (Prezista) 800 mg PO DAILY [facility] Last Admin: 10/28/16 09:55 Dose: 800 mg Guaifenesin/Dextromethorphan (Robitussin Dm) 5 ml PO Q4H PRN PRN Reason: Cough Last Admin: 10/25/16 21:47 Dose: 5 ml Fluconazole (Diflucan Iv 200 Mg/100 Ml Ns) 100 mls @ 100 mls/hr IVPB DAILY [facility] Last Admin: 10/30/16 09:15 Dose: 100 mls/hr Dextrose/Sodium Chloride (Dextrose 5%/0.45% Ns 1000 Ml) 1,000 mls @ 50 mls/hr IV .Q20H [facility] Last Admin: 10/30/16 09:02 Dose: 50 mls/hr Metronidazole (Flagyl) 500 mg in 100 mls @ 100 mls/hr IVPB Q8 [facility] Last Admin: 10/30/16 05:31 Dose: 100 mls/hr Lamivudine (Epivir) 150 mg PO DAILY [facility] Last Admin: 10/29/16 10:33 Dose: 150 mg Multi-Ingredient Ointment (Prep-Hem) 0 ea TOP TID [facility] Last Admin: 10/30/16 09:14 Dose: Not Given Nicotine (Nicoderm Cq) 1 patch TD DAILY [facility] Last Admin: 10/30/16 09:14 Dose: 1 patch Nystatin (Nystatin Oral Susp) 5 ml PO QID [facility] Last Admin: 10/30/16 09:14 Dose: 5 ml Pantoprazole Sodium (Protonix Ec Tab) 40 mg PO DAILY [facility] Last Admin: 10/30/16 09:14 Dose: 40 mg Ritonavir (Norvir) 100 mg PO BIDBS [facility] Last Admin: 10/28/16 07:43 Dose: 100 mg Saccharomyces Boulardii (Florastor) 250 mg PO TID [facility] Last Admin: 10/29/16 17:43 Dose: 250 mg - Labs Labs: 10/30/16 07:20 10/30/16 07:20 PT 11.5 SECONDS (9.7-12.2) 10/21/16 07:58 INR 1.0 10/21/16 07:58 APTT 37 SECONDS (21-34) H 10/21/16 07:58 - Constitutional Appears: Non-toxic, No Acute Distress, Confused, Chronically Ill - Head Exam Head Exam: NORMAL INSPECTION - Eye Exam Eye Exam: Normal appearance - ENT Exam ENT Exam: Mucous Membranes Moist, Normal Exam - Neck Exam Neck Exam: Normal Inspection - Respiratory Exam Respiratory Exam: Decreased Breath Sounds, NORMAL BREATHING PATTERN - Cardiovascular Exam Cardiovascular Exam: REGULAR RHYTHM, RRR - GI/Abdominal Exam GI & Abdominal Exam: Distended, Soft, Normal Bowel Sounds - Extremities Exam Extremities Exam: Normal Inspection Assessment and Plan (1) Pneumonia associated with acquired immune deficiency syndrome (AIDS) Status: Acute (2) Renal insufficiency Status: Acute (3) AIDS Status: Acute (4) Anemia Status: Acute - Assessment and Plan (Free Text) Assessment: improving renal function with iv fluids. maintain for now antibiotics recommend check for c diff
--- NOTE | 2016-10-30 11:17 | CP.PCM.PN ---
Subjective - Date & Time of Evaluation Date of Evaluation: 10/30/16 Time of Evaluation: 10:00 - Subjective Subjective: weak and cachectic + LBM c diff pending Objective - Vital Signs/Intake and Output Vital Signs (last 24 hours): Temp Pulse Resp BP Pulse Ox 97.3 F L 108 H 18 144/96 H 95 10/30/16 07:30 10/30/16 07:30 10/30/16 07:30 10/30/16 07:30 10/30/16 07:30 Intake and Output: 10/30/16 10/30/16 06:59 18:59 Intake Total 790 Balance 790 - Medications Medications: Current Medications Abacavir Sulfate (Ziagen) 300 mg PO BID [facility] Last Admin: 10/28/16 09:55 Dose: 300 mg Acetaminophen (Tylenol 325mg Tab) 650 mg PO Q6 PRN PRN Reason: Fever >100.4 F Last Admin: 10/24/16 07:44 Dose: 650 mg Albuterol/Ipratropium (Duoneb 3 Mg/0.5 Mg (3 Ml) Ud) 3 ml INH RQ6 [facility] Last Admin: 10/30/16 07:30 Dose: 3 ml Calcium Acetate (Phoslo) 667 mg PO TIDCC [facility] Last Admin: 10/30/16 09:02 Dose: 667 mg Darunavir (Prezista) 800 mg PO DAILY [facility] Last Admin: 10/28/16 09:55 Dose: 800 mg Guaifenesin/Dextromethorphan (Robitussin Dm) 5 ml PO Q4H PRN PRN Reason: Cough Last Admin: 10/25/16 21:47 Dose: 5 ml Fluconazole (Diflucan Iv 200 Mg/100 Ml Ns) 100 mls @ 100 mls/hr IVPB DAILY [facility] Last Admin: 10/30/16 09:15 Dose: 100 mls/hr Dextrose/Sodium Chloride (Dextrose 5%/0.45% Ns 1000 Ml) 1,000 mls @ 50 mls/hr IV .Q20H [facility] Last Admin: 10/30/16 09:02 Dose: 50 mls/hr Metronidazole (Flagyl) 500 mg in 100 mls @ 100 mls/hr IVPB Q8 [facility] Last Admin: 10/30/16 05:31 Dose: 100 mls/hr Lamivudine (Epivir) 150 mg PO DAILY [facility] Last Admin: 10/29/16 10:33 Dose: 150 mg Multi-Ingredient Ointment (Prep-Hem) 0 ea TOP TID [facility] Last Admin: 10/30/16 09:14 Dose: Not Given Nicotine (Nicoderm Cq) 1 patch TD DAILY [facility] Last Admin: 10/30/16 09:14 Dose: 1 patch Nystatin (Nystatin Oral Susp) 5 ml PO QID [facility] Last Admin: 10/30/16 09:14 Dose: 5 ml Pantoprazole Sodium (Protonix Ec Tab) 40 mg PO DAILY [facility] Last Admin: 10/30/16 09:14 Dose: 40 mg Ritonavir (Norvir) 100 mg PO BIDBS [facility] Last Admin: 10/28/16 07:43 Dose: 100 mg Saccharomyces Boulardii (Florastor) 250 mg PO TID [facility] Last Admin: 10/29/16 17:43 Dose: 250 mg - Labs Labs: 10/30/16 07:20 10/30/16 07:20 PT 11.5 SECONDS (9.7-12.2) 10/21/16 07:58 INR 1.0 10/21/16 07:58 APTT 37 SECONDS (21-34) H 10/21/16 07:58 - Constitutional Appears: Non-toxic, Cachectic, Chronically Ill - Head Exam Head Exam: NORMOCEPHALIC - Eye Exam Eye Exam: PERRL. absent: Scleral icterus - ENT Exam ENT Exam: Mucous Membranes Dry - Neck Exam Neck Exam: absent: Lymphadenopathy - Respiratory Exam Respiratory Exam: Decreased Breath Sounds, Rhonchi - Cardiovascular Exam Cardiovascular Exam: REGULAR RHYTHM, +S1, +S2 - GI/Abdominal Exam GI & Abdominal Exam: Distended, Soft - Exam Bimanual exam: absent: Adenexal Mass - Extremities Exam Extremities Exam: Pedal Edema. absent: Tenderness - Back Exam Back Exam: absent: CVA tenderness (L), CVA tenderness (R) - Psychiatric Exam Psychiatric exam: Depressed - Skin Skin Exam: Dry Assessment and Plan (1) Hyperkalemia Status: Acute (2) Pneumonia associated with acquired immune deficiency syndrome (AIDS) Status: Acute (3) Renal insufficiency Status: Acute (4) AIDS Status: Acute (5) Anemia Status: Acute (6) Dehydration Status: Acute - Assessment and Plan (Free Text) Assessment: end stage aids anemia nephrotic syndrome/ CKD III diarrhea malnutrition pneumonia cont supportive rx await c diff consider restarting HAART rx prezista/ norvir/ ziagen/ epivir
--- NOTE | 2016-10-30 12:05 | CP.PCM.CON ---
History of Present Illness - History of Present Illness History of Present Illness: Podiatry consult note- Dr. Lopez 56 year old female with PMHx of AIDS, HTN, admitted for weakness and cough. Patient seen by podiatry for consultation, pt reports pain to the plantar aspect of the left foot with ambulation, states that she has not been able to take care of her feet as she would like to. She denies any history of LE ulceration, denies pain or numbness to the extremities. Patient has several hyperkeratotic lesions with xerosis of the skin, elongated and thickened nails. Past Patient History - Past Medical History & Family History Past Medical History?: Yes - Past Social History Smoking Status: Heavy Smoker > 10 Cigarettes Daily - CARDIAC Hx Cardiac Disorders: Yes Hx Hypertension: Yes - PULMONARY Hx Respiratory Disorders: Yes Hx Pneumonia: Yes - NEUROLOGICAL Hx Neurological Disorder: No - HEENT Hx HEENT Problems: No - RENAL Hx Chronic Kidney Disease: No - ENDOCRINE/METABOLIC Hx Endocrine Disorders: No - HEMATOLOGICAL/ONCOLOGICAL Hx Blood Disorders: Yes Hx Human Immunodeficiency Virus (HIV): Yes - INTEGUMENTARY Hx Dermatological Problems: No - MUSCULOSKELETAL/RHEUMATOLOGICAL Hx Musculoskeletal Disorders: No Hx Falls: No - GASTROINTESTINAL Hx Gastrointestinal Disorders: Yes Hx Hemorrhoids: Yes - GENITOURINARY/GYNECOLOGICAL Hx Genitourinary Disorders: No - PSYCHIATRIC Hx Psychophysiologic Disorder: No Hx Substance Use: No - SURGICAL HISTORY Hx Surgeries: Yes Hx Section: Yes - ANESTHESIA Hx Anesthesia: Yes Hx Anesthesia Reactions: No Hx Malignant Hyperthermia: No Meds Allergies/Adverse Reactions: Allergies Allergy/AdvReac Type Severity Reaction Status Date / Time No Known Allergies Allergy Verified 10/20/16 15:31 - Medications Medications: Current Medications Abacavir Sulfate (Ziagen) 300 mg PO BID [facility] Last Admin: 10/28/16 09:55 Dose: 300 mg Acetaminophen (Tylenol 325mg Tab) 650 mg PO Q6 PRN PRN Reason: Fever >100.4 F Last Admin: 10/24/16 07:44 Dose: 650 mg Albuterol/Ipratropium (Duoneb 3 Mg/0.5 Mg (3 Ml) Ud) 3 ml INH RQ6 [facility] Last Admin: 10/30/16 07:30 Dose: 3 ml Calcium Acetate (Phoslo) 667 mg PO TIDCC [facility] Last Admin: 10/30/16 09:02 Dose: 667 mg Darunavir (Prezista) 800 mg PO DAILY [facility] Last Admin: 10/28/16 09:55 Dose: 800 mg Guaifenesin/Dextromethorphan (Robitussin Dm) 5 ml PO Q4H PRN PRN Reason: Cough Last Admin: 10/25/16 21:47 Dose: 5 ml Fluconazole (Diflucan Iv 200 Mg/100 Ml Ns) 100 mls @ 100 mls/hr IVPB DAILY [facility] Last Admin: 10/30/16 09:15 Dose: 100 mls/hr Dextrose/Sodium Chloride (Dextrose 5%/0.45% Ns 1000 Ml) 1,000 mls @ 50 mls/hr IV .Q20H [facility] Last Admin: 10/30/16 09:02 Dose: 50 mls/hr Metronidazole (Flagyl) 500 mg in 100 mls @ 100 mls/hr IVPB Q8 [facility] Last Admin: 10/30/16 05:31 Dose: 100 mls/hr Lamivudine (Epivir) 150 mg PO DAILY [facility] Last Admin: 10/29/16 10:33 Dose: 150 mg Multi-Ingredient Ointment (Prep-Hem) 0 ea TOP TID [facility] Last Admin: 10/30/16 09:14 Dose: Not Given Nicotine (Nicoderm Cq) 1 patch TD DAILY [facility] Last Admin: 10/30/16 09:14 Dose: 1 patch Nystatin (Nystatin Oral Susp) 5 ml PO QID [facility] Last Admin: 10/30/16 09:14 Dose: 5 ml Pantoprazole Sodium (Protonix Ec Tab) 40 mg PO DAILY [facility] Last Admin: 10/30/16 09:14 Dose: 40 mg Ritonavir (Norvir) 100 mg PO BIDBS [facility] Last Admin: 10/28/16 07:43 Dose: 100 mg Saccharomyces Boulardii (Florastor) 250 mg PO TID [facility] Last Admin: 10/29/16 17:43 Dose: 250 mg Vancomycin HCl (Vancocin (Oral Or Rectal Use)) 250 mg PO QID [facility] Physical Exam - Constitutional Appears: Well, Non-toxic, No Acute Distress - Neurological Exam Neurological exam: Oriented x3 - Psychiatric Exam Psychiatric exam: Normal Affect, Normal Mood - Additional Findings Additional findings: DERMATOLOGIC: Skin is intact with no open wounds present. There is severe hyperkeratotic tissue on the plantar aspect of the second metatarsal head. Hyperkeratotic tissue present to the plantar head of the fifth metatarsal. There is thickened, hyperkeratotic tissue to the distal aspects of the digits. Nails are elongated and thickened x10, with discoloration and subungual debris. Xerosis present bilaterally. VASCULAR: DP/PT pulses 2/4, [employer]ANQU[employer] ATTENDANT<3 seconds, skin temperature is normal. NEUROLOGIC: Gross sensation intact, motor function intact ORTHOPEDIC: Mild pain on palpation to the plantar aspect of the second metatarsal head. Digital contractures present b/l Results - Vital Signs Recent Vital Signs: Last Vital Signs Temp 97.3 F L 10/30/16 07:30 Pulse 108 H 10/30/16 07:30 Resp 18 10/30/16 07:30 BP 144/96 H 10/30/16 07:30 Pulse Ox 95 10/30/16 07:30 - Labs Result Diagrams: 10/30/16 07:20 10/30/16 07:20 Labs: Laboratory Results - last 24 hr 10/29/16 10/29/16 10/29/16 12:10 16:21 21:40 WBC RBC Hgb Hct MCV MCH MCHC RDW Plt Count MPV Neut % (Auto) Lymph % (Auto) [place] % (Auto) Eos % (Auto) Baso % (Auto) Neut # Lymph # [place] # Eos # Baso # Sodium Potassium Chloride Carbon Dioxide Anion Gap BUN Creatinine Est GFR ( Amer) Est GFR (Non-Af Amer) POC Glucose (mg/dL) 97 151 H 133 H Random Glucose Calcium Phosphorus Magnesium Total Bilirubin AST ALT Alkaline Phosphatase Total Protein Albumin Globulin Albumin/Globulin Ratio 10/30/16 10/30/16 10/30/16 06:19 07:20 07:20 WBC 8.8 RBC 3.27 L Hgb 10.2 L Hct 31.1 L MCV 95.1 MCH 31.3 H MCHC 32.9 L RDW 18.0 H Plt Count 221 MPV 7.4 Neut % (Auto) 58.2 Lymph % (Auto) 30.9 [place] % (Auto) 7.8 Eos % (Auto) 2.1 Baso % (Auto) 1.0 Neut # 5.1 Lymph # 2.7 [place] # 0.7 Eos # 0.2 Baso # 0.1 Sodium 141 Potassium 4.5 Chloride 108 H Carbon Dioxide 26 Anion Gap 12 BUN 37 H Creatinine 2.1 H Est GFR ( Amer) 30 Est GFR (Non-Af Amer) 25 POC Glucose (mg/dL) 113 H Random Glucose 93 Calcium 7.7 L Phosphorus 4.2 Magnesium 2.0 Total Bilirubin 0.5 AST 48 H ALT 23 Alkaline Phosphatase 92 Total Protein 8.1 Albumin 2.9 L Globulin 5.2 H Albumin/Globulin Ratio 0.6 L Assessment & Plan - Assessment and Plan (Free Text) Assessment: 56 year old female with onychomycosis, calluses and xerosis b/l Plan: Patient seen and evaluated with attending, Dr. Lopez at bedside Patients nails sharply debrided x10 Patients calluses sharply debrided Order for AmLActin cream for b/l lower extremities Thank you for this consult , please reconsult as needed
[2016-10-30] MEDS: Vancomycin 125 MG/5 ML SOLN (ORAL/RECTAL) PO SCH ×3 (13:59→22:03)
[2016-10-31] MEDS: Albuterol-Ipratrop 3 mg / 0.5 (3 ml) UD INH SCH ×2 (02:21→08:08)
[2016-10-31] MEDS: metroNIDAZOLE IV 500 mg/100 ml 500 MG/100 ML BAG IVPB SCH ×3 (05:36→22:01)
[2016-10-31] MEDS: Dextrose 5%/0.45% NS 1,000 ML IV SCH (05:39)
--- NOTE | 2016-10-31 07:17 | CP.PCM.PN ---
<NashSarahi - Last Filed: 10/31/16 20:45> Subjective - Date & Time of Evaluation Date of Evaluation: 10/31/16 Time of Evaluation: 10:15 - Subjective Subjective: PGY1 Medicine note for Dr. Schneider Patient seen and examined at bedside. Patient was AO x 3 and sitting up in bed- eating. She denied any episodes of diarrhea overnight and reported she felt much better and was ready to go home. Patient denied any fever, chills, chest pain, SOB, cough, abdominal pain, nausea, vomiting, urinary complaints, pain in her legs b/l. Patient has been encouraged to continue good PO intake and encouraged ambulation. Objective - Vital Signs/Intake and Output Vital Signs (last 24 hours): Temp Pulse Resp BP Pulse Ox 97.6 F 116 H 20 134/86 100 10/31/16 00:00 10/31/16 00:00 10/31/16 00:00 10/31/16 00:00 10/31/16 00:00 Intake and Output: 10/31/16 10/31/16 06:59 18:59 Intake Total 170 Balance 170 - Medications Medications: Current Medications Abacavir Sulfate (Ziagen) 300 mg PO BID [facility] Last Admin: 10/28/16 09:55 Dose: 300 mg Acetaminophen (Tylenol 325mg Tab) 650 mg PO Q6 PRN PRN Reason: Fever >100.4 F Last Admin: 10/24/16 07:44 Dose: 650 mg Albuterol/Ipratropium (Duoneb 3 Mg/0.5 Mg (3 Ml) Ud) 3 ml INH RQ6 [facility] Last Admin: 10/31/16 02:21 Dose: 3 ml Calcium Acetate (Phoslo) 667 mg PO TIDCC [facility] Last Admin: 10/30/16 17:09 Dose: 667 mg Darunavir (Prezista) 800 mg PO DAILY [facility] Last Admin: 10/28/16 09:55 Dose: 800 mg Guaifenesin/Dextromethorphan (Robitussin Dm) 5 ml PO Q4H PRN PRN Reason: Cough Last Admin: 10/25/16 21:47 Dose: 5 ml Fluconazole (Diflucan Iv 200 Mg/100 Ml Ns) 100 mls @ 100 mls/hr IVPB DAILY [facility] Last Admin: 10/30/16 09:15 Dose: 100 mls/hr Dextrose/Sodium Chloride (Dextrose 5%/0.45% Ns 1000 Ml) 1,000 mls @ 50 mls/hr IV .Q20H [facility] Last Admin: 10/31/16 05:39 Dose: 50 mls/hr Metronidazole (Flagyl) 500 mg in 100 mls @ 100 mls/hr IVPB Q8 [facility] Last Admin: 10/31/16 05:36 Dose: 100 mls/hr Lactic Acid (Lac-Hydrin 12% Lotion (225 G)) 1 gm EXT DAILY [facility] Lamivudine (Epivir) 150 mg PO DAILY [facility] Last Admin: 10/30/16 10:35 Dose: 150 mg Multi-Ingredient Ointment (Prep-Hem) 0 ea TOP TID [facility] Last Admin: 10/30/16 18:00 Dose: Not Given Nicotine (Nicoderm Cq) 1 patch TD DAILY [facility] Last Admin: 10/30/16 09:14 Dose: 1 patch Nystatin (Nystatin Oral Susp) 5 ml PO QID [facility] Last Admin: 10/30/16 22:03 Dose: 5 ml Pantoprazole Sodium (Protonix Ec Tab) 40 mg PO DAILY [facility] Last Admin: 10/30/16 09:14 Dose: 40 mg Ritonavir (Norvir) 100 mg PO BIDBS [facility] Last Admin: 10/28/16 07:43 Dose: 100 mg Saccharomyces Boulardii (Florastor) 250 mg PO TID [facility] Last Admin: 10/30/16 17:57 Dose: 250 mg Vancomycin HCl (Vancocin (Oral Or Rectal Use)) 250 mg PO QID [facility] Last Admin: 10/30/16 22:03 Dose: 250 mg - Labs Labs: 10/30/16 07:20 10/30/16 07:20 PT 11.5 SECONDS (9.7-12.2) 10/21/16 07:58 INR 1.0 10/21/16 07:58 APTT 37 SECONDS (21-34) H 10/21/16 07:58 - Constitutional Appears: Non-toxic, No Acute Distress, Cachectic, Chronically Ill - Head Exam Head Exam: NORMAL INSPECTION - Eye Exam Eye Exam: Normal appearance. absent: Conjunctival injection, Scleral icterus - ENT Exam ENT Exam: Mucous Membranes Moist - Neck Exam Neck Exam: Normal Inspection. absent: Tenderness - Respiratory Exam Respiratory Exam: Clear to Ausculation Bilateral, NORMAL BREATHING PATTERN. absent: Accessory Muscle Use, Rales, Rhonchi, Wheezes, Respiratory Distress - Cardiovascular Exam Cardiovascular Exam: RRR, +S1, +S2. absent: Murmur - GI/Abdominal Exam GI & Abdominal Exam: Soft. absent: Firm, Guarding, Rigid, Tenderness - Extremities Exam Extremities Exam: Normal Inspection. absent: Tenderness - Back Exam Back Exam: NORMAL INSPECTION. absent: rash noted, tenderness - Neurological Exam Neurological Exam: Alert, Awake, Oriented x3 - Psychiatric Exam Psychiatric exam: Normal Affect, Normal Mood - Skin Skin Exam: Dry, Intact, Normal Color Assessment and Plan - Assessment and Plan (Free Text) Plan: 1. Pneumonia Patient has history of AIDS (CD4 count stated to be <100) Community Acquired vs. PCP vs. Tuberculosis vs. Histoplasmosis vs. Mycobacterium Avium Intracellulare Quantiferon GOLD -indeterminate AFB Sputum Cx -negative x 3 Acute hypoxic respiratory failure secondary to Pneumonia, ruling out PJP, TB, TANA. Continue nasal cannula oxygen. Crypto- negative HLA- negative/pending Patient is currently on Cefepime, Diflucan, Nystatin, Clindamycin and Mepron Infectious Disease, Dr. Gonzales, consulted. Help appreciated. 10/24 CXR: Right-sided PICC extends to the cavoatrial junction. Increased interstitial markings similar to prior study compatible with infection or edema. More confluent patchy opacity within the left lung apex. Cardiomegaly ( see full report). Duoneb 3ml INH Q6 Robitussin 5ml PO Q4 PRN cough Procalcitonin: 11.52 ID consult, Dr. Gonzales, help appreciated 2. AIDS ID, Dr. Gonzales, for recs Antivirals on hold Prezista 800 mg PO daily Antibiotics and prophylaxis as above Started on Nystatin 5 ml po QID for thrush Procalcitonin: 11.52 Absolute CD4 count of 45. Pending HLA typing- to start HAART therapy (ON HOLD DUE TO POSSIBLE AMS) There is suspicion for underlying carcinoma with mediastinal, mesenteric, perivascular lymphadenopathy. CT AB & Pelvis: Small to moderate right and small left pleural effusions and associated consolidations, right greater than left. Interstitial prominence. Partially imaged cardiomegaly. Trace pericardial effusion. Hepatomegaly. Coarsened hepatic echotexture. Borderline splenomegaly. Cholecystectomy. Suboptimal visualization of the unenhanced pancreas. Small pelvic ascites. Bilateral inguinal adenopathy measuring up to 14 mm in short axis, with central necrosis versus fat. Sub cm right pelvic sidewall lymph node measures approximately 9 mm in short axis. Left pelvic sidewall lymph node measures approximately 10 mm in short axis. Prominent but sub cm mesenteric and retroperitoneal lymph nodes, nonspecific. Please note that evaluation for adenopathy is limited due to lack of IV contrast. 3. AMS improved medication vs delirium HELD ART therapy, ID notified stopped Cefepime per ID CT Head -diffuse cortical atrophy, ventricular dilation w/o obstructing the chin 4. Elevated d-dimer d-dimer 589 possible DVT vs. Malignancy Worsening anemia, patient has elevated LDH, haptoglobin 160 No visible signs of bleeding currently. D-dimer is elevated but could be inflammatory response. Lower extremity Doppler- negative DVT. Hemoglobin 11.1, anticoagulation held due to bleeding 5. Adrenal Insufficiency Improved Hyperkalemia responsive to sodium bicarbonate BP normalized 6. [place] Cr 1.5 Improving with IV hydration 24 hour protein - 7765 and creatine ordered Renal US: Increased echogenicity of the bilateral renal cortices suggestive for medical renal disease. Mild fullness of the left renal collecting system. Nephro Dr. Garcia consulted 7. Anemia likely anemia of chronic disease Hemoglobin 10 B12 481 folate 10.2 Monitor 8. Diarrhea C. Diff negative x 1 f/u C. Diff x 2 Vancocin 250mg PO QID for 10 days stool for ova and parasite negative stool culture pending stool for cryptosporidium negative f/u stool for microsporidium Florastor 250mg PO TID 9. Prophylactic Measures Anticoagulation Held due to bleeding Protonix 40 mg PO daily SCDs ECHO - EF 55-60% Heart healthy diet Boost TID D5 1/2NS @ 50cc/hr Nicotine patch daily Plan for DC in the AM 11/[address] Wyatt Cao PGY1 <John Schneider Jr. - Last Filed: 11/05/16 10:03> Objective - Vital Signs/Intake and Output Vital Signs (last 24 hours): Temp Pulse Resp BP Pulse Ox 97.9 F 116 H 19 127/88 95 11/01/16 08:10 11/01/16 08:10 11/01/16 08:10 11/01/16 08:10 11/01/16 08:10 - Labs Labs: 10/31/16 08:09 10/31/16 08:09 PT 11.5 SECONDS (9.7-12.2) 10/21/16 07:58 INR 1.0 10/21/16 07:58 APTT 37 SECONDS (21-34) H 10/21/16 07:58 Attending/Attestation - Attestation I have personally seen and examined this patient.: Yes I have fully participated in the care of the patient.: Yes I have reviewed all pertinent clinical information, including history, physical exam and plan: Yes Notes (Text): 11/05/16 10:03 Agree with resident note and findings
[2016-10-31 08:26] LABS: BASO % 0.6 % (0.0-2.0); EOS # 0.1 K/uL (0.0-0.7); EOS % 1.8 % (0.0-4.0); HEMATOCRIT 31.2 % (34.0-47.0); LYMPH # 2.1 K/uL (1.0-4.3); LYMPH % 29.6 % (20.0-40.0); MEAN CELL VOLUME 94.7 fL (81.0-99.0); MEAN CORPUSCULAR HEMOGLOBIN 30.3 pg (27.0-31.0); MEAN PLATELET VOLUME 7.3 fL (7.2-11.7); MONO # 0.6 K/uL (0.0-0.8); MONO % 8.9 % (0.0-10.0); NRBC % 0.1 % (0.0-2.0); RED CELL DISTRIBUTION WIDTH 18.2 % (11.5-14.5)
[2016-10-31 08:53] LABS: POTASSIUM 4.7 mmol/L (3.6-5.2)
[2016-10-31 08:56] LABS: ALB/GLOB RATIO 0.5 (1.0-2.1); BILIRUBIN,TOTAL 0.5 mg/dL (0.2-1.3); CALCIUM 8.1 mg/dl (8.6-10.4); PHOSPHOROUS 4.9 mg/dL (2.5-4.5); TOTAL PROTEIN 8.2 g/dL (6.3-8.3)
[2016-10-31 08:57] LABS: MAGNESIUM 1.7 mg/dL (1.6-2.3)
--- NOTE | 2016-10-31 11:14 | CP.PCM.PN ---
Subjective - Date & Time of Evaluation Date of Evaluation: 10/31/16 Time of Evaluation: 11:13 - Subjective Subjective: seen and examined, ate breakfst. denies diarrhea labs noted Objective - Vital Signs/Intake and Output Vital Signs (last 24 hours): Temp Pulse Resp BP Pulse Ox 98.0 F 115 H 20 146/90 97 10/31/16 08:07 10/31/16 08:07 10/31/16 08:07 10/31/16 08:07 10/31/16 08:07 Intake and Output: 10/31/16 10/31/16 06:59 18:59 Intake Total 170 Balance 170 - Medications Medications: Current Medications Abacavir Sulfate (Ziagen) 300 mg PO BID [facility] Last Admin: 10/28/16 09:55 Dose: 300 mg Acetaminophen (Tylenol 325mg Tab) 650 mg PO Q6 PRN PRN Reason: Fever >100.4 F Last Admin: 10/24/16 07:44 Dose: 650 mg Albuterol/Ipratropium (Duoneb 3 Mg/0.5 Mg (3 Ml) Ud) 3 ml INH RQ6 [facility] Last Admin: 10/31/16 08:08 Dose: 3 ml Calcium Acetate (Phoslo) 667 mg PO TIDCC [facility] Last Admin: 10/31/16 08:41 Dose: 667 mg Darunavir (Prezista) 800 mg PO DAILY [facility] Last Admin: 10/28/16 09:55 Dose: 800 mg Guaifenesin/Dextromethorphan (Robitussin Dm) 5 ml PO Q4H PRN PRN Reason: Cough Last Admin: 10/25/16 21:47 Dose: 5 ml Fluconazole (Diflucan Iv 200 Mg/100 Ml Ns) 100 mls @ 100 mls/hr IVPB DAILY [facility] Last Admin: 10/30/16 09:15 Dose: 100 mls/hr Metronidazole (Flagyl) 500 mg in 100 mls @ 100 mls/hr IVPB Q8 [facility] Last Admin: 10/31/16 05:36 Dose: 100 mls/hr Lactic Acid (Lac-Hydrin 12% Lotion (225 G)) 1 gm EXT DAILY [facility] Lamivudine (Epivir) 150 mg PO DAILY [facility] Last Admin: 10/30/16 10:35 Dose: 150 mg Multi-Ingredient Ointment (Prep-Hem) 0 ea TOP TID [facility] Last Admin: 10/30/16 18:00 Dose: Not Given Nicotine (Nicoderm Cq) 1 patch TD DAILY [facility] Last Admin: 10/30/16 09:14 Dose: 1 patch Nystatin (Nystatin Oral Susp) 5 ml PO QID [facility] Last Admin: 10/30/16 22:03 Dose: 5 ml Pantoprazole Sodium (Protonix Ec Tab) 40 mg PO DAILY [facility] Last Admin: 10/30/16 09:14 Dose: 40 mg Ritonavir (Norvir) 100 mg PO BIDBS [facility] Last Admin: 10/28/16 07:43 Dose: 100 mg Saccharomyces Boulardii (Florastor) 250 mg PO TID [facility] Last Admin: 10/30/16 17:57 Dose: 250 mg Vancomycin HCl (Vancocin (Oral Or Rectal Use)) 250 mg PO QID [facility] Last Admin: 10/30/16 22:03 Dose: 250 mg - Labs Labs: 10/31/16 08:09 10/31/16 08:09 PT 11.5 SECONDS (9.7-12.2) 10/21/16 07:58 INR 1.0 10/21/16 07:58 APTT 37 SECONDS (21-34) H 10/21/16 07:58 - Constitutional Appears: Non-toxic, No Acute Distress, Chronically Ill - Head Exam Head Exam: NORMAL INSPECTION - Eye Exam Eye Exam: Normal appearance - ENT Exam ENT Exam: Mucous Membranes Moist, Normal Exam - Neck Exam Neck Exam: Normal Inspection - Respiratory Exam Respiratory Exam: Clear to Ausculation Bilateral, NORMAL BREATHING PATTERN - Cardiovascular Exam Cardiovascular Exam: REGULAR RHYTHM, RRR - GI/Abdominal Exam GI & Abdominal Exam: Distended, Soft - Extremities Exam Extremities Exam: Normal Inspection Assessment and Plan (1) Pneumonia associated with acquired immune deficiency syndrome (AIDS) Status: Acute (2) Renal insufficiency Status: Acute (3) AIDS Status: Acute (4) Anemia Status: Acute - Assessment and Plan (Free Text) Assessment: ckd 3 / hivan rachelle resolving. dc iv fluids antibiotics / anti retrovirals per ID
[2016-10-31] MEDS: Nystatin 100,000 Units/ml Oral Susp 5 ml UD PO SCH ×4 (11:15→22:01)
[2016-10-31] MEDS: Vancomycin 125 MG/5 ML SOLN (ORAL/RECTAL) PO SCH ×4 (11:15→22:01)
[2016-10-31] MEDS: Fluconazole IV 200mg/100 ml NS 100 ML IVPB SCH (11:15)
[2016-10-31] MEDS: Saccharomyces Boulardi 250 mg Cap PO SCH ×3 (11:15→17:44)
[2016-10-31] MEDS: Pantoprazole 40 mg EC Tab PO SCH (11:15)
[2016-10-31] MEDS: Hemorrohoidal Ointment (2 oz) TOP SCH ×3 (11:16→17:45)
[2016-10-31] MEDS: Ammonium Lactate 12% Lotion (225 g) EXT SCH (11:24)
--- NOTE | 2016-10-31 15:31 | CP.PCM.PN ---
Subjective - Date & Time of Evaluation Date of Evaluation: 10/31/16 Time of Evaluation: 08:00 - Subjective Subjective: no fever diarrhea resolved for d/c in am follow up with ID as out pt cont prophylxis for PCP/TANA Objective - Vital Signs/Intake and Output Vital Signs (last 24 hours): Temp Pulse Resp BP Pulse Ox 98.0 F 115 H 20 146/90 97 10/31/16 08:07 10/31/16 08:07 10/31/16 08:07 10/31/16 08:07 10/31/16 08:07 Intake and Output: 10/31/16 10/31/16 06:59 18:59 Intake Total 170 Balance 170 - Medications Medications: Current Medications Abacavir Sulfate (Ziagen) 300 mg PO BID [facility] Last Admin: 10/28/16 09:55 Dose: 300 mg Acetaminophen (Tylenol 325mg Tab) 650 mg PO Q6 PRN PRN Reason: Fever >100.4 F Last Admin: 10/24/16 07:44 Dose: 650 mg Albuterol/Ipratropium (Duoneb 3 Mg/0.5 Mg (3 Ml) Ud) 3 ml INH RQ6 [facility] Last Admin: 10/31/16 08:08 Dose: 3 ml Calcium Acetate (Phoslo) 667 mg PO TIDCC [facility] Last Admin: 10/31/16 11:15 Dose: 667 mg Darunavir (Prezista) 800 mg PO DAILY [facility] Last Admin: 10/28/16 09:55 Dose: 800 mg Guaifenesin/Dextromethorphan (Robitussin Dm) 5 ml PO Q4H PRN PRN Reason: Cough Last Admin: 10/25/16 21:47 Dose: 5 ml Fluconazole (Diflucan Iv 200 Mg/100 Ml Ns) 100 mls @ 100 mls/hr IVPB DAILY [facility] Last Admin: 10/31/16 11:15 Dose: 100 mls/hr Metronidazole (Flagyl) 500 mg in 100 mls @ 100 mls/hr IVPB Q8 [facility] Last Admin: 10/31/16 14:20 Dose: 100 mls/hr Lactic Acid (Lac-Hydrin 12% Lotion (225 G)) 1 gm EXT DAILY [facility] Last Admin: 10/31/16 11:24 Dose: 1 applic Lamivudine (Epivir) 150 mg PO DAILY [facility] Last Admin: 10/31/16 11:15 Dose: 150 mg Multi-Ingredient Ointment (Prep-Hem) 0 ea TOP TID [facility] Last Admin: 10/31/16 14:25 Dose: Not Given Nicotine (Nicoderm Cq) 1 patch TD DAILY [facility] Last Admin: 10/31/16 11:15 Dose: 1 patch Nystatin (Nystatin Oral Susp) 5 ml PO QID [facility] Last Admin: 10/31/16 14:19 Dose: 5 ml Pantoprazole Sodium (Protonix Ec Tab) 40 mg PO DAILY [facility] Last Admin: 10/31/16 11:15 Dose: 40 mg Ritonavir (Norvir) 100 mg PO BIDBS [facility] Last Admin: 10/28/16 07:43 Dose: 100 mg Saccharomyces Boulardii (Florastor) 250 mg PO TID [facility] Last Admin: 10/31/16 14:20 Dose: 250 mg Vancomycin HCl (Vancocin (Oral Or Rectal Use)) 250 mg PO QID [facility] Last Admin: 10/31/16 14:25 Dose: 250 mg - Labs Labs: 10/31/16 08:09 10/31/16 08:09 PT 11.5 SECONDS (9.7-12.2) 10/21/16 07:58 INR 1.0 10/21/16 07:58 APTT 37 SECONDS (21-34) H 10/21/16 07:58 Assessment and Plan (1) Hyperkalemia Status: Acute (2) Pneumonia associated with acquired immune deficiency syndrome (AIDS) Status: Acute (3) Renal insufficiency Status: Acute (4) AIDS Status: Acute (5) Anemia Status: Acute (6) Dehydration Status: Acute
[2016-11-01] MEDS: metroNIDAZOLE IV 500 mg/100 ml 500 MG/100 ML BAG IVPB SCH (05:34)
[2016-11-01 08:11] VITALS: BP 127/88; PULSE 116; RESP 19; TEMP 97.9; O2SAT 95
--- NOTE | 2016-11-01 10:40 | CP.PCM.PN ---
Subjective - Date & Time of Evaluation Date of Evaluation: 11/01/16 Time of Evaluation: 10:37 - Subjective Subjective: No more diarrhea Creat decreased to 1.5 Afebrile now Chronically ill but no new complaints Objective - Vital Signs/Intake and Output Vital Signs (last 24 hours): Temp Pulse Resp BP Pulse Ox 97.9 F 116 H 19 127/88 95 11/01/16 08:10 11/01/16 08:10 11/01/16 08:10 11/01/16 08:10 11/01/16 08:10 Intake and Output: 11/01/16 11/01/16 06:59 18:59 Intake Total 500 Balance 500 - Medications Medications: Current Medications Abacavir Sulfate (Ziagen) 300 mg PO BID [facility] Last Admin: 10/28/16 09:55 Dose: 300 mg Acetaminophen (Tylenol 325mg Tab) 650 mg PO Q6 PRN PRN Reason: Fever >100.4 F Last Admin: 10/24/16 07:44 Dose: 650 mg Amlodipine Besylate (Norvasc) 5 mg PO DAILY [facility] Last Admin: 10/31/16 17:44 Dose: 5 mg Calcium Acetate (Phoslo) 667 mg PO TIDCC [facility] Last Admin: 11/01/16 08:53 Dose: 667 mg Darunavir (Prezista) 800 mg PO DAILY [facility] Last Admin: 10/28/16 09:55 Dose: 800 mg Guaifenesin/Dextromethorphan (Robitussin Dm) 5 ml PO Q4H PRN PRN Reason: Cough Last Admin: 10/25/16 21:47 Dose: 5 ml Fluconazole (Diflucan Iv 200 Mg/100 Ml Ns) 100 mls @ 100 mls/hr IVPB DAILY [facility] Last Admin: 10/31/16 11:15 Dose: 100 mls/hr Metronidazole (Flagyl) 500 mg in 100 mls @ 100 mls/hr IVPB Q8 [facility] Last Admin: 11/01/16 05:34 Dose: 100 mls/hr Lactic Acid (Lac-Hydrin 12% Lotion (225 G)) 1 gm EXT DAILY [facility] Last Admin: 10/31/16 11:24 Dose: 1 applic Lamivudine (Epivir) 150 mg PO DAILY [facility] Last Admin: 10/31/16 11:15 Dose: 150 mg Multi-Ingredient Ointment (Prep-Hem) 0 ea TOP TID [facility] Last Admin: 10/31/16 17:45 Dose: 1 applic Nicotine (Nicoderm Cq) 1 patch TD DAILY [facility] Last Admin: 10/31/16 11:15 Dose: 1 patch Nystatin (Nystatin Oral Susp) 5 ml PO QID [facility] Last Admin: 10/31/16 22:01 Dose: 5 ml Pantoprazole Sodium (Protonix Ec Tab) 40 mg PO DAILY [facility] Last Admin: 10/31/16 11:15 Dose: 40 mg Ritonavir (Norvir) 100 mg PO BIDBS [facility] Last Admin: 10/28/16 07:43 Dose: 100 mg Saccharomyces Boulardii (Florastor) 250 mg PO TID [facility] Last Admin: 10/31/16 17:44 Dose: 250 mg Vancomycin HCl (Vancocin (Oral Or Rectal Use)) 250 mg PO QID [facility] Last Admin: 10/31/16 22:01 Dose: 250 mg - Labs Labs: 10/31/16 08:09 10/31/16 08:09 PT 11.5 SECONDS (9.7-12.2) 10/21/16 07:58 INR 1.0 10/21/16 07:58 APTT 37 SECONDS (21-34) H 10/21/16 07:58 - Constitutional Appears: No Acute Distress, Chronically Ill - Head Exam Head Exam: ATRAUMATIC, NORMAL INSPECTION - Eye Exam Eye Exam: EOMI, Normal appearance - Neck Exam Neck Exam: Normal Inspection. absent: Tenderness - Respiratory Exam Respiratory Exam: Clear to Ausculation Bilateral, NORMAL BREATHING PATTERN - Cardiovascular Exam Cardiovascular Exam: REGULAR RHYTHM, +S1 - GI/Abdominal Exam GI & Abdominal Exam: Soft. absent: Tenderness - Extremities Exam Extremities Exam: absent: Pedal Edema, Tenderness - Neurological Exam Neurological Exam: Alert, CN II-XII Intact - Skin Skin Exam: Dry, Warm Assessment and Plan (1) GROVER (acute kidney injury) Status: Acute (2) HIV nephropathy Status: Acute (3) Nephrotic syndrome Status: Acute (4) Pneumonia associated with acquired immune deficiency syndrome (AIDS) Status: Acute (5) AIDS Status: Acute (6) HIV (human immunodeficiency virus infection) Status: Acute - Assessment and Plan (Free Text) Plan: Add small dose ROSE I for the nephrotic syndrome
--- NOTE | 2016-11-01 11:27 | CP.PCM.DIS ---
Provider - Provider Date of Admission: 10/20/16 17:12 Attending physician: John Schneider Jr, MD Primary care physician: Dr. Schneider Consults: ICU ID [facility] Nephrology Jose Podiatry Lopez Pulonology Ghanshyam Time Spent in preparation of Discharge (in minutes): 45 Hospital Course - Lab Results Lab Results: Micro Results 10/30/16 14:29 Other: Please Indicate Mycobacterial Culture - Preliminary 10/29/16 09:00 Stool Ova and Parasite Concentrate Exam - Final 10/28/16 11:10 Other: Please Indicate Mycobacterial Culture - Preliminary 10/21/16 11:40 Other: Please Indicate Mycobacterial Culture - Preliminary 10/20/16 19:20 Other: Please Indicate Mycobacterial Culture - Preliminary 10/27/16 08:00 Naris MRSA Culture - Final MRSA NOT DETECTED 10/21/16 07:00 Blood Blood Culture - Final NO GROWTH AFTER 5 DAYS 10/21/16 07:00 Blood Gram Stain - Final TEST NOT PERFORMED 10/21/16 06:30 Blood Blood Culture - Final NO GROWTH AFTER 5 DAYS 10/21/16 06:30 Blood Gram Stain - Final TEST NOT PERFORMED 10/23/16 15:00 Sputum Gram Stain - Final 10/23/16 15:00 Sputum Sputum Culture - Final Yeast Species 10/22/16 Unknown Stool Stool Culture - Final NO SALMONELLA, SHIGELLA OR CAMPYLOBACTER ISOLATED. 10/22/16 Unknown Stool Ova and Parasite Concentrate Exam - Final 10/20/16 Unknown Sputum Gram Stain - Final 10/20/16 Unknown Sputum Sputum Culture - Final NORMAL ORAL CELINA 10/21/16 22:28 Urine,Clean Catch Urine Culture - Final No Growth (<1,000 CFU/ML) 10/21/16 17:24 Nose MRSA Culture (Admit) - Final MRSA NOT DETECTED Most Recent Lab Values WBC 7.0 K/uL (4.8-10.8) 10/31/16 08:09 RBC 3.29 Mil/uL (3.80-5.20) L 10/31/16 08:09 Hgb 10.0 g/dL (11.0-16.0) L 10/31/16 08:09 Hct 31.2 % (34.0-47.0) L 10/31/16 08:09 MCV 94.7 fL (81.0-99.0) 10/31/16 08:09 MCH 30.3 pg (27.0-31.0) 10/31/16 08:09 MCHC 32.0 g/dL (33.0-37.0) L 10/31/16 08:09 RDW 18.2 % (11.5-14.5) H 10/31/16 08:09 Plt Count 209 K/uL (130-400) 10/31/16 08:09 MPV 7.3 fL (7.2-11.7) 10/31/16 08:09 Neut % (Auto) 59.1 % (50.0-75.0) 10/31/16 08:09 Lymph % (Auto) 29.6 % (20.0-40.0) 10/31/16 08:09 [place] % (Auto) 8.9 % (0.0-10.0) 10/31/16 08:09 Eos % (Auto) 1.8 % (0.0-4.0) 10/31/16 08:09 Baso % (Auto) 0.6 % (0.0-2.0) 10/31/16 08:09 Neut # 4.2 K/uL (1.8-7.0) 10/31/16 08:09 Lymph # 2.1 K/uL (1.0-4.3) 10/31/16 08:09 [place] # 0.6 K/uL (0.0-0.8) 10/31/16 08:09 Eos # 0.1 K/uL (0.0-0.7) 10/31/16 08:09 Baso # 0.0 K/uL (0.0-0.2) 10/31/16 08:09 Neutrophils % (Manual) 72 % (50-75) 10/24/16 06:24 Band Neutrophils % 13 % (0-2) H* 10/24/16 06:24 Lymphocytes % (Manual) 4 % (20-40) L 10/24/16 06:24 Reactive Lymphs % 3 % (0-0) H 10/23/16 06:52 Monocytes % (Manual) 5 % (0-10) 10/24/16 06:24 Eosinophils % (Manual) 5 % (0-4) H 10/24/16 06:24 Myelocytes % 1 % (0-0) H 10/24/16 06:24 Platelet Estimate Normal (NORMAL) 10/24/16 06:24 Polychromasia Slight 10/22/16 06:32 Hypochromasia (manual) Slight 10/24/16 06:24 Poikilocytosis (manual Slight 10/24/16 06:24 Anisocytosis (manual) Slight 10/24/16 06:24 Microcytosis (manual) Slight 10/21/16 07:58 Macrocytosis (manual) Slight 10/22/16 06:32 Tear Drop Cells Slight 10/23/16 06:52 Ovalocytes Slight 10/21/16 07:58 [place] Cells Slight 10/23/16 06:52 Haptoglobin 160 mg/dL (43-212) 10/21/16 17:25 PT 11.5 SECONDS (9.7-12.2) 10/21/16 07:58 INR 1.0 10/21/16 07:58 APTT 37 SECONDS (21-34) H 10/21/16 07:58 D-Dimer, Quantitative 589 ng/mlDDU (0-243) H 10/21/16 08:10 Puncture Site Rba 10/21/16 19:30 pCO2 25 mm/Hg (35-45) L 10/21/16 19:30 pO2 56 mm/Hg (80-100) L 10/21/16 19:30 HCO3 19.5 mmol/L (21-28) L 10/21/16 19:30 ABG pH 7.43 (7.35-7.45) 10/21/16 19:30 ABG Total CO2 17.4 mmol/L (22-28) L 10/21/16 19:30 ABG O2 Saturation 94.2 % (95-98) L 10/21/16 19:30 ABG Base Excess -6.9 mmol/L (-2.0-3.0) L 10/21/16 19:30 ABG Hemoglobin 7.1 g/dL (11.7-17.4) L 10/21/16 19:30 ABG Carboxyhemoglobin 1.5 % (0.5-1.5) 10/21/16 19:30 POC ABG HHb (Measured) 5.6 % (0.0-5.0) H 10/21/16 19:30 ABG Methemoglobin 1.2 % (0.0-3.0) 10/21/16 19:30 Jacob Test Pos 10/21/16 19:30 VBG pH 7.35 (7.32-7.43) 10/21/16 16:50 VBG pCO2 34 mmHg (40-60) L 10/21/16 16:50 VBG HCO3 18.9 mmol/L 10/21/16 16:50 VBG Total CO2 19.8 mmol/L (22-28) L 10/21/16 16:50 VBG O2 Sat (Calc) 53.3 % (40-65) 10/21/16 16:50 VBG Base Excess -6.0 mmol/L (0.0-2.0) L 10/21/16 16:50 VBG Potassium 3.5 mmol/L (3.6-5.2) L 10/21/16 16:50 A-a O2 Difference 169.0 mm/Hg 10/21/16 19:30 Respiratory Index 3.0 10/21/16 19:30 Hgb O2 Saturation 91.7 % (95.0-98.0) L 10/21/16 19:30 Sodium 148.0 mmol/l (132-148) 10/21/16 16:50 Chloride 122.0 mmol/L (98-107) H 10/21/16 16:50 Glucose 101 mg/dl (65-105) 10/21/16 16:50 Lactate 1.3 mmol/L (0.7-2.1) 10/21/16 16:50 FiO2 36.0 % 10/21/16 19:30 Sodium 139 mmol/L (132-148) 10/31/16 08:09 Potassium 4.7 mmol/L (3.6-5.2) 10/31/16 08:09 Chloride 107 mmol/L (98-107) 10/31/16 08:09 Carbon Dioxide 24 mmol/L (22-30) 10/31/16 08:09 Anion Gap 12 (10-20) 10/31/16 08:09 BUN 28 mg/dL (7-17) H 10/31/16 08:09 Creatinine 1.5 MG/DL (0.7-1.2) H 10/31/16 08:09 Est GFR ( Amer) 44 10/31/16 08:09 Est GFR (Non-Af Amer) 36 10/31/16 08:09 POC Glucose (mg/dL) 119 mg/dL (65-110) H 10/30/16 12:27 Random Glucose 93 mg/dL (65-105) 10/31/16 08:09 Lactic Acid 1.1 mmol/L (0.7-2.1) 10/20/16 16:22 Calcium 8.1 mg/dl (8.6-10.4) L 10/31/16 08:09 Phosphorus 4.9 mg/dL (2.5-4.5) H 10/31/16 08:09 Magnesium 1.7 mg/dL (1.6-2.3) 10/31/16 08:09 Total Bilirubin 0.5 mg/dL (0.2-1.3) 10/31/16 08:09 AST 58 U/L (14-36) H D 10/31/16 08:09 ALT 27 U/L (9-52) 10/31/16 08:09 Alkaline Phosphatase 90 U/L (38-126) 10/31/16 08:09 Lactate Dehydrogenase 1066 U/L (313-618) H 10/20/16 16:22 Total Protein 8.2 g/dL (6.3-8.3) 10/31/16 08:09 Albumin 2.9 g/dL (3.5-5.0) L 10/31/16 08:09 Globulin 5.3 gm/dL (2.2-3.9) H 10/31/16 08:09 Albumin/Globulin Ratio 0.5 (1.0-2.1) L 10/31/16 08:09 Amylase 110 U/L (30-110) 10/20/16 16:22 Lipase 54 U/L (23-300) 10/20/16 16:22 Vitamin B12 481 pg/mL (239-931) 10/20/16 07:58 Folate 10.2 ng/mL 10/20/16 07:58 Procalcitonin 11.52 NG/ML (0.19-0.49) H 10/21/16 22:34 Venous Blood Potassium 3.5 mmol/L (3.6-5.2) L 10/21/16 16:50 Urine Color Yellow (YELLOW) 10/21/16 22:34 Urine Clarity Hazy (Clear) 10/21/16 22:34 Urine pH 5.0 (5.0-8.0) 10/21/16 22:34 Ur Specific [place] 1.014 (1.003-1.030) 10/21/16 22:34 Urine Protein 2+ mg/dL (NEGATIVE) H 10/21/16 22:34 Urine Glucose (UA) Normal mg/dL (Normal) 10/21/16 22:34 Urine Ketones Negative mg/dL (NEGATIVE) 10/21/16 22:34 Urine Blood 3+ (NEGATIVE) H 10/21/16 22:34 Urine Nitrate Negative (NEGATIVE) 10/21/16 22:34 Urine Bilirubin Negative (NEGATIVE) 10/21/16 22:34 Urine Urobilinogen Normal mg/dL (0.2-1.0) 10/21/16 22:34 Ur Leukocyte Esterase 3+ [place]/uL (Negative) H 10/21/16 22:34 Urine WBC (Auto) 167 /hpf (0-5) H 10/21/16 22:34 Urine RBC (Auto) 41 /hpf (0-3) H 10/21/16 22:34 Ur Squamous Epith Cells 1 /hpf (0-5) 10/21/16 22:34 Urine Bacteria Rare (<OCC) 10/20/16 17:45 Ur Random Sodium 84 mmol/L 10/20/16 19:03 Ur Random Potassium 20.6 mmol/L 10/20/16 19:03 Urine Collection Time 24 HRS 10/23/16 17:33 Urine Total Volume 4650 mL 10/23/16 17:33 Urine Chloride 65 mmol/L (32-290) 10/20/16 19:03 Ur Protein 24 Hr Calc 7765.5 mg/24hr (42-225) H 10/23/16 17:33 Stool Occult Blood Negative (NEGATIVE) 10/23/16 11:45 Stool Leukocytes, Qual Negative (NEGATIVE) 10/22/16 Unknown Stl Cryptosporidium Ag Not detected (Not detected) 10/29/16 15:14 Absolute Lymphs (Flow) 1713 Cells/mcL (850-3900) 10/20/16 16:50 % CD3 Cells 92 Percent (57-85) H 10/20/16 16:50 Absolute CD3 Count 1578 Cells/mcL (840-3060) 10/20/16 16:50 % CD4 Cells 3 Percent (30-61) L 10/20/16 16:50 Absolute CD4 Count 45 Cells/mcL (490-1740) L 10/20/16 16:50 T-Help/Suppress Ratio 0.03 Ratio (0.86-5.00) L 10/20/16 16:50 % CD8 Cells 87 Percent (12-42) H 10/20/16 16:50 Absolute CD8 Count 1498 Cells/mcL (180-1170) H 10/20/16 16:50 HLA-B*5701 Negative 10/20/16 07:58 C. difficile Ag & Toxin Negative (NEGATIVE) 10/30/16 14:32 Cryptococcus Ag Screen Not detected (Not Detected) 10/21/16 21:08 Cryptosp/Giardia Source Stool 10/29/16 15:14 TB Test (QFT) Nil 0.07 IU/mL 10/24/16 09:51 TB Test Mitogen - Nil 0.18 IU/mL 10/24/16 09:51 TB Test TB - Nil <0.00 IU/mL 10/24/16 09:51 TB Test (QFT) Indeterminate (Negative) H 10/24/16 09:51 Blood Type A POSITIVE 10/21/16 17:44 Antibody Screen Negative 10/21/16 17:44 - Hospital Course Hospital Course: Upon Admission 56 year old female with medical history significant for AIDS and hypertension who presents to the emergency room for weakness and cough x 1 week. Patient reports cough is productive of beige colored sputum and denies hemoptysis; however, sputum sample at bedside is blood-tinged. Patient states she has mild shortness of breath, exacerbated with walking up stairs. She admits to feeling hot flashes but denies chills. Patient notes she has night sweats but reports this is typical for her. Patient also reports significant weight loss of approximately 60 pounds but cannot specify time frame. Patient states she was diagnosed with HIV 35 years ago and contracted it from having intercourse with her . Her infectious disease doctor is Dr. Hitchcock in [place], [place]. Patient reports her last CD4 count was <100. She currently is not on HAART therapy due to vaginal clotting which occurred with new antiretroviral medication she was started on and kidney injury. Patient is supposed to follow- up with Dr. Hitchcock on 11/06/16. She notes previous pneumonia infection was approximately one year ago. Patient is non-compliant with taking Bactrim. Patient also complains of cramping to her bilateral hands which started earlier today. She denies chest pain, palpitations, abdominal pain, nausea, vomiting, diarrhea, and constipation. She does complain of increased urinary frequency. Patient was transferred to ICU for sepsis with worsening symptoms. Dr Gonzales ID , Dr Garcia nephrology, Dr Morrissey pulmonology were consulted. 1. Pneumonia Patient has history of AIDS (CD4 count stated to be <100) Community Acquired vs. PCP vs. Tuberculosis vs. Histoplasmosis vs. Mycobacterium Avium Intracellulare Quantiferon GOLD -indeterminate AFB Sputum Cx -negative x 3 Acute hypoxic respiratory failure secondary to Pneumonia, ruling out PJP, TB, TANA. Continue nasal cannula oxygen. Crypto- negative HLA- negative/pending Patient is currently on Cefepime, Diflucan, Nystatin, Clindamycin and Mepron Infectious Disease, Dr. Gonzales, consulted. Help appreciated. 10/24 CXR: Right-sided PICC extends to the cavoatrial junction. Increased interstitial markings similar to prior study compatible with infection or edema. More confluent patchy opacity within the left lung apex. Cardiomegaly ( see full report). Duoneb 3ml INH Q6 Robitussin 5ml PO Q4 PRN cough Procalcitonin: 11.52 ID consult, Dr. Gonzales, help appreciated 2. AIDS ID, Dr. Gonzales, for recs Antivirals on hold Prezista 800 mg PO daily Antibiotics and prophylaxis as above Started on Nystatin 5 ml po QID for thrush Procalcitonin: 11.52 Absolute CD4 count of 45. Pending HLA typing- to start HAART therapy (ON HOLD DUE TO POSSIBLE AMS) There is suspicion for underlying carcinoma with mediastinal, mesenteric, perivascular lymphadenopathy. CT AB & Pelvis: Small to moderate right and small left pleural effusions and associated consolidations, right greater than left. Interstitial prominence. Partially imaged cardiomegaly. Trace pericardial effusion. Hepatomegaly. Coarsened hepatic echotexture. Borderline splenomegaly. Cholecystectomy. Suboptimal visualization of the unenhanced pancreas. Small pelvic ascites. Bilateral inguinal adenopathy measuring up to 14 mm in short axis, with central necrosis versus fat. Sub cm right pelvic sidewall lymph node measures approximately 9 mm in short axis. Left pelvic sidewall lymph node measures approximately 10 mm in short axis. Prominent but sub cm mesenteric and retroperitoneal lymph nodes, nonspecific. Please note that evaluation for adenopathy is limited due to lack of IV contrast. 3. AMS improved medication vs delirium HELD ART therapy, ID notified stopped Cefepime per ID CT Head -diffuse cortical atrophy, ventricular dilation w/o obstructing the chin 4. Elevated d-dimer d-dimer 589 possible DVT vs. Malignancy Worsening anemia, patient has elevated LDH, haptoglobin 160 No visible signs of bleeding currently. D-dimer is elevated but could be inflammatory response. Lower extremity Doppler- negative DVT. Hemoglobin 11.1, anticoagulation held due to bleeding 5. Adrenal Insufficiency Improved Hyperkalemia responsive to sodium bicarbonate BP normalized 6. GROVER Improving with IV hydration 24 hour protein - 7765 and creatine ordered Renal US: Increased echogenicity of the bilateral renal cortices suggestive for medical renal disease. Mild fullness of the left renal collecting system. Nephro Dr. Garcia consulted 7. Anemia likely anemia of chronic disease Hemoglobin 10 B12 481 folate 10.2 Monitor 8. Diarrhea C. Diff negative x 1 f/u C. Diff x 2 Vancocin 250mg PO QID for 10 days stool for ova and parasite negative stool culture pending stool for cryptosporidium negative f/u stool for microsporidium Florastor 250mg PO TID 9. Prophylactic Measures Anticoagulation Held due to bleeding Protonix 40 mg PO daily SCDs ECHO - EF 55-60% Heart healthy diet Boost TID D5 1/2NS @ 50cc/hr Nicotine patch daily Upon Discharge On 11/01 patient was deemed medically stable for discharge as per Dr. Schneider Patient to take new medications as prescribed: Mepron 1500mg po daily Disp#30 Zithromax 1200mg PO weekly Disp#4 Lisinopril 5mg po daily Disp#30 Norvasc 5mg po daily Disp#30 Patient to follow up with PMD/Infectious disease physician Dr. Hitchcock within 7 days. Patient encouraged to have good PO intake and ambulate. If symptoms arise or worsen patient to visit ED immediately. Instructions discussed in detail with patient who understands and agrees. Please note this is a discharge summary. For full hospital course please refer to medical records Discharge Exam - Head Exam Head Exam: ATRAUMATIC, NORMAL INSPECTION - Eye Exam Eye Exam: EOMI, Normal appearance, PERRL. absent: Conjunctival injection, Scleral icterus Pupil Exam: NORMAL ACCOMODATION - ENT Exam ENT Exam: Mucous Membranes Moist - Neck Exam Neck exam: Normal Inspection - Respiratory Exam Respiratory Exam: Clear to PA & Lateral, NORMAL BREATHING PATTERN, UNREMARKABLE. absent: Accessory Muscle Use, Rales, Rhonchi, Wheezes, Respiratory Distress - Cardiovascular Exam Cardiovascular Exam: REGULAR RHYTHM, RRR, +S1, +S2. absent: Systolic Murmur - GI/Abdominal Exam GI & Abdominal Exam: Normal Bowel Sounds, Soft. absent: Firm, Guarding, Rigid, Tenderness - Extremities Exam Extremities exam: normal capillary refill, normal inspection, pedal pulses present - Back Exam Back exam: NORMAL INSPECTION. absent: rash noted - Neurological Exam Neurological exam: Alert, Oriented x3 - Psychiatric Exam Psychiatric exam: Normal Affect, Normal Mood - Skin Skin Exam: Dry, Intact, Normal Color, Warm Discharge Plan - Discharge Medications Prescriptions: amLODIPine [Norvasc] 5 mg PO DAILY #30 tab Atovaquone [Mepron] 1,500 mg PO DAILY 30 Days Azithromycin [Zithromax] 1,200 mg PO QWK #4 tab Lisinopril [Zestril] 5 mg PO DAILY #30 tab - Follow Up Plan Condition: STABLE Disposition: HOME/ ROUTINE Instructions: Lisinopril (By mouth), Azithromycin (By mouth), Amlodipine (By mouth), Atovaquone (By mouth), How to Stop Smoking (GEN), Renal Failure Diet (DC ), Hyperkalemia (GEN), Pneumonia (GEN), Hyperkalemia (DC) Additional Instructions: Patient stable for discharge as per Dr Schneider. Patient to take new medications as prescribed: Mepron 1500mg daily Zithromax 1200mg once a week Lisinopril 5mg daily Norvasc 5mg daily Patient to follow up with primary doctor/infectious disease physician Dr Hitchcock within 7 days. Patient encouraged to have good oral intake & walk around. If symptoms arise or worsen patient to visit ER immediately.
[2016-11-01] MEDS: Pantoprazole 40 mg EC Tab PO SCH (11:30)
[2016-11-01] MEDS: Nystatin 100,000 Units/ml Oral Susp 5 ml UD PO SCH (11:30)
[2016-11-01] MEDS: Saccharomyces Boulardi 250 mg Cap PO SCH (11:30)
[2016-11-01] MEDS: Hemorrohoidal Ointment (2 oz) TOP SCH (11:31)
[2016-11-01] MEDS: Vancomycin 125 MG/5 ML SOLN (ORAL/RECTAL) PO SCH (11:31)
[2016-11-01] MEDS: Ammonium Lactate 12% Lotion (225 g) EXT SCH (11:31)
[2016-11-01] MEDS: Fluconazole IV 200mg/100 ml NS 100 ML IVPB SCH (11:31)
== END 2016-11-01 14:49 | disposition home or self-care (01) | DRG 710 ==
LOC: C.ER 15:18 → C.9E 17:12 → C.5T 17:37 → C.9I 10-21 16:26 → C.5T 10-27 22:20
PROVIDERS: ADMIT Internal Medicine; ATTEND Internal Medicine
PROC: 30233N1 Transfusion of Nonautologous Red Blood Cells into Peripheral Vein, Percutaneous Approach (ICD-10-PCS; principal; 2016-10-22)
PROC: 02HV33Z Insertion of Infusion Device into Superior Vena Cava, Percutaneous Approach (ICD-10-PCS; 2016-10-24)
DX: B20 Human immunodeficiency virus [HIV] disease (principal); A41.9 Sepsis, unspecified organism; J96.01 Acute respiratory failure with hypoxia; R65.20 Severe sepsis without septic shock; N17.0 Acute kidney failure with tubular necrosis; J90 Pleural effusion, not elsewhere classified; B59 Pneumocystosis; E87.2 Acidosis; E87.5 Hyperkalemia; E27.40 Unspecified adrenocortical insufficiency; R18.8 Other ascites; N18.9 Chronic kidney disease, unspecified; I31.3 Pericardial effusion (noninflammatory); Z80.1 Family history of malignant neoplasm of trachea, bronchus and lung; F17.210 Nicotine dependence, cigarettes, uncomplicated; I51.7 Cardiomegaly; D63.8 Anemia in other chronic diseases classified elsewhere; Z91.14 Patient's other noncompliance with medication regimen; E86.0 Dehydration; N93.8 Other specified abnormal uterine and vaginal bleeding; R31.9 Hematuria, unspecified; R16.1 Splenomegaly, not elsewhere classified; B37.9 Candidiasis, unspecified; I12.9 Hypertensive chronic kidney disease with stage 1 through stage 4 chronic kidney disease, or unspecified chronic kidney disease